=== PATIENT | male | born 1960 | race Caucasian/White ===

== ENCOUNTER 2017-12-14 22:13 | Emergency (ER) | payer MEDICAID, SELFPAY ==
[2017-12-14 22:14] VITALS: PULSE 102; RESP 20; TEMP 36.8; O2SAT 95; BMI 43.0
--- NOTE | 2017-12-14 22:48 | CT_ITS ---
STUDY: CT ABDOMEN AND PELVIS WITHOUT CONTRAST REASON FOR EXAM: Male, 57 years old. Bilateral flank pain RADIATION DOSAGE (If Supplied By Facility): CTDIvol = ( 24.18 ) mGy, DLP = ( 1934.10 ) mGycm TECHNIQUE: Transaxial images were obtained from the dome of the diaphragm to the symphysis pubis without oral contrast, and without intravenous contrast. Sagittal and coronal images were reconstructed. Individualized dose optimization techniques were used for this CT. COMPARISON: August 17, 2017 FINDINGS: The lung bases are clear. There is fatty infiltration of the liver but no dilated intrahepatic biliary radicles. The gallbladder is normal with no gallstones and no pericholecystic fluid collection or streakiness. The spleen, pancreas and both adrenals are normal. The kidneys are normal with no masses, calculi or hydronephrosis. The stomach is normal. There is no bowel distention, acute appendicitis or diverticulitis. No abnormally constricting large bowel lesions. 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 This is in the left midabdomen. The opening is about 7 cm wide. There is no ascites, free intraperitoneal air or any evidence of epiploic appendagitis. The vascular structures in the retroperitoneum are normal There is spondylolisthesis of L5 over S1 with narrowing of the L5-S1 disc space. There is no retrocrural, retroperitoneal or mesenteric adenopathy. There is no mesenteric mistiness The urinary bladder is normal.. The prostate is normal There is no inguinal or pelvic adenopathy and there is no inguinal hernia. CT/Abdomen/Pelvis without Cont IMPRESSION: No acute findings in the abdomen or pelvis. No hydronephrosis. No abnormal calcifications in the kidneys. No acute appendicitis. No diverticulitis. Fatty infiltration of the liver. A left mid abdominal colostomy with a large parastomal herniation with nondistended loops of bowel within the hernial sac. Similar findings were noted in the last examination of June 17, 2017. Electronically Signed: Julian Ledezma, at 0:49 EST Tel , Service support ,
[2017-12-14 23:19] LABS: Absolute Lymphocyte Count 1.71 X10^3/ul (0.83-4.51); Absolute Neutrophil Count 6.8 X10^3/uL (2.0-7.7); Basophil# 0.04 X10^3/uL; Basophil% 0.4 % (0-1); Eosinophil# 0.15 X10^3/uL; Eosinophils% 1.6 % (0-5); Hematocrit 44.7 % (40-54); Hemoglobin 15.3 g/dl (13.0-16.5); Lymphocyte # 1.71 X10^3/ul (4.0); Lymphocyte % 18.2 % (19-41); Mean Corp Hgb Conc 34.2 g/gl (32-36); Mean Corpuscular Hgb 31.4 pg (27.0-32.0); Mean Corpuscular Volume 91.6 fL (80-94); Mean Platelet Vol. 8.9 fl (6.2-12.0); Monocyte# 0.66 X10^3/uL; Neutrophil # 6.78 X10^3/uL (2.7-7.7); Neutrophil % 72.3 % (47-70); Platelet Count 279 K/mm3 (150-450); RBC Distribution Width CV 13.4 % (11.6-14.6); RBC Distribution Width SD 44.3 fl (35.1-43.9); Red Blood Count 4.88 M/mm3 (4.6-6.2); White Blood Count 9.4 K/mm3 (4.4-11.0)
[2017-12-14 23:22] LABS: POSITIVE COUNT NO; POSITIVE DIFFERENTIAL NO; POSITIVE MORPHOLOGY NO
[2017-12-14 23:28] LABS: Bacteria 0 SEEN /hpf (None Seen); Mucous, Urine 0 SEEN /hpf (<or=2+); Red Blood Cells-Urine 0 SEEN /hpf (0-5); Squamous Epithelial Cells - UA 0 SEEN /hpf (0-5)
[2017-12-14 23:35] LABS: Color, Urine Yellow (Yellow); Glucose, Dipstick Normal (Normal); Ketone-Dipstick Negative (Negative); Leukocyte Esterase-Dipstick 25 /ul (Negative); Nitrite-Dipstick Negative (Negative); Occult Blood-Urine Negative /ul (Negative); Protein-Dipstick Negative (Negative); Specific Gravity, Urine 1.005 (1.002-1.030); Urine Bilirubin Dipstick Negative (Negative); Urine Clarity Clear (Clear); Urine Urobilinogen Normal (Normal); Urine pH 6.5 (5.0 - 8.0)
[2017-12-14 23:40] LABS: Anion Gap 10 (5-15); BUN 10 mg/dL (7-18); BUN/Creat Ratio 10.2 RATIO (10-20); Calcium,Total 9.3 mg/dL (8.5-10.1); Chloride 108 mmol/L (98-107); Creatinine, Serum 0.98 mg/dL (0.70-1.30); EST Glomerular Filtration Rate 84 mL/min (>60); Est Glom Filt Rate - Afr Amer 101 mL/min (>60); Glucose 99 mg/dL (74-106); Potassium 3.9 mmol/L (3.5-5.1); Sodium Level 140 mmol/L (136-145)
[2017-12-14 23:48] LABS: White Blood Cells 0-5 SEEN /hpf (0-5)
[2017-12-15] MEDS: Ketorolac 30 MG/ML Syringe IV (00:40)
--- NOTE | 2017-12-15 00:56 | ED.VISSUMM ---
- ER Visit Summary Date of Service: 12/15/17 Chief Complaint: Urinary tract infection History of Present Illness: The patient is a 57 M who believes he has a recurrent urinary tract infection. He self caths due to neurogenic bladder. He has an ostomy due to prior colon cancer. States he is recently in the hospital with a right thigh cutaneous abscess. He is currently on Bactrim with his last dose coming tomorrow. No fevers. He notes pain in the bilateral flank similar to his prior kidney infections. No vomiting. States that the symptoms have been present for the last 4 days. He also notes that he is recently decreased to self cath times per day from 5-3. He notes over the past 4 days that he will have the pain in the flank suprapubic region and try to go to the bathroom and urinate he states that anytime he gets there he is dribbling and then he is done going. Physical Examination: Afebrile vital signs are stable Gen: Well-nourished well-developed morbidly obese Head: Normocephalic atraumatic Eyes: Perrl EOMI ENT: TMs clear no rhinorrhea moist mucous membranes Neck: Supple no lymphadenopathy no JVD nontender CVS: Regular rate rhythm no murmurs normal S1-S2 Respiratory: No distress clear to auscultation bilaterally chest nontender Abdomen: Soft nontender nondistended normal bowel sounds no masses there is an ostomy with a associated area Back: Lateral CVA tenderness Extremity: Nontender no edema Skin: Normal color no rash Neuro: alert orientated ?3 CN II-XII intact normal strength sensation reflexes gait cerebellar Psych: Normal affect normal mood Test Results: CBC BMP urinalysis and CT flank were essentially negative. Emergency Department Course and Treatment: Received a dose of Toradol. I do not see an obvious cause for his pain. Could be due to his recent hospitalization immobility and could be musculoskeletal in nature. Impression: 1. Bilateral flank pain This note was generated with [employer] dictation software. It may contain incorrect words, spelling, and punctuation that were not noted in review of the chart prior to signing ED Disposition - Plan for ED Patient: Disposition: Home or Assisted Living Chief Complaint: Flank Pain Instructions: ED Flank Pain Uncertain Cause Referrals: Edin Mcfarland MD [Primary Care Provider] - 3-5 Days if not improving
[2017-12-15 01:06] VITALS: PULSE 99; RESP 18; O2SAT 96
== END 2017-12-15 01:09 | disposition home or self-care (01) ==
PROVIDERS: Emergency Provider Emergency Medicine; Family Provider Family Medicine; PCP Family Medicine
DX: R10.9 Unspecified abdominal pain (principal); N31.9 Neuromuscular dysfunction of bladder, unspecified; L02.415 Cutaneous abscess of right lower limb; E66.01 Morbid (severe) obesity due to excess calories; Z93.3 Colostomy status; Z85.038 Personal history of other malignant neoplasm of large intestine; Z87.440 Personal history of urinary (tract) infections; Z87.891 Personal history of nicotine dependence; Z79.899 Other long term (current) drug therapy
CPT/HCPCS: 74176; 80048; 81001; 85025; 96374; 99285; P9612; A4216

== ENCOUNTER 2020-06-01 15:56 | Emergency (ER) | payer MEDICAID, SELFPAY ==
[2020-06-01 15:59] VITALS: BP 151/88; PULSE 99; RESP 16; TEMP 36.7; O2SAT 95; BMI 50.2
--- NOTE | 2020-06-01 16:12 | VDLE_ITS ---
Reason For Study: PAIN Procedure LEFT Exam performed portable in ED. GSV is normal. A preliminary report was called and/or faxed CFV is compressible, spontaneous, phasic, to ED. competent, and demonstrates normal augmentation. FV is compressible, spontaneous, phasic, competent and demonstrates normal augmentation. POP V is compressible, spontaneous, phasic, competent and demonstrates normal augmentation. T/P Trunk is compressible. PTV is compressible. LT PerV is compressible. Left Access V at knee is DILATED and NONCOMPRESSIBLE -consistent with Thrombophlebtis. Interpretation Summary Deep veins of the left lower extremity are patent and compressible segmentally. There is no evidence of left lower extremity deep vein thrombosis. Valvular competence appears intact within the proximal deep venous system on the left . The left great saphenous vein appears patent and compressible segmentally. Acute superficial thrombophlebitis is noted involving a left accessory saphenous vein at the knee. Ordering Physician: Timothy Orellana Referring Physician: TAMEKA DIALLO Performed By: Jaylin Gomez, LEAH, RVT
--- NOTE | 2020-06-01 16:14 | ED.VIS.GEN ---
History of Present Illness Chief Complaint: Lower Extremity Injury Informant: Patient Onset: Days Context: Sudden Onset Timing: Continuous Quality: Pain Location: Proximal medial left thigh Current Severity: Mild Maximum Severity: Severe Worsened by: Touch Relieved by: Nothing Associated Symptoms: None Narrative: Patient is a 59-year-old male who presents with redness, tenderness and swelling proximal medial left thigh. He has history of prior DVT left lower extremity. He denies chest pain or shortness of breath. He is not on an anticoagulant or aspirin. He reports history of obstructive sleep apnea and compliant with his BiPAP machine. He denies any other symptoms or complaints. Prior similar symptoms: Yes Recent Illness/Hospitalization: No - Past Medical History (1) Obstructive sleep apnea Status: Acute (2) Cancer of colon with rectum Status: Chronic Comment: Following w/ Dr. Valencia, s/p rectal resection w/ osteomy, last chemotherapy 10/16/15-10/18/15. (3) History of creation of ostomy Status: Chronic (4) Morbid obesity Status: Chronic (5) Neurogenic bladder, flaccid Status: Chronic Comment: Patient self caths daily. (6) Tobacco abuse Status: Chronic Comment: History of, cessation 1 year. Past Medical History - Allergies and Home Meds Allergies/Adverse Reactions: Allergies codeine Allergy (Verified 06/01/20 15:59) Itching Penicillins Allergy (Verified 06/01/20 15:59) Hives IV CONTRAST Allergy (Severe, Uncoded 06/01/20 15:59) Other HIVES/ITCHING/NAUSEA/VOMITING---HAS ALL SYMPTOMS AFTER PREMEDS Primary Care Physician: Edin Mcfarland MD [Primary Care Provider] - Prior records reviewed: Yes - Prior history of DVT Surgical History: tonsillectomy, - - Surgery for fracture left elbow w/ hardware, Complete resection rectum w/ ostomy placement, portacath Lives: Alone Smoking Status: Former smoker Alcohol: None Drugs: None - Family History Paternal Family History: Reports: Diabetes, Heart Disease, Hypertension Maternal Family History: Reports: Hypertension, No pertinent history Review of Systems General: Denies: Chills, Fever, Malaise, Sweats, Weight loss ENT: Denies: Rhinorrhea, Sore throat Cardiovascular: Denies: Chest pain, Palpitations Respiratory: Denies: Dyspnea, Cough, Dyspnea on exertion, Orthopnea Gastrointestinal: Denies: Nausea, Vomiting, Melena, Hematochezia Musculoskeletal: Reports: Swelling, Extremity Pain. Denies: Myalgias, Arthralgias, Neck pain, Back pain Skin: Denies: Rash Neurological: Denies: Weakness, Parasthesia Psych: Denies: Depression, Anxiety Endocrine: Denies: Polyuria, Polydipsia Allergy: Denies: Uticaria, Swelling of the mouth Physical Exam Vital Signs/Narrative: Vital Signs Temp Pulse Resp BP Pulse Ox 06/01/20 15:59 98.1 F 99 16 151/88 H 95 Inital Vital Signs reviewed: Yes General: Well nourished, Well developed, Obese Head: Normocephalic, Atraumatic Eyes: Perrl, EOMI. Negative for: Pale conjunctiva, Scleral icterus ENT: Moist mucous membranes, No rhinorrhea Neck: Supple, Nontender, No lymphadenopathy, No JVD Cardiovascular: Regular rate, Regular rhythm, No murmurs, Normal S1, Normal S2 Respiratory: No distress, CTA bilaterally Extremities: No edema, Tenderness - There is a palpable cord proximal medial left thigh along the distribution of the greater saphenous vein. . Negative for: Nontender Skin: Normal color, No rash, No Trauma. Negative for: Cyanosis, Diaphoresis Neurological: Alert, Oriented x3, Cranial nerves II-XII grossly intact, Normal Strength, Normal Sensation Psychological: Normal affect Diagnostic/Tx/Re-eval Venous duplex study shows left excess vein at the knee is dilated and noncompressible consistent with thrombophlebitis. This is a superficial vessel. There is no evidence of DVT. - Medical Decision Making Has a superficial thrombus in the proximal greater saphenous. Will obtain venous duplex study to determine the extent of the clot and more importantly how close it is to the deep venous system. If within 10 cm he will require anticoagulation otherwise we will treat as superficial venous thrombosis with aspirin. ED Disposition - Plan for ED Patient: Disposition: Home or Assisted Living Diagnosis: Superficial thrombophlebitis of left leg Instructions: ED Phlebitis Superficial Referrals: Edin Mcfarland MD [Primary Care Provider] - 1 Week if not improving Additional Instructions: Take an aspirin in the morning and an aspirin at night for the next 7 days.
--- NOTE | 2020-06-01 17:42 | ED.DCSUM_ITS ---
- ER Visit Summary Date of Service: 06/01/20 Chief Complaint: [] History of Present Illness: The patient is a 59 M [] Physical Examination: [] Test Results: [] Emergency Department Course and Treatment: [] Treatment Plan: [] Disposition: [] Impression: [] This note was generated with [employer] dictation software. It may contain incorrect words, spelling, and punctuation that were not noted in review of the chart prior to signing ED Disposition - Plan for ED Patient: Disposition: Home or Assisted Living Diagnosis: Superficial thrombophlebitis of left leg Instructions: ED Phlebitis Superficial Prescriptions: Aspirin E.C. [Ecotrin] 325 mg PO BID #14 tab Transmission Status: Pending to [facility]/pharmacy #[id number] Referrals: Edin Mcfarland MD [Primary Care Provider] - 1 Week if not improving Additional Instructions: Take an aspirin in the morning and an aspirin at night for the next 7 days.
[2020-06-01 17:49] VITALS: PULSE 98; RESP 17; O2SAT 93
== END 2020-06-01 18:10 | disposition home or self-care (01) ==
PROVIDERS: Emergency Provider Emergency Medicine; PCP Family Medicine
DX: I80.02 Phlebitis and thrombophlebitis of superficial vessels of left lower extremity (principal); E66.01 Morbid (severe) obesity due to excess calories; Z85.038 Personal history of other malignant neoplasm of large intestine; Z86.718 Personal history of other venous thrombosis and embolism; Z87.891 Personal history of nicotine dependence
CPT/HCPCS: 93971; 99281; 99282

== ENCOUNTER 2021-11-08 13:07 | Observation (INO) | payer MEDICAID, SELFPAY ==
[2021-11-08] VITALS (8 sets, daily range): BP systolic 152–193; BP diastolic 94–112; PULSE 18–112; RESP 13–104; TEMP 36.6–36.9; O2SAT 92–95; BMI 52.9; BMI 50.4
--- NOTE | 2021-11-08 13:31 | EKG12_ITS ---
Test Reason : CP Blood Pressure : / mmHG Vent. Rate : 112 BPM Atrial Rate : 112 BPM P-R Int : 162 ms QRS Dur : 070 ms QT Int : 330 ms P-R-T Axes : 049 026 058 degrees QTc Int : [address] abnormality Abnormal ECG Confirmed by BLADIMIR MCMILLAN, TWYLA ([id number]), editor & co founder KALI HERMAN ([id number]) on 11/13/2021 11:19:30 AM Referred By: JOSE FRANCISCO/DIANN Confirmed By:TWYLA GARRISON MD
--- NOTE | 2021-11-08 13:33 | EX.ED.DYSGE1 ---
HPI History of Present Illness Chief Complaint: Chest Pain Informant: patient Onset/Context/Timing Onset: Today Current Severity: Mild Maximum Severity: Moderate Narrative Narrative: Patient states he was standing at the kitchen sink doing dishes when he started getting pain in his chest. He turned to go sit at the kitchen table when he fell landing on his right side. He now has significant pain on the posterior right hip. He does not believe he passed out. Chest pain is currently improved. [facility] Medical History (Updated 11/08/21 @ 17:[address] Ellie Card MD) Allergy to contrast media (used for diagnostic x-rays) Cancer of colon with rectum Depression Morbid obesity Neurogenic bladder, flaccid Obstructive sleep apnea Parastomal hernia Home Medications hydroxyzine HCl 50 mg PO Q6H PRN PRN 12/14/17 [History Last Taken Unknown] pantoprazole 20 mg PO DAILY 12/14/17 [History Last Taken Unknown] quetiapine 100 mg PO QHS 12/14/17 [History Last Taken Unknown] sertraline [Zoloft] 100 mg PO DAILY 12/14/17 [History Last Taken Unknown] aspirin 325 mg PO BID #14 tab 06/01/20 [Rx Last Taken Unknown] Allergy/AdvReac Type Severity Reaction Status Date / Time codeine Allergy Itching Verified 11/08/21 13:08 Penicillins Allergy Hives Verified 11/08/21 13:08 IV CONTRAST Allergy Severe Other Uncoded 06/01/20 15:59 Social History Smoking Status: Former smoker ROS ROS ED Constitutional Constitutional ED: Denies chills or fever(s) Eyes Eyes: Denies change in vision ENT ENT ED: Reports other Details: Congestion ; Denies sore throat Cardiovascular Cardiovascular: Reports chest pain Respiratory/Chest Respiratory/Chest: Denies cough or dyspnea Gastrointestinal Gastrointestinal: Denies abdominal pain, diarrhea, nausea or vomiting Genitourinary Genitourinary ED: Denies dysuria Musculoskeletal Musculoskeletal: Reports arthralgias; Denies back pain Integumentary Denies rash Neurologic Neurologic: Reports weakness; Denies headache(s) Allergic/Immunologic Allergic/Immunologic ED: Denies urticaria EXAM Physical Exam Const Vital Signs: 11/08/21 13:08 11/08/21 13:39 11/08/21 15:26 Temperature 98 F Temperature Source Temporal Pulse Rate 112 H 110 H 106 H Respiratory Rate 21 H 13 18 Blood Pressure 152/94 H 174/102 H 193/112 H Blood Pressure Mean 113 126 139 Pulse Ox 95 93 93 Oxygen Delivery Method Room Air Room Air 11/08/21 17:19 Temperature Temperature Source Pulse Rate 107 H Respiratory Rate 19 H Blood Pressure 180/102 H Blood Pressure Mean 128 Pulse Ox 92 Oxygen Delivery Method Positive obese Nutritional Appearance: obese HEENT Reports moist mucous membranes Eyes PERRL and EOMs intact bilaterally Neck supple Chest Wall inspection of chest normal and palpation of chest normal Resp normal respiratory effort and clear to auscultation bilaterally Cardio regular rhythm Rate: tachycardic GI non-tender Palpation: soft Extremity Extremity Narrative: Tenderness to the right hip. Leg rolled externally. Strong distal pulses Neuro oriented x3 Sensorium / Orientation: alert Psych mental status grossly normal Skin no rashes or lesions noted MDM MDM MDM Narrative Medical decision making narrative: Patient was given morphine and Zofran. He was given p.o. aspirin. EKG, chest x-ray, lab work obtained. Pelvis and right hip x-rays ordered. Lab Data Attestation: I reviewed the patient's lab results. Labs: Laboratory Results - last 24 hr 11/08/21 11/08/21 11/08/21 13:55 15:05 15:05 WBC 7.9 RBC 4.52 L Hgb 14.5 Hct 41.6 MCV 92.0 MCH 32.1 H MCHC 34.9 RDW Std Deviation 44.2 H RDW Coeff of Mar 13.1 Plt Count 243 MPV 8.9 Immature Gran % (Auto) 0.800 Neut % (Auto) 73.7 H Lymph % (Auto) 14.4 L Kendall % (Auto) 9.6 Eos % (Auto) 0.9 Baso % (Auto) 0.6 Absolute Neuts (auto) 5.9 Absolute Lymphs (auto) 1.14 Nucleated RBC % 0 Sodium 140 Potassium 4.0 Chloride 107 Carbon Dioxide 27.0 Anion Gap 6 BUN 5 L Creatinine 0.80 Estim Creat Clear Calc 101.39 Est GFR (MDRD) Af Amer 126 Est GFR (MDRD) Non-Af 104 BUN/Creatinine Ratio 6.2 L Glucose 161 H Calcium 9.1 Troponin I High Sens 8 POC Glucose 149 H Radiography Chest X-Ray - ED: 1 View, Read by ED Physician and Chronic Changes Diagnostic Testing: Clinical Impression(s) from Imaging Studies Hip/Pelvis X-Ray 11/08/21 13:34 IMPRESSION: Mild degenerative changes of the right hip. No acute fracture of the hips or pelvis Electronically Signed: Edin Aranda MD at 16:16 EST , Service support , Chest X-Ray 11/08/21 15:45 IMPRESSION: Cardiomegaly. No acute cardiopulmonary pathology Electronically Signed: Edin Aranda MD at 16:08 EST , Service support , EKG Initial EKG: Attestation: I personally reviewed and interpreted this EKG as follows: Interpretation: Sinus Tachycardia (Sinus tach at [address].) Treatment and Re-Evaluation Comments:: Lab work reviewed and largely unremarkable. Troponin is normal at 8. Chest x-ray reveals chronic changes. Pelvis and right hip x-rays reveal no obvious fracture. Patient did require dose of Dilaudid after return from x-ray. He is still having significant pain in his hip. I did recommend observation overnight for cycling cardiac enzymes as well as further evaluation of his hip. I did explain to him that MRI would be a better diagnostic test to evaluate this. I will speak with the hospitalist. Discharge Plan Triage Chief Complaint: Chest Pain ED Provider: Ellie Card Dx/Rx/DC Orders Clinical Impression: Chest pain, Fall, Acute pain of right hip Prescriptions: No Action sertraline [Zoloft] 100 MG tablet 100 mg PO DAILY RF: 0 hydroxyzine HCl 50 MG tablet 50 mg PO Q6H PRN PRN (Reason: Anxiety) RF: 0 quetiapine 100 MG tablet 100 mg PO QHS RF: 0 pantoprazole 20 MG tablet 20 mg PO DAILY RF: 0 aspirin 325 MG tablet 325 mg PO BID Qty: 14 RF: 0 Primary Care Provider: Edin Mcfarland Referrals: Edin Mcfarland MD [Primary Care Provider] - Disposition Disposition: Acute Care [facility]
--- NOTE | 2021-11-08 13:34 | RAD_ITS ---
STUDY: X-RAY - PELVIS AND RIGHT HIP REASON FOR EXAM: Male, 61 years old. injury TECHNIQUE: 3 views of the pelvis and hip. COMPARISON: None. FINDINGS: There is a non-specific bowel gas pattern. Normal visualized soft tissue structures. Normal bilateral iliac wings, sacroiliac joints and visualized sacrum. Normal bilateral superior and inferior pubic rami. Normal pubic symphysis. Normal bilateral ischial tuberosities. Normal visualized femoral head. Small right acetabular spur. Normal hip joint. RAD/HIP, UNI W/ Pelvis 2-3 Views IMPRESSION: Mild degenerative changes of the right hip. No acute fracture of the hips or pelvis Electronically Signed: Edin Aranda MD at 16:16 EST , Service support ,
[2021-11-08 14:11] LABS: Bedside Glucose 149 mg/dL (70-110)
[2021-11-08] MEDS: Aspirin 81 MG TAB.CHEW 324 MG PO (14:11)
--- NOTE | 2021-11-08 14:52 | ED.RN ---
Patient difficult IV stick, multiple attempts unsuccessful. US IV needed.
[2021-11-08 15:14] LABS: Absolute Lymphocyte Count 1.14 X10^3/uL (0.83-4.51); Absolute Neutrophil Count 5.9 X10^3/uL (2.0-7.7); Basophil# 0.05 X10^3/uL; Basophil% 0.6 % (0-1); Eosinophil# 0.07 X10^3/uL; Eosinophils% 0.9 % (0-5); Hematocrit 41.6 % (40-54); Hemoglobin 14.5 g/dL (13.0-16.5); Lymphocyte # 1.14 X10^3/ul (0.83-4.51); Lymphocyte % 14.4 % (19-41); Mean Corp Hgb Conc 34.9 g/dL (32-36); Mean Corpuscular Hgb 32.1 pg (27.0-32.0); Mean Platelet Vol. 8.9 fl (6.2-12.0); Monocyte# 0.76 X10^3/uL; Monocyte% 9.6 % (0-10); NRBC Flagged by Analyzer 0 % (0-5); Neutrophil # 5.86 X10^3/uL (2.7-7.7); Neutrophil % 73.7 % (47-70); Platelet Count 243 K/mm3 (150-450); RBC Distribution Width CV 13.1 % (11.6-14.6); RBC Distribution Width SD 44.2 fl (35.1-43.9); Red Blood Count 4.52 M/mm3 (4.6-6.2); White Blood Count 7.9 K/mm3 (4.4-11.0)
[2021-11-08] MEDS: Ondansetron 4 MG/2 ML Vial IV (15:21)
[2021-11-08] MEDS: Morphine 4 MG/ML Syringe IV (15:21)
[2021-11-08 15:30] LABS: Anion Gap 6 (5-15); BUN 5 mg/dL (7-18); BUN/Creat Ratio 6.2 RATIO (10-20); Calcium,Total 9.1 mg/dL (8.5-10.1); Chloride 107 mmol/L (98-107); EST Glomerular Filtration Rate 104 mL/min (>60); Est Glom Filt Rate - Afr Amer 126 mL/min (>60); Estimated Creatinine Clearance 101.39 ml/min; Glucose 161 mg/dL (74-106); Sodium Level 140 mmol/L (136-145); Troponin-I HS 8 pg/mL (3.0-78.0)
--- NOTE | 2021-11-08 15:45 | RAD_ITS ---
STUDY: X-RAY CHEST REASON FOR EXAM: Male, 61 years old. cp TECHNIQUE: AP portable COMPARISON: 09/22/2017 FINDINGS: Less than optimal inspiratory effort is seen however the lungs are clear.. There is no demonstrated pleural abnormality. Heart is enlarged.. Normal mediastinum and carlito. Normal visualized pulmonary arteries. Normal visualized aortic arch and descending thoracic aorta. Dorsal spine demonstrates degenerative changes. Normal visualized ribs, clavicles, and shoulders. There is no demonstrated abnormality of the visualized soft tissue structures of the upper abdomen. RAD/Chest 1 View (Portable) IMPRESSION: Cardiomegaly. No acute cardiopulmonary pathology Electronically Signed: Edin Aranda MD at 16:08 EST , Service support ,
[2021-11-08] MEDS: HYDROmorphone 0.5 MG/0.5 ML SYRINGE IV ×2 (17:22→21:25)
--- NOTE | 2021-11-08 18:15 | HP.PCM.HOS_ITS ---
HPI - General General Date of Admission: 11/08/21 Date of Service: 11/08/21 Chief Complaint: Chest pain, fall w/ R hip pain HPI Narrative The patient is a 61 y/o M w/ PMHx: CARLOS on BIPAP q HS, Morbid Obesity, Hx Colon- rectal CA s/p resection with ostomy with reported recent bowel obstruction ~ 2 weeks prior treated conservatively at [facility], Former tobacco use, Anxiety and Depression, Hx Neurogenic bladder w/ history prior frequent UTI reporting no self catheterizations over the last year following discussions with his Urologist to avoid hospitalization who presents to the [facility] ED on 11/08/21 with history of standing in his kitchen earlier in the day with sudden onset midsternal nonradiating chest pressure rated 4-5 out of 10 in severity with associated nausea with lightheadedness and dizziness prompting him to turn around to go sit down however he fell onto his right hip with no specific loss of consciousness with intractable hip pain and debility with inability to bear weight following. He notes currently his chest pain has completely resolved and rates it 0 out of 10. He notes currently upon evaluation his hip pain is severe with any movement rated 10 out of 10 and with no activity laying flat and still 6 out of 10, sharp. Work-up in the ED included T 98, heart rate 112, BP 152/94, respiratory rate 21, 95% on room air, CBC with WC 7.9, hemoglobin 14.5, platelet 243 without marked shift, BMP with glucose 161 otherwise not marked appearing, high-sensitivity cardiac troponin 8, rapid COVID antigen negative, chest x-ray with cardiomegaly with no acute cardiopulmonary findings, plain film of the right hip and pelvis with mild degenerative changes with no acute fracture, EKG with sinus tachycardia with no acute evidence of ischemia. In the ED patient administered Zofran, morphine, Dilaudid and aspirin 324 mg p.o. x1. FOR[facility]LY [facility], [facility] Medical History (Updated 11/08/21 @ 18:[address] Elin Dumont MD) Allergy to contrast media (used for diagnostic x-rays) Cancer of colon with rectum Depression Morbid obesity Neurogenic bladder, flaccid Obstructive sleep apnea Parastomal hernia Home Medications alendronate 70 mg PO QWEEK 11/08/21 [History Last Taken Unknown] ondansetron 4 mg PO Q6H PRN PRN 11/08/21 [History Last Taken Unknown] pantoprazole 40 mg PO DAILY 11/08/21 [History Last Taken 11/07/21] sumatriptan succinate 100 mg PO DAILY PRN 11/08/21 [History Last Taken Unknown] Allergy/AdvReac Type Severity Reaction Status Date / Time codeine Allergy Itching Verified 11/08/21 13:08 Penicillins Allergy Hives Verified 11/08/21 13:08 IV CONTRAST Allergy Severe Other Uncoded 06/01/20 15:59 Family History (Updated 11/08/21 @ 18:[address] Elin Dumont MD) Mother No problems noted. Father Heart disease Cancer other (No marked maternal family history reported included HD, DM, CA.) Surgical History (Updated 11/08/21 @ 18:[address] Elin Dumont MD) H/O resection of rectum History of bowel resection History of creation of ostomy History of surgery on arm History of tonsillectomy and adenoidectomy Social History (Updated 11/08/21 @ 18:[address] Elin Dumont MD) housing: other details: Lives with a roommate. Smoking Status: Former smoker how long ago did patient quit smoking: Quit 10 years prior, smoked 1 ppd since age 28. alcohol intake: current alcohol intake frequency: a few times a month substance use type: does not use ROS ROS Narrative Admission Review of Systems: CONSTITUTIONAL: No weight loss, fever, chills, + weakness or fatigue. HEENT: Eyes: No visual loss, blurred vision, double vision or yellow sclerae. Ears, Nose, Throat: No hearing loss, sneezing, congestion, runny nose or sore throat. SKIN: No rash or itching, lesions, wounds. CARDIOVASCULAR: + chest pain, chest pressure or chest discomfort, LH, dizziness. No palpitations, edema, orthopnea, syncopal events. RESPIRATORY: No shortness of breath, cough or sputum, wheezing, hemoptysis. GASTROINTESTINAL: + Nausea, No anorexia, vomiting or diarrhea, abdominal pain, melena, BRBPR. GENITOURINARY: + Chronic frequency. No dysuria, urgency or retention. NEUROLOGICAL: No headache, dizziness, syncope, paralysis, ataxia, numbness or tingling in the extremities, focal weakness, change in bowel or bladder control, seizure. MUSCULOSKELETAL: + muscle, back pain, joint pain or stiffness. HEMATOLOGIC: No anemia, bleeding or bruising. LYMPHATICS: No enlarged nodes. No history of splenectomy. PSYCHIATRIC: + history of depression or anxiety. ENDOCRINOLOGIC: No reports of sweating, cold or heat intolerance. No polyuria or polydipsia. ALLERGIES: No history of asthma, hives, eczema or rhinitis. Vital Signs Vital Signs Vital Signs: 11/08/21 13:08 11/08/21 13:39 11/08/21 15:26 Temperature 98 F Temperature Source Temporal Pulse Rate 112 H 110 H 106 H Respiratory Rate 21 H 13 18 Blood Pressure 152/94 H 174/102 H 193/112 H Blood Pressure Mean 113 126 139 Pulse Ox 95 93 93 Oxygen Delivery Method Room Air Room Air 11/08/21 17:19 Temperature Temperature Source Pulse Rate 107 H Respiratory Rate 19 H Blood Pressure 180/102 H Blood Pressure Mean 128 Pulse Ox 92 Oxygen Delivery Method Weight Weight: 368 lb 13.334 oz Body Mass Index (BMI) 52.9 Physical Exam Narrative Physical Examination: General: Awake, alert, oriented x 3 and cooperative, laying in the bed, notes chest pain resolved, ongoing significant severe right hip pain, worse with any movement. Skin: Normal color, normal turgor, no icterus, no cyanosis. HEENT: AT/NC, EOMI, PERRLA, mildly dry MM, no carotid bruits or JVD noted; however, thickened neck makes examination difficult. Lungs: Diminished bilaterally, greater bases, no evidence of any distress, distant, no rales, ronchi or wheezing. Heart: Regular rate and rhythm; no gallop, rub audible, no reproducible midsternal chest discomfort with palpation. Abdomen: Soft, morbidly obese, left lower quadrant ostomy in place, uses band for hernia, difficult to assess distention given habitus, distant normal bowel sounds, no obvious HSM but habitus makes exam difficult. Extremities: No cyanosis, clubbing, or edema, peripheral pulses intact, severe intractable right hip pain ongoing. Neurological: Patient awake, alert, oriented as noted, cognitive function intact; pupils equally reactive to light and accommodation, cranial nerves II- XII grossly normal, moving all 4 extremities, no focal deficits but difficult exam given intractable right hip pain, deferred significant right lower extremity movement pending further evaluation for possible fracture, strength accordingly severely globally decreased. Psychiatric: Affect appears uncomfortable, no acute evidence of depressive or anxiety feelings. Results Lab / Micro Data Result Diagrams: 11/08/21 15:05 11/08/21 15:05 Labs: Laboratory Results - last 24 hr 11/08/21 13:55: POC Glucose 149 H 11/08/21 15:05: WBC 7.9, RBC 4.52 L, Hgb 14.5, Hct 41.6, MCV 92.0, MCH 32.1 H, MCHC 34.9, RDW Std Deviation 44.2 H, RDW Coeff of Mar 13.1, Plt Count 243, MPV 8.9, Immature Gran % (Auto) 0.800, Neut % (Auto) 73.7 H, Lymph % (Auto) 14.4 L, Linn % (Auto) 9.6, Eos % (Auto) 0.9, Baso % (Auto) 0.6, Absolute Neuts (auto) 5.9, Absolute Lymphs (auto) 1.14, Nucleated RBC % 0 11/08/21 15:05: Sodium 140, Potassium 4.0, Chloride 107, Carbon Dioxide 27.0, Anion Gap 6, BUN 5 L, Creatinine 0.80, Estim Creat Clear Calc 101.39, Est GFR (MDRD) Af Amer 126, Est GFR (MDRD) Non-Af 104, BUN/Creatinine Ratio 6.2 L, Glucose 161 H, Calcium 9.1, Troponin I High Sens 8 Micro: Microbiology 11/08/21 14:20 Nasal Secretion SARS-CoV-2 Antigen (Rapid) - Final Radiology Impression Hip/Pelvis X-Ray 11/08/21 13:34 IMPRESSION: Mild degenerative changes of the right hip. No acute fracture of the hips or pelvis Electronically Signed: Edin Aranda MD at 16:16 EST , Service support , Chest X-Ray 11/08/21 15:45 IMPRESSION: Cardiomegaly. No acute cardiopulmonary pathology Electronically Signed: Edin Aranda MD at 16:08 EST , Service support , Assessment & Plan Assessment/Plan (1) Chest pain: QUALIFIERS: Chest pain type: unspecified Qualified Code(s): R07.9 - Chest pain, unspecified (2) Acute pain of right hip: PLAN: The patient is a 61 y/o M w/ PMHx: CARLOS on BIPAP q HS, Morbid Obesity, Hx Colon-rectal CA s/p resection with ostomy with reported recent bowel obstruction ~ 2 weeks prior treated conservatively at [facility], Former tobacco use, Anxiety and Depression, Hx Neurogenic bladder w/ history prior frequent UTI reporting no self catheterizations over the last year following discussions with his Urologist to avoid hospitalization who presents to the [facility] ED on 11/08/21 with history of standing in his kitchen earlier in the day with sudden onset midsternal nonradiating chest pressure rated 4-5 out of 10 in severity with associated nausea with lightheadedness and dizziness prompting him to turn around to go sit down however he fell onto his right hip with no specific loss of consciousness with intractable hip pain and debility with inability to bear weight following. #1. Chest Pain: EKG in ED sinus tachycardia with no acute evidence of ischemia, CXR w/ cardiomegaly with no acute cardiopulmonary findings, initial trop normal x1. Will admit to PCU, place on a monitored bed to assure no acute myocardial infarction with serial cardiac enzymes and EKGs. If repeat serial cardiac enzymes and EKGs remain unremarkable will pursue a.m. cardiac nuclear stress testing. Magnesium level requested. FLP in AM. Maintain on aspirin therapy, PRN NG, morphine. #2. General debility, intractable R hip pain s/p mechanical fall: Plain film noting no acute fracture however given size and ongoing intractable pain will further assess. Will maintain on fall precautions, continue bedrest until as sure no fracture, will obtain CT without contrast imaging of the right hip and pelvis and if any fracture present will request orthopedic surgery involvement. If fracture evident or still intractable pain may need catheter placement, monitor I/Os, frequent positioning, fall precautions, pain, anti-emetic regimen. Pending imaging, if no fracture obtain PT/OT/CM. #3. Elevated BP without HTN history: Notable elevated BP in the ED, suspect pain related however will be cautious and continue to closely monitor, PRN Hydralazine in the interim. #4. Hx Colon-rectal CA with recent bowel obstruction: s/p resection with ostomy with reported recent bowel obstruction, resolved conservatively, will continue to closely monitor I/Os, if necessary may request [place] records. #5. Morbid Obesity: Weight loss and lifestyle changes encouraged. #6. Anxiety and Depression: From prior list had previously been on sertraline, quetiapine, hydroxyzine regimen however he is no longer on this, encourage cont inued outpatient follow-up and resumption of medications if necessary. #7. Neurogenic Bladder with prior Hx self-catheterzation: Patient has been urinating frequently over the last year as he and his urologist decided to stop self-catheterization to avoid any unnecessary hospitalization for UTIs which patient has had frequently. #8. Former tobacco use: Encourage continued tobacco cessation #9. GERD: Continue home PPI. #10. CARLOS: BIPAP q HS. #11. DVT Prophylaxis: SCDs, await CT imaging hip and if no fracture start lovenox. #12. CODE STATUS: Patient does have a healthcare power of commercial litigation attorney specifically Bill his friend, living will in place, full code. Charges/Coding Visit Charges OBSV E&M: 25502 Initial observation care L3
--- NOTE | 2021-11-08 18:26 | ED.RN ---
Verified need for indwelling urinary catheter placement with Dr. Dumont. Due to patient needing to be immobile and non weight bearing and with obese nature, physician requests catheter placement as patient is unable to use urinal in bed.
--- NOTE | 2021-11-08 19:33 | EKG12_ITS ---
Test Reason : AM EKG Blood Pressure : / mmHG Vent. Rate : 109 BPM Atrial Rate : 109 BPM P-R Int : 174 ms QRS Dur : 078 ms QT Int : 332 ms P-R-T Axes : 053 039 064 degrees QTc Int : 447 ms Sinus tachycardia Otherwise normal ECG When compared with ECG of 08-NOV-2021 21:48, MANUAL COMPARISON REQUIRED, DATA IS UNCONFIRMED Confirmed by ELKIN MCMILLAN, STONEY ([id number]), industrial editor KALI HERMAN ([id number]) on 11/15/2021 8:02:32 AM Referred By: SIMON Confirmed By:ABDIEL GRANGER MD
--- NOTE | 2021-11-08 19:34 | PCS.PANDOC ---
PANDEMIC DOCUMENTATION INITIATED: Date: 06/17/2021 Time: 190
--- NOTE | 2021-11-08 19:34 | PCS.PANDOC ---
PANDEMIC DOCUMENTATION INITIATED: Date: 06/17/2021 Time: 190
--- NOTE | 2021-11-08 20:02 | CT_ITS ---
STUDY: CT PELVIS WITHOUT CONTRAST REASON FOR EXAM: Male, 61 years old. intractable R hip pain, s/p fall -- making sure no hip fracture RADIATION DOSAGE (If Supplied By Facility): CTDIvol = ( 48.13 ) mGy, DLP = ( 1971.21 ) mGycm TECHNIQUE: Transaxial imaging of the pelvis was performed with oral contrast, and without intravenous administration of contrast material. Individualized dose optimization techniques were used for this CT. COMPARISON: None. FINDINGS: Incompletely distended thick-walled bladder containing MEZA catheter Normal visualized small intestine. Minor diverticular changes of the colon without evidence for acute diverticulitis There is no pelvic fluid. There is no pelvic mass lesion or lymphadenopathy. Normal visualized pelvic arteries. Small fat-containing left anterior pelvic wall hernia Lumbar spine demonstrates degenerative change. Grade 1 spondylolisthesis at L5-S1. There is no evidence for acute fracture CT/Pelvis without IV Contrast IMPRESSION: No evidence for acute fracture of the hips or pelvis Electronically Signed: Edin Aranda MD at 20:58 EST , Service support ,
[2021-11-08] MEDS: 0.9% Saline Lock 10 ML Syringe IV ×3 (20:27→23:44)
[2021-11-08] MEDS: oxyCODONE 5 MG Tablet PO (20:27)
[2021-11-08] MEDS: 0.9% Normal Saline 1,000 ML 100 ML IV (20:28)
[2021-11-08 20:44] LABS: Troponin-I HS 7 pg/mL (3.0-78.0)
[2021-11-08 20:55] LABS: Bedside Glucose 156 mg/dL (70-110)
[2021-11-08] MEDS: Acetaminophen 325 MG Tablet 650 MG PO (21:29)
--- NOTE | 2021-11-08 21:50 | CPS ---
set up pt's home BIPAP unit.
[2021-11-08 22:24] LABS: Troponin-I HS 8 pg/mL (3.0-78.0)
[2021-11-09] VITALS (10 sets, daily range): BP systolic 138–177; BP diastolic 76–97; PULSE 95–120; RESP 16–20; TEMP 36.8–37.9; O2SAT 92–96
[2021-11-09] MEDS: HYDROmorphone 0.5 MG/0.5 ML SYRINGE IV ×6 (01:28→21:45)
[2021-11-09] MEDS: 0.9% Saline Lock 10 ML Syringe IV ×6 (01:28→21:44)
[2021-11-09] MEDS: Ondansetron 4 MG/2 ML Vial IV ×2 (01:33→19:30)
[2021-11-09] MEDS: oxyCODONE 5 MG Tablet PO ×5 (02:48→22:18)
[2021-11-09] MEDS: Aspirin E.C. 81 MG Tablet PO (05:53)
--- NOTE | 2021-11-09 05:55 | EKG12_ITS ---
Test Reason : CP ADMISSION Blood Pressure : / mmHG Vent. Rate : 123 BPM Atrial Rate : 123 BPM P-R Int : 182 ms QRS Dur : 072 ms QT Int : 304 ms P-R-T Axes : 045 030 060 degrees QTc Int : 435 ms Sinus tachycardia Nonspecific ST and T wave abnormality Abnormal ECG When compared with ECG of 08-NOV-2021 13:10, MANUAL COMPARISON REQUIRED, DATA IS UNCONFIRMED Confirmed by ELKIN MCMILLAN, STONEY ([id number]), design editor KALI HERMAN ([id number]) on 11/15/2021 8:02:55 AM Referred By: SIMON Confirmed By:ABDIEL GRANGER MD
[2021-11-09] MEDS: Acetaminophen 325 MG Tablet 650 MG PO (05:56)
[2021-11-09 06:48] LABS: Absolute Lymphocyte Count 1.56 X10^3/uL (0.83-4.51); Absolute Neutrophil Count 4.4 X10^3/uL (2.0-7.7); Basophil# 0.06 X10^3/uL; Basophil% 0.9 % (0-1); Eosinophil# 0.11 X10^3/uL; Eosinophils% 1.6 % (0-5); Hematocrit 41.9 % (40-54); Hemoglobin 13.9 g/dL (13.0-16.5); Lymphocyte # 1.56 X10^3/ul (0.83-4.51); Lymphocyte % 22.1 % (19-41); Mean Corp Hgb Conc 33.2 g/dL (32-36); Mean Corpuscular Hgb 31.2 pg (27.0-32.0); Mean Corpuscular Volume 94.2 fL (80-94); Mean Platelet Vol. 9.4 fl (6.2-12.0); Monocyte# 0.84 X10^3/uL; Monocyte% 11.9 % (0-10); NRBC Flagged by Analyzer 0 % (0-5); Neutrophil # 4.43 X10^3/uL (2.7-7.7); Neutrophil % 62.8 % (47-70); Platelet Count 237 K/mm3 (150-450); RBC Distribution Width CV 13.3 % (11.6-14.6); RBC Distribution Width SD 46.2 fl (35.1-43.9); Red Blood Count 4.45 M/mm3 (4.6-6.2); White Blood Count 7.1 K/mm3 (4.4-11.0)
[2021-11-09 07:26] LABS: ALB/GLOB Ratio 0.7 RATIO (0.9-2.4); AST(SGOT) 23 U/L (15-37); Alanine Aminotransfer ALT/SGPT 30 U/L (16-61); Albumin, Serum 2.8 g/dL (3.2-5.0); Alkaline Phosphatase 115 U/L (45-117); Anion Gap 6 (5-15); BUN 6 mg/dL (7-18); BUN/Creat Ratio 7.4 RATIO (10-20); Calcium,Total 8.2 mg/dL (8.5-10.1); Chloride 105 mmol/L (98-107); Cholesterol 150 mg/dL (200); Creatinine, Serum 0.81 mg/dL (0.70-1.30); EST Glomerular Filtration Rate 103 mL/min (>60); Est Glom Filt Rate - Afr Amer 125 mL/min (>60); Estimated Creatinine Clearance 100.14 ml/min; Globulin 4.1 g/dL (2.2-4.2); Glucose 162 mg/dL (74-106); High Density Lipoprotein 31 mg/dL; Potassium 3.6 mmol/L (3.5-5.1); Protein, Total 6.9 g/dL (6.4-8.2); Sodium Level 138 mmol/L (136-145); Triglycerides 176 mg/dL; Very Low Density Lipoprotein 35 mg/dL (5-40)
[2021-11-09 08:28] LABS: Hemoglobin A1c 7.5 % (3.8-5.6)
[2021-11-09] MEDS: Pantoprazole Sodium 40 MG Tablet PO (10:52)
--- NOTE | 2021-11-09 11:37 | PCM.DC ---
Discharge Instructions Diet Discharge Diet: No restrictions Activity Discharge Activity: Return to Normal Activity Weight Bearing Status: Weight bearing as tolerated Dressing / Incision Call your doctor if you observe: Fever of 101 or Higher, Numbness or Tingling, Shortness of breath, Dizziness, Chest pain, Increased palpitations (irregular heartbeat) and Calf discomfort Follow Up Care Please Follow Up With: Primary care provider When: Within the next two weeks. Test Results: Test results from this visit will be discussed in further detail at your follow-up appointment, if applicable. Discharge Plan Admission Admit Date/Time: 11/08/21 18:27 Primary Reason for Your Visit: Chest pain Attending Provider: Shahid Wilson Primary Care Provider: Edin Mcfarland Discharge Orders/Prescriptions Prescriptions: No Action sumatriptan succinate 100 mg tablet 100 mg PO DAILY PRN (Reason: Migraine Headache) RF: 0 alendronate 70 mg tablet 70 mg PO QWEEK RF: 0 pantoprazole 40 mg tablet,delayed release (DR/EC) 40 mg PO DAILY RF: 0 ondansetron 4 mg tablet,disintegrating 4 mg PO Q6H PRN PRN (Reason: Nausea) RF: 0 Referrals / Follow Up: Edin Mcfarland MD [Primary Care Provider] - Disposition Disposition (needs filled in before D/C Order can be placed): Home, Self Care
[2021-11-09 12:11] LABS: Bedside Glucose 215 mg/dL (70-110)
--- NOTE | 2021-11-09 13:37 | STRESSREP_ITS ---
Stress Test Report Pharmacologic/Lexiscan myocardial perfusion stress test. Indication; 69-year-old patient with history of of obstructive sleep apnea, has been on BiPAP, morbid obesity History of: Rectal cancer status post resection Presenting symptoms of chest pain fall with right hip pain Cardiac work-up with EKG showed no evidence of ischemia with sinus tachycardia. Stress protocol: Resting EKG demonstrates. Normal sinus rhythm. 0.4 mg of regadenoson was infused per usual protocol followed by rapid intravenous saline flush injection continuous EKG monitoring was performed. The resting heart rate 100 bpm, the maximum heart rate attained was, 116 bpm which was 72% of maximum predicted heart . Stress EKG showed[, no significant change from the resting EKG, with maximum heart rate of 116 bpm. Arrhythmia: No arrhythmia demonstrated Symptoms: Patient had no symptoms of chest pain Blood pressure at rest: 148/82 mmHg blood pressure at the end of stress: 146/80 mmHg Myocardial perfusion protocol. 15 mCi ]of Technetium 99m Sestamibi was injected at rest. [ 0.4 mg ]of Regadenoson was infused per usual protocol peak infusion[45 mCi ]of Technetium 99m sestamibi was injected. Stress images were obtained stress and rest images were reconstructed and compared in the short axis vertical and horizontal long axis. Gated images were also obtained Perfusion SPECT analysis: Review of the images demonstrate normal uptake of sestamibi at rest, post stress images demonstrate similar uptake of sestamibi to the resting images, homogeneous tracer uptake With no evidence of reversible myocardial ischemia. Gated SPECT analysis: The gated ejection fraction is 64%, normal LV wall motion and normal LV systolic function Conclusion: Normal Lexiscan sestamibi myocardial perfusion study. Normal LV systolic function Je Delgadillo MD,FACC,[facility]
--- NOTE | 2021-11-09 14:19 | PCM.PN.HOSP ---
Documented by User: Juan Jose FRENCH 11/09/21 14:41 Subjective Subjective Patient is a 61-year-old male comfortably resting in bed, alert and orient x3. Patient reports resolution of his chest pain and denies development of any new symptoms overnight. Patient still reports right-sided hip pain from a fall he suffered prior to admission. Patient reports that pain is worse with ambulation, although is tolerable with medications and while at rest. Does not appear in acute distress. Objective Data Objective Data Vital Signs: Vital Signs Temp Pulse Resp BP Pulse Ox 98.2 F 100 20 H 138/76 H 96 11/09/21 10:57 11/09/21 11:23 11/09/21 10:57 11/09/21 10:57 11/09/21 10:57 Oxygen Delivery Method Room Air Weight: 361 lb 12.457 oz Body Mass Index (BMI) 50.4 Intake & Output: Intake and Output for Last 24 Hours 11/07/21 11/08/21 11/09/21 23:59 23:59 23:59 Intake Total 926.67 / 926.67 1273.33 / 1273.33 Output Total 1550 / 1550 1300 / 1300 Balance -623.33 / -623.33 -26.67 / -26.67 Lab / Micro Data Result Diagrams: 11/09/21 05:28 11/09/21 05:28 Labs: Laboratory Results - last 24 hr 11/08/21 15:05: WBC 7.9, RBC 4.52 L, Hgb 14.5, Hct 41.6, MCV 92.0, MCH 32.1 H, MCHC 34.9, RDW Std Deviation 44.2 H, RDW Coeff of Mar 13.1, Plt Count 243, MPV 8.9, Immature Gran % (Auto) 0.800, Neut % (Auto) 73.7 H, Lymph % (Auto) 14.4 L, [place] % (Auto) 9.6, Eos % (Auto) 0.9, Baso % (Auto) 0.6, Absolute Neuts (auto) 5.9, Absolute Lymphs (auto) 1.14, Nucleated RBC % 0 11/08/21 15:05: Sodium 140, Potassium 4.0, Chloride 107, Carbon Dioxide 27.0, Anion Gap 6, BUN 5 L, Creatinine 0.80, Estim Creat Clear Calc 101.39, Est GFR (MDRD) Af Amer 126, Est GFR (MDRD) Non-Af 104, BUN/Creatinine Ratio 6.2 L, Glucose 161 H, Calcium 9.1, Troponin I High Sens 8 11/08/21 15:05: Magnesium 2.0 11/08/21 20:16: Troponin I High Sens 7 11/08/21 20:49: POC Glucose 156 H 11/08/21 21:38: Troponin I High Sens 8 11/09/21 05:28: WBC 7.1, RBC 4.45 L, Hgb 13.9, Hct 41.9, MCV 94.2 H, MCH 31.2, MCHC 33.2, RDW Std Deviation 46.2 H, RDW Coeff of Mar 13.3, Plt Count 237, MPV 9.4, Immature Gran % (Auto) 0.700, Neut % (Auto) 62.8, Lymph % (Auto) 22.1, [place] % (Auto) 11.9 H, Eos % (Auto) 1.6, Baso % (Auto) 0.9, Absolute Neuts (auto) 4.4, Absolute Lymphs (auto) 1.56, Nucleated RBC % 0 11/09/21 05:28: Sodium 138, Potassium 3.6, Chloride 105, Carbon Dioxide 27.0, Anion Gap 6, BUN 6 L, Creatinine 0.81, Estim Creat Clear Calc 100.14, Est GFR (MDRD) Af Amer 125, Est GFR (MDRD) Non-Af 103, BUN/Creatinine Ratio 7.4 L, Glucose 162 H, Calcium 8.2 L, Total Bilirubin 0.70, AST 23, ALT 30, Alkaline Phosphatase 115, Total Protein 6.9, Albumin 2.8 L, Globulin 4.1, Albumin/Globulin Ratio 0.7 L, Triglycerides 176, Cholesterol 150, LDL Cholesterol 84, VLDL Cholesterol 35, HDL Cholesterol 31 L 11/09/21 05:28: Hemoglobin A1c 7.5 H 11/09/21 11:42: POC Glucose 215 H Micro: Microbiology 11/08/21 14:20 Nasal Secretion SARS-CoV-2 Antigen (Rapid) - Final Radiography Diagnostic Testing: Radiology Impression Hip/Pelvis X-Ray 11/08/21 13:34 IMPRESSION: Mild degenerative changes of the right hip. No acute fracture of the hips or pelvis Electronically Signed: Edin Aranda MD at 16:16 EST , Service support , Chest X-Ray 11/08/21 15:45 IMPRESSION: Cardiomegaly. No acute cardiopulmonary pathology Electronically Signed: Edin Aranda MD at 16:08 EST , Service support , Pelvis CT 11/08/21 20:02 IMPRESSION: No evidence for acute fracture of the hips or pelvis Electronically Signed: Edin Aranda MD at 20:58 EST , Service support , Physical Exam Const alert, oriented x3 and no apparent distress HEENT head/scalp atraumatic and moist oral mucous membranes Head and Scalp: normocephalic Eyes PERRL, EOMs intact bilaterally and conjunctivae normal Neck no lymphadenopathy, supple and no JVD Resp normal respiratory effort, no retractions, no use of accessory muscles and clear to auscultation bilaterally Cardio regular rate, regular rhythm, no murmurs and no JVD GI normal to inspection, nondistended, normoactive bowel sounds, soft to palpation and non-tender Extremity normal to inspection, full ROM and no clubbing, cyanosis or edema Skin no rashes or lesions noted, no wounds and skin turgor normal Neuro CN's II-XII intact bilaterally Psych affect normal Assessment & Plan Assessment/Plan (1) Chest pain: QUALIFIERS: Chest pain type: unspecified Qualified Code(s): R07.9 - Chest pain, unspecified (2) Fall: (3) Acute pain of right hip: PLAN: Day 1 Discharge planning: Current plan is for patient to discharge home when medically ready. 1) chest pain/ACS rule out High-sensitivity troponins not elevated. Patient stress test negative, LV systolic function normal, LV wall motion normal, patient EF is 64%. Fasting lipid panel within normal limits. Continue aspirin. 2) acute right hip pain secondary to fall Imaging to include hip/pelvis x-ray and CT unremarkable and did not reveal any evidence of acute trauma. Despite negative work-up, patient is very concerned about fracture due to history of osteopenia secondary to radiation from colorectal cancer treatment. MRI of the hip ordered, cannot be completed till Thursday. PT/OT eval ordered. Continue as needed pain meds. 3) elevated BP No history of hypertension. Initiate Norvasc, as needed hydralazine ordered. 4) history of colorectal cancer Status post resection with ostomy. Patient reports that he has been in remission for 8 years. 5) diabetes mellitus type 2 Patient without history although hemoglobin A1c currently 7.5. Not on any home diabetic regimen. Heart healthy diet ordered. Accu-Cheks are sliding scale insulin ordered. 6) GERD Continue PPI. 7) CARLOS Continue BiPAP. DVT prophylaxis - low risk, not indicated Patient seen by Juan Jose Odonnell PA-C, under the supervision of Dr. Wilson. Time spent on patient care: 10 minutes. Documented by User: Dr. Shahdi Wilson MD 11/09/21 17:17 Objective Data Lab / Micro Data Result Diagrams: 11/09/21 05:28 11/09/21 05:28 Charges/Coding Addendum Addendum: Dr. Wilson: I personally reviewed the chart and examined the patient, and agree with the above findings. Mr. Messer is a 61-year-old male who is morbidly obese with a BMI 51 who presents to the hospital with chest pain, lightheadedness, and significant right hip pain after a fall. He states that he fell because he got lightheaded and dizzy at home. Initial troponins were unremarkable and EKG was nonischemic. He did have a stress test today which was normal however he still complaining of significant right hip pain. X-ray of the right hip as well as CT scan of the right hip are negative for CT scans however he is requesting that an MRI be done to be sure that there is no fracture as he has had osteopenia in the past which has led to fractures in the past. If he has a fracture present on MRI, then will need to get orthopedic involved otherwise he will need PT/OT for possible placement versus home. Clinical time spent: 15 minutes Visit Charges OBSV E&M: 20560 Subsequent observation care L2
[2021-11-09] MEDS: Insulin Lispro 100 UNIT/ML INSULN.PEN SC ×2 (16:45→21:36)
[2021-11-09 16:51] LABS: Bedside Glucose 189 mg/dL (70-110)
[2021-11-09 21:41] LABS: Bedside Glucose 183 mg/dL (70-110)
[2021-11-10] VITALS (7 sets, daily range): BP systolic 133–155; BP diastolic 70–89; PULSE 92–102; RESP 16–18; TEMP 36.7–36.9; O2SAT 92–93
[2021-11-10] MEDS: HYDROmorphone 0.5 MG/0.5 ML SYRINGE IV ×6 (01:47→21:03)
[2021-11-10] MEDS: 0.9% Saline Lock 10 ML Syringe IV ×4 (01:48→21:06)
[2021-11-10] MEDS: oxyCODONE 5 MG Tablet PO ×6 (02:45→22:35)
[2021-11-10] MEDS: Insulin Lispro 100 UNIT/ML INSULN.PEN SC ×4 (06:49→21:14)
[2021-11-10 07:00] LABS: Bedside Glucose 172 mg/dL (70-110)
[2021-11-10] MEDS: Aspirin E.C. 81 MG Tablet PO (08:29)
--- NOTE | 2021-11-10 09:00 | MRI_ITS ---
STUDY: MR PELVIS WITHOUT CONTRAST REASON FOR EXAM: Male, 61 years old. Fall w/ history of Osteopenia, pain rt hip TECHNIQUE: Standardized fat and water weighted pulse sequences were obtained in all 3 orthogonal planes. COMPARISON: None. FINDINGS: Wall thickening of the urinary bladder. Masters catheter in place. Normal visualized small intestine. Normal visualized colon. There is no pelvic fluid. There is no pelvic mass lesion or lymphadenopathy. Normal visualized pelvic arteries. Normal osseous structures. No acute marrow edema is noted suggestive for acute fracture. Soft tissue edema is noted in the right gluteal soft tissue. There are hernias of the left anterior abdominal wall. MRI/Pelvis (Routine) IMPRESSION: Soft tissue edema in the right gluteal soft tissue. No marrow edema suggestive for an acute fracture is noted. Left-sided ventral hernias are noted. Wall thickening of the urinary bladder. Electronically Signed: Lance Coats DO at 16:39 EST Tel [phone], Service support ,
[2021-11-10] MEDS: amLODIPine 5 MG Tablet PO (09:29)
[2021-11-10] MEDS: Pantoprazole Sodium 40 MG Tablet PO (09:29)
[2021-11-10] MEDS: Ondansetron 4 MG/2 ML Vial IV (09:32)
[2021-11-10 13:20] LABS: Bedside Glucose 189 mg/dL (70-110)
[2021-11-10] MEDS: BACITRACIN 15 GM Tube 1 APPLIC TOPICAL ×2 (15:04→21:08)
--- NOTE | 2021-11-10 15:35 | PCM.PN.HOSP ---
Subjective Subjective Patient was seen and examined today, he has an MRI of his pelvis pending at the time of this dictation, patient told me this morning that he did not feel he was capable of going home and did not want to be discharged today no matter what the x-ray on his right hip showed. Objective Data Objective Data Vital Signs: Vital Signs Temp Pulse Resp BP Pulse Ox 98.5 F 92 16 134/70 H 93 11/10/21 15:07 11/10/21 15:07 11/10/21 15:07 11/10/21 15:07 11/10/21 15:07 Oxygen Delivery Method Room Air Weight: 161.7 kg Body Mass Index (BMI) 50.4 Intake & Output: Intake and Output for Last 24 Hours 11/08/21 11/09/21 11/10/21 23:59 23:59 23:59 Intake Total 926.67 / 926.67 1773.33 / 2273.33 960 / 960 Output Total 1550 / 1550 1900 / 3225 2600 / 2600 Balance -623.33 / -623.33 -126.67 / -951.67 -1640 / -1640 Lab / Micro Data Result Diagrams: 11/09/21 05:28 11/09/21 05:28 Labs: Laboratory Results - last 24 hr 11/09/21 16:44: POC Glucose 189 H 11/09/21 21:34: POC Glucose 183 H 11/10/21 06:48: POC Glucose 172 H 11/10/21 13:06: POC Glucose 189 H Micro: Microbiology 11/08/21 14:20 Nasal Secretion SARS-CoV-2 Antigen (Rapid) - Final
--- NOTE | 2021-11-10 15:50 | PN.HOSP_ITS ---
Documented by User: Juan Jose FRENCH 11/10/21 15:56 Subjective Subjective Patient is a 61-year-old male lying in bed, alert and orient x3. Patient appeared in acute right hip pain on my examination, also complained of pain in his intra-abdominal folds. Objective Data Objective Data Vital Signs: Vital Signs Temp Pulse Resp BP Pulse Ox 98.5 F 92 16 134/70 H 93 11/10/21 15:07 11/10/21 15:07 11/10/21 15:07 11/10/21 15:07 11/10/21 15:07 Oxygen Delivery Method Room Air Weight: 356 lb 7.799 oz Body Mass Index (BMI) 50.4 Intake & Output: Intake and Output for Last 24 Hours 11/08/21 11/09/21 11/10/21 23:59 23:59 23:59 Intake Total 926.67 / 926.67 1773.33 / 2273.33 960 / 960 Output Total 1550 / 1550 1900 / 3225 2600 / 2600 Balance -623.33 / -623.33 -126.67 / -951.67 -1640 / -1640 Lab / Micro Data Result Diagrams: 11/09/21 05:28 11/09/21 05:28 Labs: Laboratory Results - last 24 hr 11/09/21 16:44: POC Glucose 189 H 11/09/21 21:34: POC Glucose 183 H 11/10/21 06:48: POC Glucose 172 H 11/10/21 13:06: POC Glucose 189 H Micro: Microbiology 11/08/21 14:20 Nasal Secretion SARS-CoV-2 Antigen (Rapid) - Final Physical Exam Const alert, oriented x3 and no apparent distress HEENT head/scalp atraumatic and moist oral mucous membranes Head and Scalp: normocephalic Eyes PERRL, EOMs intact bilaterally and conjunctivae normal Neck no lymphadenopathy, supple and no JVD Resp normal respiratory effort, no retractions and no use of accessory muscles Cardio regular rate, regular rhythm, no murmurs and no JVD GI GI Narrative: Redness and mild odor from the suprapubic intra-abdominal folds. Extremity normal to inspection, full ROM and no clubbing, cyanosis or edema Skin no rashes or lesions noted, no wounds and skin turgor normal Neuro CN's II-XII intact bilaterally Psych affect normal Assessment & Plan Assessment/Plan (1) Chest pain: QUALIFIERS: Chest pain type: unspecified Qualified Code(s): R07.9 - Chest pain, unspecified (2) Fall: (3) Acute pain of right hip: PLAN: Day 12 Discharge planning: To be determined, case management/social work following. 1) chest pain/ACS rule out High-sensitivity troponins not elevated. Patient stress test negative, LV systolic function normal, LV wall motion normal, patient EF is 64%. Fasting lipid panel within normal limits. Continue aspirin. 2) acute right hip pain secondary to fall Imaging to include hip/pelvis x-ray and CT unremarkable and did not reveal any evidence of acute trauma. Despite negative work-up, patient is very concerned about fracture due to history of osteopenia secondary to radiation from colorectal cancer treatment. MRI of the hip ordered/pending, cannot be completed till Thursday. PT/OT eval ordered. Continue as needed pain meds. 3) elevated BP No history of hypertension. Initiate Norvasc, as needed hydralazine ordered. 4) history of colorectal cancer Status post resection with ostomy. Patient reports that he has been in remission for 8 years. 5) diabetes mellitus type 2 Patient without history although hemoglobin A1c currently 7.5. Not on any home diabetic regimen. Heart healthy diet ordered. Accu-Cheks are sliding scale insulin ordered. 6) GERD Continue PPI. 7) CARLOS Continue BiPAP. DVT prophylaxis - low risk, not indicated Patient seen by Juan Jose Odonnell PA-C, under the supervision of Dr. Griffith. Time spent on patient care: 7 minutes. Documented by User: Dr. Ronnie Griffith DO 11/11/21 07:58 Objective Data Lab / Micro Data Result Diagrams: 11/09/21 05:28 11/09/21 05:28 Charges/Coding Addendum Addendum: Patient was seen and examined today independently of Juan Jose Odonnell, patient states that he does not feel he is able to go home today even if his right hip MRI does not show a fracture. Patient was considering going to a senior living facility. Patient continues to complain of right hip pain today. On examination he appeared older than his stated age. Vital signs as documented. Skin warm and dry and without overt rashes. Neck without JVD, neck was supple, trachea midline, thyroid was normal. Lungs clear bilaterally, normal air movement was noted. Heart exam notable for regular rhythm, normal sounds and absence of murmurs, rubs or gallops. Abdomen unremarkable and without evidence of organomegaly, masses, or abdominal aortic enlargement. Bowel sounds are present, abdomen is not distended. Extremities nonedematous, no cyanosis was noted, no clubbing was noted. Neuro: Cranial nerves II through XII are grossly intact, no focal motor deficits were noted, sensation to light touch and pinprick intact, motor exam 5/5 throughout. Psych: Patient is alert and oriented x3, he does not appear anxious or depressed, he does not appear agitated. Impression: #1 chest pain-musculoskeletal in nature-patient's stress test was unremarkable, patient will be treated for symptoms with pain medications if necessary #2 right hip pain-etiology unclear at this time, MRI is pending, if it shows a fracture, patient will need to be seen by orthopedic surgery, PT and OT will see the patient, he may need placement in a senior living facility. #3 essential hypertension-new diagnosis-patient was placed on medication, blood pressure will be monitored #4 morbid obesity-complicates care and recovery, dietary will see the patient #5 type 2 diabetes-patient is not on any oral medication or insulin, blood sugars will be monitored and sliding scale insulin will be given as needed #6 obstructive sleep apnea-patient is currently on BiPAP at night, this will be continued #7 osteoporosis by history-patient states that he has osteoporosis secondary to radiation to his abdomen, I will review the patient's medications to see if he is on any medications for osteoporosis if not I will add these medications. I have reviewed Juan Jose Odonnell's progress note including his medical assessment and plan of care and endorse it with the above additions-total clinical time spent today on physical examination, assessment, and formulation of medical plan 22 minutes. Visit Charges Inpatient E&M: 94620 Subs Hosp L2
[2021-11-10 17:10] LABS: Bedside Glucose 208 mg/dL (70-110)
[2021-11-10] MEDS: Acetaminophen 325 MG Tablet 650 MG PO ×2 (18:37→22:35)
--- NOTE | 2021-11-10 19:01 | NURSING ---
report called to [facility] for transfer and no questions voiced. all belongings packed and with pt.
[2021-11-10] MEDS: Nystatin Powder 15gm Bottle 1 APPLIC TOPICAL (21:07)
[2021-11-10 21:25] LABS: Bedside Glucose 162 mg/dL (70-110)
[2021-11-11] MEDS: 0.9% Saline Lock 10 ML Syringe IV ×2 (01:08→05:21)
[2021-11-11] MEDS: HYDROmorphone 0.5 MG/0.5 ML SYRINGE IV ×3 (01:08→09:23)
[2021-11-11] MEDS: Ondansetron 4 MG/2 ML Vial IV ×2 (01:11→09:23)
[2021-11-11 02:00] VITALS: BP 115/78; PULSE 92; RESP 16; TEMP 36.6; O2SAT 94
[2021-11-11] MEDS: oxyCODONE 5 MG Tablet PO ×5 (03:52→22:52)
[2021-11-11] MEDS: Acetaminophen 325 MG Tablet 650 MG PO ×5 (03:52→23:41)
[2021-11-11] MEDS: Nystatin Powder 15gm Bottle 1 APPLIC TOPICAL ×2 (05:25→14:41)
[2021-11-11 06:45] LABS: Bedside Glucose 142 mg/dL (70-110)
[2021-11-11 07:40] VITALS: O2SAT 94
[2021-11-11 09:09] VITALS: BP 122/78; PULSE 89; RESP 20; TEMP 36.7; O2SAT 93
[2021-11-11] MEDS: Aspirin E.C. 81 MG Tablet PO (09:22)
[2021-11-11] MEDS: amLODIPine 5 MG Tablet PO (09:23)
[2021-11-11] MEDS: Pantoprazole Sodium 40 MG Tablet PO (09:24)
[2021-11-11] MEDS: BACITRACIN 15 GM Tube 1 APPLIC TOPICAL ×2 (09:30→20:46)
--- NOTE | 2021-11-11 09:32 | WOUNDNOTE ---
colostomy appliance intact to the left lower abdomen. large peristomal hernia noted. this hernia has been present for quite some time. pt states he has had a couple of surgeries for the hernia. patient able to change the appliance himself. denies any needs at this time. states he brought supplies with him. states he typically changes the appliance every 3-4 days. will monitor for needs.
--- NOTE | 2021-11-11 10:40 | CASEMGMT ---
[facility] Face to Face with patient for initial transition planning/care coordination assessment. RN CM introduced self and role at [facility]. Patient lying in bed, alert and oriented. Patient willing to participate in assessment and is able to answer all questions appropriately. Care providers, pharmacy, and demographics verified. Patient wishes to discharge home with possible HHC. Also discussed possible SNF if patient does not do well with therapy. Patient was provided with HHC and SNF list in-network with insurance. Patient states he has no further needs or concerns at this time. CM to follow for discharge planning needs that may arise. PCP: [place] Specialists: none Preferred Pharmacy: [facility] [place] Insurance: [employer] Prescription Benefit: yes Living Will/HPOA: none LNOK: Friend Living Arrangements: Patient states he lives alone in a single story home with 6 steps and railing to enter the home. Patient states he is independent at home. Transportation: self DME/HHC: Patient states he has cane and Bipap at home. Patient states he has been to [facility] and and SNF in [place] previously. No previous HHC. Will monitor progress with therapy Disposition Plan: HHC vs SNF, will monitor progress with therapy for safe discharge disposition. Francisca CHACON, RN, CM
--- NOTE | 2021-11-11 11:30 | CASEMGMT ---
RN CM in to discuss discharge planning with patient. Reviewed progress with therapy, patient walked 50ft contact guard. Patient states he would like to discharge home with HHC. Therapy recommending walker. Patient states he would like [employer] for DME after reviewing list. Patient states his first choice for HHC is [facility], second [facility], and third [facility]. CM will send referrals for HHC and arrange for walker prior to discharge. CM will continue to follow this patient and plan for a safe discharge.
[2021-11-11 11:50] LABS: Bedside Glucose 222 mg/dL (70-110)
[2021-11-11] MEDS: Insulin Lispro 100 UNIT/ML INSULN.PEN SC ×3 (12:07→20:33)
--- NOTE | 2021-11-11 12:32 | PN.HOSP_ITS ---
Documented by User: Juan Jose FRENCH 11/11/21 12:44 Subjective Subjective Patient is a 61-year-old male lying in bed, alert and orient x3. Patient denies development of any new symptoms overnight. Does not appear in acute distress. Objective Data Objective Data Vital Signs: Vital Signs Temp Pulse Resp BP Pulse Ox 98.1 F 89 20 H 122/78 H 93 11/11/21 09:09 11/11/21 09:09 11/11/21 09:09 11/11/21 09:09 11/11/21 09:09 Oxygen Delivery Method Room Air Weight: 358 lb 0.491 oz Body Mass Index (BMI) 50.4 Intake & Output: Intake and Output for Last 24 Hours 11/09/21 11/10/21 11/11/21 23:59 23:59 23:59 Intake Total 1773.33 / 2273.33 1200 / 1200 Output Total 1900 / 3225 2950 / 3875 1675 / 1675 Balance -126.67 / -951.67 -1750 / -2675 -1675 / -1675 Lab / Micro Data Result Diagrams: 11/09/21 05:28 11/09/21 05:28 Labs: Laboratory Results - last 24 hr 11/10/21 13:06: POC Glucose 189 H 11/10/21 16:58: POC Glucose 208 H 11/10/21 21:11: POC Glucose 162 H 11/11/21 06:34: POC Glucose 142 H 11/11/21 11:37: POC Glucose 222 H Micro: Microbiology 11/08/21 14:20 Nasal Secretion SARS-CoV-2 Antigen (Rapid) - Final Radiography Diagnostic Testing: Radiology Impression Pelvis MRI 11/10/21 09:00 IMPRESSION: Soft tissue edema in the right gluteal soft tissue. No marrow edema suggestive for an acute fracture is noted. Left-sided ventral hernias are noted. Wall thickening of the urinary bladder. Electronically Signed: Lance Coats DO at 16:39 EST Tel [phone], Service support , Physical Exam Const alert, oriented x3 and no apparent distress HEENT head/scalp atraumatic and moist oral mucous membranes Head and Scalp: normocephalic Eyes PERRL, EOMs intact bilaterally and conjunctivae normal Neck no lymphadenopathy, supple and no JVD Resp normal respiratory effort, no retractions, no use of accessory muscles and clear to auscultation bilaterally Cardio regular rate, regular rhythm, no murmurs and no JVD GI normal to inspection, nondistended, normoactive bowel sounds, soft to palpation and non-tender Skin no rashes or lesions noted, no wounds and skin turgor normal Neuro CN's II-XII intact bilaterally Psych affect normal Assessment & Plan Assessment/Plan (1) Chest pain: QUALIFIERS: Chest pain type: unspecified Qualified Code(s): R07.9 - Chest pain, unspecified (2) Fall: (3) Acute pain of right hip: PLAN: Day 3 Discharge planning: To discharge home on 11/12/2021, as he needs time to arrange transportation back home and he does not want to discharge to SNF. 1) chest pain/ACS rule out High-sensitivity troponins not elevated. Patient stress test negative, LV systolic function normal, LV wall motion normal, patient EF is 64%. Fasting lipid panel within normal limits. Continue aspirin. 2) acute right hip pain secondary to fall Imaging to include hip/pelvis x-ray and CT unremarkable and did not reveal any evidence of acute trauma. Despite negative work-up, patient is very concerned about fracture due to history of osteopenia secondary to radiation from colorec erick cancer treatment. MRI of the pelvis did not reveal any acute fracture. Dilaudid discontinued, continue oxycodone and Tylenol for pain. 3) elevated BP No history of hypertension. Initiate Norvasc, as needed hydralazine ordered. 4) history of colorectal cancer Status post resection with ostomy. Patient reports that he has been in remission for 8 years. 5) diabetes mellitus type 2 Patient without history although hemoglobin A1c currently 7.5. Not on any home diabetic regimen. Heart healthy diet ordered. Accu-Cheks are sliding scale insulin ordered. 6) GERD Continue PPI. 7) CARLOS Continue BiPAP. DVT prophylaxis - low risk, not indicated Patient seen by Juan Jose Odonnell PA-C, under the supervision of Dr. Griffith. Time spent on patient care: 7 minutes. Documented by User: Dr. Ronnie Griffith DO 11/11/21 16:18 Objective Data Lab / Micro Data Result Diagrams: 11/09/21 05:28 11/09/21 05:28 Charges/Coding Addendum Addendum: Patient was seen and examined today independently of Juan Jose Odonnell, patient at first was reluctant to agree to a medical plan concerning his discharge, he finally stated that he wanted to be discharged home but he could not leave till tomorrow due to the fact he had to get somebody to be there at his home to help him. Patient still complains of right hip discomfort, his right hip MRI did not show any evidence of fracture or dislocation, there is no evidence of pelvic fracture either. On examination he appeared older than his stated age, patient is morbidly obese. Vital signs as documented. Skin warm and dry and without overt rashes. Neck without JVD, neck was supple, trachea midline, thyroid was normal. Lungs clear bilaterally, normal air movement was noted. Heart exam notable for regular rhythm, normal sounds and absence of murmurs, rubs or gallops. Abdomen unremarkable and without evidence of organomegaly, masses, or abdominal aortic enlargement. Bowel sounds are present, abdomen is not distended. Extremities nonedematous, no cyanosis was noted, no clubbing was noted. There is tenderness to palpation over the patient's right hip area neuro: Cranial nerves II through XII are grossly intact, no focal motor deficits were noted, sensation to light touch and pinprick intact, motor exam 5/5 throughout. Psych: Patient is alert and oriented x3, he does not appear anxious or depressed, he does not appear tita tated. Impression #1 musculoskeletal chest pain-resolved at this time #2 right hip contusion-continue PT and OT, continue to administer pain medications, IV pain medications were stopped at this time and the patient was to continue oral pain medication. #3 essential hypertension-patient is currently on antihypertensive medication, blood pressure will be monitored #4 morbid obesity-complicates care and recovery-dietary is seeing patient #5 type 2 diabetes-blood sugars will be monitored and sliding scale insulin will be given as needed #6 osteoporosis by history-patient is not on any medication for osteoporosis at this time, I will discuss this with him and at the time of discharge he will need to be placed on medication. #7 obstructive sleep apnea-patient is currently on BiPAP at night, continue with BiPAP I have reviewed Juan Jose Odonnell's progress note and with the above additions and endorse it. Total clinical time spent on this patient 28 minutes. Visit Charges OBSV E&M: 39364 Subsequent observation care L3
--- NOTE | 2021-11-11 13:05 | CASEMGMT ---
RN CM sent referral to patient first choice for HHC, [facility]. CM will continue to follow this patient and plan for a safe discharge.
[2021-11-11 14:24] VITALS: BP 124/59; PULSE 81; RESP 18; TEMP 36.6; O2SAT 93
--- NOTE | 2021-11-11 15:05 | CASEMGMT ---
RN ZAC received script for FWW and faxed to [facility]. RN ZAC arranged for walker to be delivered to patient's room prior to discharge.
[2021-11-11 16:35] LABS: Bedside Glucose 155 mg/dL (70-110)
--- NOTE | 2021-11-11 17:04 | CHAPLAIN ---
Type of Pastoral Visit _x__ Initial Visit ___ Follow-up Visit ___ On-call Visit ___ General Patient Visit ___ Spiritual Assessment ___ Family Conference ___ Bereavement ___ Rapid Response ___ Code Blue ___ Other (describe below) Pastoral Care Referral From _x__ Patient ___ Family ___ Nurse ___ Physician ___ Head Of Ict ___ Auricular Therapist ___ Other (describe below) Sacrament/Intervention _x__ Active listening ___ Anointing ___ Anabaptism ___ Bereavement ___ Communion _x__ Priscilla exploration ___ _x__ Life review _x__ Prayer ___ Reconciliation ___ Sacrament of Sick ___ Supportive presence ___ Wedding ___ Other (describe below) Pastoral Comments
[2021-11-11 19:29] VITALS: BP 119/78; PULSE 94; RESP 20; TEMP 36.4; O2SAT 97
[2021-11-11 20:46] LABS: Bedside Glucose 188 mg/dL (70-110)
[2021-11-11] MEDS: Ondansetron ODT 4 MG Tablet PO (22:52)
--- NOTE | 2021-11-12 00:46 | NURSING ---
pt unable to sleep. talked with patient- expressed concerns with going home. unsure if he can care for himself at home but states he has a friend that can move in and help. she used to be a county home demonstrator. Expressed he would consider a [place] [facility] but worried if they are any good. Encourage patient to talk more with CM/SW tomorrow about his concerns and worries. encouraged him to consider some of the ECF on the list the staff provided. There are good ECF in [facility] to pick from.
[2021-11-12 02:28] VITALS: BP 124/65; PULSE 88; RESP 18; TEMP 36.9; O2SAT 93
[2021-11-12] MEDS: oxyCODONE 5 MG Tablet PO ×3 (02:53→11:18)
[2021-11-12] MEDS: Acetaminophen 325 MG Tablet 650 MG PO ×2 (04:46→09:43)
[2021-11-12] MEDS: Insulin Lispro 100 UNIT/ML INSULN.PEN SC ×2 (06:22→11:13)
[2021-11-12] MEDS: Nystatin Powder 15gm Bottle 1 APPLIC TOPICAL ×2 (06:24→14:45)
[2021-11-12 06:36] LABS: Bedside Glucose 194 mg/dL (70-110)
[2021-11-12] MEDS: Aspirin E.C. 81 MG Tablet PO (07:49)
[2021-11-12] MEDS: amLODIPine 5 MG Tablet PO (07:49)
[2021-11-12] MEDS: Pantoprazole Sodium 40 MG Tablet PO (07:50)
[2021-11-12 08:50] VITALS: BP 129/72; PULSE 93; RESP 18; TEMP 36.4; O2SAT 94
[2021-11-12] MEDS: BACITRACIN 15 GM Tube 1 APPLIC TOPICAL (09:44)
--- NOTE | 2021-11-12 10:00 | CASEMGMT ---
CLEM FRANK in to discuss discharge planning with patient. Patient now states that he might be willing to go a SNF but not 100% sure. CLEM FRANK arranged for PT/OT to work with patient this morning to assist in discharge disposition. Patient states that if he was willing to go to a SNF his first choice is [facility]. CLEM FRANK encouraged patient the we will need to know his wishes for discharge disposition by noon. Patient stated do not give me a line and that is pressuring me. CLEM FRANK told patient that ZAC will be following up with him after he works with therapy. CLEM FRANK updated TINY Herrera. ZAC will continue to follow this patient and plan for a safe discharge.
--- NOTE | 2021-11-12 11:12 | CASEMGMT ---
Addendum entered by Francisca Tucker 11/12/21 11:32: Script received for outpatient therapy and faxed to [facility]. Patient provided with copy. Original Note: CLEM FRANK updated by therapy that patient is appropriate for outpatient therapy. CLEM FRANK in to discuss discharge disposition with patient. Patient states he is agreeable to outpatient therapy and would like [facility]. Patient requesting this CLEM FRANK schedule appt. CLEM FRANK called [facility] and scheduled appt for patient on 11/19/21 1300. CLEM FRANK updated patient. Patient states he has no further questions or concerns at this time. CLEM FRANK updated hospitalist regarding discharge plan.
[2021-11-12 11:21] LABS: Bedside Glucose 184 mg/dL (70-110)
--- NOTE | 2021-11-12 11:22 | DCINST_ITS ---
Discharge Instructions Diet Discharge Diet: No restrictions Activity Discharge Activity: Return to Normal Activity Weight Bearing Status: Weight bearing as tolerated Dressing / Incision Call your doctor if you observe: Fever of 101 or Higher, Numbness or Tingling, Shortness of breath, Dizziness, Chest pain, Increased palpitations (irregular heartbeat) and Calf discomfort Follow Up Care Please Follow Up With: Primary care provider When: Within the next two weeks. Test Results: Test results from this visit will be discussed in further detail at your follow-up appointment, if applicable. Discharge Plan Admission Admit Date/Time: 11/08/21 18:27 Primary Reason for Your Visit: Chest pain Attending Provider: Ronnie Griffith Primary Care Provider: Edin Mcfarland Discharge Orders/Prescriptions Prescriptions: New amlodipine 5 mg Tablet 5 mg PO DAILY Qty: 30 RF: 0 oxycodone 5 mg Tablet 5 mg PO Q6H PRN PRN (Reason: Pain Score 4-5) 7 Days Qty: 28 RF: 0 naloxone 4 mg/actuation spray,non-aerosol 4 mg intranasal Q3M PRN (Reason: opioid overdose) Qty: 2 RF: 0 Continued sumatriptan succinate 100 mg tablet 100 mg PO DAILY PRN (Reason: Migraine Headache) RF: 0 alendronate 70 mg tablet 70 mg PO QWEEK RF: 0 pantoprazole 40 mg tablet,delayed release (DR/EC) 40 mg PO DAILY RF: 0 ondansetron 4 mg tablet,disintegrating 4 mg PO Q6H PRN PRN (Reason: Nausea) RF: 0 Referrals / Follow Up: [facility] [Other] - 11/19/21 1:00 pm (Evals at 1:00pm and 2:00pm) Edin Mcfarland MD [Primary Care Provider] - Within 2 Weeks Disposition Disposition (needs filled in before D/C Order can be placed): Home, Self Care
--- NOTE | 2021-11-12 11:53 | CASEMGMT ---
Social Work SW spoke with pt regarding possible SNF placement. Pt stating he has worked with therapy and made decision to return home with outpatient therapy and has a friend who has committed to staying with him for a while to provide needed assistance. RNCM deric. ROGE Weiner
--- NOTE | 2021-11-12 13:37 | DS.PCM_ITS ---
Documented by User: Juan Jose FRENCH 11/12/21 13:52 Providers Date of Admission: 11/08/21 Date of Discharge: 11/12/21 Primary Care Physician: Dr. Edin Mcfarland MD Consultations 11/09/21 00:11 Consult: Onc/Wound/restaurant line server Routine Comment: Reason for Consult:: colostomy Reason For Visit: CHEST PAIN, FALL, R HIP PAIN Diagnosis Discharge Diagnosis (1) Chest pain: Status: Acute Code(s): R07.9 - Chest pain, unspecified Qualifiers: Chest pain type: unspecified Qualified Code(s): R07.9 - Chest pain, unspecified (2) Fall: Status: Acute Code(s): W19.XXXA - Unspecified fall, initial encounter (3) Acute pain of right hip: Status: Acute Code(s): M25.551 - Pain in right hip Medications at Discharge Home Medications alendronate 70 mg PO QWEEK 11/08/21 ondansetron 4 mg PO Q6H PRN PRN 11/08/21 pantoprazole 40 mg PO DAILY 11/08/21 sumatriptan succinate 100 mg PO DAILY PRN 11/08/21 amlodipine 5 mg PO DAILY #30 tab 11/12/21 naloxone 4 mg INTRANASAL Q3M PRN #2 ea 11/12/21 oxycodone 5 mg PO Q6H PRN PRN 7 Days #28 tab 11/12/21 Hospital Course Procedures Nuclear stress test Summary of Care Provided Minutes Spent on Discharge: 15 Hospital Course: Patient was admitted to the hospital on 11/08/2021 for evaluation and management of chest pain after suffering a fall. 1) chest pain/ACS rule out High-sensitivity troponins not elevated. Patient stress test negative, LV systolic function normal, LV wall motion normal, patient EF is 64%. Fasting lipid panel within normal limits. Follow-up with primary care provider within the next 2 weeks after discharge. 2) acute right hip pain secondary to fall Imaging to include hip/pelvis x-ray and CT unremarkable and did not reveal any evidence of acute trauma. Despite negative work-up, patient is very concerned about fracture due to history of osteopenia secondary to radiation from colorectal cancer treatment. MRI of the pelvis did not reveal any acute fracture. Oxycodone 5 mg p.o. every 6 hours as needed x1 week initiated at discharge, patient is to receive outpatient physical therapy at home. Follow-up with primary care provider for any ongoing chronic pain. 3) elevated BP No history of hypertension. Patient tolerated Norvasc well during admission, continue Norvasc on discharge. Follow-up with primary care provider. 4) history of colorectal cancer Status post resection with ostomy. Patient reports that he has been in [facility] for 8 years. 5) diabetes mellitus type 2 Patient without history although hemoglobin A1c currently 7.5. Not on any home diabetic regimen. Follow-up with primary care provider on discharge. 6) GERD Continue PPI. 7) CARLOS Continue BiPAP. Patient seen by Juan Jose Odonnell PA-C, under the supervision of Dr. Griffith. Time spent on patient care: 15 minutes. Physical Exam Narrative Patient is a 61-year-old male comfortably resting in bed, alert and orient x3. Patient denies development of any new symptoms overnight. Does not appear in acute distress. Const alert, oriented x3 and no apparent distress HEENT normocephalic, head/scalp atraumatic and hearing grossly normal bilaterally Eyes PERRL, EOMs intact bilaterally and conjunctivae normal Neck no lymphadenopathy, supple and no JVD Resp normal respiratory effort, no retractions and no use of accessory muscles Cardio regular rate, regular rhythm, no murmurs and no JVD GI normal to inspection, nondistended, normoactive bowel sounds, soft to palpation and non-tender Extremity normal to inspection, full ROM and no clubbing, cyanosis or edema Skin no rashes or lesions noted, no wounds and skin turgor normal Neuro CN's II-XII intact bilaterally Psych affect normal Weight / BMI Weight Weight: 357 lb 12.964 oz Body Mass Index (BMI) 50.4 ABG / Lab / Microbiology Data Result Diagrams: 11/09/21 05:28 11/09/21 05:28 Laboratory: Laboratory Results - last 24 hr 11/11/21 16:28: POC Glucose 155 H 11/11/21 20:32: POC Glucose 188 H 11/12/21 06:21: POC Glucose 194 H 11/12/21 11:12: POC Glucose 184 H Microbiology: Microbiology 11/08/21 14:20 Nasal Secretion SARS-CoV-2 Antigen (Rapid) - Final D/C Instructions Discharge Diet: No restrictions Weight Bearing Status: Weight bearing as tolerated Call your doctor if you observe: Fever of 101 or Higher, Numbness or Tingling, Shortness of breath, Dizziness, Chest pain, Increased palpitations (irregular heartbeat) and Calf discomfort Please Follow Up With: Primary care provider When: Within the next two weeks. Meaningful Use Info Meaningful Use Diagnoses (Choose all that apply): None applicable Discharge Plan Admission Admit Date/Time: 11/08/21 18:27 Primary Reason for Your Visit: Chest pain Attending Provider: Ronnie Griffith Primary Care Provider: Edin Mcfarland Discharge Orders/Prescriptions Prescriptions: New amlodipine 5 mg Tablet 5 mg PO DAILY Qty: 30 RF: 0 oxycodone 5 mg Tablet 5 mg PO Q6H PRN PRN (Reason: Pain Score 4-5) 7 Days Qty: 28 RF: 0 naloxone 4 mg/actuation spray,non-aerosol 4 mg intranasal Q3M PRN (Reason: opioid overdose) Qty: 2 RF: 0 Continued sumatriptan succinate 100 mg tablet 100 mg PO DAILY PRN (Reason: Migraine Headache) RF: 0 alendronate 70 mg tablet 70 mg PO QWEEK RF: 0 pantoprazole 40 mg tablet,delayed release (DR/EC) 40 mg PO DAILY RF: 0 ondansetron 4 mg tablet,disintegrating 4 mg PO Q6H PRN PRN (Reason: Nausea) RF: 0 Referrals / Follow Up: [facility] [Other] - 11/19/21 1:00 pm (Evals at 1:00pm and 2:00pm) Edin Mcfarland MD [Primary Care Provider] - Within 2 Weeks Disposition Disposition (needs filled in before D/C Order can be placed): Home, Self Care Documented by User: Dr. Ronnie Griffith DO 11/12/21 20:24 Providers Date of Admission: 11/08/21 Reason For Visit: CHEST PAIN, FALL, R HIP PAIN Medications at Discharge Home Medications alendronate 70 mg PO QWEEK 11/08/21 ondansetron 4 mg PO Q6H PRN PRN 11/08/21 pantoprazole 40 mg PO DAILY 11/08/21 sumatriptan succinate 100 mg PO DAILY PRN 11/08/21 amlodipine 5 mg PO DAILY #30 tab 11/12/21 naloxone 4 mg INTRANASAL Q3M PRN #2 ea 11/12/21 oxycodone 5 mg PO Q6H PRN PRN 7 Days #28 tab 11/12/21 ABG / Lab / Microbiology Data Result Diagrams: 11/09/21 05:28 11/09/21 05:28 Discharge Plan Admission Admit Date/Time: 11/08/21 18:27 Primary Reason for Your Visit: Chest pain Attending Provider: Ronnie Griffith Primary Care Provider: Edin Mcfarland Discharge Orders/Prescriptions Prescriptions: New amlodipine 5 mg Tablet 5 mg PO DAILY Qty: 30 RF: 0 oxycodone 5 mg Tablet 5 mg PO Q6H PRN PRN (Reason: Pain Score 4-5) 7 Days Qty: 28 RF: 0 naloxone 4 mg/actuation spray,non-aerosol 4 mg intranasal Q3M PRN (Reason: opioid overdose) Qty: 2 RF: 0 Continued sumatriptan succinate 100 mg tablet 100 mg PO DAILY PRN (Reason: Migraine Headache) RF: 0 alendronate 70 mg tablet 70 mg PO QWEEK RF: 0 pantoprazole 40 mg tablet,delayed release (DR/EC) 40 mg PO DAILY RF: 0 ondansetron 4 mg tablet,disintegrating 4 mg PO Q6H PRN PRN (Reason: Nausea) RF: 0 Referrals / Follow Up: [facility] [Other] - 11/19/21 1:00 pm (Evals at 1:00pm and 2:00pm) Edin Mcfarland MD [Primary Care Provider] - Within 2 Weeks Disposition Disposition (needs filled in before D/C Order can be placed): Home, Self Care Charges/Coding Addendum Addendum: Patient was seen and examined today independently of Juan Jose Odonnell, he initially indicated that he wanted to go to an extended care facility early this morning, he then changed his mind after he was up with physical therapy. Patient was apologetic about this. On examination he appeared in good health and spirits. Vital signs as documented. Skin warm and dry and without overt rashes. Neck without JVD, neck was supple, trachea midline, thyroid was normal. Lungs clear bilaterally, normal air movement was noted. Heart exam notable for regular rhythm, normal sounds and absence of murmurs, rubs or gallops. Abdomen unremarkable and without evidence of organomegaly, masses, or abdominal aortic enlargement. Colostomy was present. Bowel sounds are present, abdomen is not distended. Extremities nonedematous, no cyanosis was noted, no clubbing was noted. Neuro: Cranial nerves II through XII are grossly intact, no focal motor deficits were noted, sensation to light touch and pinprick intact, motor exam 5/5 throughout. Psych: Patient is alert and oriented x3, he does not appear anxious or depressed, he does not appear agitated. Impression #1 musculoskeletal chest pain-resolved at this time #2 right hip contusion-patient appears to be stable for discharge at this time, he will be given a short course of oral pain medication for use as an outpatient. #3 essential hypertension-patient is currently on antihypertensive medication #4 morbid obesity-complicates care and recovery-dietary saw the patient #5 type 2 diabetes-patient is to resume his outpatient medication for diabetes #6 osteoporosis by history-patient states that he takes a once a week o steoporosis pill (which is not in his medical record) and he also takes daily calcium (Tums) and vitamin D daily. #7 obstructive sleep apnea-patient is currently on BiPAP at night, continue with BiPAP as outpatient I have reviewed Juan Jose Odonnell's discharge summary including his medical assessment and plan of care and endorse it with the above additions. My clinical time evaluating the patient, reviewing discharge instructions and formulating an outpatient plan has been 21 minutes. Visit Charges Inpatient E&M: 77078 Disch Hosp
== END 2021-11-12 15:03 | disposition home or self-care (01) ==
LOC: ED 17:32 → PCU 19:15 → MS2 11-10 19:09
PROVIDERS: Family Medicine; Admitting Provider Family Medicine; Emergency Provider Emergency Medicine; PCP Family Medicine; Visit Provider Internal Medicine
DX: R07.89 Other chest pain (principal); Z93.3 Colostomy status; E66.01 Morbid (severe) obesity due to excess calories; Z68.43 Body mass index [BMI] 50.0-59.9, adult; E11.9 Type 2 diabetes mellitus without complications; K21.9 Gastro-esophageal reflux disease without esophagitis; G47.33 Obstructive sleep apnea (adult) (pediatric); Z23 Encounter for immunization; S70.01XA Contusion of right hip, initial encounter; Z87.891 Personal history of nicotine dependence; I10 Essential (primary) hypertension; R42 Dizziness and giddiness; W08.XXXA Fall from other furniture, initial encounter; Y93.G1 Activity, food preparation and clean up; Y92.89 Other specified places as the place of occurrence of the external cause; Z79.899 Other long term (current) drug therapy; Z79.82 Long term (current) use of aspirin
CPT/HCPCS: 90686; 36415; 71045; 72192; 72195; 73502; 78452; 80048; 80053; 80061; 82962; 83036; 83735; 84484; 85025; 87426; 93005; 93017; 96361; 96374; 96375; 96376; 97110; 97116; 97162; 97165; 97530; 97535; 97802; 99218; 99285; A9500; J7030; A4216; G0378; J2405; J2785

== ENCOUNTER 2022-01-03 14:30 | Outpatient (RCR) | payer MEDICAID, SELFPAY ==
--- NOTE | 2021-12-30 16:29 | HP.PTEVAL ---
Patient's Visit Information ERNA PALMA is a 61 year old M referred to Physical Therapy by Dr. Edin Mcfarland MD with a diagnosis of RIGHT HIP PAIN S/P FALL. Date of Evaluation: 12/30/21 Physical Therapist: Darleen Panchal, PT, Cert MDT - Visit Plan Frequency: 2-3x /Week Duration: 4-6 Weeks Plan: *NO LIFTING - UNREPAIRED HERNIA*. AQUATIC THERAPY AND/OR LAND EX TOLERATED TO DECREASE RIGHT HIP PAIN AND HELP MEET SET GOALS. POSTURE CORRECTION/STRENGTHENING, INSTRUCTION IN APPROPRIATE BODY MECHANICS AND ACTIVITY MODIFICATIONS. DLS STARTING WITH A NEUTRAL SPINE PROGRESSING ROM TOLERATED. KYLEIGH LE ROM, STRETCHING AND STRENGTHENING. HEP INSTRUCTION. - Subjective Work/Leisure: UNEMPLOYEED. Disability: YES - SINCE 2013 WHEN DX'D WITH COLORECTAL CANCER. HAS A COLOSTOMY BAG. NO LIFTING. Present symptoms: RIGHT LOW BACK AND HIP PAIN. LEFT HIP PAIN SOMETIMES TOO. NEUROPATHY FROM CHEMO. NO NEW PAIN SINCE FALL EXCEPT RIGHT HIP. Present since: END OF NOV 2021. IN HOSPITAL FOR 5 DAYS. Pain Scale: WORST 9/10, LEAST 5/10. Currently: 6/10. Commenced as a result of: FELL WHEN TURNED IN THE KITCHEN. I DID HALF A SPLIT WHEN I WENT DOWN. WAS HAVING CHEST PAINS. Symptoms at onset: SEVERE RIGHT HIP PAIN. Worse: LYING DOWN, SITTING, STANDING, WALKING, EVERYTHING BUT SITTING IS THE LEAST PAIN. Better: SITTING. FREQUENT CHANGE OF POSITION. Disturbed sleep: YES. Previous history/Previous treatment: NO PRIOR RIGHT HIP INJURIES. Treatment this episode: HOSPITALIZED FOR 5 DAYS. PT IN HOSPITAL. GAIT TRAINING. PAIN MEDICINE. TAKING TWO PAIN MEDS NOW. PAIN MGMT WITH DR. LEVY LAST THURSDAY FOR CONSULT LAST THURSDAY. PATIENT REPORTS PT SHOWED HIM EX'S IN THE HOSPITAL BUT HE FORGETS WHAT THEY ARE. STATES HE TRIED THE EX'S THE BEST HE COULD. Gait: USING A CANE BEFORE THE FALL. FWW SINCE THE FALL. THE PAIN IN THE RIGHT HIP GRADUALLY BUILDS WITH TIME AND DISTANCE WALKING. CONSTANT DEEP PAIN. CURRENTLY USES A CANE TO WALK TO A SCOOTER AT THE [facility]. Accidents: THIS IS THE FIRST FALL RESULTING IN INJURY IN ABOUT 3 YEARS. NO MVA'S. Unexplained weight loss: NO. Imaging: RIGHT HIP X-RAYS, MRI AND CT WITHOUT FX PER PATIENT REPORT. SOFT TISSUE DAMAGE BUT NOTHING TORN PER PATIENT. NO SURGERY RECOMMENDED. PMH/Recent major surgery: UNREPAIRED HERNIA, COLOSTOMY BAG, OSTEOPENIA,COLORECTAL CANCER 2014 TREATED WITH SURGERY, CHEMO AND RADIATION TREATMENTS. ENLARGED BLADDER. FREQUENT UTI'S. NIDDM. OTHER: 6 STEPS INTO HOME WITH HANDRAILS ON EA SIDE. 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 - Objective Sitting/Standing Posture: POOR. INCREASED TRUNK FLEXION AND KYLEIGH LE ER. Other Observations: THIS PATIENT AMBULATES INDEP INTO AND OUT OF PT WITH FWW X APPROX 300 FEET EA. CUEING TO KEEP ALL FOUR FEET OF WALKER ON THE GROUND FOR SAFETY. NO LOB. INCREASED TRUNK FLEXION AND DECREASED KYLEIGH STRIDE LENGTH. UE DEPENDENT TO TRANSFER INDEP'LY FROM SIT TO STAND. Motor deficit: L LE HIP 4/5, KNEE 5/5, ANKLE 5/5. RIGHT HIP 4-/5, KNEE 4/5, ANKLE 5/5. Sensory deficit: KYLEIGH LE LIGHT TOUCH SENSATION GROSSLY INTACT AND SYMMETRICAL BUT FEET NT. ROM deficit: TIGHT KYLEIGH HIP FLEXORS, HS'S, GASTROC-SOLEUS COMPLEX'S AND HIP EXTERNAL ROTATORS. Core strength: POOR. LARGE UN-REPAIRED HERNIA - Balance/Special Test Scores Lower Extremity Functional Score: 15 - Goals Goal 1:: DECREASE C/O R HIP PAIN Goal Time Frame: 4-6 Weeks Goal 2:: INDEP AND SAFE GAIT ON LEVEL SURFACES AND UP AND DOWN STEPS WITH LEAST ASSISTIVE DEVICE. Goal Time Frame: 4-6 Weeks Goal 3:: INCREASE PAINFREE ROM OF RIGHT HIP TO EASE ADL'S Goal Time Frame: 4-6 Weeks Goal 4:: IMPROVE FUNCTIONAL STRENGTH OF RIGHT LE TO EASE ADLS. Goal Time Frame: 4-6 Weeks Goal 5:: PATIENT WILL BE INDEP WITH A HOME AND/OR POOL EX PROGRAMS FOR CONTINUED IMPROVEMENT ONCE FORMAL PT CONCLUDES. Goal Time Frame: 4-6 Weeks - Anticipated Interventions Patient/Client Instruction: Educate patient on: Condition, Plan of Care, Risk Factors For the Purpose of:: To improve self management Therapeutic Exercise to Include: Strength training, Body mechanics, Postural training, Flexibilty training, Gait and locomotor training, Neuromotor development, In an aquatic setting, Dynamic Lumbar Stabilization For the Purpose of:: To decrease pain, To increase ROM, To improve muscle performance and motor function, To increase tolerance to activity/condition/position, To improve ability of physical actions for home/community/work/leisure, To improve gait and locomotor functions Thank you for the opportunity to evaluate your patient. For Medicare and Medicare HMO plans, please review the plan of care and approve it. It will need to be FAXED BACK to us at [phone] for Medicare purposes. For Medicare only, by signing this I certify the plan of care. Please let me know if there are questions or concerns regarding this plan of care. Physician Signature: Date:
== END 2022-01-03 19:00 | disposition home or self-care (01) ==
LOC: PT 14:30
PROVIDERS: PCP Family Medicine; Referring Provider Family Medicine; Visit Provider Family Medicine
DX: M25.551 Pain in right hip (principal); R53.1 Weakness; E66.01 Morbid (severe) obesity due to excess calories
CPT/HCPCS: 97110; 97162

== ENCOUNTER 2022-01-20 07:57 | Day surgery (SDC) | payer MEDICAID, SELFPAY ==
[2022-01-20] VITALS (7 sets, daily range): BP systolic 122–155; BP diastolic 85–96; PULSE 98–109; RESP 16–20; TEMP 36.6–37.4; O2SAT 94–95; BMI 51.7
[2022-01-20] MEDS: Lactated Ringers 1,000 ML 15 ML IV (08:40)
[2022-01-20 09:21] LABS: Bedside Glucose 209 mg/dL (74-106)
--- NOTE | 2022-01-20 09:55 | RAD_ITS ---
PROCEDURE: Caudal epidural. DATE OF EXAMINATION: 01/20/2022 INDICATION: Male, 61 years old. Chronic back pain. FLUOROSCOPY TIME (if supplied): (7 seconds) minutes/seconds. 2 images were obtained. RAD/Fluor Guidance for Spine Inj IMPRESSION: Intraoperative imaging provided for caudal epidural injection. Electronically Signed: Luis A Izaguirre MD at 13:53 EDT ,
[2022-01-20] MEDS: MethylPREDNISolone Acetate 80 MG/ML Vial (09:58)
[2022-01-20] MEDS: 0.9% Normal Saline (Pres. free 10 ML Vial (09:58)
[2022-01-20] MEDS: Lidocaine 1% (5 ml sdv) 5 ML Vial (09:58)
[2022-01-20] MEDS: Bupivacaine 0.25% 30 ML Vial (09:58)
--- NOTE | 2022-01-20 16:09 | OP.PCM_ITS ---
Report of Operation Date of Procedure: 01/20/22 Pre-Operative Diagnosis: Lumbosacral radiculopathy, lumbosacral degenerative di sc disease, lumbosacral spinal stenosis Post-Operative Diagnosis: Lumbosacral radiculopathy, lumbosacral degenerative disc disease, lumbosacral spinal stenosis Surgery/Procedure Performed:: Caudal epidural steroid injection under fluoroscopic guidance Type of Anesthesia: MAC Estimated Blood Loss (mL): Minimal Description of Procedure: DESCRIPTION OF PROCEDURE: History and physical of today was reviewed. Risks and benefits of the procedure were explained. The patient understood and agreed to proceed. Informed consent was obtained. IV inserted per routine protocol. The patient was taken to the operating room and placed in the prone position with a pillow positioned underneath the abdomen. The lower back and tailbone area was prepped and draped in a sterile fashion using iodine x3. Under fluoroscopy guidance on a lateral view, the caudal space was identified. The skin and subcutaneous tissue was anesthetized with approximately 3 mL of 1% lidocaine using a 25-gauge regular needle. Under direct visualization with fluoroscopy, using a 22-gauge 3-1/2-inch spinal needle, the needle was advanced via the skin through the sacral hiatus. The tip of the needle was passed through the sacrococcygeal ligament and advanced to approximately S4 area. After negative aspiration of blood or CSF, a total of 3 mL of contrast was injected to confirm correct placement of the needle as well as cephalad spread. The spread was followed to approximately L5 area. After confirmation on AP as well as lateral view and repeated negative aspiration, a total of 15 mL of preservative-free 0.125% Marcaine with 80 mg of Depo-Medrol was injected easily. The needle was then removed intact. The patient experienced no sign or symptoms of intrathecal or intravascular injection. The patient experienced no paresthesia. The procedure was completed without any apparent difficulty or any complications. The patient appeared to tolerate it well. ASSESSMENT AND PLAN: This is a 61-year-old male with lumbosacral radiculopathy, lumbosacral degenerative disc disease, lumbosacral spinal stenosis status post caudal epidural steroid injection, patient will continue his current medications, patient will follow in approximately 2 weeks for reevaluation. Complications None
== END 2022-01-20 23:59 | disposition home or self-care (01) ==
LOC: SDC 07:57 → AC 08:35
PROVIDERS: PCP Family Medicine; Referring Provider Anesthesiology Pain Medicine; Visit Provider Anesthesiology Pain Medicine
PROC: 3E0S3BZ Introduction of Anesthetic Agent into Epidural Space, Percutaneous Approach (ICD-10-PCS; CPT 62282; principal; 2022-01-20 09:45)
DX: M51.17 Intervertebral disc disorders with radiculopathy, lumbosacral region (principal); K73.0 Chronic persistent hepatitis, not elsewhere classified; E11.9 Type 2 diabetes mellitus without complications; M48.07 Spinal stenosis, lumbosacral region; Z79.899 Other long term (current) drug therapy; Z86.718 Personal history of other venous thrombosis and embolism; M19.90 Unspecified osteoarthritis, unspecified site; K76.0 Fatty (change of) liver, not elsewhere classified; K21.9 Gastro-esophageal reflux disease without esophagitis; G47.33 Obstructive sleep apnea (adult) (pediatric); Z95.810 Presence of automatic (implantable) cardiac defibrillator; N40.0 Benign prostatic hyperplasia without lower urinary tract symptoms
CPT/HCPCS: 62323; 01992; 64483; 77003; 82962; J7120; J3490

== ENCOUNTER 2022-06-02 08:37 | Day surgery (SDC) | payer MEDICAID, SELFPAY ==
[2022-06-02] VITALS (7 sets, daily range): BP systolic 117–147; BP diastolic 85–97; PULSE 90–103; RESP 16–18; TEMP 36.9–37; O2SAT 95–98; BMI 49.0
[2022-06-02] MEDS: Lactated Ringers 1,000 ML 15 ML IV (09:15)
--- NOTE | 2022-06-02 09:54 | RAD_ITS ---
PROCEDURE: CAUDAL BLOCK INDICATION: 61-year-old male with low back pain. EXAMINATION/TECHNIQUE: X-RAY - IR Fluoro Guide Injection Spine COMPARISON: None. FLUOROSCOPY time: 0:07 minutes/seconds FINDINGS: 3 spot fluoroscopic images were obtained intraoperatively. Lateral view of the sacrum and coccyx was obtained demonstrating demonstrate the needle placement and contrast injection. No radiologist was present for the procedure, please refer to operative report for details. RAD/Fluor Guidance for Spine Inj IMPRESSION: Please refer to operative report for details. Electronically Signed: Ramu Tena MD at 14:29 EDT ,
[2022-06-02] MEDS: MethylPREDNISolone Acetate 80 MG/ML Vial (09:57)
[2022-06-02] MEDS: Lidocaine 1% (5 ml sdv) 5 ML Vial (09:58)
[2022-06-02] MEDS: Bupivacaine 0.25% 30 ML Vial (09:58)
[2022-06-02] MEDS: 0.9% Normal Saline (Pres. free 10 ML Vial (09:59)
--- NOTE | 2022-06-02 11:05 | OP.PCM_ITS ---
Report of Operation Date of Procedure: 06/02/22 Pre-Operative Diagnosis: Lumbosacral radiculopathy, lumbosacral degenerative di sc disease, lumbosacral spinal stenosis Post-Operative Diagnosis: Lumbosacral radiculopathy, lumbosacral degenerative disc disease, lumbosacral spinal stenosis Surgery/Procedure Performed:: Caudal epidural steroid injection under fluoroscopic guidance Type of Anesthesia: MAC Estimated Blood Loss (mL): Minimal Description of Procedure: DESCRIPTION OF PROCEDURE: History and physical of today was reviewed. Risks and benefits of the procedure were explained. The patient understood and agreed to proceed. Informed consent was obtained. IV inserted per routine protocol. The patient was taken to the operating room and placed in the prone position with a pillow positioned underneath the abdomen. The lower back and tailbone area was prepped and draped in a sterile fashion using iodine x3. Under fluoroscopy guidance on a lateral view, the caudal space was identified. The skin and subcutaneous tissue was anesthetized with approximately 3 mL of 1% lidocaine using a 25-gauge regular needle. Under direct visualization with fluoroscopy, using a 22-gauge 3-1/2-inch spinal needle, the needle was advanced via the skin through the sacral hiatus. The tip of the needle was passed through the sacrococcygeal ligament and advanced to approximately S4 area. After negative aspiration of blood or CSF, a total of 3 mL of contrast was injected to confirm correct placement of the needle as well as cephalad spread. The spread was followed to approximately L5 area. After confirmation on AP as well as lateral view and repeated negative aspiration, a total of 15 mL of preservative-free 0.125% Marcaine with 80 mg of Depo-Medrol was injected easily. The needle was then removed intact. The patient experienced no sign or symptoms of intrathecal or intravascular injection. The patient experienced no paresthesia. The procedure was completed without any apparent difficulty or any complications. The patient appeared to tolerate it well. ASSESSMENT AND PLAN: This is a 61-year-old male with lumbosacral radiculopathy, lumbosacral degenerative disc disease, lumbosacral spinal stenosis status post caudal epidural steroid injection, patient will continue his current medications, patient will follow in approximately 2 weeks for reevaluation. Complications None
== END 2022-06-02 11:33 | disposition home or self-care (01) ==
LOC: SDC 08:38 → AC 08:38
PROVIDERS: PCP Family Medicine; Referring Provider Anesthesiology Pain Medicine; Visit Provider Anesthesiology Pain Medicine
PROC: 3E0S3BZ Introduction of Anesthetic Agent into Epidural Space, Percutaneous Approach (ICD-10-PCS; CPT 62282; principal; 2022-06-02 10:05)
DX: M51.17 Intervertebral disc disorders with radiculopathy, lumbosacral region (principal); M48.07 Spinal stenosis, lumbosacral region; I35.0 Nonrheumatic aortic (valve) stenosis; K21.9 Gastro-esophageal reflux disease without esophagitis; Z79.899 Other long term (current) drug therapy; Z87.891 Personal history of nicotine dependence
CPT/HCPCS: 62323; 01992; 64483; 77003; J7120; J3490

== ENCOUNTER → 2022-10-21 | Outpatient (CLI) | payer MEDICAID, SELFPAY ==
--- NOTE | 2022-10-21 15:10 | RAD_ITS ---
STUDY: X-RAY - LUMBAR SPINE REASON FOR EXAM: Male, 62 years old. LUMBAR RADICULOPATHY TECHNIQUE: XR Spine Lumbar 2 or 3 Views COMPARISON: 08.17.17 FINDINGS: Normal lumbar lordosis. There is no substantial scoliosis. There are bilateral pars articularis defects at L5-S1. There is a Grade 1 anterolisthesis of L5 on S1. Normal vertebral bodies and endplates. Normal disc space heights. The soft tissue structures are unremarkable. RAD/Lumbar Spine 2 or 3 Views IMPRESSION: There are bilateral pars articularis defects at L5-S1. There is a Grade 1 anterolisthesis of L5 on S1. Electronically Signed: Andres Lees MD at 17:14 EST ,
== END | disposition home or self-care (01) ==
PROVIDERS: PCP Family Medicine; Visit Provider Anesthesiology Pain Medicine
DX: M54.16 Radiculopathy, lumbar region (principal)
CPT/HCPCS: 72100

== ENCOUNTER → 2023-01-21 | Outpatient (CLI) | payer MEDICAID, SELFPAY ==
--- NOTE | 2023-01-21 15:47 | NEURO_ITS ---
NCS and/or EMG Patient Report Ordering Doctor: Edin Mcfarland DATE OF SERVICE: 01/21/23 Rudy presents for electrodiagnostic testing of the right upper limb. He has numbness and tingling in the hand, radiating up towards the shoulder. Electrodiagnostic findings: Right median motor nerve demonstrates prolonged l atency with normal amplitude and reduced conduction velocity. Right ulnar motor response is within normal limits. Absent right median sensory latency at the wrist and palm. Normal ulnar and radial sensory responses. On needle EMG, all muscles tested in the right upper limb showed no evidence of denervation with normal motor unit action potentials. Electrodiagnostic impression: This is an abnormal study in the right upper limb 1. Electrodiagnostic findings suggestive of right-sided median mononeuropathy. This is consistent with a moderate to advanced right carpal tunnel syndrome.
== END | disposition home or self-care (01) ==
LOC: PSN 14:49
PROVIDERS: PCP Family Medicine; Referring Provider Family Medicine; Visit Provider Family Medicine
DX: M79.601 Pain in right arm (principal); R20.0 Anesthesia of skin
CPT/HCPCS: 95886; 95910

== ENCOUNTER 2023-05-10 16:51 | Inpatient (IN) | payer MEDICAID, SELFPAY ==
[2023-05-10] VITALS (17 sets, daily range): BP systolic 109–199; BP diastolic 72–103; PULSE 91–104; RESP 16–20; TEMP 36.4–36.6; O2SAT 95–98; BMI 51.7; BMI 50.5
--- NOTE | 2023-05-10 17:03 | EKG12_ITS ---
Test Reason : REPEAT/CP Blood Pressure : / mmHG Vent. Rate : 102 BPM Atrial Rate : 102 BPM P-R Int : 160 ms QRS Dur : 072 ms QT Int : 356 ms P-R-T Axes : 009 041 065 degrees QTc Int : 463 ms Sinus tachycardia Otherwise normal ECG Confirmed by TULIO MCMILLAN, ANAIS ([id number]), editor trade journal KALI HERMAN ([id number]) on 05/12/2023 11:41:04 AM Referred By: TL Confirmed By:ANAIS ANTUNEZ MD
--- NOTE | 2023-05-10 17:13 | ED.VIS.CHEST ---
HPI History of Present Illness Chief Complaint: Chest Pain Informant: patient Onset/Context/Timing Onset: Today Narrative Narrative: Chest pressure and heaviness 3 PM light activity setting upper trap. States increasing dyspnea nausea and sweats. History of hiatal hernia he thought it was secondary to this however not improving. Symptoms started 2 hours ago. No IL history. History of aortic stenosis found a year ago when he was hospitalized at [facility] for strangulated bowels requiring laparotomy surgery with a stoma. Diabetes hyperlipidemia remote tobacco. Strong family history of IL especially in his father side. He states had a heart cath years ago with no intervention. States while walking with pain he did fall down onto his bottom he states increasing low back pain reported history of osteoporosis. No radicular symptoms. Prior Similar Symptoms: No CVD Risk Factors: Positive for Diabetes, Hypercholesterolemia and Family History 1' </=55 PFSH PFS Medical History Acute pain of right hip Allergy to contrast media (used for diagnostic x-rays) Ambulates with cane Anxiety Aortic stenosis Arthritis Back pain BiPAP (biphasic positive airway pressure) dependence BPH (benign prostatic hyperplasia) Cancer Cancer of colon with rectum Depression Dilation of thoracic aorta DVT (deep venous thrombosis) Fall Fatty liver Former smoker Frequent UTI GERD (gastroesophageal reflux disease) History of echocardiogram History of hiatal hernia History of malignant neoplasm of colon in adulthood History of pain when walking History of steroid therapy History of stress test Hyperlipidemia Injury of back Insomnia Morbid obesity Neurogenic bladder, flaccid Obstructive sleep apnea Osteoporosis Parastomal hernia Psoriasis PTSD (post-traumatic stress disorder) Pulmonary embolism Shortness of breath on exertion Type 2 diabetes mellitus without complication UTI (urinary tract infection) Vitamin B 12 deficiency Vitamin D deficiency Walker as ambulation aid Wears glasses Home Medications ondansetron 4 mg disintegrating tablet 4 mg PO Q6H PRN PRN Nausea 11/08/21 [History Last Taken Unknown] pantoprazole 40 mg tablet,delayed release 40 mg PO DAILY GERD 11/08/21 [History Last Taken 06/02/22] sumatriptan succinate 100 mg tablet 100 mg PO DAILY PRN Migraine Headache 11/08/21 [History Last Taken Unknown] acetaminophen 500 mg tablet 500 mg PO Q6H PRN Pain 01/26/23 [History Last Taken Unknown] atorvastatin 20 mg tablet 20 mg PO QHS 01/26/23 [History Last Taken Unknown] cholecalciferol (vitamin D3) 1,250 mcg (50,000 unit) capsule 1,250 mcg PO 2XW supplement 01/26/23 [History Last Taken 05/06/23] clobetasol 0.05 % topical ointment 1 applic topical .COMPLEX psoriasis 01/26/23 [History Last Taken Unknown] cyanocobalamin (vitamin B-12) 1,000 mcg tablet 1,000 mcg PO DAILY supplement 01/26/23 [History Last Taken Unknown] fluconazole 150 mg tablet 150 mg PO QWEEK PRN rash 01/26/23 [History Last Taken Unknown] hydroxyzine HCl 10 mg tablet See Rx Instructions PO QHS PRN sleep 01/26/23 [History Last Taken Unknown] mometasone 0.1 % topical cream 1 applic topical .COMPLEX PRN rash 01/26/23 [History Last Taken Unknown] oxycodone-acetaminophen 5 mg-325 mg tablet 1 tab PO Q6H PRN pain 01/26/23 [History Last Taken Unknown] sertraline 50 mg tablet 50 mg PO DAILY sleep 01/26/23 [History Last Taken Unknown] triamcinolone acetonide 0.1 % topical ointment 1 applic topical .COMPLEX psoriasis 01/26/23 [History Last Taken Unknown] alendronate 70 mg tablet 70 mg PO QWEEK osteopenia 05/10/23 [History Last Taken 05/04/23] Allergy/AdvReac Type Severity Reaction Status Date / Time metformin Allergy Unknown Vomiting Verified 05/10/23 17:00 codeine Allergy Itching Verified 05/10/23 17:00 Iodinated Contrast Media Allergy Vomiting Verified 05/10/23 17:00 Penicillins Allergy Hives Verified 05/10/23 17:00 Family History Mother No problems noted. Father Heart disease Cancer Grandmother CAD (coronary artery disease) Surgical History H/O resection of rectum History of bowel resection History of cardiac catheterization History of colonoscopy History of creation of ostomy History of esophagogastroduodenoscopy (EGD) History of implantable cardiac defibrillator (ICD) History of surgery on arm History of tonsillectomy and adenoidectomy Social History housing: other details: Lives with a roommate. Smoking Status: Former smoker how long ago did patient quit smoking: Quit 10 years prior, smoked 1 ppd since age 28. alcohol intake: never substance use type: does not use ROS ROS ED Constitutional Constitutional ED: Denies chills, fever(s) or sweats Eyes Eyes: Denies change in vision ENT ENT ED: Denies dysphagia or sore throat Cardiovascular Cardiovascular: Reports chest pain; Denies leg edema, palpitations or racing heartbeat Respiratory/Chest Respiratory/Chest: Reports dyspnea; Denies cough or dyspnea on exertion Gastrointestinal Gastrointestinal: Denies abdominal pain, diarrhea, nausea or vomiting Genitourinary Genitourinary ED: Denies dysuria, hematuria or urinary frequency Musculoskeletal Musculoskeletal: Reports back pain; Denies extremity pain or neck pain Integumentary Denies rash or wounds Neurologic Neurologic: Denies headache(s), paresthesias or weakness EXAM Physical Exam Const Vital Signs: 05/10/23 16:52 05/10/23 17:21 05/10/23 17:35 Temperature 97.5 F L Temperature Source Oral Pulse Rate 98 95 95 Respiratory Rate 16 Blood Pressure 199/103 H 149/84 H 139/91 H Blood Pressure Mean 135 Blood Pressure Position Blood Pressure Location Pulse Ox 98 Oxygen Delivery Method Room Air Oxygen Flow Rate (L/min) 05/10/23 17:44 05/10/23 18:13 05/10/23 18:14 Temperature Temperature Source Pulse Rate 104 H 101 H Respiratory Rate 18 Blood Pressure 147/92 H 135/77 H Blood Pressure Mean 96 Blood Pressure Position Blood Pressure Location Pulse Ox 95 Oxygen Delivery Method Room Air Room Air Oxygen Flow Rate (L/min) 05/10/23 20:00 05/10/23 20:24 05/10/23 20:44 Temperature Temperature Source Pulse Rate 96 Respiratory Rate 18 Blood Pressure 138/76 H 109/72 131/84 H Blood Pressure Mean 96 84 99 Blood Pressure Position Blood Pressure Location Pulse Ox 95 Oxygen Delivery Method Oxygen Flow Rate (L/min) 05/10/23 21:02 05/10/23 21:08 05/10/23 21:34 Temperature Temperature Source Pulse Rate 101 H Respiratory Rate 18 Blood Pressure 148/93 H 148/93 H 167/88 H Blood Pressure Mean 111 111 114 Blood Pressure Position Supine Supine Blood Pressure Location Right Arm Right Arm Pulse Ox 97 Oxygen Delivery Method Nasal Cannula Oxygen Flow Rate (L/min) 2 05/10/23 21:36 Temperature 98 F Temperature Source Oral Pulse Rate 98 Respiratory Rate 20 H Blood Pressure 167/88 H Blood Pressure Mean 114 Blood Pressure Position Blood Pressure Location Pulse Ox 95 Oxygen Delivery Method Nasal Cannula Oxygen Flow Rate (L/min) 2 Positive well nourished and well developed Constitutional Narrative: BMI 51, nontoxic General Appearance ED: well developed and NAD HEENT Reports moist mucous membranes normocephalic and atraumatic Eyes PERRL, EOMs intact bilaterally and conjunctivae normal General Eye ED: Yes normal appearance of both eyes Neck no lymphadenopathy and supple General: Negative for tenderness Chest Wall Chest: Negative for tenderness Resp normal respiratory effort and normal air movement Effort and Inspection: symmetric chest movement; Negative for respiratory distress Cardio regular rate and regular rhythm Peripheral Pulses: pulses 2+ throughout GI normal to inspection, nondistended, normoactive bowel sounds and non-tender GI Narrative: Midline abdominal scar left lower quadrant ostomy. Palpation: Negative for guarding or rebound tenderness present Back/Spine no CVA tenderness Back/Spine Narrative: Lower lumbar tenderness. No step-offs. Extremity normal to inspection General Extremety ED: Negative for edema or tenderness General Extremity: Negative for edema Neuro oriented x3 and no sensory deficits noted Sensorium / Orientation: awake and alert Skin no rashes or lesions noted and no wounds Heart Score History: Highly Suspicious ECG: Normal Age: >45 - <65 years Risk Factors: >/= 3 Risk Factors or History of CAD Troponin: >1 - <3 Normal Limit Score: 6 MDM MDM MDM Narrative Medical decision making narrative: Interventions / MDM: Differential diagnosis: Chest pain, ACS, lumbar strain Diagnosis considered but do not suspect: Aortic dissection hemorrhage no sharp tearing pain to the back. Pulses are intact and symmetric bilaterally. My EKG interpretation: Sinus rate of 98, no ST or T wave changes. EKG #2 at 1922: Sinus rhythm, rate of 97, no ST or T wave changes. Imaging independently reviewed and interpreted by myself: 2 view chest x-ray: No acute process. , Lumbar spine x-ray 3 views: Spondylolisthesis of L5-S1, mild L5 compression deformity. This also read by radiology. External documents reviewed: Nuclear stress test November 2021 no acute findings. Test considered but not ordered:N/A ED course: EKG no acute findings. Blood pressure elevated 189/103. Patient apparently took aspirin at home prior to arrival 325 mg. Nitro series will be ordered cardiac work-up along with chest x-ray and lumbar spine x-rays. 1749: Nitro series with improving symptoms. Initial troponin 45. Hemoglobin 15.4. Creatinine 1.11. Going over for images at this time his chest and lumbar spine. Nitropaste morphine ordered in addition due to his symptoms. 1844: Chest pain down to 4, back pain improved. Nitropaste is on, awaiting for 2-hour troponin. 1924: Repeat EKG was ordered, unchanged. 1999: Patient's pain increased reevaluate the room he is sweaty again. A repeat EKG sinus 102 with no acute findings. Switched over to nitroglycerin drip, heparin drip started. 2009: I spoke with cement sprayer helper Dr. Key discussed patient's history and findings. Agrees with the nitro drip and heparin drip. Goal is to titrate her symptom-free. Discussed his anaphylaxis to IV dye agrees with Solu-Medrol and Benadryl to be given now. He will need to be closely monitored if waxing waning worsening symptoms he would need to be contacted for earlier catheterization for unstable angina. Discussed this plan with the patient. He understands this. I will speak with hospitalist service for admission to ICU. 2129: Spoke with Dr. Madera for admission to step down with plans discussed from cement sprayer helper. Report from nursing patient's pain down to a 3. Blood pressure remained stable at 148/93. Re-evaluation: Guarded Disposition discussed with patient/family/significant other: Patient Case discussed with consulting clinician: Valuer Dr. Key, hospitalist Dr. Madera This note was generated with [employer] dictation software. It may contain incorrect words, spelling, and punctuation that were not noted in checking the note before signing. Lab Data Attestation: I reviewed the patient's lab results. Labs: Laboratory Results - last 24 hr 05/10/23 05/10/23 17:13 19:17 WBC 9.7 RBC 4.75 Hgb 15.4 Hct 44.2 MCV 93.1 MCH 32.4 H MCHC 34.8 RDW Std Deviation 43.4 RDW Coeff of Mar 12.6 Plt Count 271 MPV 8.9 Immature Gran % (Auto) 1.300 H Neut % (Auto) 67.0 Lymph % (Auto) 21.4 [place] % (Auto) 8.2 Eos % (Auto) 1.3 Baso % (Auto) 0.8 Absolute Neuts (auto) 6.5 Absolute Lymphs (auto) 2.07 Nucleated RBC % 0 PT 13.1 INR 1.0 APTT 27.4 Sodium 135 L Potassium 4.0 Chloride 105 Carbon Dioxide 22.0 Anion Gap 8 BUN 11 Creatinine 1.11 Estim Creat Clear Calc 72.16 Est GFR (MDRD) Af Amer 86 Est GFR (MDRD) Non-Af 71 BUN/Creatinine Ratio 9.9 L Glucose 166 H Calcium 9.6 Troponin I High Sens 45 223 H* Radiography Diagnostic Testing: Clinical Impression(s) from Imaging Studies Chest X-Ray 05/10/23 17:55 IMPRESSION: Increased interstitial markings may represent edema and/or infection. Electronically Signed: Kevin Sánchez MD at 19:14 EDT , Lumbar Spine X-Ray 05/10/23 17:55 IMPRESSION: Mild compression deformity of L5 with grade 2 anterolisthesis L5 on S1. Severe multilevel degenerative disc disease and spondylosis. Electronically Signed: Kevin Sánchez MD at 19:13 EDT Reading Location ID and State: [id number] / [place] Tel , Service support , Critical Care Time Critical Care Time: Yes Critical care time (excluding procedures): 30-74 minutes, Discussing w/Patient &/or Family/Still Runner, Discussing w/Consultants, Arranging Admission or Transfer, Performing Direct Patient Care at Bedside and - (45 minutes) Discharge Plan Dx/Rx/DC Orders Clinical Impression: Non-ST elevation IL (NSTEMI), Hyperlipidemia, Type 2 diabetes mellitus without complication, Unstable angina, Lumbar compression fracture, History of rectal cancer Disposition Disposition: Acute Care Hospital [facility]
[2023-05-10] MEDS: Nitroglycerin SL (ED/IMG/CATH) 0.4 MG TABLET SL ×3 (17:21→17:44)
[2023-05-10 17:23] LABS: Absolute Lymphocyte Count 2.07 X10^3/uL (0.83-4.51); Absolute Neutrophil Count 6.5 X10^3/uL (2.0-7.7); Basophil# 0.08 X10^3/uL; Basophil% 0.8 % (0-1); Eosinophil# 0.13 X10^3/uL; Eosinophils% 1.3 % (0-5); Hematocrit 44.2 % (40-54); Hemoglobin 15.4 g/dL (13.0-16.5); Lymphocyte # 2.07 X10^3/ul (0.83-4.51); Lymphocyte % 21.4 % (19-41); Mean Corp Hgb Conc 34.8 g/dL (32-36); Mean Corpuscular Hgb 32.4 pg (27.0-32.0); Mean Corpuscular Volume 93.1 fL (80-94); Mean Platelet Vol. 8.9 fl (6.2-12.0); Monocyte# 0.79 X10^3/uL; Monocyte% 8.2 % (0-10); NRBC Flagged by Analyzer 0 % (0-5); Neutrophil # 6.47 X10^3/uL (2.7-7.7); Platelet Count 271 K/mm3 (150-450); RBC Distribution Width CV 12.6 % (11.6-14.6); RBC Distribution Width SD 43.4 fl (35.1-43.9); Red Blood Count 4.75 M/mm3 (4.6-6.2); White Blood Count 9.7 K/mm3 (4.4-11.0)
[2023-05-10 17:32] LABS: Prothrombin Time (Protime)PT. 13.1 SECONDS (11.7-14.9)
[2023-05-10 17:33] LABS: Partial Thromboplast Time 27.4 Seconds (24.1-36.2)
[2023-05-10 17:50] LABS: Anion Gap 8 (5-15); BUN 11 mg/dL (7-18); BUN/Creat Ratio 9.9 RATIO (10-20); Calcium,Total 9.6 mg/dL (8.5-10.1); Chloride 105 mmol/L (98-107); Creatinine, Serum 1.11 mg/dL (0.70-1.30); EST Glomerular Filtration Rate 71 mL/min (>60); Est Glom Filt Rate - Afr Amer 86 mL/min (>60); Estimated Creatinine Clearance 72.16 ml/min; Glucose 166 mg/dL (74-106); Sodium Level 135 mmol/L (136-145); Troponin-I HS (w/2H Reflex) 45 pg/mL (3.0-78.0)
--- NOTE | 2023-05-10 17:55 | RAD_ITS ---
INDICATION: injury EXAMINATION/TECHNIQUE: X-RAY - XR Spine Lumbar 2 or 3 Views COMPARISON: None. FINDINGS: VERTEBRAE: Preserved vertebral body height. Mild compression deformity of L5. 1.8 cm anterolisthesis L5 on S1. Preservation of the normal lumbar lordosis. Severe multilevel facet arthropathy. DISCS: Severe multilevel degenerative disc disease and spondylosis. INCLUDED ABDOMEN: Included bowel gas pattern is non-obstructive. RAD/Lumbar Spine 2 or 3 Views IMPRESSION: Mild compression deformity of L5 with grade 2 anterolisthesis L5 on S1. Severe multilevel degenerative disc disease and spondylosis. Electronically Signed: Kevin Sánchez MD at 19:13 EDT ,
--- NOTE | 2023-05-10 17:55 | RAD_ITS ---
INDICATION: chest pain EXAMINATION/TECHNIQUE: X-RAY - XR Chest 2 Views COMPARISON: None. FINDINGS: Increased interstitial markings. Tortuous and calcified thoracic aorta. The heart is mildly enlarged. No pleural effusion or pneumothorax. Degenerative changes of the thoracic spine. RAD/Chest PA and Lateral IMPRESSION: Increased interstitial markings may represent edema and/or infection. Electronically Signed: Kevin Sánchez MD at 19:14 EDT ,
[2023-05-10] MEDS: Nitroglycerin Oint 1 INCH PACKET TD (18:08)
[2023-05-10] MEDS: Morphine 4 MG/ML Syringe IV ×3 (18:09→23:20)
[2023-05-10 19:17] LABS: Reflex Troponin-HS? (from REC) Y
--- NOTE | 2023-05-10 19:31 | EKG12_ITS ---
Test Reason : REPEAT Blood Pressure : / mmHG Vent. Rate : 097 BPM Atrial Rate : 097 BPM P-R Int : 146 ms QRS Dur : 082 ms QT Int : 362 ms P-R-T Axes : 011 037 056 degrees QTc Int : 459 ms Normal sinus rhythm Normal ECG Confirmed by TULIO MCMILLAN, ANAIS ([id number]), magazine editor KALI HERMAN ([id number]) on 05/12/2023 11:41:44 AM Referred By: TL Confirmed By:ANAIS ANTUNEZ MD
[2023-05-10 19:52] LABS: Troponin-I HS 223 pg/mL (3.0-78.0)
--- NOTE | 2023-05-10 19:55 | EKG12_ITS ---
Test Reason : CP Blood Pressure : / mmHG Vent. Rate : 098 BPM Atrial Rate : 098 BPM P-R Int : 152 ms QRS Dur : 072 ms QT Int : 340 ms P-R-T Axes : -01 028 053 degrees QTc Int : 434 ms Normal sinus rhythm Normal ECG Confirmed by TULIO MCMILLAN, ANAIS ([id number]), editor news KALI HERMAN ([id number]) on 05/12/2023 11:42:13 AM Referred By: MARISA Confirmed By:ANAIS ANTUNEZ MD
[2023-05-10] MEDS: DiphenhydrAMINE 50 MG/ML Syringe IV (20:16)
[2023-05-10] MEDS: HEPARIN/D5w 25,000 UNITS 25,000 UNITS/250 ML IV.SOLN. 10 UNITS CONT INF (20:20)
[2023-05-10] MEDS: Heparin Injection (Vial) 5,000 UNIT/ML VIAL 4000 UNIT IV (20:22)
[2023-05-10] MEDS: Nitroglycerin Infusion 250 ML 3 MG CONT INF (20:24)
[2023-05-10] MEDS: MethylPREDNISolone 125 MG/2 ML Vial IV (20:28)
--- NOTE | 2023-05-10 21:16 | PCM.HP.STD ---
[facility] - General General Date of Admission: 05/10/23 Date of Service: 05/10/23 Chief Complaint: Chest Pain HPI Narrative ERNA PALMA, is a 62 M with a significant history of morbid obesity; type 2 diabetes mellitus; obstructive sleep apnea; and colorectal cancer status post colectomy with ostomy, chemotherapy and radiation who presented to the emergency department with excruciating substernal chest pain that started about an hour and a half prior to presentation. Reportedly patient was setting up traps and then he developed a feeling of reflux disease. Typically with cold water his reflux is resolved. However this time around his symptoms did not resolve with cold water. He tried Tums that also did not help resolve his reflux. He took a full dose aspirin. His pain was getting progressively worse. The pain radiated to his left shoulder and into his left arm. He denies any ameliorating factors to the pain except nitroglycerin which somewhat helped with the pain. At the emergency department patient was given nitroglycerin sublingual and then nitroglycerin paste and then he was placed on nitroglycerin drip. His troponin increased. Emergency department doctor discussed the case with on-call academic advising director. [facility] Medical History Acute pain of right hip Allergy to contrast media (used for diagnostic x-rays) Ambulates with cane Anxiety Aortic stenosis Arthritis Back pain BiPAP (biphasic positive airway pressure) dependence BPH (benign prostatic hyperplasia) Cancer Cancer of colon with rectum Depression Dilation of thoracic aorta DVT (deep venous thrombosis) Fall Fatty liver Former smoker Frequent UTI GERD (gastroesophageal reflux disease) History of echocardiogram History of hiatal hernia History of malignant neoplasm of colon in adulthood History of pain when walking History of steroid therapy History of stress test Hyperlipidemia Injury of back Insomnia Morbid obesity Neurogenic bladder, flaccid Obstructive sleep apnea Osteoporosis Parastomal hernia Psoriasis PTSD (post-traumatic stress disorder) Pulmonary embolism Shortness of breath on exertion Type 2 diabetes mellitus without complication UTI (urinary tract infection) Vitamin B 12 deficiency Vitamin D deficiency Walker as ambulation aid Wears glasses Home Medications ondansetron 4 mg disintegrating tablet 4 mg PO Q6H PRN PRN Nausea 11/08/21 [History Last Taken Unknown] pantoprazole 40 mg tablet,delayed release 40 mg PO DAILY GERD 11/08/21 [History Last Taken 06/02/22] sumatriptan succinate 100 mg tablet 100 mg PO DAILY PRN Migraine Headache 11/08/21 [History Last Taken Unknown] acetaminophen 500 mg tablet 500 mg PO Q6H PRN Pain 01/26/23 [History Last Taken Unknown] atorvastatin 20 mg tablet 20 mg PO QHS cholesterol 01/26/23 [History Last Taken Unknown] cholecalciferol (vitamin D3) 1,250 mcg (50,000 unit) capsule 1,250 mcg PO 2XW supplement 01/26/23 [History Last Taken 05/06/23] clobetasol 0.05 % topical ointment 1 applic topical .COMPLEX psoriasis 01/26/23 [History Last Taken Unknown] cyanocobalamin (vitamin B-12) 1,000 mcg tablet 1,000 mcg PO DAILY supplement 01/26/23 [History Last Taken Unknown] fluconazole 150 mg tablet 150 mg PO QWEEK PRN rash 01/26/23 [History Last Taken Unknown] hydroxyzine HCl 10 mg tablet See Rx Instructions PO QHS PRN sleep 01/26/23 [History Last Taken Unknown] mometasone 0.1 % topical cream 1 applic topical .COMPLEX PRN rash 01/26/23 [History Last Taken Unknown] oxycodone-acetaminophen 5 mg-325 mg tablet 1 tab PO Q6H PRN pain 01/26/23 [History Last Taken Unknown] sertraline 50 mg tablet 50 mg PO DAILY sleep 01/26/23 [History Last Taken Unknown] triamcinolone acetonide 0.1 % topical ointment 1 applic topical .COMPLEX psoriasis 01/26/23 [History Last Taken Unknown] alendronate 70 mg tablet 70 mg PO QWEEK osteopenia 05/10/23 [History Last Taken 05/04/23] Allergy/AdvReac Type Severity Reaction Status Date / Time metformin Allergy Unknown Vomiting Verified 05/10/23 17:00 codeine Allergy Itching Verified 05/10/23 17:00 Iodinated Contrast Media Allergy Vomiting Verified 05/10/23 17:00 Penicillins Allergy Hives Verified 05/10/23 17:00 Family History Mother No problems noted. Father Heart disease Cancer Grandmother CAD (coronary artery disease) Surgical History H/O resection of rectum History of bowel resection History of cardiac catheterization History of colonoscopy History of creation of ostomy History of esophagogastroduodenoscopy (EGD) History of implantable cardiac defibrillator (ICD) History of surgery on arm History of tonsillectomy and adenoidectomy Social History housing: other details: Lives with a roommate. Smoking Status: Former smoker how long ago did patient quit smoking: Quit 10 years prior, smoked 1 ppd since age 28. alcohol intake: never substance use type: does not use ROS ROS Narrative Pertinent positives and pertinent negatives as noted in HPI. All other systems were reviewed and are negative Vital Signs Vital Signs Vital Signs: 05/10/23 16:52 05/10/23 17:21 05/10/23 17:35 Temperature 97.5 F L Temperature Source Oral Pulse Rate 98 95 95 Respiratory Rate 16 Blood Pressure 199/103 H 149/84 H 139/91 H Blood Pressure Mean 135 Blood Pressure Position Blood Pressure Location Pulse Ox 98 Oxygen Delivery Method Room Air Oxygen Flow Rate (L/min) 05/10/23 17:44 05/10/23 18:13 05/10/23 18:14 Temperature Temperature Source Pulse Rate 104 H 101 H Respiratory Rate 18 Blood Pressure 147/92 H 135/77 H Blood Pressure Mean 96 Blood Pressure Position Blood Pressure Location Pulse Ox 95 Oxygen Delivery Method Room Air Room Air Oxygen Flow Rate (L/min) 05/10/23 20:00 05/10/23 20:24 05/10/23 20:44 Temperature Temperature Source Pulse Rate 96 Respiratory Rate 18 Blood Pressure 138/76 H 109/72 131/84 H Blood Pressure Mean 96 84 99 Blood Pressure Position Blood Pressure Location Pulse Ox 95 Oxygen Delivery Method Oxygen Flow Rate (L/min) 05/10/23 21:02 05/10/23 21:08 Temperature Temperature Source Pulse Rate 101 H Respiratory Rate 18 Blood Pressure 148/93 H 148/93 H Blood Pressure Mean 111 111 Blood Pressure Position Supine Blood Pressure Location Right Arm Pulse Ox 97 Oxygen Delivery Method Nasal Cannula Oxygen Flow Rate (L/min) 2 Weight Weight: 163.7 kg Body Mass Index (BMI) 51.7 Physical Exam Narrative Physical exam: General: Well-nourished, well-developed. Head: Normocephalic, atraumatic, no tenderness Eyes: Vision is grossly intact. EOMI ENT, no trauma, moist mucous membranes, no rhinorrhea Neck: Nontender, No thyromegaly. CVS: Regular rate and rhythm. S1-S2 present. No murmur, gallop or rub. Respiratory : clear to auscultation bilaterally, chest wall nontender Abdomen: Obese. Ostomy bag in place. Soft, distended, normal bowel sounds. : Deferred Back: Nontender, no CVA tenderness, no midline spinal tenderness, deformities, step-offs Extremities: Nontender full range of motion, no trauma Skin: Normal color, no trauma, abrasions Neuro: Alert, oriented, cranial nerves II through XII grossly intact. Psychiatry: Normal mood. Normal affect. Not depressed. Not anxious. Results Lab / Micro Data 05/11/23 02:20 05/11/23 02:20 Labs: Laboratory Results - last 24 hr 05/10/23 17:13: WBC 9.7, RBC 4.75, Hgb 15.4, Hct 44.2, MCV 93.1, MCH 32.4 H, MCHC 34.8, RDW Std Deviation 43.4, RDW Coeff of Mar 12.6, Plt Count 271, MPV 8.9, Immature Gran % (Auto) 1.300 H, Neut % (Auto) 67.0, Lymph % (Auto) 21.4, [place] % (Auto) 8.2, Eos % (Auto) 1.3, Baso % (Auto) 0.8, Absolute Neuts (auto) 6.5, Absolute Lymphs (auto) 2.07, Nucleated RBC % 0, PT 13.1, INR 1.0, APTT 27.4, Sodium 135 L, Potassium 4.0, Chloride 105, Carbon Dioxide 22.0, Anion Gap 8, BUN 11, Creatinine 1.11, Estim Creat Clear Calc 72.16, Est GFR (MDRD) Af Amer 86, Est GFR (MDRD) Non-Af 71, BUN/Creatinine Ratio 9.9 L, Glucose 166 H, Calcium 9.6, Troponin I High Sens 45 05/10/23 19:17: Troponin I High Sens 223 H* Radiology Impression Chest X-Ray 05/10/23 17:55 IMPRESSION: Increased interstitial markings may represent edema and/or infection. Electronically Signed: Kevin Sánchez MD at 19:14 EDT , Lumbar Spine X-Ray 05/10/23 17:55 IMPRESSION: Mild compression deformity of L5 with grade 2 anterolisthesis L5 on S1. Severe multilevel degenerative disc disease and spondylosis. Electronically Signed: Kevin Sánchez MD at 19:13 EDT , Assessment & Plan Assessment/Plan (1) Non-ST elevation LA (NSTEMI): (2) Lumbar compression fracture: QUALIFIERS: Encounter type: initial encounter Lumbar vertebra fracture level: L5 Qualified Code(s): S32.050A - Wedge compression fracture of fifth lumbar vertebra, initial encounter for closed fracture PLAN: Plan Non-STEMI Placed a progressive care unit on stepdown status. Per radiology interpretation chest x-ray with Increased interstitial markings may represent edema and/or infection. actual CXR image was independently visualized. Patient has no fever or leukocytosis. Infection is less likely. Actual EKG tracing was independently visualized. EKG tracing showed sinus rhythm with no ST or T wave abnormalities. ASA 81 mg p.o. daily ordered SL NTG 0.4 mg prn as needed for chest pain ordered Nitroglycerin drip and morphine as needed for pain ordered We will check lipid panel. Statin: High intensity statin ordered Initial high sensitivity troponin was 45. Trended to 223 and 946. Heparin drip for the emergency department continued. Serial cardiac enzymes ordered Stat EKG as needed for chest pain Patient has allergy to dye so was prepared with Solu-Medrol and Benadryl on presentation for possible cough. Cardiology consult Compression fracture Lumbar spine x-ray?radiology interpretation?Mild compression deformity of L5 with grade 2 anterolisthesis L5 on S1. Per hospitalist interpretation, agrees. Morphine as needed ordered. Severe multilevel degenerative disc disease and spondylosis. DVT prophylaxis: Not indicated as patient is on heparin drip. Time spent in the patient's overall evaluation,decision-making process, review of diagnostic data, adjustment of management, discussion with other providers, nursing nursing and ancillary staff involved in patient's care documentation, 62 minutes. Charges/Coding Visit Charges Inpatient E&M: 43138 Init Hosp L3
[2023-05-10] MEDS: Acetaminophen 500 MG Tablet 1000 MG PO (22:27)
--- NOTE | 2023-05-10 22:40 | ECHOCS_ITS ---
Version 2 Reason For Study: CHEST PAIN Procedure This was a 2D Doppler, Color Flow transthoracic echocardiogram. The study was technically limited. The study was technically difficult. D/T body habitus. Contrast injection was performed. Exam performed portable in patient room. Left Ventricle Normal left ventricle. The estimated ejection fraction is 55-60 %. Right Ventricle Normal right ventricle. Normal systolic function. Atria The left atrium is mildly enlarged. Mitral Valve The mitral valve is structurally normal. No prolapse or stenosis seen. Tricuspid Valve Normal tricuspid valve. Aortic Valve The aortic valve is not well visualized in the short axis view. Pulmonic Valve The pulmonic valve is not well visualized. Great Vessels Normal aortic root. Pericardium/Pleural No pericardial effusion. Medication Diluted definity 5.0ml given slow IV push to enhance endocardial definition. MMode/2D Measurements & Calculations LVIDd: 5.7 cm IVSd: 1.5 cm LAV(MOD-bp): 58.6 ml LVIDs: 4.6 cm LVPWd: 1.2 cm FS: 18.9 % LAV(MOD-bp) Indexed: 21.9 ml/m2 LAV(MOD-sp2): 68.4 ml LAV(MOD-sp4): 49.6 ml SV(MOD-sp4): 28.8 ml SV(sp4-el): 29.5 ml LVAd ap4: 20.2 cm2 LVLd ap4: 7.0 cm EDV(MOD-sp4): 48.0 ml EDV(sp4-el): 49.5 ml LVAs ap4: 12.5 cm2 LVLs ap4: 6.6 cm ESV(MOD-sp4): 19.2 ml ESV(sp4-el): 20.1 ml EF(MOD-sp4): 60.0 % EF(sp4-el): 59.5 % LA dimension(2D): 4.6 cm LA A4 area: 17.9 cm2 Time Measurements MV dec time: 0.19 sec Doppler Measurements & Calculations MV E max russell: 95.9 cm/sec Ao V2 max: 144.2 cm/sec LV V1 max: 124.9 cm/sec MV A max russell: 129.8 cm/sec Ao max P.3 mmHg LV V1 max P.2 mmHg MV E/A: 0.74 Ao V2 mean: 112.7 cm/sec LV V1 mean P.9 mmHg Ao mean P.4 mmHg LV V1 mean: 95.1 cm/sec Ao V2 VTI: 29.4 cm LV V1 VTI: 27.9 cm AV (velocity ratio): 0.95 PA V2 max: 102.4 cm/sec ECHO/Echo Complete W/ Contrast Interpretation Summary The estimated ejection fraction is 55-60 %. Definity used as contrast echo Pericardial fat pad noted RV and RA size normal. Ordering Physician: Yoandy Madera Referring Physician: Edin Mcfarland Performed By: Latisha Hanley RDCS, RVT
[2023-05-10] MEDS: 0.9% Saline Lock 10 ML Syringe IV (23:21)
[2023-05-10] MEDS: Atorvastatin Calcium 80 MG Tablet PO (23:22)
--- NOTE | 2023-05-10 23:22 | EKG12_ITS ---
Test Reason : AM EKG Blood Pressure : / mmHG Vent. Rate : 087 BPM Atrial Rate : 087 BPM P-R Int : 148 ms QRS Dur : 084 ms QT Int : 370 ms P-R-T Axes : 004 038 073 degrees QTc Int : 445 ms Normal sinus rhythm Nonspecific T wave abnormality Abnormal ECG When compared with ECG of 10-MAY-2023 22:46, MANUAL COMPARISON REQUIRED, DATA IS UNCONFIRMED Confirmed by TULIO MCMILLAN, ANAIS ([id number]), research editor KALI HERMAN ([id number]) on 05/12/2023 12:20:34 PM Referred By: Confirmed By:ANAIS ANTUNEZ MD
[2023-05-10] MEDS: Saliva Substitute 237 ML BOTTLE 15 ML MUCOUS MEM (23:52)
[2023-05-10] MEDS: 0.9% Normal Saline 1,000 ML 75 ML IV (23:57)
[2023-05-11] VITALS (37 sets, daily range): BP systolic 105–162; BP diastolic 60–111; PULSE 79–114; RESP 12–34; TEMP 36.7–36.8; O2SAT 93–98
[2023-05-11 00:06] LABS: Troponin-I HS 946 pg/mL (3.0-78.0)
[2023-05-11] MEDS: Morphine 4 MG/ML Syringe IV ×4 (02:37→14:43)
[2023-05-11] MEDS: 0.9% Saline Lock 10 ML Syringe IV ×4 (02:39→23:53)
[2023-05-11 02:43] LABS: Hematocrit 41.9 % (40-54); Hemoglobin 14.2 g/dL (13.0-16.5); Mean Corp Hgb Conc 33.9 g/dL (32-36); Mean Corpuscular Volume 94.4 fL (80-94); Platelet Count 261 K/mm3 (150-450); RBC Distribution Width CV 12.6 % (11.6-14.6); RBC Distribution Width SD 43.5 fl (35.1-43.9); Red Blood Count 4.44 M/mm3 (4.6-6.2); White Blood Count 8.3 K/mm3 (4.4-11.0)
[2023-05-11 02:55] LABS: Anion Gap 8 (5-15); BUN 12 mg/dL (7-18); BUN/Creat Ratio 10.7 RATIO (10-20); Chloride 106 mmol/L (98-107); Creatinine, Serum 1.12 mg/dL (0.70-1.30); EST Glomerular Filtration Rate 71 mL/min (>60); Est Glom Filt Rate - Afr Amer 86 mL/min (>60); Estimated Creatinine Clearance 71.52 ml/min; Glucose 262 mg/dL (74-106); Partial Thromboplast Time 32.2 Seconds (24.1-36.2); Potassium 4.3 mmol/L (3.5-5.1); Sodium Level 135 mmol/L (136-145)
[2023-05-11] MEDS: Heparin Injection (Vial) 5,000 UNIT/ML VIAL IV (03:29)
[2023-05-11] MEDS: Acetaminophen 325 MG Tablet 650 MG PO ×3 (04:16→18:54)
--- NOTE | 2023-05-11 05:00 | EKG12_ITS ---
Test Reason : POST-PCI Blood Pressure : / mmHG Vent. Rate : 081 BPM Atrial Rate : 081 BPM P-R Int : 182 ms QRS Dur : 076 ms QT Int : 342 ms P-R-T Axes : 032 040 064 degrees QTc Int : 397 ms Normal sinus rhythm Nonspecific T wave abnormality Abnormal ECG When compared with ECG of 11-MAY-2023 05:38, MANUAL COMPARISON REQUIRED, DATA IS UNCONFIRMED Confirmed by TULIO MCMILLAN, ANAIS ([id number]), publication editor KALI HERMAN ([id number]) on 05/12/2023 12:18:52 PM Referred By: TULIO Confirmed By:ANAIS ANTUNEZ MD
[2023-05-11] MEDS: Aspirin E.C. 81 MG Tablet PO (05:49)
--- NOTE | 2023-05-11 07:25 | PN.HOSP_ITS ---
Reason for Visit Reason for Visit: Diagnoses Non-ST elevation (NSTEMI) myocardial infarction (05/10/23) Wedge compression fracture of fifth lumbar vertebra, initial encounter for closed fracture (05/10/23) Subjective Subjective Follow-up for non-STEMI. Objective Data Objective Data Vital Signs: Vital Signs Temp Pulse Resp BP Pulse Ox O2 Del Method O2 Flow Rate 98 F 93 18 119/72 97 Room Air 2 05/10/23 21:36 05/11/23 06:30 05/11/23 06:30 05/11/23 06:30 05/11/23 06:30 05/11/23 06:30 05/11/23 05:16 Oxygen Flow Rate (L/min) 2 Oxygen Delivery Method Room Air Weight: 352 lb 8.306 oz Body Mass Index (BMI) 50.5 Intake & Output: Intake and Output for Last 24 Hours 05/09/23 05/10/23 05/11/23 23:59 23:59 23:59 Intake Total 28.13 / 31.13 192.12 / 192.12 Output Total 950 / 950 Balance 28.13 / 31.13 -757.88 / -757.88 Lab / Micro Data 05/11/23 02:20 05/11/23 02:20 Labs: Laboratory Results - last 24 hr 05/10/23 17:13: WBC 9.7, RBC 4.75, Hgb 15.4, Hct 44.2, MCV 93.1, MCH 32.4 H, MCHC 34.8, RDW Std Deviation 43.4, RDW Coeff of Mar 12.6, Plt Count 271, MPV 8.9, Immature Gran % (Auto) 1.300 H, Neut % (Auto) 67.0, Lymph % (Auto) 21.4, [place] % (Auto) 8.2, Eos % (Auto) 1.3, Baso % (Auto) 0.8, Absolute Neuts (auto) 6.5, Absolute Lymphs (auto) 2.07, Nucleated RBC % 0, PT 13.1, INR 1.0, APTT 27.4, Sodium 135 L, Potassium 4.0, Chloride 105, Carbon Dioxide 22.0, Anion Gap 8, BUN 11, Creatinine 1.11, Estim Creat Clear Calc 72.16, Est GFR (MDRD) Af Amer 86, Est GFR (MDRD) Non-Af 71, BUN/Creatinine Ratio 9.9 L, Glucose 166 H, Calcium 9.6, Troponin I High Sens 45 05/10/23 19:17: Troponin I High Sens 223 H* 05/10/23 23:07: Troponin I High Sens 946 H* 05/11/23 02:20: WBC 8.3, RBC 4.44 L, Hgb 14.2, Hct 41.9, MCV 94.4 H, MCH 32.0, MCHC 33.9, RDW Std Deviation 43.5, RDW Coeff of Mar 12.6, Plt Count 261, MPV 9.0, APTT 32.2, Sodium 135 L, Potassium 4.3, Chloride 106, Carbon Dioxide 21.0, Anion Gap 8, BUN 12, Creatinine 1.12, Estim Creat Clear Calc 71.52, Est GFR (MDRD) Af Amer 86, Est GFR (MDRD) Non-Af 71, BUN/Creatinine Ratio 10.7, Glucose 262 H, Calcium 9.0 Radiography Diagnostic Testing: Radiology Impression Chest X-Ray 05/10/23 17:55 IMPRESSION: Increased interstitial markings may represent edema and/or infection. Electronically Signed: Kevin Sánchez MD at 19:14 EDT , Lumbar Spine X-Ray 05/10/23 17:55 IMPRESSION: Mild compression deformity of L5 with grade 2 anterolisthesis L5 on S1. Severe multilevel degenerative disc disease and spondylosis. Electronically Signed: Kevin Sánchez MD at 19:13 EDT , Physical Exam Narrative Seen and examined. Patient had chest pressure/pain 2 hours prior to ED presentation and still has it although has decreased in intensity 7-8 intensity with radiation to left shoulder. Initially it was radiating to hold left arm. No prior AR or chest pain in the past. Associated with shortness of breath and dizziness. Physical exam General: Alert, Oriented x3, Cooperative. Morbid obesity BMI 50.6 kg/m? HEENT: Atraumatic, PERRLA, EOMI, Normocephalic Oral: Oral mucosa moist. No Gingival or Mucosal Lesions/ Ulcerations Neck: Supple, No JVD, Negative Carotid Bruits Lungs: Air entry diminished in bilateral lung bases. No crepitation/rhonchi Cardiovascular: Regular rate, Regular Rhythm, Normal S1, Normal S2, No murmurs Abdomen: Colostomy over left upper quadrant. Multiple scar after laparotomy and hernia mesh repair. Bowel Sounds Present, Soft, Non Tender, Non-Distended : No dysuria. No renal angle tenderness. No suprapubic tenderness. Extremities: No edema, Capillary Refill Less than 3 Seconds Skin: No rashes, No breakdown Musculoskeletal: No Tenderness to Palpation of Joints or Extremities. ROM full. Neurological: Cranial nerves II-XII grossly intact, DTR 2+/4 and Symmetrical, Neuro grossly intact Psych/Mental Status: Flat affect. Assessment & Plan Assessment/Plan (1) Non-ST elevation AR (NSTEMI): (2) Lumbar compression fracture: QUALIFIERS: Encounter type: initial encounter Lumbar vertebra fracture level: L5 Qualified Code(s): S32.050A - Wedge compression fracture of fifth lumbar vertebra, initial encounter for closed fracture PLAN: Plan 62 gentleman was admitted with escalating substernal chest pain/pressure for about 2 hours prior to ED presentation while he was sitting. Initially he thought of reflux disease as he has hiatus hernia. Chest pain radiated to his left shoulder and left arm with mild improvement from nitroglycerin. Patient has also associated symptoms of shortness of breath, nausea and sweating. Non-STEMI: Patient is being admitted in PCU. Chest x-ray individually reviewed and shows increased interstitial markings without clear significance in absence of leukocytosis fever and pneumonia like symptoms. Twelve-lead EKG shows sinus rhythm with no significant ST-T abnormalities. Serial troponins are high consistent with non-STEMI. Patient on baby aspirin, nitroglycerin drip and morphine, high intensity statin. Patient is allergic with IV contrast therefore patient was given Solu-Medrol 125 mg and Benadryl 50 mg IV in ED after discussion of in home sales consultant and ED physician. I talked to Materials Planning Manager and patient will have repeat dose of Solu-Medrol and Benadryl just before the procedure. Manager Front consulted. Cardiac cath showed diffusely diseased proximal LAD 75% for which patient had PCI. Patient on baby aspirin, Brilinta, DAPT. LVEF 65%. Normal LV wall motion and systolic function. Patient getting echo. Compression fracture Patient listed. He fell down yesterday on lumbar back. Denies any fall or injury of her hip or pelvic bone. Lumbar spine x-ray reviewed and, mild compression deformity of L5 with grade 2 anterolisthesis L5 on S1. Severe multilevel degenerative disc disease and spondylosis. History of of colorectal cancer 9 years ago status post bowel resection, colostomy complicated parastomal hernia and hernia repair. Patient also had bladder dysfunction with large bladder and used to self cath but he stopped during COVID time and now he urinates normally. No dysuria or acute complaint. DVT prophylaxis: Not indicated as patient is on heparin drip. Charges/Coding Visit Charges Inpatient E&M: 08767 Subs Hosp L2
--- NOTE | 2023-05-11 07:47 | PCM.CONS.C ---
Assessment & Plan Assessment/Plan (1) Non-ST elevation NM (NSTEMI): PLAN: He presents with a non-ST elevation myocardial infarction. At this point my recommendation be for us to proceed with a left heart catheterization. Risk benefits alternatives have been explained to him he understands and agrees to proceed. Adequate iodinated contrast prophylaxis would be administered prior. Thank you for allowing me to participate in the care of your patient. Please don't hesitate to call if any issues arise. (2) Hypertension: QUALIFIERS: Hypertension type: primary hypertension Qualified Code(s): I10 - Essential (primary) hypertension PLAN: His blood pressure was elevated when he presented. It appears to be better at this time. The plan number to continue aggressively treating the above. An echocardiogram will be performed to assess the ventricular function. HPI Consult Data Date of Consult: 05/11/23 HPI Narrative HPI Narrative: ERNA PALMA, is a 62 M who presents to the emergency room with substernal chest discomfort which started about an hour and a half prior to presentation. He does have a history of obesity, type 2 diabetes mellitus, obstructive sleep apnea, history of colorectal cancer status post colectomy and ostomy having been treated with radiation therapy. He said he thought that this was reflux and tried his usual Tums but this did not help and therefore he took an aspirin. He presented to the emergency room with complaints of the pain radiating towards his arm. An EKG was done which demonstrated no significant acute abnormalities. Cardiac enzymes were however noted to be elevated. Cardiology was called for further evaluation and management. He was started on intravenous heparin and nitroglycerin and is currently pain-free. [facility] Medical History Acute pain of right hip Allergy to contrast media (used for diagnostic x-rays) Ambulates with cane Anxiety Aortic stenosis Arthritis Back pain BiPAP (biphasic positive airway pressure) dependence BPH (benign prostatic hyperplasia) Cancer Cancer of colon with rectum Depression Dilation of thoracic aorta DVT (deep venous thrombosis) Fall Fatty liver Former smoker Frequent UTI GERD (gastroesophageal reflux disease) History of echocardiogram History of hiatal hernia History of malignant neoplasm of colon in adulthood History of pain when walking History of steroid therapy History of stress test Hyperlipidemia Injury of back Insomnia Morbid obesity Neurogenic bladder, flaccid Obstructive sleep apnea Osteoporosis Parastomal hernia Psoriasis PTSD (post-traumatic stress disorder) Pulmonary embolism Shortness of breath on exertion Type 2 diabetes mellitus without complication UTI (urinary tract infection) Vitamin B 12 deficiency Vitamin D deficiency Walker as ambulation aid Wears glasses Home Medications ondansetron 4 mg disintegrating tablet 4 mg PO Q6H PRN PRN Nausea 11/08/21 [History Last Taken Unknown] pantoprazole 40 mg tablet,delayed release 40 mg PO DAILY GERD 11/08/21 [History Last Taken 06/02/22] sumatriptan succinate 100 mg tablet 100 mg PO DAILY PRN Migraine Headache 11/08/21 [History Last Taken Unknown] acetaminophen 500 mg tablet 500 mg PO Q6H PRN Pain 01/26/23 [History Last Taken Unknown] atorvastatin 20 mg tablet 20 mg PO QHS cholesterol 01/26/23 [History Last Taken Unknown] cholecalciferol (vitamin D3) 1,250 mcg (50,000 unit) capsule 1,250 mcg PO 2XW supplement 01/26/23 [History Last Taken 05/06/23] clobetasol 0.05 % topical ointment 1 applic topical .COMPLEX psoriasis 01/26/23 [History Last Taken Unknown] cyanocobalamin (vitamin B-12) 1,000 mcg tablet 1,000 mcg PO DAILY supplement 01/26/23 [History Last Taken Unknown] fluconazole 150 mg tablet 150 mg PO QWEEK PRN rash 01/26/23 [History Last Taken Unknown] hydroxyzine HCl 10 mg tablet See Rx Instructions PO QHS PRN sleep 01/26/23 [History Last Taken Unknown] mometasone 0.1 % topical cream 1 applic topical .COMPLEX PRN rash 01/26/23 [History Last Taken Unknown] oxycodone-acetaminophen 5 mg-325 mg tablet 1 tab PO Q6H PRN pain 01/26/23 [History Last Taken Unknown] sertraline 50 mg tablet 50 mg PO DAILY sleep 01/26/23 [History Last Taken Unknown] triamcinolone acetonide 0.1 % topical ointment 1 applic topical .COMPLEX psoriasis 01/26/23 [History Last Taken Unknown] alendronate 70 mg tablet 70 mg PO QWEEK osteopenia 05/10/23 [History Last Taken 05/04/23] Allergy/AdvReac Type Severity Reaction Status Date / Time metformin Allergy Unknown Vomiting Verified 05/10/23 17:00 codeine Allergy Itching Verified 05/10/23 17:00 Iodinated Contrast Media Allergy Vomiting Verified 05/10/23 17:00 Penicillins Allergy Hives Verified 05/10/23 17:00 Family History Mother No problems noted. Father Heart disease Cancer Grandmother CAD (coronary artery disease) Surgical History H/O resection of rectum History of bowel resection History of cardiac catheterization History of colonoscopy History of creation of ostomy History of esophagogastroduodenoscopy (EGD) History of implantable cardiac defibrillator (ICD) History of surgery on arm History of tonsillectomy and adenoidectomy Social History housing: other details: Lives with a roommate. Smoking Status: Former smoker how long ago did patient quit smoking: Quit 10 years prior, smoked 1 ppd since age 28. alcohol intake: never substance use type: does not use ROS Constitutional Constitutional: Denies fever(s) or weight loss Eyes Eyes: Reports systems reviewed and no addt'l complaints, except as documented ENT HEENT: Reports systems reviewed and no addt'l complaints, except as documented Cardiovascular Cardiovascular: Reports chest pain at rest, chest pain with activity and radiating jaw, neck or arm pain; Denies dyspnea at rest, dyspnea on exertion, edema, palpitations or paroxysmal nocturnal dyspnea Respiratory/Chest Respiratory/Chest: Denies dyspnea on exertion, productive cough, shortness of breath at rest or shortness of breath with exertion Gastrointestinal Gastrointestinal: Denies change in bowel habits, nausea, vomiting or weight changes Genitourinary Genitourinary: Denies difficulty urinating Musculoskeletal Musculoskeletal: Denies joint stiffness or muscle weakness Integumentary Integumentary: Denies lesions Neurologic Neurologic: Denies dizziness or syncope Psychiatric Psychiatric: Denies anxiety Endocrine Endocrinology: Denies excessive sweating or fatigue Hematologic/Lymphatic Hematologic/Lymphatic: Denies anemia Allergic/Immunologic Allergic/Immunologic: Denies seasonal rhinorrhea Physical Exam Const alert, oriented x3 and no apparent distress General Appearance: cooperative HEENT hearing grossly normal bilaterally Head and Scalp: atraumatic Eyes EOMs intact bilaterally Neck General: normal visual inspection Chest inspection of chest normal and palpation of chest normal Resp normal respiratory effort Auscultation: clear to auscultation bilaterally Cardio regular rate, regular rhythm, S1 normal heart sound and S2 normal heart sound Jugular Venous Distention: JVD GI normal to inspection, nondistended, normoactive bowel sounds Extremity normal capillary refill and no pedal edema Peripheral Pulses: Yes pulses 2+ throughout and femoral pulses present Skin no rashes or lesions noted Neuro oriented x3 and CN's II-XII intact bilaterally Psych Appearance: grossly normal and appropriate Risk Stratification Risk Stratification Applicable: Yes Age >/= 65: No >/= 3 CAD Risk Factors (HTN, HLD, DM, family hx of CAD, or current smoker): No Aspirin Use in the Past 7 Days: Yes Severe Angina (>/= episodes in 24 hours): Yes EKG ST Changes >/= 0.5mm: No Positive Cardiac Marker: Yes NASIM Risk Stratification Score: 3 NASIM % Risk: 13% Risk Objective Data Vital Signs: Vital Signs Temp Pulse Resp BP Pulse Ox O2 Del Method O2 Flow Rate 98 F 93 18 119/72 97 Room Air 2 05/10/23 21:36 05/11/23 06:30 05/11/23 06:30 05/11/23 06:30 05/11/23 06:30 05/11/23 06:30 05/11/23 05:16 Oxygen Flow Rate (L/min) 2 Oxygen Delivery Method Room Air Weight: 352 lb 8.306 oz Body Mass Index (BMI) 50.5 Intake & Output: Intake and Output for Last 24 Hours 05/09/23 05/10/23 05/11/23 23:59 23:59 23:59 Intake Total 28.13 / 31.13 192.12 / 192.12 Output Total 950 / 950 Balance 28.13 / 31.13 -757.88 / -757.88 Lab / Micro Data 05/11/23 02:20 05/11/23 02:20 Labs: Laboratory Results - last 24 hr 05/10/23 17:13: WBC 9.7, RBC 4.75, Hgb 15.4, Hct 44.2, MCV 93.1, MCH 32.4 H, MCHC 34.8, RDW Std Deviation 43.4, RDW Coeff of Mar 12.6, Plt Count 271, MPV 8.9, Immature Gran % (Auto) 1.300 H, Neut % (Auto) 67.0, Lymph % (Auto) 21.4, Ocean % (Auto) 8.2, Eos % (Auto) 1.3, Baso % (Auto) 0.8, Absolute Neuts (auto) 6.5, Absolute Lymphs (auto) 2.07, Nucleated RBC % 0, PT 13.1, INR 1.0, APTT 27.4, Sodium 135 L, Potassium 4.0, Chloride 105, Carbon Dioxide 22.0, Anion Gap 8, BUN 11, Creatinine 1.11, Estim Creat Clear Calc 72.16, Est GFR (MDRD) Af Amer 86, Est GFR (MDRD) Non-Af 71, BUN/Creatinine Ratio 9.9 L, Glucose 166 H, Calcium 9.6, Troponin I High Sens 45 05/10/23 19:17: Troponin I High Sens 223 H* 05/10/23 23:07: Troponin I High Sens 946 H* 05/11/23 02:20: WBC 8.3, RBC 4.44 L, Hgb 14.2, Hct 41.9, MCV 94.4 H, MCH 32.0, MCHC 33.9, RDW Std Deviation 43.5, RDW Coeff of Mar 12.6, Plt Count 261, MPV 9.0, APTT 32.2, Sodium 135 L, Potassium 4.3, Chloride 106, Carbon Dioxide 21.0, Anion Gap 8, BUN 12, Creatinine 1.12, Estim Creat Clear Calc 71.52, Est GFR (MDRD) Af Amer 86, Est GFR (MDRD) Non-Af 71, BUN/Creatinine Ratio 10.7, Glucose 262 H, Calcium 9.0 Cardiology Labs/Tests 05/10/23 17:13: WBC 9.7, RBC 4.75, Hgb 15.4, Hct 44.2, MCV 93.1, MCH 32.4 H, MCHC 34.8, Plt Count 271, MPV 8.9, Immature Gran % (Auto) 1.300 H, Neut % (Auto) 67.0, Lymph % (Auto) 21.4, Ocean % (Auto) 8.2, Eos % (Auto) 1.3, Baso % (Auto) 0.8, Absolute Neuts (auto) 6.5, Nucleated RBC % 0, PT 13.1, INR 1.0, APTT 27.4, Sodium 135 L, Potassium 4.0, Chloride 105, Carbon Dioxide 22.0, Anion Gap 8, BUN 11, Creatinine 1.11, Est GFR (MDRD) Af Amer 86, Est GFR (MDRD) Non-Af 71, BUN/Creatinine Ratio 9.9 L, Glucose 166 H, Calcium 9.6 05/11/23 02:20: WBC 8.3, RBC 4.44 L, Hgb 14.2, Hct 41.9, MCV 94.4 H, MCH 32.0, MCHC 33.9, Plt Count 261, MPV 9.0, APTT 32.2, Sodium 135 L, Potassium 4.3, Chloride 106, Carbon Dioxide 21.0, Anion Gap 8, BUN 12, Creatinine 1.12, Est GFR (MDRD) Af Amer 86, Est GFR (MDRD) Non-Af 71, BUN/Creatinine Ratio 10.7, Glucose 262 H, Calcium 9.0 Rhythm: EKG: ECHO: Stress Test: Cardiac Cath: PCI: CT Surgery: Holter monitor: EPS: PPM: CXR: Chest CT Scan: Radiography Diagnostic Testing: Radiology Impression Chest X-Ray 05/10/23 17:55 IMPRESSION: Increased interstitial markings may represent edema and/or infection. Electronically Signed: Kevin Sánchez MD at 19:14 EDT , Lumbar Spine X-Ray 05/10/23 17:55 IMPRESSION: Mild compression deformity of L5 with grade 2 anterolisthesis L5 on S1. Severe multilevel degenerative disc disease and spondylosis. Electronically Signed: Kevin Sánchez MD at 19:13 EDT ,
[2023-05-11] MEDS: 0.9% Normal Saline 1,000 ML 15 ML IV (08:19)
[2023-05-11] MEDS: Pantoprazole Sodium 40 MG Tablet PO (08:36)
--- NOTE | 2023-05-11 09:42 | NURSING ---
patient left for the pharmacy laboratory technician, report given to CLEM Valera
[2023-05-11 09:44] LABS: Bedside Glucose 237 mg/dL (74-106)
--- NOTE | 2023-05-11 10:44 | CASEMGMT ---
Tertiary facilities in-network with patient's insurance: [facility], [facility], , [facility], [facility], [facility]
--- NOTE | 2023-05-11 11:32 | CL.D_ITS ---
Patient Name: ERNA PALMA Study Date: 05/11/2023 Performing: Josafat Anderson MD Ht: 70 inches 177.8 cm : 1960 Wt: 352.52 lbs 159.9 kg Age: 62 Gender: male BSA: 2.66 PROCEDURE(S) PERFORMED DC01-(82003)LHC/COR/LV IC12-(38330/C9600)LASHAE W/WO PTCA, SINGLE CORONARY ARTERY CLINICAL PROFILE AND INDICATIONS Indications: Suspected CAD Heart Failure: None Stress/Imaging Stress/Image Study Performed: No CONCLUSIONS Significant single-vessel disease involving the proximal to mid left anterior descending artery with an eccentric 75% stenosis and mild aortic stenosis. RECOMMENDATIONS Referred for immediate PCI DESCRIPTION OF PROCEDURE The patient arrived to the procedure lab. The risks and benefits of the procedure as well as a full description of our services here and current unavailability of surgical backup were fully explained to the patient and/or their significant other prior to the catheterization. The Timeout was completed, verifying the correct patient and procedure. The patient's procedural site was prepped and draped in the usual fashion. Local anesthetic was given subcutaneously to right radial region with Lidocaine 2%. Using a modified Seldinger technique, arterial access was obtained via the right radial artery, a 6Fr sheath was inserted. Right Coronary Artery selective angiography was then performed in multiple views using a 5 Fr. 4.0 Windom catheter. Left Coronary Artery selective angiography was performed in multiple views using a 5 Fr. 4.0 Windom catheter. Left Ventriculography was performed in EVANS projection using a 5 Fr. Pigtail catheter. LV to AO pullback pressures were then recorded.The arterial sheath was pulled and a TR Band was applied for hemostasis. 8cc air inserted. CORONARY ANGIOGRAPHY DOMINANCE: Right Dominant LEFT HEART ASSESSMENT Left Ventricular Ejection Fraction: by LV Gram 65 % Normal LV wall motion Normal Left Ventricular systolic function LEFT MAIN: Angiographically normal LEFT ANTERIOR DESCENDING ARTERY: PROX LAD: Diffusely diseased up to 75 % CIRCUMFLEX ARTERY: Mild luminal irregularities RAMUS: Mild luminal irregularities RIGHT CORONARY ARTERY: Mild luminal irregularities VALVE FINDINGS: Aortic Valve Stenosis - mild COMPLICATIONS No Complications PROCEDURE MEDICATIONS Fentanyl 50 mcg IV Versed 1 mg IV Versed 1 mg IV Versed 1 mg IV Fentanyl 50 mcg IV Oxygen: 2 L/min via nasal cannula Benadryl 50 mg IV 05/11/2023 10:04:50 Brilinta 180 mg PO @ 05/11/2023 11:01:06 Heparin given IA 05/11/2023 10:24:59 Heparin 6000 unit(s) IV 05/11/2023 10:52:43 Heparin 1000 unit(s) IV 05/11/2023 11:00:54 Heparin 3000 unit(s) IV 05/11/2023 11:27:33 Nitro glycerin 25mg / 250ml D5W @ 15 mcg/min IV cont. from floor 05/11/2023 09:53:17 Nitro glycerin 25mg / 250ml D5W @ 5 mcg/min (decreased rate) 05/11/2023 10:27:52 Nitro 200 mcg IC 05/11/2023 11:13:21 Nitro glycerin 25mg / 250ml D5W @ 0 mcg/min discontinued 05/11/2023 11:13:35 Solu-medrol 125 mg IV 05/11/2023 10:04:45 SUMMARY OF HEMODYNAMIC DATA Time AIR REST ECG 09:50:11 AO 102/76 (88) SA 10:26:44 LV 146/3, 11 10:41:10 LV 144/5, 14 10:41:16 LV 142/5, 14 10:41:51 LVp 143/4, 11 10:41:59 AOp 117/72 (92) 10:42:04 Signed By Josafat Anderson MD On 05/11/2023 11:31:41 Josafat Anderson MD
--- NOTE | 2023-05-11 11:40 | EKG12_ITS ---
Test Reason : CP ADMIT Blood Pressure : / mmHG Vent. Rate : 093 BPM Atrial Rate : 093 BPM P-R Int : 150 ms QRS Dur : 080 ms QT Int : 360 ms P-R-T Axes : 017 044 074 degrees QTc Int : 447 ms Normal sinus rhythm Normal ECG When compared with ECG of 10-MAY-2023 20:02, MANUAL COMPARISON REQUIRED, DATA IS UNCONFIRMED Confirmed by TULIO MCMILLAN, ANAIS ([id number]), communications editor KALI HERMAN ([id number]) on 05/12/2023 12:22:08 PM Referred By: DR BARNES Confirmed By:ANAIS ANTUNEZ MD
--- NOTE | 2023-05-11 11:45 | NURSING ---
Addendum entered by Elizabeth Schrader 05/11/23 12:33: Nitro gtt was discontinued in cardiac cath lab radiology technologist, this RN asked cardiac cath lab radiology technologist staff to D/C the order. Original Note: Patient returned to unit, handoff given by CLEM Valera
--- NOTE | 2023-05-11 11:52 | PCI.CARDCATH ---
PCI Cardiac Cath Report PCI Report: PCI cardiac cath report; 1. Successful PCI of proximal LAD Diffusely diseased 75% with predilatation using 2.5 x 15 mm balloon Followed by placement of drug-eluting stent resolute [place]resden 3.5 x 26 mm Followed by postdilatation using NC balloon 3.75 x 8 mm and achieve an excellent result With reduction of stenosis from 75% to 0 and maintenance of pre and post NASIM III flow. 2. Placement of TR band to close right radial artery arteriotomy site. Preprocedure diagnosis; 62-year-old patient Presented with symptoms of chest pain with a clinical diagnosis of non-ST elevation myocardial infarction Treated with medical therapy Other medical problem include history of hypertension. Patient has multiple medical comorbidities With history of posttraumatic stress disorder, type 2 diabetes mellitus, CARLOS, hyperlipidemia. And a history of malignant neoplasm of the colon s/p resection Patient with medical therapy and underwent cardiac catheterization today by the primary biodiesel engineering manager Dr. Anderson Angiographic films reviewed and discussed with the primary biodiesel engineering manager Patient had diffuse proximal LAD 75% Also had luminal irregularity and nonobstructive atherosclerosis of the RCA and the left circumflex LV systolic function is preserved within normal. Consent; risk and benefits of the procedure explained detail patient elected to proceed. Interventional equipment used; 1. 6 Khmer JL 4 guide catheter 2. 0.014 180 cm run-through extra floppy straight guidewire 2.5 x 15 mm balloon 3. 3.5 x 26 mm resolute Dresden 4. 0.75 x 8 mm NC Emerge balloon Medication used in the Technology Education Teacher Heparin total amount of heparin was given as 10,000 Brilinta 180 mg was given in the Technology Education Teacher Aspirin Intracoronary nitroglycerin IV nitroglycerin discontinued. Procedure in detail; Under fluoroscopic guidance we will proceed with a 6 Khmer JL 4 from the right radial approach advanced imaging Jasmyn Cannulated the left main without difficulty Then we will proceed with guidewire using 0.014 run-through guidewire crossed the lesion in the proximal LAD and place the wire at the distal part of the LAD Then we will proceed with balloon dilatation using 2.5 x 15 mm SC Euphora balloon dilate the lesion in the proximal LAD. This is followed by placement of a drug-eluting stent 3.5 x 26 mm into the proximal LAD followed by postdilatation using 3.75 x 8 mm to the proximal part of the stent. Achieved excellent result With resolution of symptoms of chest pain and no change in the bulk cooler installer. Following this we will consider remove hemostasis maintained with placement of TR band to the right radial artery arteriotomy site Conclusion and recommendation 1. Successful PCI of the proximal LAD using a drug-eluting stent at the specified 2. Patient to continue on dual antiplatelet therapy/DAPT with Brilinta 90 mg twice daily In addition to low-dose aspirin 81 mg for 1 year 3. Patient is scheduled for phase 1 cardiac rehab program here at the [facility] 4. Patient to follow-up with her primary biodiesel engineering manager for continuation of cardiac care and medical management. Je Delgadillo MD,FACC,[facility]
[2023-05-11] MEDS: 0.9% Normal Saline 1,000 ML 75 ML IV (12:21)
[2023-05-11] MEDS: Insulin Lispro 100 UNIT/ML INSULN.PEN SC ×3 (12:51→23:53)
--- NOTE | 2023-05-11 12:57 | CRPHASE1_ITS ---
Patient Communication Patient Information Former Patient:: Phase I PHII Cardiac Rehab Discussed with Patient:: Yes Guide to Cardiac Rehab Given to Patient:: Yes Cardiac Rehab Facility Choice List Given to Patient:: Yes Communication to Cardiac Rehab Choice Program [facility] CR PHII:: Communication Given to CR Choice Program Other:: Communication Given to CR Assistant [employer] Public Defender:: Je Delgadillo Sessions:: 36 sessions - 3 days/wk, 12 weeks Medical/Surgical History Medical History NV:: No Angina:: Yes CAD:: Yes Congestive Heart Failure: Cardiomyopathy:: No Valve Disease/Replacement:: Yes Pulmonary:: Yes CARLOS:: Yes Diabetes:: Yes Diabetes Type II:: Yes CVA/TIA: Cardiac Rehabilitation Info Program Information Cardiac Rehabilitation Program Information: Cardiac Rehab The cardiac rehab team at [facility] consists of highly skilled exercise physiologists, nurses, respiratory therapists and physicians working together with you. Our purpose is to help you have a full recovery and achieve the goals you set for yourself. Over the years many of our patients have returned to activities they assumed they would never do again! We can help restore your confidence and motivation to make lifestyle changes that can have a significant impact on your health and quality of life! We can help answer questions and concerns you may have about exercise, lifestyle, medications, diet, stress and anxiety which are common following a hospitalization. WE monitor ECG and vital signs during exercise and discuss your progress with you and report to your physician(s). Cardiac Rehab is proven to help reduce readmissions, improve functional capacity and lower recurrence of problems with your heart. Our Cardiac Rehab program is Certified by the [place] [employer] Pulmonary [employer] (AACVPR) and Accredited by the [place] [employer] through our [facility]. You can contact us at . We invite you to call us with your questions or to get started in our program. If you have other questions or concerns be sure to ask your physician/provider during your follow-up visit. WE look forward to seeing you!
--- NOTE | 2023-05-11 13:00 | CRPH1.INST_ITS ---
General Education Discussed with Patient CAD and cardiac anatomy and function:: Patient communicates acknowledgment Explanation of diagnoses and procedures:: Patient communicates acknowledgment Sign/Symptoms of OK:: Patient communicates acknowledgment Antiplatelet therapy: Patient communicates acknowledgment Proper use of NTG-SL: Patient communicates acknowledgment Emergency procedures and activation of EMS: Patient communicates acknowledgment Compliance of all prescribed medications: Patient communicates acknowledgment Smoking Risk Factors Patient Nicotine/Smoking Risk Factors Are:: Non-smoker Recommendations Recommendations Include:: Second-hand smoke recommendation and Previous smoker; encourage continued cessation Dyslipidemia Recommendations Recommendations Include:: Lipid profile not available, Reviewed NCEP/ATP guidelines and Therapeutic Lifestyle Change dietary guidelines Response Code Dyslipidemia Response Code:: Patient communicates acknowledgment Overweight/Obesity Risk Factors Patient Overweight/Obesity Risk Factors Are:: Obesity - > or = 30 Recommendations Recommendations Include:: Weight loss of 5-10%, Reduced calorie diet and Exercise 5-7 times/week Response Code Overweight/Obesity:: Patient communicates acknowledgment Hypertension Recommendations Recommendations Include:: Maintain BP <130/85, BP <130/80 if diabetic, DASH dietary guidelines, Decrease/maintain normal body weight and Moderation of ETOH Response Code Hypertension:: Patient communicates acknowledgment Heart Disease Risk Factors Patient Heart Disease Risk Factors Are:: Family history of heart disease < 65 years old and Previous cardiac event Recommendations Recommendations Include:: Educated family members of their risk Response Code Heart Disease Response Code:: Patient communicates acknowledgment Diabetes Recommendations Recommendations Include:: Maintain fasting blood sugars 70-110 md/dL, Maintain HgbA1c of 6% or less, Monitor blood sugar as prescribed, Diabetic dietary guide lines and Decrease/maintain body weight Response Code Diabetes:: Patient communicates acknowledgment Metabolic Syndrome Recommendations Recommendations Include:: Reinforce compliance to risk factor modifications and Encouraged follow-up with Primary Care Physician Response Code Metabolic Syndrome Response Code:: Patient communicates acknowledgment Sedentary Response Code Sedentary Response Code:: Patient communicates acknowledgment Stress Recommendations Recommendations Include:: Identification of stressors, and assessment of coping skills Response Code Stress Response Code:: Patient communicates acknowledgment
[2023-05-11 13:04] LABS: Bedside Glucose 238 mg/dL (74-106)
--- NOTE | 2023-05-11 14:30 | CASEMGMT ---
RN CM Face to Face with patient for initial transition planning/care coordination assessment. RN CM introduced self and role at [facility]. Patient lying in bed, alert and oriented. Patient willing to participate in assessment and is able to answer all questions appropriately. Care providers, pharmacy, and demographics verified. Patient wishes to discharge home, denies need for home health at this time. Patient states he has no further needs or concerns at this time. CM to follow for discharge planning needs that may arise. PCP: Bartolo Specialists: Erik, oncologist; Randell, urologist; Canelo, surgeon; Justin, middleware architect; Umer, assessment services manager Preferred Pharmacy: [facility] Insurance: [employer] Prescription Benefit: yes Living Will/HPOA: yes, GIBSON Mcclendon LNOK: Friend and roommateChloe Living Arrangements: Patient lives with friend in a mobile home with 4 steps and railing to enter the home. Patient states he is independent at home. Transportation: self, Chloe DME/HHC: Patient has shower chair, grab bars, bipap, and walker at home. Patient has previously been to [facility] and [facility]. Patient has had [facility] in the past. Disposition Plan: Patient to discharge home with family support and follow-up plans in place. Francisca CHACON, RN, CM
[2023-05-11 17:33] LABS: Bedside Glucose 324 mg/dL (74-106)
[2023-05-11] MEDS: Morphine 2 MG/ML Syringe IV ×2 (19:47→23:53)
[2023-05-11] MEDS: Atorvastatin Calcium 80 MG Tablet PO (21:30)
[2023-05-12 00:18] LABS: Bedside Glucose 253 mg/dL (74-106)
[2023-05-12 03:58] VITALS: BP 151/94; PULSE 92; RESP 16; TEMP 36.6; O2SAT 96
[2023-05-12] MEDS: Morphine 2 MG/ML Syringe IV ×3 (04:04→09:04)
--- NOTE | 2023-05-12 04:06 | EKG12_ITS ---
Test Reason : CP Blood Pressure : / mmHG Vent. Rate : 092 BPM Atrial Rate : 092 BPM P-R Int : 166 ms QRS Dur : 074 ms QT Int : 348 ms P-R-T Axes : 049 038 072 degrees QTc Int : 430 ms Sinus rhythm with occasional Premature ventricular complexes Nonspecific T wave abnormality Abnormal ECG When compared with ECG of 11-MAY-2023 11:47, MANUAL COMPARISON REQUIRED, DATA IS UNCONFIRMED Confirmed by TULIO MCMILLAN, ANAIS ([id number]), book editor KALI HERMAN ([id number]) on 05/13/2023 10:47:53 AM Referred By: NÉSTOR Confirmed By:ANAIS ANTUNEZ MD
[2023-05-12] MEDS: 0.9% Saline Lock 10 ML Syringe IV (05:15)
[2023-05-12 06:31] LABS: Hematocrit 42.9 % (40-54); Hemoglobin 14.7 g/dL (13.0-16.5); Mean Corp Hgb Conc 34.3 g/dL (32-36); Mean Corpuscular Hgb 32.2 pg (27.0-32.0); Mean Corpuscular Volume 93.9 fL (80-94); Mean Platelet Vol. 9.3 fl (6.2-12.0); Platelet Count 292 K/mm3 (150-450); RBC Distribution Width CV 12.8 % (11.6-14.6); RBC Distribution Width SD 43.6 fl (35.1-43.9); Red Blood Count 4.57 M/mm3 (4.6-6.2); White Blood Count 14.3 K/mm3 (4.4-11.0)
[2023-05-12] MEDS: Insulin Lispro 100 UNIT/ML INSULN.PEN SC ×2 (06:33→12:08)
[2023-05-12 06:52] LABS: Bedside Glucose 192 mg/dL (74-106)
[2023-05-12 07:14] LABS: ALB/GLOB Ratio 0.8 RATIO (0.9-2.4); AST(SGOT) 32 U/L (15-37); Alanine Aminotransfer ALT/SGPT 31 U/L (16-61); Albumin, Serum 3.4 g/dL (3.2-5.0); Alkaline Phosphatase 106 U/L (45-117); Anion Gap 7 (5-15); BUN 18 mg/dL (7-18); BUN/Creat Ratio 16.8 RATIO (10-20); Calcium,Total 8.8 mg/dL (8.5-10.1); Chloride 106 mmol/L (98-107); Cholesterol 189 mg/dL (200); Creatinine, Serum 1.07 mg/dL (0.70-1.30); EST Glomerular Filtration Rate 75 mL/min (>60); Est Glom Filt Rate - Afr Amer 90 mL/min (>60); Estimated Creatinine Clearance 74.86 ml/min; Glucose 198 mg/dL (74-106); High Density Lipoprotein 42 mg/dL; Potassium 3.8 mmol/L (3.5-5.1); Protein, Total 7.4 g/dL (6.4-8.2); Sodium Level 137 mmol/L (136-145); Triglycerides 189 mg/dL; Very Low Density Lipoprotein 38 mg/dL (5-40)
[2023-05-12 07:30] VITALS: O2SAT 96
[2023-05-12 09:35] VITALS: BP 137/93; PULSE 86; RESP 16; TEMP 36.6; O2SAT 95
[2023-05-12 09:55] VITALS: PULSE 65
[2023-05-12] MEDS: Lisinopril 10 MG Tablet PO (09:55)
[2023-05-12] MEDS: Aspirin E.C. 81 MG Tablet PO (09:55)
[2023-05-12] MEDS: Metoprolol Tartrate 25 MG Tablet PO (09:55)
[2023-05-12] MEDS: Pantoprazole Sodium 40 MG Tablet PO (09:56)
[2023-05-12] MEDS: Cyanocobalamin 500 MCG Tablet 1000 MCG PO (09:56)
--- NOTE | 2023-05-12 10:03 | PCM.DC ---
Discharge Instructions Diet Discharge Diet: Low fat / Low cholesterol, 1800 Calorie Control Diet and 2000 mg Sodium Diet Activity Discharge Activity: Return to Normal Activity Weight Bearing Status: Weight bearing as tolerated Dressing / Incision Call your doctor if you observe: Fever of 101 or Higher, Coldness, Increased Pain, Numbness or Tingling, Change in Color, Inability to urinate, Inability to have a bowel movement, Shortness of breath, Dizziness, Fainting spells, Swelling in the ankles, Chest pain, Prolonged hiccupping, Increased palpitations (irregular heartbeat) and Calf discomfort Follow Up Care When: IN 2 WEEKS Test Results: Test results from this visit will be discussed in further detail at your follow-up appointment, if applicable. Discharge Plan Admission Admit Date/Time: 05/10/23 21:55 Primary Reason for Your Visit: NSTEMI Attending Provider: Marcellus Connell Primary Care Provider: Edin Mcfarland Consulting Providers: Benigno Key; Yoandy Madera Discharge Orders/Prescriptions Prescriptions: New atorvastatin 80 mg Tablet 80 mg PO QHS 30 Days Qty: 30 2RF aspirin 81 mg Tablet,Delayed Release (Dr/Ec) 81 mg PO DAILY@0800 30 Days Qty: 30 3RF lisinopril 10 mg Tablet 10 mg PO DAILY 30 Days Qty: 30 3RF Brilinta 90 mg Tablet 90 mg PO BID 30 Days Qty: 60 2RF glipizide 5 mg tablet 5 mg PO BID Qty: 60 2RF Rx Instructions: Hold if glucose less than 130 mg/dl Continued clobetasol 0.05 % ointment 1 applic topical .COMPLEX Rx Instructions: 1 applic topically BID Thursday-Thursday; triamcinolone acetonide 0.1 % ointment 1 applic topical .COMPLEX Rx Instructions: 1 applic topically BID Thursday-Thursday; sertraline 50 mg tablet 50 mg PO DAILY Hold Instructions: no longer taking hydroxyzine HCl 10 mg tablet See Rx Instructions PO QHS PRN (Reason: sleep) Rx Instructions: 1-2 tablets orally at bedtime PRN; mometasone 0.1 % cream 1 applic topical .COMPLEX PRN (Reason: rash) Hold Instructions: not taking Rx Instructions: 1 applic topically daily x3 days, then off for 3 days; PRN; fluconazole 150 mg tablet 150 mg PO QWEEK PRN (Reason: rash) Hold Instructions: not taking cyanocobalamin (vitamin B-12) 1,000 mcg tablet 1,000 mcg PO DAILY sumatriptan succinate 100 mg tablet 100 mg PO DAILY PRN (Reason: Migraine Headache) Patient Comments: Take 1 tablet by mouth as needed for Migraine Headache (see administration instructions) (Take at onset of headache. May repeat in 2 hours. Max of 2 tablets in 24 hours.). pantoprazole 40 mg tablet,delayed release (DR/EC) 40 mg PO DAILY Patient Comments: Take 1 tablet by mouth once daily. ondansetron 4 mg tablet,disintegrating 4 mg PO Q6H PRN PRN (Reason: Nausea) Patient Comments: TAKE 1 TABLET BY MOUTH EVERY 6 HOURS NEEDED FOR NAUSEA AND FOR VOMITING. cholecalciferol (vitamin D3) 1,250 mcg (50,000 unit) capsule 1,250 mcg PO 2XW acetaminophen 500 mg tablet 500 mg PO Q6H PRN (Reason: Pain) Patient Comments: Take 1 tablet by mouth every 6 hours as needed for pain. alendronate 70 mg tablet 70 mg PO QWEEK Changed oxycodone-acetaminophen 5-325 mg tablet 0.5 tab PO Q6H PRN (Reason: pain (scale score 7-10)) 3 Days Qty: 7 0RF Rx Instructions: Half tablet for 4-6/10 pain intensity and 7?10/10 intensity Discontinued atorvastatin 20 mg tablet 20 mg PO QHS Hold Instructions: no longer taking Referrals / Follow Up: Edin Mcfarland MD [Primary Care Provider] - Liberty Gaitan PA [[facility] Staff [facility]] - 05/27/23 1:00 pm (Intake appointment on the has been canceled.) Disposition Disposition (needs filled in before D/C Order can be placed): Home, Self Care
--- NOTE | 2023-05-12 10:20 | PCM.PN.CARD ---
Documented by User: GILLIAN Juarez 05/12/23 16:31 Subjective Subjective Pt seen and examined. He is He complains of CP that is a 3/10 that started at 0400. It is constant. He is not worse with positioning. He does not have any worsening SOB. He does not have any palpitations. He is also asking for pain medication Objective Data Vital Signs: Vital Signs Temp Pulse Resp BP Pulse Ox O2 Del Method O2 Flow Rate 97.8 F 65 16 137/93 H 95 Room Air 2 05/12/23 09:35 05/12/23 09:55 05/12/23 09:35 05/12/23 09:35 05/12/23 09:35 05/12/23 09:35 05/11/23 12:30 Oxygen Flow Rate (L/min) 2 Oxygen Delivery Method Room Air Weight: 352 lb 8.306 oz Body Mass Index (BMI) 50.5 Intake & Output: Intake and Output for Last 24 Hours 05/10/23 05/11/23 05/12/23 23:59 23:59 23:59 Intake Total 28.13 / .13 1628.52 / 1628.52 Output Total 950 / 950 Balance 28.13 / 31.13 678.52 / 678.52 Lab / Micro Data 05/12/23 05:39 05/12/23 05:39 Labs: Laboratory Results - last 24 hr 05/11/23 12:37: POC Glucose 238 H 05/11/23 17:04: POC Glucose 324 H 05/11/23 23:51: POC Glucose 253 H 05/12/23 05:39: WBC 14.3 H, RBC 4.57 L, Hgb 14.7, Hct 42.9, MCV 93.9, MCH 32.2 H, MCHC 34.3, RDW Std Deviation 43.6, RDW Coeff of Mar 12.8, Plt Count 292, MPV 9.3, Sodium 137, Potassium 3.8, Chloride 106, Carbon Dioxide 24.0, Anion Gap 7, BUN 18, Creatinine 1.07, Estim Creat Clear Calc 74.86, Est GFR (MDRD) Af Amer 90, Est GFR (MDRD) Non-Af 75, BUN/Creatinine Ratio 16.8, Glucose 198 H, Calcium 8.8, Total Bilirubin 0.50, AST 32, ALT 31, Alkaline Phosphatase 106, Total Protein 7.4, Albumin 3.4, Globulin 4.0, Albumin/Globulin Ratio 0.8 L, Triglycerides 189, Cholesterol 189, LDL Cholesterol 109, VLDL Cholesterol 38, HDL Cholesterol 42 05/12/23 06:31: POC Glucose 192 H Cardiology Labs/Tests 05/12/23 05:39: WBC 14.3 H, RBC 4.57 L, Hgb 14.7, Hct 42.9, MCV 93.9, MCH 32.2 H, MCHC 34.3, Plt Count 292, MPV 9.3, Sodium 137, Potassium 3.8, Chloride 106, Carbon Dioxide 24.0, Anion Gap 7, BUN 18, Creatinine 1.07, Est GFR (MDRD) Af Amer 90, Est GFR (MDRD) Non-Af 75, BUN/Creatinine Ratio 16.8, Glucose 198 H, Calcium 8.8, Total Bilirubin 0.50, Triglycerides 189, Cholesterol 189, LDL Cholesterol 109, VLDL Cholesterol 38, HDL Cholesterol 42 Rhythm: NSR Radiography Diagnostic Testing: Radiology Impression Echocardiogram 05/10/23 22:40 Interpretation Summary The estimated ejection fraction is 55-60 %. Definity used as contrast echo Small to moderate size pericardial Effusion No Echo sign of cardiac tamponade TDS Consider VALERIE if clinically indicated Ordering Physician: Yoandy Madera Referring Physician: Edin Mcfarland Performed By: Latisha Hanley, RDCS, RVT Physical Exam Const alert, oriented x3 and no apparent distress General Appearance: cooperative HEENT hearing grossly normal bilaterally Head and Scalp: atraumatic Eyes EOMs intact bilaterally Neck General: normal visual inspection Chest inspection of chest normal and palpation of chest normal Resp normal respiratory effort Auscultation: clear to auscultation bilaterally Cardio regular rate, regular rhythm, S1 normal heart sound and S2 normal heart sound Jugular Venous Distention: JVD GI normal to inspection, nondistended, normoactive bowel sounds Extremity normal capillary refill and no pedal edema Peripheral Pulses: Yes pulses 2+ throughout and femoral pulses present Skin no rashes or lesions noted Neuro oriented x3 and CN's II-XII intact bilaterally Psych Appearance: grossly normal and appropriate Assessment & Plan Assessment/Plan (1) Non-ST elevation NE (NSTEMI): PLAN: He presents with a non-ST elevation myocardial infarction. He underwent a left heart catheterization on 05/11/2023 which demonstrated significant singel vessel disease of the proximal to mid LAD with eccentric 75% stenosis and mild . He underwent stenting of this vessel. He will be referred to cardiac rehab on OP basis. With his CP this morning, will start metoprolol and lisinopril. His CP could be related to his elevated HR and BP readings. May also consider norvasc if CP is related to vasospasm. He will also continue with his Brilinta, atorvastatin and ASA. (2) Hypertension: QUALIFIERS: Hypertension type: primary hypertension Qualified Code(s): I10 - Essential (primary) hypertension PLAN: Bp is elevated. Will have start metoprolol and lisinopril. (3) Lumbar compression fracture: QUALIFIERS: Encounter type: initial encounter Lumbar vertebra fracture level: L5 Qualified Code(s): S32.050A - Wedge compression fracture of fifth lumbar vertebra, initial encounter for closed fracture PLAN: Plan Will f/u with pt on OP basis. Charges/Coding Visit Charges Inpatient E&M: 40909 Subs Hosp L2 Documented by User: Dr. Je Delgadillo MD 05/12/23 17:38 Lab / Micro Data 05/12/23 05:39 05/12/23 05:39 Assessment & Plan Assessment/Plan (1) Non-ST elevation NE (NSTEMI): (2) Hypertension: QUALIFIERS: Hypertension type: primary hypertension Qualified Code(s): I10 - Essential (primary) hypertension (3) Lumbar compression fracture: QUALIFIERS: Encounter type: initial encounter Lumbar vertebra fracture level: L5 Qualified Code(s): S32.050A - Wedge compression fracture of fifth lumbar vertebra, initial encounter for closed fracture PLAN: I independently examined this patient at bedside And discussed in detail with the nursing staff Has symptoms of chest pain Which relieved most with pain medication I also reviewed the echocardiogram which showed LV function preserved with pericardial fat pad No evidence of pericardial effusion Patient has non-ST elevation NE in this admission requiring cardiac cath and underwent successful PCI and stent of the left anterior descending artery I would recommend to continue medical treatment That will include dual antiplatelet therapy with aspirin and Brilinta. 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
[2023-05-12] MEDS: TICAGRELOR 90 MG TABLET PO (10:32)
[2023-05-12 12:27] LABS: Bedside Glucose 235 mg/dL (74-106)
--- NOTE | 2023-05-12 12:43 | PCM.DC.SUM ---
Providers Date of Admission: 05/10/23 Date of Discharge: 05/12/23 Primary Care Physician: Dr. Edin Mcfarland MD Consultations 05/10/23 22:40 Consult: Cardiology Routine Consulting Provider: Benigno Key Reason for Consult: NSTEMI EMERGENT Consult: No MD Notified: Yes Date Notified: 05/10/23 Time Notified: 21:07 Method of Notification: ED Physician Initiated 05/10/23 23:08 Consult: Onc/Wound/pulmonary function technologist Routine Comment: Reason for Consult:: colostomy Reason For Visit: NSTEMI Diagnosis Discharge Diagnosis (1) Non-ST elevation MA (NSTEMI): Status: Acute Code(s): I21.4 - Non-ST elevation (NSTEMI) myocardial infarction (2) Hypertension: Status: Chronic Code(s): I10 - Essential (primary) hypertension Qualifiers: Hypertension type: primary hypertension Qualified Code(s): I10 - Essential (primary) hypertension Plan 62 gentleman was admitted with escalating substernal chest pain/pressure for about 2 hours prior to ED presentation while he was sitting. Initially he thought of reflux disease as he has hiatus hernia. Chest pain radiated to his left shoulder and left arm with mild improvement from nitroglycerin. Patient has also associated symptoms of shortness of breath, nausea and sweating. Non-STEMI: Patient is being admitted in PCU. Chest x-ray individually reviewed and shows increased interstitial markings without clear significance in absence of leukocytosis fever and pneumonia like symptoms. Twelve-lead EKG shows sinus rhythm with no significant ST-T abnormalities. Serial troponins are high consistent with non-STEMI. Patient on baby aspirin, nitroglycerin drip and morphine, high intensity statin. Patient is allergic with IV contrast therefore patient was given Solu-Medrol 125 mg and Benadryl 50 mg IV in ED after discussion of aviation maintenance instructor and ED physician. I talked to Home Planning Consultant Salesperson and patient will have repeat dose of Solu-Medrol and Benadryl just before the procedure. Client Care Consultant consulted. Cardiac cath showed diffusely diseased proximal LAD 75% for which patient had PCI. Patient on baby aspirin, Brilinta, DAPT. LVEF 65%. Normal LV wall motion and systolic function. 05/12: Patient complain of chest pain but that was different more deep-seated without radiation localized on left precordial area. It was not burning pain as yesterday. Twelve-lead EKG was done which did not show acute ischemic changes. Patient was evaluated by aviation maintenance instructor and thought it is noncardiac. Echo was done reported EF 55 to 60%. No pericardial effusion. It was technically difficult/limited study. Patient is discharged on baby aspirin, Brilinta, metoprolol succinate, lisinopril and high intensity statin. Fasting report shows LDL 109, triglyceride 189. Compression fracture Patient listed. He fell down yesterday on lumbar back. Denies any fall or injury of her hip or pelvic bone. Lumbar spine x-ray reviewed and, mild compression deformity of L5 with grade 2 anterolisthesis L5 on S1. 05/12: Patient has Percocet listed as home medication. Percocet, 5/325 mg prescription sent 1 tablet, half to 1 tablet every 4 hourly as needed for moderate to severe pain total 7 tablets prescribed. Advised to follow-up with PCP. Patient stated he has history of osteoporosis and is on alendronate. Severe multilevel degenerative disc disease and spondylosis. History of of colorectal cancer 9 years ago status post bowel resection, colostomy complicated parastomal hernia and hernia repair. Patient also had bladder dysfunction with large bladder and used to self cath but he stopped during COVID time and now he urinates normally. No dysuria or acute complaint. Diabetes mellitus type 2: Patient not on any medication. Listed allergic to metformin. Glipizide 5 mg twice daily prescription sent to patient's pharmacy. Patient glucose is elevated about 250 mg. Hypertension: Patient BP is also not controlled. 162/111. Discharged on lisinopril 10 mg daily. DVT prophylaxis: Not indicated as patient is on heparin drip. Discharge medication reconciliation done. Discharge follow-up instructions completed. Discharge process discussed with the patient and all questions were answered to patient's satisfaction. Total time spent, exact 35 minutes on discharge meds reconciliation, examination, coordination of care with nurses and ancillary staff, review of imaging and blood test and discussion with the patient on follow-up instructions. Medications at Discharge Home Medications ondansetron 4 mg disintegrating tablet 4 mg PO Q6H PRN PRN Nausea 11/08/21 pantoprazole 40 mg tablet,delayed release 40 mg PO DAILY GERD 11/08/21 sumatriptan succinate 100 mg tablet 100 mg PO DAILY PRN Migraine Headache 11/08/21 acetaminophen 500 mg tablet 500 mg PO Q6H PRN Pain 01/26/23 cholecalciferol (vitamin D3) 1,250 mcg (50,000 unit) capsule 1,250 mcg PO 2XW supplement 01/26/23 clobetasol 0.05 % topical ointment 1 applic topical .COMPLEX psoriasis 01/26/23 cyanocobalamin (vitamin B-12) 1,000 mcg tablet 1,000 mcg PO DAILY supplement 01/26/23 fluconazole 150 mg tablet 150 mg PO QWEEK PRN rash 01/26/23 hydroxyzine HCl 10 mg tablet See Rx Instructions PO QHS PRN sleep 01/26/23 mometasone 0.1 % topical cream 1 applic topical .COMPLEX PRN rash 01/26/23 sertraline 50 mg tablet 50 mg PO DAILY sleep 01/26/23 triamcinolone acetonide 0.1 % topical ointment 1 applic topical .COMPLEX psoriasis 01/26/23 alendronate 70 mg tablet 70 mg PO QWEEK osteopenia 05/10/23 aspirin 81 mg tablet,delayed release 81 mg PO DAILY@0800 30 days #30 tabs 05/12/23 atorvastatin 80 mg tablet 80 mg PO QHS 30 days #30 tabs 05/12/23 glipizide 5 mg tablet 5 mg PO BID #60 tabs 05/12/23 lisinopril 10 mg tablet 10 mg PO DAILY 30 days #30 tabs 05/12/23 metoprolol succinate 25 mg tablet,extended release 24 hr 25 mg PO DAILY #30 tabs 05/12/23 oxycodone-acetaminophen 5 mg-325 mg tablet 0.5 tab PO Q6H PRN pain (scale score 7-10) 3 days #7 tabs 05/12/23 ticagrelor 90 mg tablet (Brilinta) 90 mg PO BID 30 days #60 tabs 05/12/23 Physical Exam Narrative Seen and examined. Patient had chest pain in the morning probably musculoskeletal. Patient also seems dependent on pain medication and stated to increase the morphine to 4 mg after it was decreased to 2 mg yesterday. No associated shortness of breath or chest pain. Outpatient PT. Physical exam General: Alert, Oriented x3, Cooperative. Morbid obesity BMI 50.6 kg/m? HEENT: Atraumatic, PERRLA, EOMI, Normocephalic Oral: Oral mucosa moist. No Gingival or Mucosal Lesions/ Ulcerations Neck: Supple, No JVD, Negative Carotid Bruits Lungs: Air entry diminished in bilateral lung bases. No crepitation/rhonchi Cardiovascular: Regular rate, Regular Rhythm, Normal S1, Normal S2, No murmurs Abdomen: Colostomy over left upper quadrant. Multiple scar after laparotomy and hernia mesh repair. Bowel Sounds Present, Soft, Non Tender, Non-Distended : No dysuria. No renal angle tenderness. No suprapubic tenderness. Extremities: No edema, Capillary Refill Less than 3 Seconds Skin: No rashes, No breakdown Musculoskeletal: No Tenderness to Palpation of Joints or Extremities. ROM full. Neurological: Cranial nerves II-XII grossly intact, DTR 2+/4 and Symmetrical, Neuro grossly intact Psych/Mental Status: Flat affect. Weight / BMI Weight Weight: 352 lb 8.306 oz Body Mass Index (BMI) 50.5 ABG / Lab / Microbiology Data 05/12/23 05:39 05/12/23 05:39 Laboratory: Laboratory Results - last 24 hr 05/11/23 12:37: POC Glucose 238 H 05/11/23 17:04: POC Glucose 324 H 05/11/23 23:51: POC Glucose 253 H 05/12/23 05:39: WBC 14.3 H, RBC 4.57 L, Hgb 14.7, Hct 42.9, MCV 93.9, MCH 32.2 H, MCHC 34.3, RDW Std Deviation 43.6, RDW Coeff of Mar 12.8, Plt Count 292, MPV 9.3, Sodium 137, Potassium 3.8, Chloride 106, Carbon Dioxide 24.0, Anion Gap 7, BUN 18, Creatinine 1.07, Estim Creat Clear Calc 74.86, Est GFR (MDRD) Af Amer 90, Est GFR (MDRD) Non-Af 75, BUN/Creatinine Ratio 16.8, Glucose 198 H, Calcium 8.8, Total Bilirubin 0.50, AST 32, ALT 31, Alkaline Phosphatase 106, Total Protein 7.4, Albumin 3.4, Globulin 4.0, Albumin/Globulin Ratio 0.8 L, Triglycerides 189, Cholesterol 189, LDL Cholesterol 109, VLDL Cholesterol 38, HDL Cholesterol 42 05/12/23 06:31: POC Glucose 192 H 05/12/23 12:07: POC Glucose 235 H Radiography Diagnostic Testing: Radiology Impression Echocardiogram 05/10/23 22:40 Interpretation Summary The estimated ejection fraction is 55-60 %. Definity used as contrast echo Pericardial fat pad noted RV and RA size normal. Ordering Physician: Yoandy Madera Referring Physician: Edin Mcfarland Performed By: Latisha Hanley RDCS, RVT D/C Instructions Discharge Diet: Low fat / Low cholesterol, 1800 Calorie Control Diet and 2000 mg Sodium Diet Weight Bearing Status: Weight bearing as tolerated Call your doctor if you observe: Fever of 101 or Higher, Coldness, Increased Pain, Numbness or Tingling, Change in Color, Inability to urinate, Inability to have a bowel movement, Shortness of breath, Dizziness, Fainting spells, Swelling in the ankles, Chest pain, Prolonged hiccupping, Increased palpitations (irregular heartbeat) and Calf discomfort When: IN 2 WEEKS Meaningful Use Info Meaningful Use Diagnoses (Choose all that apply): AMI AMI/Post PCI/Angioplasty Aspirin given w/in 24hrs of arrival?: Yes ASA at discharge?: Yes Statins at discharge?: Yes Mejia/ARB at discharge?: Yes Beta Cassandra at discharge?: Yes Done w/ Acute MA measure.: Yes Discharge Plan Admission Admit Date/Time: 05/10/23 21:55 Primary Reason for Your Visit: NSTEMI Attending Provider: Marcellus Connell Primary Care Provider: Edin Mcfarland Consulting Providers: Benigno Key; Yoandy Madera Discharge Orders/Prescriptions Prescriptions: New atorvastatin 80 mg Tablet 80 mg PO QHS 30 Days Qty: 30 2RF aspirin 81 mg Tablet,Delayed Release (Dr/Ec) 81 mg PO DAILY@0800 30 Days Qty: 30 3RF lisinopril 10 mg Tablet 10 mg PO DAILY 30 Days Qty: 30 3RF Brilinta 90 mg Tablet 90 mg PO BID 30 Days Qty: 60 2RF glipizide 5 mg tablet 5 mg PO BID Qty: 60 2RF Rx Instructions: Hold if glucose less than 130 mg/dl metoprolol succinate 25 mg tablet extended release 24 hr 25 mg PO DAILY Qty: 30 2RF Continued clobetasol 0.05 % ointment 1 applic topical .COMPLEX Rx Instructions: 1 applic topically BID Thursday-Thursday; triamcinolone acetonide 0.1 % ointment 1 applic topical .COMPLEX Rx Instructions: 1 applic topically BID Thursday-Thursday; sertraline 50 mg tablet 50 mg PO DAILY Hold Instructions: no longer taking hydroxyzine HCl 10 mg tablet See Rx Instructions PO QHS PRN (Reason: sleep) Rx Instructions: 1-2 tablets orally at bedtime PRN; mometasone 0.1 % cream 1 applic topical .COMPLEX PRN (Reason: rash) Hold Instructions: not taking Rx Instructions: 1 applic topically daily x3 days, then off for 3 days; PRN; fluconazole 150 mg tablet 150 mg PO QWEEK PRN (Reason: rash) Hold Instructions: not taking cyanocobalamin (vitamin B-12) 1,000 mcg tablet 1,000 mcg PO DAILY sumatriptan succinate 100 mg tablet 100 mg PO DAILY PRN (Reason: Migraine Headache) Patient Comments: Take 1 tablet by mouth as needed for Migraine Headache (see administration instructions) (Take at onset of headache. May repeat in 2 hours. Max of 2 tablets in 24 hours.). pantoprazole 40 mg tablet,delayed release (DR/EC) 40 mg PO DAILY Patient Comments: Take 1 tablet by mouth once daily. ondansetron 4 mg tablet,disintegrating 4 mg PO Q6H PRN PRN (Reason: Nausea) Patient Comments: TAKE 1 TABLET BY MOUTH EVERY 6 HOURS NEEDED FOR NAUSEA AND FOR VOMITING. cholecalciferol (vitamin D3) 1,250 mcg (50,000 unit) capsule 1,250 mcg PO 2XW acetaminophen 500 mg tablet 500 mg PO Q6H PRN (Reason: Pain) Patient Comments: Take 1 tablet by mouth every 6 hours as needed for pain. alendronate 70 mg tablet 70 mg PO QWEEK Changed oxycodone-acetaminophen 5-325 mg tablet 0.5 tab PO Q6H PRN (Reason: pain (scale score 7-10)) 3 Days Qty: 7 0RF Rx Instructions: Half tablet for 4-6/10 pain intensity and 7?10/10 intensity Discontinued atorvastatin 20 mg tablet 20 mg PO QHS Hold Instructions: no longer taking Referrals / Follow Up: Edin Mcfarland MD [Primary Care Provider] - Liberty Gaitan PA [Med Staff - [facility]] - 05/27/23 1:00 pm (Intake appointment on the has been canceled.) Disposition Disposition (needs filled in before D/C Order can be placed): Home, Self Care Charges/Coding Visit Charges Inpatient E&M: 01116 Disch Hosp >30min
[2023-05-12] MEDS: Morphine 4 MG/ML Syringe IV (13:35)
--- NOTE | 2023-05-12 14:56 | CHAPLAIN ---
Type of Pastoral Visit _x__ Initial Visit ___ Follow-up Visit ___ On-call Visit ___ General Patient Visit ___ Spiritual Assessment ___ Family Conference ___ Bereavement ___ Rapid Response ___ Code Blue ___ Other (describe below) Pastoral Care Referral From _x__ Patient ___ Family ___ Nurse ___ Physician ___ Machine Bookkeeper ___ Component Technician ___ Other (describe below) Sacrament/Intervention _x__ Active listening ___ Anointing ___ Jew ___ Bereavement ___ Communion _x__ Priscilla exploration ___ _x__ Life review _x_ Prayer ___ Reconciliation ___ Sacrament of Sick _x__ Supportive presence ___ Wedding ___ Other (describe below) Pastoral Comments 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
== END 2023-05-12 16:35 | disposition home or self-care (01) | DRG 174 ==
LOC: ED 20:23 → PCU 05-11 07:11
PROVIDERS: Internal Medicine Interventional Cardiology; Admitting Provider Hospitalist; Emergency Provider Emergency Medicine; PCP Family Medicine; Visit Provider Internal Medicine
DX: I21.4 Non-ST elevation (NSTEMI) myocardial infarction (principal); S32.050A Wedge compression fracture of fifth lumbar vertebra, initial encounter for closed fracture; Z68.43 Body mass index [BMI] 50.0-59.9, adult; I25.110 Atherosclerotic heart disease of native coronary artery with unstable angina pectoris; E66.01 Morbid (severe) obesity due to excess calories; E11.65 Type 2 diabetes mellitus with hyperglycemia; Z93.3 Colostomy status; E78.00 Pure hypercholesterolemia, unspecified; I10 Essential (primary) hypertension; M51.37 Other intervertebral disc degeneration, lumbosacral region; M47.817 Spondylosis without myelopathy or radiculopathy, lumbosacral region; W19.XXXA Unspecified fall, initial encounter; I35.0 Nonrheumatic aortic (valve) stenosis; G47.33 Obstructive sleep apnea (adult) (pediatric); Z95.5 Presence of coronary angioplasty implant and graft; Z90.49 Acquired absence of other specified parts of digestive tract; Z79.02 Long term (current) use of antithrombotics/antiplatelets; Z79.82 Long term (current) use of aspirin; Z79.83 Long term (current) use of bisphosphonates; Z79.84 Long term (current) use of oral hypoglycemic drugs; Z79.899 Other long term (current) drug therapy; Z87.891 Personal history of nicotine dependence; Z85.038 Personal history of other malignant neoplasm of large intestine; Z82.49 Family history of ischemic heart disease and other diseases of the circulatory system
CPT/HCPCS: 36415; 71046; 72100; 80048; 80053; 80061; 82962; 84484; 85025; 85027; 85610; 85730; 92928; 93005; 93306; 93458; 99152; 99153; 99285; J7030; Q9957; Q9967; A4216; C1725; C1769; C1874; C1887; C1894; C8929; C9600

== ENCOUNTER → 2023-05-27 | Outpatient (CLI) | payer MEDICAID, SELFPAY ==
--- NOTE | 2023-05-27 14:05 | CR.HP_ITS ---
CR - History & Physical General Arrival date:: 05/27/23 Arrival time:: 14:06 Date of Referral:: 05/12/23 Date of CR Evaluation:: 05/27/23 Referring Physician: Dr. Josafat Anderson History of Present Cardiac Event Onset Date PTCA or coronary stenting:: Yes Vessel: LAD on 05/11/23 Medications Ambulatory Orders Medication Instructions Recorded ondansetron 4 mg disintegrating 4 mg PO Q6H PRN PRN Nausea 11/08/21 tablet pantoprazole 40 mg tablet,delayed 40 mg PO DAILY GERD 11/08/21 release sumatriptan succinate 100 mg tablet 100 mg PO DAILY PRN Migraine 11/08/21 Headache acetaminophen 500 mg tablet 500 mg PO Q6H PRN Pain 01/26/23 cholecalciferol (vitamin D3) 1,250 1,250 mcg PO 2XW supplement 01/26/23 mcg (50,000 unit) capsule clobetasol 0.05 % topical ointment 1 applic topical .COMPLEX psoriasis 01/26/23 cyanocobalamin (vitamin B-12) 1,000 mcg PO DAILY supplement 01/26/23 1,000 mcg tablet fluconazole 150 mg tablet 150 mg PO QWEEK PRN rash 01/26/23 hydroxyzine HCl 10 mg tablet See Rx Instructions PO QHS PRN 01/26/23 sleep mometasone 0.1 % topical cream 1 applic topical .COMPLEX PRN rash 01/26/23 sertraline 50 mg tablet 50 mg PO DAILY sleep 01/26/23 triamcinolone acetonide 0.1 % 1 applic topical .COMPLEX psoriasis 01/26/23 topical ointment alendronate 70 mg tablet 70 mg PO QWEEK osteopenia 05/10/23 glipizide 5 mg tablet 5 mg PO BID #60 tabs 05/12/23 oxycodone-acetaminophen 5 mg-325 0.5 tab PO Q6H PRN pain (scale 05/12/23 mg tablet score 7-10) 3 days #7 tabs aspirin 81 mg tablet,delayed 81 mg PO DAILY #90 tabs 05/27/23 release atorvastatin 80 mg tablet 80 mg PO QHS #90 tabs 05/27/23 lisinopril 10 mg tablet 10 mg PO DAILY #90 tabs 05/27/23 metoprolol succinate 25 mg 25 mg PO DAILY #90 tabs 05/27/23 tablet,extended release 24 hr ticagrelor 90 mg tablet (Brilinta) 90 mg PO BID #180 tabs 05/27/23 Allergies Allergies metformin Allergy (Unknown, Verified 05/10/23 17:00) Vomiting codeine Allergy (Verified 05/10/23 17:00) Itching Iodinated Contrast Media Allergy (Verified 05/10/23 17:00) Vomiting HIVES/ITCHING/NAUSEA/VOMITING---HAS ALL SYMPTOMS AFTER PREMEDS Penicillins Allergy (Verified 05/10/23 17:00) Hives Sleep Disorder Evaluation Hx of Sleep Apnea: Yes Do you snore loudly (louder than talking or can be heard through closed doors)?: Yes Do you often feel tired/ fatigued/ sleepy during daytime?: Yes Has anyone observed you stop breathing during sleep?: No History of Hypertension (for STOP score): Yes STOP Results: Positive Advanced Directives Advanced Directives Power of Senior [employer] Dba: No Living Will: No Advance Directives Information Provided: No Advance Directives on File: No Past Medical History Covid-19 Screening Physicial Symptoms Other Clinical Concerns Exposure Risk Pertinent Comorbidities Has a serious heart condition:: Yes Severely obese (Body Mass Index of 40 or higher):: Yes Diabetic:: Yes Has liver disease:: Yes Past Medical Illness Past Medical History (Updated 05/20/23 @ 00:02 by Background Daemon) Acute pain of right hip M25.551 Allergy to contrast media (used for diagnostic x-rays) Z91.041 Ambulates with cane Z99.89 Anxiety F41.9 Aortic stenosis I35.0 Arthritis M19.90 Back pain M54.9 BiPAP (biphasic positive airway pressure) dependence Z99.89 BPH (benign prostatic hyperplasia) N40.0 Cancer C80.1 COLON Cancer of colon with rectum Following w/ Dr. Valencia, s/p rectal resection w/ osteomy, last chemotherapy 10/16/15-10/18/15. 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01 Neurogenic bladder, flaccid N31.2 Obstructive sleep apnea G47.33 Osteoporosis M81.0 Parastomal hernia K43.5 Psoriasis L40.9 PTSD (post-traumatic stress disorder) F43.10 Pulmonary embolism I26.99 Shortness of breath on exertion R06.02 Type 2 diabetes mellitus without complication E11.9 UTI (urinary tract infection) N39.0 Vitamin B 12 deficiency E53.8 Vitamin D deficiency E55.9 Walker as ambulation aid Z99.89 Wears glasses Z97.3 Past Surgical History Past Surgical History (Updated 05/12/23 @ 18:27 by Ashley Velasco) H/O resection of rectum Z90.49 History of bowel resection Z90.49 History of cardiac catheterization Z98.890 History of colonoscopy Z98.890 History of creation of ostomy Z93.9 NEW OSTOMY SITE CREATION , AND REPAIR OF PARASTOMAL HERNIA 03/2022, [facility] STILL HAS WOUND VAC History of esophagogastroduodenoscopy (EGD) Z98.890 History of implantable cardiac defibrillator (ICD) Z95.810 2010 History of surgery on arm Z98.890 Hx L elbow surgery and R hand surgery. History of tonsillectomy and adenoidectomy Z90.89 Stented coronary artery (05/11/23) Z95.5 3.5 X 26 mm LASHAE to proximal LAD Surgical History: tonsillectomy and - (Surgery for fracture left elbow w/ hardware, Complete resection rectum w/ ostomy placement, portacath) Family History Summary Family History Mother No problems noted. Father Heart disease Cancer Grandmother CAD (coronary artery disease) Social History Smoking History Smoking Status: Former smoker (stopped 10 years ago) Alcohol Use Alcohol Usage: Yes (socially) Substance Abuse Hx Substance Use: No Occupation Occupation (List type of work in comments):: Unemployed Hobbies, Recreation, Social Activities Hobbies: Other (flynn, fish, camp) Recreational Activities: I am able to engage in a few activities Social Environment Status Marital Status: Current Living Arrangements Living Environment:: Alone (has roomate) Children How many children do you have?: 4 Do any of your children live nearby?: No Safety Do you feel safe in your surroundings?: Yes Assistance Do you need any assistance at home?: no Review of Systems Review of Systems Hints Review of Present Symptoms: Reports Shortness of Breath with Exertion, Dizziness/Lightheadedness, Fatigue, Appetite - Normal and Appetite - Special Diet; Denies Shortness of Breath at Rest, PVD, Operative Discomfort, Angina, Wound Healing, Heart Arrhythmia/Irregularities, Sleep - Normal or Sexual Changes Pain Is Patient Pain Free?: No Pain Location: back Pain Level: 02/09 Risk Factor Assessment Vital Signs Pulse Ox: 92 Blood Pressure: 111/73 Pulse Pulse Rate: 86 Hypertension How long have you been treated?: 1 year Stress Stress: Long-standing Diabetes Diabetic History: Type II Nutrition Referral for Diabetes: Yes Obesity Height: 5 ft 10 in Weight:: 349 lb Weight in Pounds: 349.0 lbs Body Mass Index (BMI): 50.1 Nutritional Referral for Obesity: Yes Physical Inactivity Physical Inactivity: None Risk Stratification Risk Guidelines: Highest Risk: Risk Factor for Smoking, Risk Factor for Dyslipidemia, Risk Factor for Diabetes, Risk Factor for Obesity, Risk Factor for Hypertension, Risk Factor for Sedentary Lifestyle and Risk Factor for Depression For Smoking Smoking Risk Guidelines For Dyslipidemia Dyslipidemia Risk Guidelines For Diabetes Mellitus Diabetes Risk Guidelines For Obesity/Overweight Obesity/Overweight Risk Guidelines For Hypertension Hypertension Risk Guidelines For Sedentary Lifestyle Sedentary Lifestyle Risk Guidelines For Depression Depression Risk Guidelines Family History Family History Mother No problems noted. Father Heart disease Cancer Grandmother CAD (coronary artery disease) Motivation Motivation to Participate On a scale of 1 to 10, how prepared are you to commit to attending program?: 10 What do you see as barriers to successfully being able to complete the program?: none What do you see as the benefits of succesfully completing the program? In other words, what do you hope to get out of participating in the program?: better quality of life Are there issues you are dealing with that will interfere with completing the program?: none Do you have a spouse or signficant other, family or friends who will help support you to complete the program?: yes
[2023-05-27 14:14] VITALS: BP 111/73; PULSE 86; O2SAT 92
--- NOTE | 2023-05-27 14:14 | CR.ITP_ITS ---
Diagnosis General Information Admitting Diagnosis: PCI with coronary stent Personal Learning Style:: Audio/Visual Stage of change r/t lifestyle modifications:: Contemplation Gave educational material for:: Treating Heart Disease, How The Heart Works, What it means to have Heart Disease, How Coronary Artery Disease is Diagnosed, Heart Procedures, What Heart Medications Do, Risk Factors & Modifications, Living an Active Life, Nutrition, Emotions & Heart Disease, Stress Management & Relaxation and Sleep Disorders & Heart Disease Education/Goals Cardiac Rehabilitation Goals Personal Goals: Initial Assessment: Improve management of stress and emotions, Participate in home exercise program, Improve knowledge of cardiac disease, Improve muscle strength and endurance, Improve diet and eating habits (eat healthier) and Control risk factors (learn risk factor modification) Scale for measuring improvement of personal goals Diagnosis & Disease Process Outcomes/Goals: Pt IDs own risk factors & lifestyle modifications by Session 10, Verbalizes symptoms of angina & response by session 3., Pt independently manages and Other Additional Outcomes/Goals: Plan/Interventions: Assist Pt to ID & engage in lifestyle modification to reduce CVD risk, Instruct on individual risk factors, Review symptoms of angina & emergency actions, Review secondary diagnosis & identify educational needs. and Other see comment 30 day Reassessments:: Not Met 30 day Reassessments:: Not Met 30 day Reassessments:: Not Met 30 day Reassessments:: Not Met Final Reassessments:: Not Met Safety Referral to Physical Therapy: No Fall Risk Assessed:: Yes Assistive Devices:: Cane and Wheelchair Exercise - Initial Assessment Visit Date of Eval: 05/27/23 (initial eval ) Mets: Pre-: >3 METS for 30 minutes by discharge, >5 METS for 30 minutes by discharge, >7 METS for 30 minutes by discharge and Unable to meet goal due to: (see comment below) Stress Test EKG: Physician Prescribed Exercise Modalities: Airdyne, NuStep, SciFit and Lateral [place] Frequency: 3x/week for 12 weeks [36 sessions] Intensity: 60-80% of age predicted maximum heart rate reserve Current METSs:: 3 Resting Blood Pressure: 111/73 EKG Type: SR with occas PVC, Twave abnormality Outcomes & Goals Goals:: Verbalizes understanding of THR, RPE & goal METS by session 6, Documents in home exercise log/reports 30 min aerobic 5 day/wk by DC, Demonstrates accurate pulse taking by DC and Other additional outcome/goals: see below Intervention & Plan Exercise Program Goals: Instruct on personal THR & RPE, Instruct on MET level & personal MET goal, Show patient to take own pulse /validate performance until accurate, Instruct on home exercise and Other additional plan/int Physical Activity Home Exercise Physical Activity - Home Exercise: Safe Exercise, Warm-up, Self-monitoring, Cool-Down, Home Exercise > 30 min Daily and Sitting Time <3 hours/daily Outcomes & Goals Outcomes/Goals: Demonstrates correct Warm-up/exercise Cool-Down (S3) if = 2.5 METs, Verbalizes symptoms of exercise intolerance by Session 3 (S3), Demonstrate safe equipment use (S3) & follows exercise prescrition (6) and Other: See below Intervention & Plan Plan/Intervention: Instruct warm-up & cool-down if exercising at > 2 METs, Instruct on symptoms of exercise intolerance & actions to take, Instruct & monitor on saf, Assess intial functional capacity & safety risk and Other See below Nutrition - Initial Assessment Program Goals Nutrition Program Goals Patient has diagnosis of Hyperlipidemia (ICD E78)?: Yes Visit Date of Eval: 05/27/23 (initial eval ) Cholesterol/Lipids (Other Core Measures) Determine presence & major risk factors that modify LDL goal: Cigarette smoking, Hypertension or hypertensive medication, Low HDL cholesterol <40 mg/dL*, Family history of premature CHD in Male < 55 years: female <65 yearsFa and Age men > 45 years; women >/= 55 years Outcomes/Goals: Pt IDs own risk factors & lifestyle modifications by Session 10, Verbalizes symptoms of angina & response by session 3., Pt independently manages and Other Additional Outcomes/Goals: Intervention/Plan: Advocate for lipid panel cholesterol medication if applicable, Instruct on personal lipid levels & lipid goals/NCEP guidelines, Instruct on cholesterol and Other additional plan/int Diabetes (Other Core Measures) Diabetes Type: Diagnosis Type II ICD-10 E11 Insulin dependent injection/pump?: No Non-Insulin Dependent?: No Do you monitor your blood sugar at home?: No Referral to Diabetic Clinic:: Yes Outcomes/Goals:: Able to state symptoms of, Able to state, Able to state and Other additional Intervention/Plan:: Instruct on, Refer to, Instruct on and Other Weight Mgt (Other Care) Height: 5 ft 10 in Weight:: 349 lb BMI: 50.1 Diagnosis Overweight/Obesity BMI> 30% ICD-10 E66: Yes Diagnosis High BMI/Morbid Obesity BMI> 35% ICD-10 Z68: Yes Outcomes/Goals: Pt sets, maintains & shows weight loss goal & trend during rehab and Other additional outcomes/goals Intervention/Plan: Instruct on ideal BMI & set weight loss goal w/patient, Assist pt to ID & incorporate diet changes for weight loss by S9, Refer to Structured Weight Loss program as appropriate, Encourage goal of using 250- 300dcal per session for weight loss and Other additional plan/interventions Healthy Eating Habits Will attend diet classes:: Yes Outcomes/Goals:: Consume diet rich in vegs,fruits,whole grain/high fiber,fish,le an meat, Limit sat/trans fats,cholesterol & added salts & sugars and Other additional outcome/goals: Intervention/Plan:: Assess current eating habits and Other Additional plan/ interventions Education Gave educational materials for:: Signs & symptoms of hypoglycemia, Signs & symptoms of hyperglycemia, Relate diabetes to coronary artery disease and Healthy eating Core - Initial Assessment Visit Date of Eval: 05/27/23 (initial eval ) Medication Compliance Preventative Medication(s):: Aspirin, SHELLI inhibitor, Ticagrelor/P2Y12 inhibitor, Statin/lipid and Beta maya H/O mental health issues: depression, anxiety, or addiction?: Yes Doesn?t believe in the benefits of treatment?: No Believes medications are unnecessary or harmful?: No Has a concern about medication side effects?: No Expresses concern over the cost of medications?: No Outcomes/Goals: Verbalizes medications,desired effect & common side effects @ DC, Pt self-reports following medication regimen, Keeps card in wallet w/medications listed by DC and Other additional outcome/goals: Interventions/plans: Instruct on medication effects & side effects, Review medication list w/patient every two weeks, Instruct importance of taking meds as ordered & assist problem solving and Other additional Tobacco Use Tobacco Use: Non-smoker How long ago did you quit using tobacco products?: Greater than or equal to 6 months ago Hypertension Hypertension Diagnosis:: Hypertension ICD-10 I10 Resting Blood Pressure:: 111/73 Canadian Heart Association Hypertension Guidelines Outcomes/Goals: Able to verbalize/achieve optimal blood pressure <130/80, Incorporates diet changes & exercise for blood pressure control by DC and Other additional outcomes/goals Interventions/plan: Instruct on optimal blood pressure, hypertension & medications, Instruct on effects of sodium, alcohol, stress, exercise &hypertension and Other additional plan/interventions Tobacco Cessation Referral Smoking Cessation Referral:: No Individual Education/Counseling:: No Education Schedule Given:: Yes Psychosocial - Initial Assess VIsit Date of Eval: 05/27/23 (initial eval ) History of previous Mental disease:: No Target Goals Target Goals Patient Health Questionnaire PHQ-9 Screening Initial Assessment: 1. Little interest or pleasure in doing things: More than half the days 2. Feeling down, depressed, or hopeless: More than half the days 3. Trouble falling or staying asleep, or sleeping too much: Nearly every day 4. Feeling tired or having little energy: More than half the days 5. Poor appetite or overeating: More than half the days 6. Feeling bad about yourself -- or that you are a failure or have let yourself or your family down: Several days 7. Trouble concentrating on things, such as reading the newspaper or watching television: Several days 8. Moving or speaking so slowly that other people could have noticed. Or the opposite - being so fidgety or restless that you have been moving around a lot more than usual: Not at all 9. Thoughts that you would be better off , or of hurting yourself in some way: Not at all How difficult have these problems made it for you to do your work, take care of things at home, or get along with other people?: Somewhat difficult Total Score: 13 ROSEMARY-Q SV Test Statements CAD is a disease of the arteries in the heart: True Examples of risk factors for heart disease: True Angina is chest pain or discomfort: I Don't Know The benefits of resistance training include: True Eating more meat and dairy products: I Don't Know Anti-platelet medications such as aspirin are important: False The only effective way to manage stress: True An exercise warm-up slowly increases heart rate: True Prepared, processed foods usually have high sodium: True Depression is common after a heart attack: I Don't Know The statin medications lower cholesterol: I Don't Know To control blood pressure, lower the amount of sodium: False If someone gets chest discomfort during walking: True Transfats are partially hydrogenated vegetable oils: True Sleep apnea that is not treated increases the risk: False To control cholesterol, one should become a vegetarian: False Someone knows if he/she is exercising at the right level: True Diabetes cannot be prevented with exercise & health eating: False Stress is a large risk for heart attack: True A diet that can help lower blood pressure is rich in: I Don't Know Total Score Total Correct Responses: 10 Self-Efficacy 6-Item Scale Initial Assessment: We would like to know how confident you are in doing certain activities. Please select your confidence level for: Fatigue Select Number: 7 Physical Discomfort or Pain Select Number: 6 Emotional Distress Select Number: 9 Other Symptoms or Health Problems Select Number: 8 Different Tasks and Activities Select Number: 10 Medication Select Number: 10 Total Score:: 8 Nutrition Survey Nutrition Survey Instructions Scoring Instructions Nutrition Survey Initial: Have you lost >10 lbs over the past 2 months without trying?: No Are you following a special diet at home for diabetes, low fat, or low salt?: No Are you interested in meeting with a dietitian for help understanding your diet?: Yes Do you eat less than 3 meals a day?: Yes Do you eat fatty meats (wilkins, sausage, ribs, etc), fried foods, desserts, large amounts of salad dressings, margarine, butter, or cheese most days?: No Do you have food allergies? [Enter types in comment field]: No Do you eat in restaurants more than 3 times a week?: No Do you season food with salt, seasoning salt, or garlic salt?: No Do you used canned, boxed, frozen meals, or soups, seasoning packets?: No Total Score:: 2 Exercise - Final/Discharge Physician Prescribed Exercise Modalities: Airdyne, NuStep, SciFit and Lateral Dried Yeast Supervisor Frequency: 3x/week for 12 weeks [36 sessions] Intensity: 60-80% of age predicted maximum heart rate reserve Current METSs:: 3 Nutrition - 30-Day Assessment Weight Mgt (Other Care) Height: 5 ft 10 in Weight:: 349 lb BMI: 50.1 Nutrition - 60-Day Assessment Weight Mgt (Other Care) Height: 5 ft 10 in Weight:: 349 lb BMI: 50.1 Core - Final Assessment Hypertension Resting Blood Pressure:: 111/73 Canadian Heart Association Hypertension Guidelines Core - 60-Day Assessment Hypertension Resting Blood Pressure:: 111/73 [employer] Heart Association Hypertension Guidelines Psychosocial - 30-Day Assess Target Goals Target Goals Psychosocial - 60-Day Assess Target Goals Target Goals Psychosocial - 90-Day Assess Target Goals Target Goals Psychosocial - Final Assessmen Target Goals Target Goals Nutrition - 90-Day Assessment Weight Mgt (Other Care) Height: 5 ft 10 in Weight:: 349 lb BMI: 50.1 Nutrition - Final Assessment Program Goals Patient has diagnosis of Hyperlipidemia (ICD E78)?: Yes Weight Mgt (Other Care) Height: 5 ft 10 in Weight:: 349 lb BMI: 50.1
[2023-05-27 14:25] VITALS: BP 111/73
[2023-05-27 14:38] VITALS: BMI 50.1
[2023-05-27 15:12] VITALS: BMI 50.1
== END | disposition home or self-care (01) ==
LOC: CR 14:00
PROVIDERS: PCP Family Medicine; Referring Provider Internal Medicine Cardiovascular Disease; Visit Provider Internal Medicine Cardiovascular Disease
DX: Z00.00 Encounter for general adult medical examination without abnormal findings (principal)

== ENCOUNTER 2023-06-01 11:29 | Outpatient (RCR) | payer MEDICAID, SELFPAY ==
[2023-05-27 14:38] VITALS: BMI 50.1
== END 2023-06-01 23:59 ==
LOC: CR 11:29
PROVIDERS: PCP Family Medicine; Referring Provider Internal Medicine Cardiovascular Disease; Visit Provider Internal Medicine Cardiovascular Disease
DX: I21.4 Non-ST elevation (NSTEMI) myocardial infarction (principal); I25.10 Atherosclerotic heart disease of native coronary artery without angina pectoris; Z95.5 Presence of coronary angioplasty implant and graft
CPT/HCPCS: 93798

== ENCOUNTER 2023-06-03 08:07 | Outpatient (RCR) | payer MEDICAID, SELFPAY ==
[2023-05-27 14:38] VITALS: BMI 50.1
--- NOTE | 2023-06-26 11:32 | PCM.CR.ITP ---
Exercise - Initial Assessment Visit Session #:: 2 Comments:: pt has been on hold due to back pain Nutrition - Initial Assessment Weight Mgt (Other Care) Height: 5 ft 10 in Weight:: 348 lb BMI: 49.9 Psychosocial - Initial Assess Target Goals Target Goals Patient Health Questionnaire PHQ-9 Screening 30-Day Re-eval Assessment: 1. Little interest or pleasure in doing things: More than half the days 2. Feeling down, depressed, or hopeless: More than half the days 3. Trouble falling or staying asleep, or sleeping too much: Nearly every day 4. Feeling tired or having little energy: More than half the days 5. Poor appetite or overeating: Several days 6. Feeling bad about yourself -- or that you are a failure or have let yourself or your family down: Several days 7. Trouble concentrating on things, such as reading the newspaper or watching television: Not at all 8. Moving or speaking so slowly that other people could have noticed. Or the opposite - being so fidgety or restless that you have been moving around a lot more than usual: Not at all 9. Thoughts that you would be better off , or of hurting yourself in some way: Not at all How difficult have these problems made it for you to do your work, take care of things at home, or get along with other people?: Somewhat difficult Total Score: 11 Nutrition Survey Nutrition Survey Instructions Scoring Instructions Exercise - 30-day Assessment Visit Date of Eval: 06/26/23 Session #:: 2 Comments:: pt has been on hold due to back pain Physician Prescribed Exercise Modalities: NuStep Frequency: 3x/week for 12 weeks [36 sessions] Intensity: 60-80% of age predicted maximum heart rate reserve Duration: 30 - 45 minutes Current METSs:: 2 Target Heart Rate:: 103-119 Current RPE:: 6-8 Maximum Excercise HR:: 105 Resting Blood Pressure: 138/62 Maximum Exercise Blood Pressure: 144/82 EKG Type: NSR to ST with rare PAC,PVC Outcomes & Goals Goals:: Verbalizes understanding of THR, RPE & goal METS by session 6, Documents in home exercise log/reports 30 min aerobic 5 day/wk by DC, Demonstrates accurate pulse taking by DC and Other additional outcome/goals: see below Intervention & Plan Exercise Program Goals: Instruct on personal THR & RPE, Instruct on MET level & personal MET goal, Show patient to take own pulse /validate performance until accurate, Instruct on home exercise and Other additional plan/int 30-day Reassessments 30 day Reassessments:: Progressing Reassessment Notes & Comments:: RPE explained Physical Activity Home Exercise Physical Activity - Home Exercise: Safe Exercise, Warm-up, Self-monitoring, Cool-Down, Home Exercise > 30 min Daily and Sitting Time <3 hours/daily Outcomes & Goals Outcomes/Goals: Demonstrates correct Warm-up/exercise Cool-Down (S3) if = 2.5 METs, Verbalizes symptoms of exercise intolerance by Session 3 (S3), Demonstrate safe equipment use (S3) & follows exercise prescrition (6) and Other: See below Intervention & Plan Plan/Intervention: Instruct warm-up & cool-down if exercising at > 2 METs, Instruct on symptoms of exercise intolerance & actions to take, Instruct & monitor on saf, Assess intial functional capacity & safety risk and Other See below 30-day Reassessments 30 day Reassessments:: Progressing Reassessment Notes & Comments:: warm up encouraged Nutrition - 30-Day Assessment Program Goals Nutrition Program Goals Patient has diagnosis of Hyperlipidemia (ICD E78)?: Yes Visit Date of Eval: 06/26/23 Session #:: 2 Cholesterol/Lipids (Other Core Measures) Determine presence & major risk factors that modify LDL goal: Cigarette smoking, Hypertension or hypertensive medication, Low HDL cholesterol <40 mg/dL*, Family history of premature CHD in Male < 55 years: female <65 yearsFa and Age men > 45 years; women >/= 55 years Outcomes/Goals: Pt IDs own risk factors & lifestyle modifications by Session 10, Verbalizes symptoms of angina & response by session 3., Pt independently manages and Other Additional Outcomes/Goals: Intervention/Plan: Advocate for lipid panel cholesterol medication if applicable, Instruct on personal lipid levels & lipid goals/NCEP guidelines, Instruct on cholesterol and Other additional plan/int Referral to dietitian:: Yes 30-day Reassessments:: Progressing Reassessment Notes & Comments:: pt will attend nutrition class Diabetes (Other Core Measures) Diabetes Type: Diagnosis Type II ICD-10 E11 Insulin dependent injection/pump?: No Non-Insulin Dependent?: No Do you monitor your blood sugar at home?: No Referral to Diabetic Clinic:: Yes Outcomes/Goals:: Able to state symptoms of, Able to state, Able to state and Other additional Intervention/Plan:: Instruct on, Refer to, Instruct on and Other 30-day Reassessments:: Progressing Reassessment Notes & Comments:: pt to attend nutrition class Weight Mgt (Other Care) Height: 5 ft 10 in Weight:: 348 lb BMI: 49.9 Diagnosis Overweight/Obesity BMI> 30% ICD-10 E66: Yes Diagnosis High BMI/Morbid Obesity BMI> 35% ICD-10 Z68: Yes Outcomes/Goals: Pt sets, maintains & shows weight loss goal & trend during rehab and Other additional outcomes/goals Intervention/Plan: Instruct on ideal BMI & set weight loss goal w/patient, Assist pt to ID & incorporate diet changes for weight loss by S9, Refer to Structured Weight Loss program as appropriate, Encourage goal of using 250-300dcal per session for weight loss and Other additional plan/interventions 30 day Reassessments:: Progressing Reassessment Notes & Comments:: pt to attend nutrition class Healthy Eating Habits Will attend diet classes:: Yes Outcomes/Goals:: Consume diet rich in vegs,fruits,whole grain/high fiber,fish,lean meat, Limit sat/trans fats,cholesterol & added salts & sugars and Other additional outcome/goals: Intervention/Plan:: Assess current eating habits and Other Additional plan/interventions 30-day Reassessments:: Progressing Reassessment Notes & Comments:: pt to attend nutrition class Education Gave educational materials for:: Signs & symptoms of hypoglycemia, Signs & symptoms of hyperglycemia, Relate diabetes to coronary artery disease and Healthy eating Nutrition - 60-Day Assessment Weight Mgt (Other Care) Height: 5 ft 10 in Weight:: 348 lb BMI: 49.9 Core - 30-Day Assessment Visit Date of Eval: 06/26/23 Session #:: 2 Medication Compliance Preventative Medication(s):: Aspirin, SHELLI inhibitor, Ticagrelor/P2Y12 inhibitor, Statin/lipid and Beta maya H/O mental health issues: depression, anxiety, or addiction?: Yes Doesn?t believe in the benefits of treatment?: No Believes medications are unnecessary or harmful?: No Has a concern about medication side effects?: No Expresses concern over the cost of medications?: No Outcomes/Goals: Verbalizes medications,desired effect & common side effects @ DC, Pt self-reports following medication regimen, Keeps card in wallet w/medications listed by DC and Other additional outcome/goals: Interventions/plans: Instruct on medication effects & side effects, Review medication list w/patient every two weeks, Instruct importance of taking meds as ordered & assist problem solving and Other additional 30-day Reassessments:: Progressing Reassessment Notes & Comments:: pt encouraged to take meds Tobacco Use Tobacco Use: Non-smoker Hypertension Hypertension Diagnosis:: Hypertension ICD-10 I10 Resting Blood Pressure:: 138/62 [place] [employer] Hypertension Guidelines Peak Exercise Blood Pressure:: 144/82 Outcomes/Goals: Able to verbalize/achieve optimal blood pressure <130/80, Incorporates diet changes & exercise for blood pressure control by DC and Other additional outcomes/goals Interventions/plan: Instruct on optimal blood pressure, hypertension & medications, Instruct on effects of sodium, alcohol, stress, exercise &hypertension and Other additional plan/interventions 30 day Reassessments:: Progressing Reassessment Notes & Comments:: encouraged to take his meds Tobacco Cessation Referral Smoking Cessation Referral:: No Individual Education/Counseling:: No Education Schedule Given:: Yes Psychosocial - 30-Day Assess VIsit Date of Eval: 06/26/23 Session #:: 2 History of previous Mental disease:: Yes History of Emotional Disorders: Anxious Target Goals Target Goals Psychosocial - 60-Day Assess Target Goals Target Goals Psychosocial - 90-Day Assess Target Goals Target Goals Psychosocial - Final Assessmen Target Goals Target Goals Nutrition - 90-Day Assessment Weight Mgt (Other Care) Height: 5 ft 10 in Weight:: 348 lb BMI: 49.9 Nutrition - Final Assessment Weight Mgt (Other Care) Height: 5 ft 10 in Weight:: 348 lb BMI: 49.9
[2023-06-26 11:44] VITALS: BP 138/62; BMI 49.9
== END 2023-07-02 23:59 ==
LOC: CR 08:07
PROVIDERS: PCP Family Medicine; Referring Provider Internal Medicine Cardiovascular Disease; Visit Provider Internal Medicine Cardiovascular Disease
DX: Z95.5 Presence of coronary angioplasty implant and graft (principal); I21.4 Non-ST elevation (NSTEMI) myocardial infarction; I25.10 Atherosclerotic heart disease of native coronary artery without angina pectoris
CPT/HCPCS: 93798

== ENCOUNTER 2023-07-03 08:25 | Outpatient (RCR) | payer MEDICAID, SELFPAY ==
[2023-07-03 00:39] VITALS: BP 138/62
== END 2023-08-01 23:59 ==
LOC: CR 08:25
PROVIDERS: PCP Family Medicine; Referring Provider Internal Medicine Cardiovascular Disease; Visit Provider Internal Medicine Cardiovascular Disease
DX: Z95.5 Presence of coronary angioplasty implant and graft (principal); I21.4 Non-ST elevation (NSTEMI) myocardial infarction; I25.10 Atherosclerotic heart disease of native coronary artery without angina pectoris
CPT/HCPCS: 93798

== ENCOUNTER 2023-07-03 19:58 | Inpatient (IN) | payer MEDICAID, SELFPAY ==
[2023-07-03] VITALS (11 sets, daily range): BP systolic 102–123; BP diastolic 69–89; PULSE 98–118; RESP 12–18; TEMP 36.6; O2SAT 93–96; BMI 50.5; BMI 49.6
--- NOTE | 2023-07-03 | EKG12_ITS ---
Test Reason : PCU ADMIT Blood Pressure : / mmHG Vent. Rate : 099 BPM Atrial Rate : 099 BPM P-R Int : 150 ms QRS Dur : 070 ms QT Int : 346 ms P-R-T Axes : 017 037 059 degrees QTc Int : 444 ms Normal sinus rhythm Normal ECG When compared with ECG of 03-JUL-2023 20:06, MANUAL COMPARISON REQUIRED, DATA IS UNCONFIRMED Confirmed by TULIO MCMILLAN, ANAIS ([id number]), online editor MIHAELA BRAVO ([id number]) on 08/19/2023 2:00:17 PM Referred By: Confirmed By:ANAIS ANTUNEZ MD
--- NOTE | 2023-07-03 20:11 | EKG12_ITS ---
Test Reason : CP Blood Pressure : / mmHG Vent. Rate : 104 BPM Atrial Rate : 104 BPM P-R Int : 122 ms QRS Dur : 084 ms QT Int : 334 ms P-R-T Axes : 005 036 065 degrees QTc Int : 439 ms Sinus tachycardia Otherwise normal ECG Confirmed by ELKIN MCMILLAN, STONEY ([id number]), newspaper editor MIHAELA BRAVO ([id number]) on 08/10/2023 12:53:38 PM Referred By: Confirmed By:ABDIEL GRANGER MD
[2023-07-03 20:22] LABS: Absolute Lymphocyte Count 2.08 X10^3/uL (0.83-4.51); Absolute Neutrophil Count 4.9 X10^3/uL (2.0-7.7); Basophil# 0.08 X10^3/uL; Eosinophil# 0.14 X10^3/uL; Eosinophils% 1.8 % (0-5); Hematocrit 41.6 % (40-54); Hemoglobin 13.6 g/dL (13.0-16.5); Lymphocyte # 2.08 X10^3/ul (0.83-4.51); Lymphocyte % 26.2 % (19-41); Mean Corp Hgb Conc 32.7 g/dL (32-36); Mean Corpuscular Hgb 32.3 pg (27.0-32.0); Mean Corpuscular Volume 98.8 fL (80-94); Mean Platelet Vol. 8.9 fl (6.2-12.0); Monocyte% 8.8 % (0-10); NRBC Flagged by Analyzer 0 % (0-5); Neutrophil # 4.87 X10^3/uL (2.7-7.7); Neutrophil % 61.3 % (47-70); Platelet Count 251 K/mm3 (150-450); RBC Distribution Width CV 13.2 % (11.6-14.6); RBC Distribution Width SD 47.8 fl (35.1-43.9); Red Blood Count 4.21 M/mm3 (4.6-6.2); White Blood Count 7.9 K/mm3 (4.4-11.0)
--- NOTE | 2023-07-03 20:29 | RAD_ITS ---
INDICATION: Injury/Pain EXAMINATION/TECHNIQUE: X-RAY - XR Hip Unilateral with Pelvis when performed; 2-3 Views 11/08/2021 FINDINGS: PELVIC BONES: No displaced fracture, destructive or sclerotic lesions. Note that overlapping bowel shadows may however obscure fine detail. Sacroiliac joints are unremarkable. No widening of the pubic symphysis. HIPS: The articular structures are unremarkable. No displaced fracture seen in this frontal view. There is however mild joint space narrowing involving the RIGHT hip. SOFT TISSUES: No soft tissue swelling or gas. RAD/HIP, UNI W/ Pelvis 2-3 Views IMPRESSION: 1. No evidence of displaced pelvic or hip fracture. No focal destructive bony process noted. 2. Mild joint space narrowing at the RIGHT hip. Normal joint space on the LEFT hip. Electronically Signed: Leon Velez MD at 21:22 EDT ,
--- NOTE | 2023-07-03 20:29 | RAD_ITS ---
INDICATION: chest pain EXAMINATION/TECHNIQUE: X-RAY - XR Chest 1 View COMPARISON: No previous relevant examinations available for comparison.. FINDINGS: LIFE-SUPPORT AND LINES: 1. None HEART AND VESSELS: Cardiac silhouette is large, no evidence congestive failure. LUNGS AND PLEURAL SPACES: Bibasilar atelectasis without evidence of airspace consolidation or effusion. No pulmonary mass is noted. MEDIASTINUM AND HILAR REGIONS: No masses adenopathy noted. No areas of calcification. Visualized upper airway is normal in position. BONY ELEMENTS: No acute bony changes noted. RAD/Chest 1 View (Portable) IMPRESSION: 1. Cardiomegaly without evidence of congestive failure. 2. Mild infrahilar bibasilar atelectasis, greater on the RIGHT than LEFT, mild elevation of the RIGHT hemidiaphragm. 3. No consolidation or effusion. Electronically Signed: Leon Velez MD at 21:12 EDT ,
[2023-07-03 20:48] LABS: Anion Gap 7 (5-15); BUN 13 mg/dL (7-18); BUN/Creat Ratio 12.7 RATIO (10-20); Calcium,Total 8.7 mg/dL (8.5-10.1); Chloride 109 mmol/L (98-107); Creatinine, Serum 1.02 mg/dL (0.70-1.30); EST Glomerular Filtration Rate 79 mL/min (>60); Est Glom Filt Rate - Afr Amer 95 mL/min (>60); Estimated Creatinine Clearance 78.53 ml/min; Glucose 196 mg/dL (74-106); Potassium 3.9 mmol/L (3.5-5.1); Sodium Level 139 mmol/L (136-145); Troponin-I HS (w/2H Reflex) 214 pg/mL (3.0-78.0)
[2023-07-03] MEDS: HYDROmorphone 0.5 MG/0.5 ML SYRINGE IV ×2 (20:50→22:38)
--- NOTE | 2023-07-03 21:18 | ED.VIS.CHEST ---
HPI History of Present Illness Chief Complaint: Chest Pain Detail of Chief Complaint: Patient presents because he developed chest pain while in the shower and mckeon Informant: patient Onset/Context/Timing Onset: Hours (1 hour prior to presentation) Activity at onset: sudden Timing: Continuous Quality: Positive for Heaviness and Pressure Location: Substernal Current Severity: Moderate Maximum Severity: Severe Worsened By: Nothing Relieved By: Nothing Associated Symptoms: Positive for Nausea, Dyspnea and Lightheadedness Narrative Narrative: Patient is a 62-year-old male who had a non-ST elevation OR May 2023. He has history of diabetes, hypercholesterol and hypertension. He states he is compliant with his medication. Patient was taken a shower became lightheaded developed chest pain and had a single episode. Is complaining of pain mid sternum that radiates to his left axilla going down his left arm with the associated symptoms for mention. Patient states this is similar to the pain he had when his OR. He states Dr. Malone was the ER physician. He states his EKG did not show any significant abnormality but his cardiac enzymes were elevated. Patient denies headache. Patient Nuys double vision, blurred vision loss of vision. Patient denies ringing's ears decreased hearing. Patient Nuys trouble with speech or swallowing. Patient denies history of PE or DVT. Patient denies leg pain, swelling discoloration. Patient denies black or maroon-colored stool. Patient denies fever, chills night sweats. Patient denies recent infectious symptoms. Prior Similar Symptoms: Yes and With Prior OR Recent Illness/Hospitalization: Yes CVD Risk Factors: Positive for Hypertension, Diabetes, Hypercholesterolemia and Smoking PE Risk Factors: Positive for Cancer (History of colon cancer status post colostomy. Not active per patient); Negative for Recent Travel/Surgery, Recent Immobilization, Prior DVT or PE or OCP + Smoking + >/=35 TAD Risk Factors: Positive for Hypertension; Negative for Marfan's Syndrome or Family History [facility] Medical History Acute pain of right hip Allergy to contrast media (used for diagnostic x-rays) Ambulates with cane Anxiety Aortic stenosis Arthritis Back pain BiPAP (biphasic positive airway pressure) dependence BPH (benign prostatic hyperplasia) Cancer Cancer of colon with rectum Depression Dilation of thoracic aorta DVT (deep venous thrombosis) Fall Fatty liver Former smoker Frequent UTI GERD (gastroesophageal reflux disease) History of echocardiogram History of hiatal hernia History of malignant neoplasm of colon in adulthood History of pain when walking History of steroid therapy History of stress test Hyperlipidemia Injury of back Insomnia Morbid obesity Neurogenic bladder, flaccid Obstructive sleep apnea Osteoporosis Parastomal hernia Psoriasis PTSD (post-traumatic stress disorder) Pulmonary embolism Shortness of breath on exertion Type 2 diabetes mellitus without complication UTI (urinary tract infection) Vitamin B 12 deficiency Vitamin D deficiency Walker as ambulation aid Wears glasses Home Medications pantoprazole 40 mg tablet,delayed release 40 mg PO DAILY GERD 11/08/21 [History Last Taken 07/03/23] acetaminophen 500 mg tablet 500 mg PO Q6H PRN Pain 01/26/23 [History Last Taken 07/03/23] cholecalciferol (vitamin D3) 1,250 mcg (50,000 unit) capsule 1,250 mcg PO 2XW supplement 01/26/23 [History Last Taken 07/03/23] cyanocobalamin (vitamin B-12) 1,000 mcg tablet 1,000 mcg PO DAILY supplement 01/26/23 [History Last Taken 07/03/23] glipizide 5 mg tablet 5 mg PO BID #60 tabs 05/12/23 [Rx Last Taken 07/03/23] aspirin 81 mg tablet,delayed release 81 mg PO DAILY #90 tabs 05/27/23 [Rx Last Taken 07/03/23] lisinopril 10 mg tablet 10 mg PO DAILY #90 tabs 05/27/23 [Rx Last Taken 07/03/23] metoprolol succinate 25 mg tablet,extended release 24 hr 25 mg PO DAILY #90 tabs 05/27/23 [Rx Last Taken 07/03/23] ticagrelor 90 mg tablet (Brilinta) 90 mg PO BID #180 tabs 05/27/23 [Rx Last Taken 07/03/23] rosuvastatin 10 mg tablet 10 mg PO DAILY #30 tabs 06/26/23 [Rx Last Taken 07/03/23] cyclobenzaprine 10 mg tablet 10 mg PO BID PRN muscle spasm 07/03/23 [History Last Taken 07/03/23] tacrolimus 0.1 % topical ointment 1 applic topical Q12H PRN PSORIASIS 07/03/23 [History Last Taken 07/02/23] Allergy/AdvReac Type Severity Reaction Status Date / Time metformin Allergy Unknown Vomiting Verified 05/10/23 17:00 codeine Allergy Itching Verified 05/10/23 17:00 Iodinated Contrast Media Allergy Vomiting Verified 05/10/23 17:00 Penicillins Allergy Hives Verified 05/10/23 17:00 atorvastatin AdvReac Severe Severe Verified 06/26/23 09:29 myalgias Family History Mother No problems noted. Father Heart disease Cancer Grandmother CAD (coronary artery disease) Surgical History H/O resection of rectum History of bowel resection History of cardiac catheterization History of colonoscopy History of creation of ostomy History of esophagogastroduodenoscopy (EGD) History of implantable cardiac defibrillator (ICD) History of surgery on arm History of tonsillectomy and adenoidectomy Stented coronary artery (05/11/23) Social History housing: other details: Lives with a roommate. Smoking Status: Former smoker how long ago did patient quit smoking: Quit 10 years prior, smoked 1 ppd since age 28. alcohol intake: never substance use type: does not use ROS ROS ED Constitutional Constitutional ED: Denies chills, fever(s), subjective, sweats or weight loss Eyes Eyes: Reports none ENT ENT ED: Denies ear pain, rhinorrhea or sore throat Cardiovascular Cardiovascular: Reports as per HPI; Denies orthopnea or paroxysmal nocturnal dyspnea Respiratory/Chest Respiratory/Chest: Reports dyspnea; Denies cough, orthopnea or paroxysmal nocturnal dyspnea Gastrointestinal Gastrointestinal: Reports nausea; Denies abdominal pain, diarrhea or melena Genitourinary Genitourinary ED: Denies dysuria, hematuria or urinary frequency Musculoskeletal Musculoskeletal: Denies arthralgias, back pain, myalgias or neck pain Integumentary Denies abscess or rash Neurologic Neurologic: Denies headache(s), paresthesias or weakness Endocrine Endocrinology: Denies cold intolerance or heat intolerance Hematologic/Lymphatic Hematologic/Lymphatic: Denies easy bleeding or easy bruising EXAM Physical Exam Const Vital Signs: 07/03/23 19:59 07/03/23 20:07 09/01/23 20:07 Temperature 98 F Temperature Source Temporal Pulse Rate 104 H 105 H Respiratory Rate 18 15 Respiratory Effort Normal Non-Labored Blood Pressure 123/89 H Blood Pressure Mean 100 Pulse Ox 96 94 Oxygen Delivery Method Room Air Room Air 07/03/23 20:16 07/03/23 21:34 07/03/23 21:42 Temperature Temperature Source Pulse Rate 107 H 118 H Respiratory Rate Respiratory Effort Blood Pressure 118/80 102/72 Blood Pressure Mean Pulse Ox 96 Oxygen Delivery Method Room Air Positive well nourished, well developed and obese Constitutional Narrative: Appears uncomfortable. Patient is slightly diaphoretic. General Appearance ED: well developed and pallor; Negative for NAD Nutritional Appearance: obese HEENT Reports moist mucous membranes normocephalic and atraumatic Eyes PERRL and EOMs intact bilaterally General Eye ED: Negative for pale conjunctiva or scleral icterus Neck no lymphadenopathy, supple and no JVD Chest Wall inspection of chest normal and palpation of chest normal Resp normal respiratory effort and clear to auscultation bilaterally Cardio regular rate, regular rhythm, S1 normal heart sound, S2 normal heart sound and no murmurs Peripheral Pulses: pulses 2+ throughout GI normal to inspection, nondistended, normoactive bowel sounds, soft to palpation, non-tender, non-distended and no masses; Negative for hepatosplenomegaly GI Narrative: Patient does have a colostomy left lower quadrant. Back/Spine no CVA tenderness and no thoracic nor lumbar tenderness Extremity General Extremety ED: Yes edema; Negative for tenderness General Extremity: edema Neuro oriented x3, CN's II-XII intact bilaterally and no sensory deficits noted Sensorium / Orientation: awake and alert Psych mental status grossly normal Skin no rashes or lesions noted General Skin Exam: pallor; Negative for jaundice Heart Score History: Highly Suspicious ECG: Normal Age: >45 - <65 years Risk Factors: >/= 3 Risk Factors or History of CAD Troponin: >/=3 x Normal Limit Score: 7 MDM MDM MDM Narrative Medical decision making narrative: Given history this is similar to the pain he experienced when he had his OR in May and was detected by enzymes and not EKG chest pain order set was initiated. Because he complains of hip pain after fall x-ray of the hip was obtained since he has pain with logrolling. Patient's history is not consistent with pulmonary embolus. History & Record Review Discussion w/independent historian: EMS personnel and Patient Lab Data Attestation: I reviewed the patient's lab results. Lab results narrative: White count is normal with normal differential. Normal. Basic metabolic panel is marked for glucose of 196 with a normal CO2 and anion gap. Patient's troponin is 214. Patient's troponin beginning of May was low 200s and Was 900 when he was diagnosed with non-ST elevation OR. Labs: Laboratory Results - last 24 hr 07/03/23 20:15 WBC 7.9 RBC 4.21 L Hgb 13.6 Hct 41.6 MCV 98.8 H MCH 32.3 H MCHC 32.7 RDW Std Deviation 47.8 H RDW Coeff of Mar 13.2 Plt Count 251 MPV 8.9 Immature Gran % (Auto) 0.900 Neut % (Auto) 61.3 Lymph % (Auto) 26.2 Will % (Auto) 8.8 Eos % (Auto) 1.8 Baso % (Auto) 1.0 Absolute Neuts (auto) 4.9 Absolute Lymphs (auto) 2.08 Nucleated RBC % 0 Sodium 139 Potassium 3.9 Chloride 109 H Carbon Dioxide 23.0 Anion Gap 7 BUN 13 Creatinine 1.02 Estim Creat Clear Calc 78.53 Est GFR (MDRD) Af Amer 95 Est GFR (MDRD) Non-Af 79 BUN/Creatinine Ratio 12.7 Glucose 196 H Calcium 8.7 Troponin I High Sens 214 H* Radiography Chest X-Ray - ED: 1 View (Single view portable chest x-ray and telemetry reviewed interpreted by me at 210 as negative for any acute process. There is evidence of cardiomegaly. Cardiac silhouette is unremarkable. There is decreased inspiratory volume and lower lobe atelectasis. The osseous structures are unremarkable.) and Read by ED Physician (Three-view x-ray of the left hip was obtained. There is no evidence of fracture, subluxation or dislocation of the femur or pelvis. This was entirely reviewed interpreted by me at 2109.) Diagnostic Testing: Clinical Impression(s) from Imaging Studies Chest X-Ray 07/03/23 20:29 IMPRESSION: 1. Cardiomegaly without evidence of congestive failure. 2. Mild infrahilar bibasilar atelectasis, greater on the RIGHT than LEFT, mild elevation of the RIGHT hemidiaphragm. 3. No consolidation or effusion. Electronically Signed: Leon Velez MD at 21:12 EDT , Hip/Pelvis X-Ray 07/03/23 20:29 IMPRESSION: 1. No evidence of displaced pelvic or hip fracture. No focal destructive bony process noted. 2. Mild joint space narrowing at the RIGHT hip. Normal joint space on the LEFT hip. Electronically Signed: Leon Velez MD at 21:22 EDT , Management Discussion w/another healthcare provider: Hospitalist (Hospitalist was made aware and will admit to stepdown.) and Switchboard Receptionist (Case discussed with cardiology. Agrees with nitro and heparin drip. Will see patient tomorrow) Treatment and Re-Evaluation :: Patient is still having pain nitro series was ordered. Because of the hip pain and allergy to codeine he received 0.5 mg of Dilaudid IV push. He received Zofran in route by squad. If patient's pain is not alleviated with sublingual nitro will start on nitro drip and will discuss case with it risk analyst regarding anticoagulation. Critical Care Time Critical Care Time: Yes Critical care time (excluding procedures): 30-74 minutes (34), Including time spent: (History, physical, documentation, interpretation laboratory results and imaging and initiation of therapy), Discussing w/Patient &/or Family/Customer Energy Specialist, Discussing w/Consultants and Arranging Admission or Transfer Discharge Plan Triage Chief Complaint: Chest Pain ED Provider: Timothy Orellana Dx/Rx/DC Orders Clinical Impression: Non-ST elevated myocardial infarction, Hyperlipidemia, Type 2 diabetes mellitus without complication, History of rectal cancer, Hypertension, Syncope and collapse Prescriptions: No Action cyanocobalamin (vitamin B-12) 1,000 mcg tablet 1,000 mcg PO DAILY aspirin 81 mg tablet,delayed release (DR/EC) 81 mg PO DAILY Qty: 90 3RF lisinopril 10 mg tablet 10 mg PO DAILY Qty: 90 3RF metoprolol succinate 25 mg tablet extended release 24 hr 25 mg PO DAILY Qty: 90 3RF Brilinta 90 mg tablet 90 mg PO BID Qty: 180 3RF pantoprazole 40 mg tablet,delayed release (DR/EC) 40 mg PO DAILY Patient Comments: Take 1 tablet by mouth once daily. cholecalciferol (vitamin D3) 1,250 mcg (50,000 unit) capsule 1,250 mcg PO 2XW acetaminophen 500 mg tablet 500 mg PO Q6H PRN (Reason: Pain) Patient Comments: Take 1 tablet by mouth every 6 hours as needed for pain. glipizide 5 mg tablet 5 mg PO BID Qty: 60 2RF Rx Instructions: Hold if glucose less than 130 mg/dl tacrolimus 0.1 % ointment 1 applic TOPICAL Q12H PRN (Reason: PSORIASIS) cyclobenzaprine 10 mg tablet 10 mg PO BID PRN (Reason: muscle spasm) rosuvastatin 10 mg tablet 10 mg PO DAILY Qty: 30 11RF Primary Care Provider: Edin Mcfarland Referrals: Edin Mcfarland MD [Primary Care Provider] - Disposition Disposition: Acute Care Hospital [facility]
[2023-07-03] MEDS: Nitroglycerin SL (ED/IMG/CATH) 0.4 MG TABLET SL ×3 (21:34→22:04)
[2023-07-03 22:20] LABS: Reflex Troponin-HS? (from REC) Y
[2023-07-03 22:32] LABS: Prothrombin Time (Protime)PT. 13.6 SECONDS (11.7-14.9)
[2023-07-03 22:33] LABS: Partial Thromboplast Time 26.6 Seconds (24.1-36.2)
[2023-07-03] MEDS: Nitroglycerin Infusion 250 ML 3 MG IV (22:33)
--- NOTE | 2023-07-03 22:37 | HP.PCM.HOS_ITS ---
HPI - General General Date of Admission: 07/03/23 Date of Service: 07/03/23 Chief Complaint: Chest pain HPI Narrative ERNA PALMA, is a 62 M with a significant history of morbid obesity; type 2 diabetes mellitus; obstructive sleep apnea; and colorectal cancer status post colectomy with ostomy, chemotherapy and radiation who presented to the emergency department with excruciating substernal chest pain that started about an hour and a half prior to presentation. While patient was taking a shower he felt funny. He had lightheadedness. He had some chest pain. The next thing he realized he had passed out and he was lying on the floor with excruciating left hip pain. His chest pain increased and became persistent. The chest pain span across his entire chest from underneath one breast to the other. He described the chest pain as burning reminiscent of his history of heartburn which typically goes away with drinking water. However this time upon drinking water the chest pain did not go away. He was given multiple nitroglycerin by the paramedics. At the emergency department he was given nitroglycerin too. His nitroglycerin began to work later on. With his chest pain patient took some extra aspirin (2 aspirin close ). Of note the patient takes aspirin every morning; one Brilinta in the morning and another Brilinta at night. He reports being compliant with his dual antiplatelet therapy. Of note patient had a stent placed in proximal LAD on May 11, 2023 when he presented with similar symptoms. Patient reports headache from nitroglycerin. He reports nausea that was controlled with Zofran given by paramedics in vehicle. He reports associated shortness of breath. Initial high serum troponin was elevated. ED doctor discussed the case with teacher of the deaf/hard of hearing and patient was started on heparin drip and nitroglycerin drip. [facility] History Acute pain of right hip Allergy to contrast media (used for diagnostic x-rays) Ambulates with cane Anxiety Aortic stenosis Arthritis Back pain BiPAP (biphasic positive airway pressure) dependence BPH (benign prostatic hyperplasia) Cancer Cancer of colon with rectum Depression Dilation of thoracic aorta DVT (deep venous thrombosis) Fall Fatty liver Former smoker Frequent UTI GERD (gastroesophageal reflux disease) History of echocardiogram History of hiatal hernia History of malignant neoplasm of colon in adulthood History of pain when walking History of steroid therapy History of stress test Hyperlipidemia Injury of back Insomnia Morbid obesity Neurogenic bladder, flaccid Obstructive sleep apnea Osteoporosis Parastomal hernia Psoriasis PTSD (post-traumatic stress disorder) Pulmonary embolism Shortness of breath on exertion Type 2 diabetes mellitus without complication UTI (urinary tract infection) Vitamin B 12 deficiency Vitamin D deficiency Walker as ambulation aid Wears glasses Home Medications pantoprazole 40 mg tablet,delayed release 40 mg PO DAILY GERD 11/08/21 [History Last Taken 07/03/23] acetaminophen 500 mg tablet 500 mg PO Q6H PRN Pain 01/26/23 [History Last Taken 07/03/23] cholecalciferol (vitamin D3) 1,250 mcg (50,000 unit) capsule 1,250 mcg PO 2XW supplement 01/26/23 [History Last Taken 07/03/23] cyanocobalamin (vitamin B-12) 1,000 mcg tablet 1,000 mcg PO DAILY supplement 01/26/23 [History Last Taken 07/03/23] glipizide 5 mg tablet 5 mg PO BID #60 tabs 05/12/23 [Rx Last Taken 07/03/23] aspirin 81 mg tablet,delayed release 81 mg PO DAILY #90 tabs 05/27/23 [Rx Last Taken 07/03/23] lisinopril 10 mg tablet 10 mg PO DAILY #90 tabs 05/27/23 [Rx Last Taken ] metoprolol succinate 25 mg tablet,extended release 24 hr 25 mg PO DAILY #90 tabs 05/27/23 [Rx Last Taken 07/03/23] ticagrelor 90 mg tablet (Brilinta) 90 mg PO BID #180 tabs 05/27/23 [Rx Last Taken 07/03/23] rosuvastatin 10 mg tablet 10 mg PO DAILY #30 tabs 06/26/23 [Rx Last Taken 07/03/23] cyclobenzaprine 10 mg tablet 10 mg PO BID PRN muscle spasm 07/03/23 [History Last Taken 07/03/23] tacrolimus 0.1 % topical ointment 1 applic topical Q12H PRN PSORIASIS 07/03/23 [History Last Taken 07/02/23] Allergy/AdvReac Type Severity Reaction Status Date / Time metformin Allergy Unknown Vomiting Verified 05/10/23 17:00 codeine Allergy Itching Verified 05/10/23 17:00 Iodinated Contrast Media Allergy Vomiting Verified 05/10/23 17:00 Penicillins Allergy Hives Verified 05/10/23 17:00 atorvastatin AdvReac Severe Severe Verified 06/26/23 09:29 myalgias Family History Mother No problems noted. Father Heart disease Cancer Grandmother CAD (coronary artery disease) Surgical History H/O resection of rectum History of bowel resection History of cardiac catheterization History of colonoscopy History of creation of ostomy History of esophagogastroduodenoscopy (EGD) History of implantable cardiac defibrillator (ICD) History of surgery on arm History of tonsillectomy and adenoidectomy Stented coronary artery (05/11/23) Social History housing: other details: Lives with a roommate. Smoking Status: Former smoker how long ago did patient quit smoking: Quit 10 years prior, smoked 1 ppd since age 28. alcohol intake: never substance use type: does not use ROS ROS Narrative Pertinent positives and pertinent negatives as noted in HPI. All other systems were reviewed and are negative Vital Signs Vital Signs Vital Signs: 07/03/23 19:59 07/03/23 20:07 07/03/23 20:07 Temperature 98 F Temperature Source Temporal Pulse Rate 104 H 105 H Respiratory Rate 18 15 Respiratory Effort Normal Non-Labored Blood Pressure 123/89 H Blood Pressure Mean 100 Pulse Ox 96 94 Oxygen Delivery Method Room Air Room Air 07/03/23 20:16 07/03/23 21:34 07/03/23 21:42 Temperature Temperature Source Pulse Rate 107 H 118 H Respiratory Rate Respiratory Effort Blood Pressure 118/80 102/72 Blood Pressure Mean Pulse Ox 96 Oxygen Delivery Method Room Air 07/03/23 22:04 07/03/23 22:17 07/03/23 22:33 Temperature 98 F Temperature Source Temporal Pulse Rate 108 H 109 H 102 H Respiratory Rate 12 Respiratory Effort Blood Pressure 107/85 H 122/74 H 120/75 Blood Pressure Mean 90 Pulse Ox 96 Oxygen Delivery Method Room Air Weight Weight: 160 kg Body Mass Index (BMI) 50.5 Physical Exam Narrative Physical exam: General: Well-nourished, well-developed. Head: Normocephalic, atraumatic, no tenderness Eyes: Vision is grossly intact. EOMI ENT, no trauma, moist mucous membranes, no rhinorrhea Neck: Nontender, No thyromegaly. CVS: Regular rate and rhythm. S1-S2 present. No murmur, gallop or rub. Respiratory : clear to auscultation bilaterally, chest wall nontender Abdomen: Obese. Ostomy bag in place. Soft, distended, normal bowel sounds. : Deferred Back: Nontender, no CVA tenderness, no midline spinal tenderness, deformities, step-offs Extremities: Left hip tenderness. Right hip nontender. Skin: Normal color, no trauma, abrasions Neuro: Alert, oriented, cranial nerves II through XII grossly intact. Psychiatry: Normal mood. Normal affect. Not depressed. Not anxious. Results Lab / Micro Data 07/03/23 20:15 07/03/23 20:15 Labs: Laboratory Results - last 24 hr 07/03/23 20:15: WBC 7.9, RBC 4.21 L, Hgb 13.6, Hct 41.6, MCV 98.8 H, MCH 32.3 H, MCHC 32.7, RDW Std Deviation 47.8 H, RDW Coeff of Mar 13.2, Plt Count 251, MPV 8.9, Immature Gran % (Auto) 0.900, Neut % (Auto) 61.3, Lymph % (Auto) 26.2, Reynolds % (Auto) 8.8, Eos % (Auto) 1.8, Baso % (Auto) 1.0, Absolute Neuts (auto) 4.9, Absolute Lymphs (auto) 2.08, Nucleated RBC % 0, Sodium 139, Potassium 3.9, Chloride 109 H, Carbon Dioxide 23.0, Anion Gap 7, BUN 13, Creatinine 1.02, Estim Creat Clear Calc 78.53, Est GFR (MDRD) Af Amer 95, Est GFR (MDRD) Non-Af 79, BUN/Creatinine Ratio 12.7, Glucose 196 H, Calcium 8.7, Troponin I High Sens 214 H* 07/03/23 22:14: PT 13.6, INR 1.0, APTT 26.6 Radiology Impression Chest X-Ray 07/03/23 20:29 IMPRESSION: 1. Cardiomegaly without evidence of congestive failure. 2. Mild infrahilar bibasilar atelectasis, greater on the RIGHT than LEFT, mild elevation of the RIGHT hemidiaphragm. 3. No consolidation or effusion. Electronically Signed: Leon Velez MD at 21:12 EDT , Hip/Pelvis X-Ray 07/03/23 20:29 IMPRESSION: 1. No evidence of displaced pelvic or hip fracture. No focal destructive bony process noted. 2. Mild joint space narrowing at the RIGHT hip. Normal joint space on the LEFT hip. Electronically Signed: Leon Velez MD at 21:22 EDT , Assessment & Plan Assessment/Plan (1) Non-ST elevated myocardial infarction: (2) Syncope and collapse: (3) Stented coronary artery: (4) Hypertension: QUALIFIERS: Hypertension type: primary hypertension Qualified Code(s): I10 - Essential (primary) hypertension (5) History of rectal cancer: PLAN: Plan Non-STEMI Placed a progressive care unit on stepdown status. Per radiology impression chest x-ray with 1. Cardiomegaly without evidence of congestive failure. 2. Mild infrahilar bibasilar atelectasis, greater on the RIGHT than LEFT, mild elevation of the RIGHT hemidiaphragm. 3. No consolidation or effusion. Chest x-ray was independently interpreted I agree with the interpretation. Actual EKG tracing was independently visualized. EKG tracing showed sinus Tach with nonspecific changes. Nitroglycerin drip started emergency department and continued. We will continue patient on dual antiplatelet therapy of aspirin and Brilinta. We will continue patient on heparin started emergency department. Morphine as needed IV for pain. Lisinopril and metoprolol continued. Continue Tylenol for pain associated with Nitroglycerin Initial high sensitivity troponin was 240. Trend. Stat EKG as needed for chest pain Cardiology consult Echocardiogram on 05/11/2023 was reviewed. Echocardiogram showed normal EF. Left hip pain Radiologist impression of x-ray of left hip: 1. No evidence of displaced pelvic or hip fracture. No focal destructive bony process noted. 2. Mild joint space narrowing at the RIGHT hip. Normal joint space on the LEFT hip. X-ray of left hip was independently interpreted. No acute fracture seen. Diabetes mellitus Patient with hyperglycemia on presentation Home glipizide held. Monitor Accu-Cheks Correction scale insulin ordered. Hypertension Blood pressure is Stable Lisinopril and metoprolol continued.. Trend blood pressure and adjust blood pressure medications. DVT prophylaxis: Not indicated as patient is on heparin drip. Time spent in the patient's overall evaluation,decision-making process, review of diagnostic data, adjustment of management, discussion with other providers, nursing nursing and ancillary staff involved in patient's care documentation, 74 minutes. Charges/Coding Visit Charges Inpatient E&M: 41991 Init Hosp L3
[2023-07-03] MEDS: HEPARIN/D5w 25,000 UNITS 25,000 UNITS/250 ML IV.SOLN. 10 UNITS CONT INF (22:39)
[2023-07-03] MEDS: Heparin Injection (Vial) 5,000 UNIT/ML VIAL 4000 UNIT IV (22:39)
[2023-07-03 22:56] LABS: Troponin-I HS 240 pg/mL (3.0-78.0)
[2023-07-04] VITALS (25 sets, daily range): BP systolic 79–141; BP diastolic 56–129; PULSE 85–101; RESP 13–30; TEMP 36.6–36.8; O2SAT 90–99
[2023-07-04] MEDS: Morphine 4 MG/ML Syringe IV ×3 (00:16→06:39)
[2023-07-04] MEDS: Acetaminophen 500 MG Tablet PO ×3 (00:41→17:27)
[2023-07-04] MEDS: Pantoprazole Sodium 20 MG Tablet PO ×3 (00:52→21:41)
[2023-07-04 01:02] LABS: Bedside Glucose 130 mg/dL (74-106)
[2023-07-04 02:45] LABS: Troponin-I HS 291 pg/mL (3.0-78.0)
[2023-07-04 04:48] LABS: Hematocrit 38.8 % (40-54); Hemoglobin 12.8 g/dL (13.0-16.5); Platelet Count 255 K/mm3 (150-450); RBC Distribution Width CV 13.3 % (11.6-14.6); RBC Distribution Width SD 47.6 fl (35.1-43.9); White Blood Count 7.5 K/mm3 (4.4-11.0)
[2023-07-04 05:00] LABS: Partial Thromboplast Time 34.4 Seconds (24.1-36.2)
[2023-07-04] MEDS: Heparin Injection (Vial) 5,000 UNIT/ML VIAL IV ×2 (05:07→12:36)
[2023-07-04 05:12] LABS: Anion Gap 6 (5-15); BUN 13 mg/dL (7-18); BUN/Creat Ratio 14.5 RATIO (10-20); Calcium,Total 8.5 mg/dL (8.5-10.1); Chloride 109 mmol/L (98-107); EST Glomerular Filtration Rate 91 mL/min (>60); Est Glom Filt Rate - Afr Amer 110 mL/min (>60); Glucose 130 mg/dL (74-106); Potassium 3.8 mmol/L (3.5-5.1); Sodium Level 141 mmol/L (136-145)
[2023-07-04 06:07] LABS: Bedside Glucose 134 mg/dL (74-106)
[2023-07-04] MEDS: Metoprolol(XL)Succ 25 MG Tablet PO (08:29)
[2023-07-04] MEDS: Cyanocobalamin 500 MCG Tablet 1000 MCG PO (08:29)
[2023-07-04] MEDS: Aspirin E.C. 81 MG Tablet PO (08:29)
[2023-07-04] MEDS: TICAGRELOR 90 MG TABLET PO ×2 (08:29→21:47)
[2023-07-04] MEDS: Lisinopril 10 MG Tablet PO (08:29)
[2023-07-04] MEDS: HYDROmorphone 1 MG/ML Syringe IV ×4 (09:44→22:02)
--- NOTE | 2023-07-04 10:00 | EKG12_ITS ---
Test Reason : AM Blood Pressure : / mmHG Vent. Rate : 089 BPM Atrial Rate : 089 BPM P-R Int : 150 ms QRS Dur : 080 ms QT Int : 392 ms P-R-T Axes : 032 035 065 degrees QTc Int : 476 ms Normal sinus rhythm Normal ECG When compared with ECG of 03-JUL-2023 23:41, MANUAL COMPARISON REQUIRED, DATA IS UNCONFIRMED Confirmed by TULIO MCMILLAN, ANAIS ([id number]), advertising editor MIHAELA BRAVO ([id number]) on 08/17/2023 12:49:25 PM Referred By: Confirmed By:ANAIS ANTUNEZ MD
[2023-07-04] MEDS: Nitroglycerin Oint 1 INCH PACKET TD ×2 (11:13→17:28)
[2023-07-04 11:37] LABS: Partial Thromboplast Time 37.9 Seconds (24.1-36.2)
--- NOTE | 2023-07-04 11:45 | CASEMGMT ---
RN CM Face to Face with patient for initial transition planning/care coordination assessment. RN CM introduced self and role at [facility]. Patient lying in bed, alert and oriented. Patient willing to participate in assessment and is able to answer all questions appropriately. Care providers, pharmacy, and demographics verified. Patient wishes to discharge home, denies need for home health at this time. Patient states he has no further needs or concerns at this time. CM to follow for discharge planning needs that may arise. PCP: [facility] Specialists: Justin, wood pile driver operator; Mamadou, surgeon; Randell, urologist; Canelo, surgeon; Umer, salvager helper Preferred Pharmacy: [facility] Insurance: [id number] Prescription Benefit: yes, Living Will/HPOA: none LNOK: significant other, friend Living Arrangements: Patient lives with roommate in a mobile home with 3-4 steps and railing to enter the home. Patient is independent at home. Transportation: self, roommate DME/HHC: [facility] has walker and bipap. Patient has been to [facility] and [facility] in the past. Patient had had [facility] in the past. Disposition Plan: Patient to discharge home with family support and follow-up plans in place. Francisca CHACON, RN, CM
[2023-07-04] MEDS: HEPARIN/D5w 25,000 UNITS 25,000 UNITS/250 ML IV.SOLN. 14 UNITS CONT INF (13:42)
--- NOTE | 2023-07-04 13:46 | PCM.CONS.C ---
Assessment & Plan Assessment/Plan (1) Syncope and collapse: PLAN: Patient had an echo in May of this year which showed preserved EF and no significant valvular abnormalities. His coronary angiography was reviewed. Continue telemetry monitoring. No significant arrhythmias noted. Discussed proceeding with coronary angiography today. Patient states that he has had significant allergic reaction to IV contrast when he has had a shot prep or no prep prior to the procedure. After the full prep he says he does not have any issues. He prefers to have the coronary angiography tomorrow. We will treat the patient with prednisone 60 mg 13 hours, 7 hours and 1 hour prior to the procedure. We will also give him 50 mg of Benadryl 1 hour prior to the procedure. Continue current medications at this time. (2) Non-ST elevated myocardial infarction: HPI Consult Data Date of Consult: 07/04/23 HPI Narrative Reason for Consultation: Chest pain, syncope and elevated troponin HPI Narrative: ERNA PALMA, is a 62 M who presents after a syncopal episode. He has also been having chest pain that was initially burning and then became a dull ache. Patient had stent to the LAD in May of this year. At that time he had similar chest discomfort. Patient's troponin went up to around 290. Patient is on a nitroglycerin drip. Review of systems: All systems reviewed. All else is negative except that in HPI [facility] Medical History Acute pain of right hip Allergy to contrast media (used for diagnostic x-rays) Ambulates with cane Anxiety Aortic stenosis Arthritis Back pain BiPAP (biphasic positive airway pressure) dependence BPH (benign prostatic hyperplasia) Cancer Cancer of colon with rectum Depression Dilation of thoracic aorta DVT (deep venous thrombosis) Fall Fatty liver Former smoker Frequent UTI GERD (gastroesophageal reflux disease) History of echocardiogram History of hiatal hernia History of malignant neoplasm of colon in adulthood History of pain when walking History of steroid therapy History of stress test Hyperlipidemia Injury of back Insomnia Morbid obesity Neurogenic bladder, flaccid Obstructive sleep apnea Osteoporosis Parastomal hernia Psoriasis PTSD (post-traumatic stress disorder) Pulmonary embolism Shortness of breath on exertion Type 2 diabetes mellitus without complication UTI (urinary tract infection) Vitamin B 12 deficiency Vitamin D deficiency Walker as ambulation aid Wears glasses Home Medications pantoprazole 40 mg tablet,delayed release 20 mg PO BID GERD 11/08/21 [History Last Taken 07/03/23 20 mg] acetaminophen 500 mg tablet 500 mg PO Q6H PRN Pain 01/26/23 [History Last Taken 07/03/23] cholecalciferol (vitamin D3) 1,250 mcg (50,000 unit) capsule 1,250 mcg PO 2XW supplement 01/26/23 [History Last Taken 07/03/23] cyanocobalamin (vitamin B-12) 1,000 mcg tablet 1,000 mcg PO DAILY supplement 01/26/23 [History Last Taken 07/03/23] glipizide 5 mg tablet 5 mg PO BID #60 tabs 05/12/23 [Rx Last Taken 07/03/23] aspirin 81 mg tablet,delayed release 81 mg PO DAILY #90 tabs 05/27/23 [Rx Last Taken 07/03/23] lisinopril 10 mg tablet 10 mg PO DAILY #90 tabs 05/27/23 [Rx Last Taken 07/03/23] metoprolol succinate 25 mg tablet,extended release 24 hr 25 mg PO DAILY #90 tabs 05/27/23 [Rx Last Taken 07/03/23] ticagrelor 90 mg tablet (Brilinta) 90 mg PO BID #180 tabs 05/27/23 [Rx Last Taken 07/03/23] rosuvastatin 10 mg tablet 10 mg PO DAILY #30 tabs 06/26/23 [Rx Last Taken 07/03/23] cyclobenzaprine 10 mg tablet 10 mg PO BID PRN muscle spasm 07/03/23 [History Last Taken 07/03/23] tacrolimus 0.1 % topical ointment 1 applic topical Q12H PRN PSORIASIS 07/03/23 [History Last Taken 07/02/23] Allergy/AdvReac Type Severity Reaction Status Date / Time metformin Allergy Unknown Vomiting Verified 05/10/23 17:00 codeine Allergy Itching Verified 05/10/23 17:00 Iodinated Contrast Media Allergy Vomiting Verified 05/10/23 17:00 Penicillins Allergy Hives Verified 05/10/23 17:00 atorvastatin AdvReac Severe Severe Verified 06/26/23 09:29 myalgias Family History Mother No problems noted. Father Heart disease Cancer Grandmother CAD (coronary artery disease) Surgical History H/O resection of rectum History of bowel resection History of cardiac catheterization History of colonoscopy History of creation of ostomy History of esophagogastroduodenoscopy (EGD) History of implantable cardiac defibrillator (ICD) History of surgery on arm History of tonsillectomy and adenoidectomy Stented coronary artery (05/11/23) Social History housing: other details: Lives with a roommate. Smoking Status: Former smoker how long ago did patient quit smoking: Quit 10 years prior, smoked 1 ppd since age 28. alcohol intake: never substance use type: does not use Physical Exam Const alert and oriented x3 HEENT normocephalic Eyes no scleral icterus Resp normal respiratory effort Cardio regular rate Extremity no pedal edema Skin no rashes or lesions noted Psych mental status grossly normal Risk Stratification Risk Stratification Applicable: No Charges/Coding Visit Charges Inpatient E&M: 12875 Init Hosp L2 Objective Data Vital Signs: Vital Signs Temp Pulse Resp BP Pulse Ox O2 Del Method 97.8 F 85 23 H 130/58 H 96 Room Air 07/04/23 05:00 07/04/23 08:29 07/04/23 07:00 07/04/23 08:19 07/04/23 07:00 07/04/23 07:00 Oxygen Delivery Method Room Air Weight: 346 lb 5.539 oz Body Mass Index (BMI) 49.6 Intake & Output: Intake and Output for Last 24 Hours 07/02/23 07/03/23 07/04/23 23:59 23:59 23:59 Intake Total 123.6 / 123.6 321.10 / 321.10 Balance 123.6 / 123.6 321.10 / 321.10 Lab / Micro Data 07/04/23 04:33 07/04/23 04:33 Labs: Laboratory Results - last 24 hr 07/03/23 20:15: WBC 7.9, RBC 4.21 L, Hgb 13.6, Hct 41.6, MCV 98.8 H, MCH 32.3 H, MCHC 32.7, RDW Std Deviation 47.8 H, RDW Coeff of Mar 13.2, Plt Count 251, MPV 8.9, Immature Gran % (Auto) 0.900, Neut % (Auto) 61.3, Lymph % (Auto) 26.2, [place] % (Auto) 8.8, Eos % (Auto) 1.8, Baso % (Auto) 1.0, Absolute Neuts (auto) 4.9, Absolute Lymphs (auto) 2.08, Nucleated RBC % 0, Sodium 139, Potassium 3.9, Chloride 109 H, Carbon Dioxide 23.0, Anion Gap 7, BUN 13, Creatinine 1.02, Estim Creat Clear Calc 78.53, Est GFR (MDRD) Af Amer 95, Est GFR (MDRD) Non-Af 79, BUN/Creatinine Ratio 12.7, Glucose 196 H, Calcium 8.7, Troponin I High Sens 214 H* 07/03/23 22:14: PT 13.6, INR 1.0, APTT 26.6 07/03/23 22:28: Troponin I High Sens 240 H* 07/04/23 00:31: POC Glucose 130 H 07/04/23 02:14: Troponin I High Sens 291 H* 07/04/23 04:33: WBC 7.5, RBC 4.00 L, Hgb 12.8 L, Hct 38.8 L, MCV 97.0 H, MCH 32.0, MCHC 33.0, RDW Std Deviation 47.6 H, RDW Coeff of Mar 13.3, Plt Count 255, MPV 9.0, APTT 34.4, Sodium 141, Potassium 3.8, Chloride 109 H, Carbon Dioxide 26.0, Anion Gap 6, BUN 13, Creatinine 0.90, Estim Creat Clear Calc 89.00, Est GFR (MDRD) Af Amer 110, Est GFR (MDRD) Non-Af 91, BUN/Creatinine Ratio 14.5, Glucose 130 H, Calcium 8.5 07/04/23 05:48: POC Glucose 134 H 07/04/23 10:56: APTT 37.9 H Cardiology Labs/Tests 07/03/23 20:15: WBC 7.9, RBC 4.21 L, Hgb 13.6, Hct 41.6, MCV 98.8 H, MCH 32.3 H, MCHC 32.7, Plt Count 251, MPV 8.9, Immature Gran % (Auto) 0.900, Neut % (Auto) 61.3, Lymph % (Auto) 26.2, [place] % (Auto) 8.8, Eos % (Auto) 1.8, Baso % (Auto) 1.0, Absolute Neuts (auto) 4.9, Nucleated RBC % 0, Sodium 139, Potassium 3.9, Chloride 109 H, Carbon Dioxide 23.0, Anion Gap 7, BUN 13, Creatinine 1.02, Est GFR (MDRD) Af Amer 95, Est GFR (MDRD) Non-Af 79, BUN/Creatinine Ratio 12.7, Glucose 196 H, Calcium 8.7 07/03/23 22:14: PT 13.6, INR 1.0, APTT 26.6 07/04/23 04:33: WBC 7.5, RBC 4.00 L, Hgb 12.8 L, Hct 38.8 L, MCV 97.0 H, MCH 32.0, MCHC 33.0, Plt Count 255, MPV 9.0, APTT 34.4, Sodium 141, Potassium 3.8, Chloride 109 H, Carbon Dioxide 26.0, Anion Gap 6, BUN 13, Creatinine 0.90, Est GFR (MDRD) Af Amer 110, Est GFR (MDRD) Non-Af 91, BUN/Creatinine Ratio 14.5, Glucose 130 H, Calcium 8.5 07/04/23 10:56: APTT 37.9 H Rhythm: EKG: ECHO: Stress Test: Cardiac Cath: PCI: CT Surgery: Holter monitor: EPS: PPM: CXR: Chest CT Scan: Radiography Diagnostic Testing: Radiology Impression Chest X-Ray 07/03/23 20:29 IMPRESSION: 1. Cardiomegaly without evidence of congestive failure. 2. Mild infrahilar bibasilar atelectasis, greater on the RIGHT than LEFT, mild elevation of the RIGHT hemidiaphragm. 3. No consolidation or effusion. Electronically Signed: Leon Velez MD at 21:12 EDT , Hip/Pelvis X-Ray 07/03/23 20:29 IMPRESSION: 1. No evidence of displaced pelvic or hip fracture. No focal destructive bony process noted. 2. Mild joint space narrowing at the RIGHT hip. Normal joint space on the LEFT hip. Electronically Signed: Leon Velez MD at 21:22 EDT ,
[2023-07-04 17:50] LABS: Bedside Glucose 124 mg/dL (74-106)
[2023-07-04 18:50] LABS: Partial Thromboplast Time 243.2 Seconds (24.1-36.2)
--- NOTE | 2023-07-04 19:02 | PN.HOSP_ITS ---
Reason for Visit Reason for Visit: Diagnoses Essential (primary) hypertension (07/03/23) Non-ST elevation (NSTEMI) myocardial infarction (07/03/23) Syncope and collapse (07/03/23) Personal history of other malignant neoplasm of rectum, rectosigmoid junction, and anus (07/03/23) Presence of coronary angioplasty implant and graft (07/03/23) Subjective Subjective Patient was seen and examined earlier today, he still complained of substernal chest pain, his troponins peaked at 291, I had cardiology see the patient and the plan is for the patient undergo a cardiac catheterization tomorrow. Patient states he is extremely allergic to contrast dye-this is not documented in his chart however and it says that he has vomiting with iodinated contrast dye. I gave the patient 125 mg of Solu-Medrol today, I talked with cardiology about his care and cardiology is going to administer several doses of steroids and take the patient for a cath tomorrow. I stopped the patient's nitro drip and put him on Nitropaste. Objective Data Objective Data Vital Signs: Vital Signs Temp Pulse Resp BP Pulse Ox O2 Del Method 98.1 F 88 16 92/67 98 Room Air 07/04/23 13:49 07/04/23 13:49 07/04/23 13:49 07/04/23 13:49 07/04/23 13:49 07/04/23 13:49 Oxygen Delivery Method Room Air Weight: 157.1 kg Body Mass Index (BMI) 49.6 Intake & Output: Intake and Output for Last 24 Hours 07/02/23 07/03/23 07/04/23 23:59 23:59 23:59 Intake Total 123.6 / 123.6 393.20 / 393.20 Output Total 200 / 200 Balance 123.6 / 123.6 193.20 / 193.20 Lab / Micro Data 07/04/23 04:33 07/04/23 04:33 Labs: Laboratory Results - last 24 hr 07/03/23 20:15: WBC 7.9, RBC 4.21 L, Hgb 13.6, Hct 41.6, MCV 98.8 H, MCH 32.3 H, MCHC 32.7, RDW Std Deviation 47.8 H, RDW Coeff of Mar 13.2, Plt Count 251, MPV 8.9, Immature Gran % (Auto) 0.900, Neut % (Auto) 61.3, Lymph % (Auto) 26.2, [place] % (Auto) 8.8, Eos % (Auto) 1.8, Baso % (Auto) 1.0, Absolute Neuts (auto) 4.9, Absolute Lymphs (auto) 2.08, Nucleated RBC % 0, Sodium 139, Potassium 3.9, Chloride 109 H, Carbon Dioxide 23.0, Anion Gap 7, BUN 13, Creatinine 1.02, Estim Creat Clear Calc 78.53, Est GFR (MDRD) Af Amer 95, Est GFR (MDRD) Non-Af 79, BU N/Creatinine Ratio 12.7, Glucose 196 H, Calcium 8.7, Troponin I High Sens 214 H* 07/03/23 22:14: PT 13.6, INR 1.0, APTT 26.6 07/03/23 22:28: Troponin I High Sens 240 H* 07/04/23 00:31: POC Glucose 130 H 07/04/23 02:14: Troponin I High Sens 291 H* 07/04/23 04:33: WBC 7.5, RBC 4.00 L, Hgb 12.8 L, Hct 38.8 L, MCV 97.0 H, MCH 32.0, MCHC 33.0, RDW Std Deviation 47.6 H, RDW Coeff of Mar 13.3, Plt Count 255, MPV 9.0, APTT 34.4, Sodium 141, Potassium 3.8, Chloride 109 H, Carbon Dioxide 26.0, Anion Gap 6, BUN 13, Creatinine 0.90, Estim Creat Clear Calc 89.00, Est GFR (MDRD) Af Amer 110, Est GFR (MDRD) Non-Af 91, BUN/Creatinine Ratio 14.5, Glucose 130 H, Calcium 8.5 07/04/23 05:48: POC Glucose 134 H 07/04/23 10:56: APTT 37.9 H 07/04/23 17:25: POC Glucose 124 H 07/04/23 18:01: APTT 243.2 H* Radiography Diagnostic Testing: Radiology Impression Chest X-Ray 07/03/23 20:29 IMPRESSION: 1. Cardiomegaly without evidence of congestive failure. 2. Mild infrahilar bibasilar atelectasis, greater on the RIGHT than LEFT, mild elevation of the RIGHT hemidiaphragm. 3. No consolidation or effusion. Electronically Signed: Leon Velez MD at 21:12 EDT , Hip/Pelvis X-Ray 07/03/23 20:29 IMPRESSION: 1. No evidence of displaced pelvic or hip fracture. No focal destructive bony process noted. 2. Mild joint space narrowing at the RIGHT hip. Normal joint space on the LEFT hip. Electronically Signed: Leon Velez MD at 21:22 EDT , Physical Exam Const alert, oriented x3, no apparent distress and healthy appearing Constitutional Narrative: Patient is morbidly obese General Appearance: cooperative, well kempt and well developed Orientation / Consciousness: awake, oriented to person, oriented to place and oriented to time HEENT normocephalic and moist oral mucous membranes Eyes PERRL, EOMs intact bilaterally and conjunctivae normal Neck supple, no JVD, thyroid normal and no carotid bruits General: trachea midline Resp normal respiratory effort, no retractions, no use of accessory muscles and clear to auscultation bilaterally Auscultation: Negative for rales, rhonchi or wheezes Cardio regular rate, regular rhythm, S1 normal heart sound, S2 normal heart sound, no murmurs, no rub and no gallops GI normal to inspection, nondistended, normoactive bowel sounds, soft to palpation, non-tender and non-distended Extremity no clubbing, cyanosis or edema Skin no rashes or lesions noted General Skin Exam: no breakdown Neuro oriented x3, CN's II-XII intact bilaterally, moves all extremities, no focal motor deficits and no sensory deficits noted Sensorium / Orientation: awake, alert, oriented to person, oriented to place and oriented to time Speech: speech normal Psych affect normal Assessment & Plan Assessment/Plan (1) Non-ST elevated myocardial infarction: PLAN: Plan 1. [id number] will remain on his present medications, cardiology is participating in his care, he will undergo a cardiac catheterization tomorrow. #2 essential hypertension-patient will remain on his present medications, blood pressure will be monitored and medications will be adjusted as needed #3 type 2 diabetes-patient is being monitored by fingerstick blood sugars, sliding scale insulin will be given as needed #4 morbid obesity-complicates care, medical course, recovery, and prognosis Total clinical time spent by myself addressing the patient's medical issues, reviewing all his data, and collaborating with the patient's care team: 35- minute Charges/Coding Visit Charges Inpatient E&M: 82813 Subs Hosp L2
[2023-07-04] MEDS: 0.9% Saline Lock 10 ML Syringe IV ×2 (21:41→22:02)
[2023-07-04] MEDS: predniSONE 20 MG Tablet 60 MG PO (21:47)
[2023-07-05] VITALS (16 sets, daily range): BP systolic 103–151; BP diastolic 70–92; PULSE 85–105; RESP 16–18; TEMP 36.1–37.1; O2SAT 92–98
[2023-07-05] MEDS: Nitroglycerin Oint 1 INCH PACKET TD ×2 (00:16→06:19)
[2023-07-05] MEDS: Insulin Lispro 100 UNIT/ML INSULN.PEN SC ×4 (00:17→21:37)
[2023-07-05 01:20] LABS: Bedside Glucose 181 mg/dL (74-106)
[2023-07-05] MEDS: HYDROmorphone 1 MG/ML Syringe IV ×5 (02:32→20:32)
[2023-07-05] MEDS: 0.9% Saline Lock 10 ML Syringe IV ×3 (02:34→10:15)
[2023-07-05 03:09] LABS: Partial Thromboplast Time 33.4 Seconds (24.1-36.2)
[2023-07-05] MEDS: predniSONE 20 MG Tablet 60 MG PO ×2 (03:09→10:08)
[2023-07-05] MEDS: Heparin Injection (Vial) 5,000 UNIT/ML VIAL IV (04:46)
--- NOTE | 2023-07-05 05:55 | EKG12_ITS ---
Test Reason : AM EKG Blood Pressure : / mmHG Vent. Rate : 088 BPM Atrial Rate : 088 BPM P-R Int : 162 ms QRS Dur : 074 ms QT Int : 360 ms P-R-T Axes : 051 030 063 degrees QTc Int : 435 ms Normal sinus rhythm Normal ECG When compared with ECG of 04-JUL-2023 05:44, MANUAL COMPARISON REQUIRED, DATA IS UNCONFIRMED Confirmed by TULIO MCMILLAN, ANAIS ([id number]), video news editor MIHAELA BRAVO ([id number]) on 08/17/2023 12:48:28 PM Referred By: Confirmed By:ANAIS ANTUNEZ MD
[2023-07-05] MEDS: Lisinopril 10 MG Tablet PO (06:20)
[2023-07-05] MEDS: TICAGRELOR 90 MG TABLET PO ×2 (06:20→20:32)
[2023-07-05] MEDS: Pantoprazole Sodium 20 MG Tablet PO ×2 (06:20→20:32)
[2023-07-05] MEDS: Metoprolol(XL)Succ 25 MG Tablet PO (06:20)
[2023-07-05] MEDS: Aspirin E.C. 81 MG Tablet PO (06:22)
[2023-07-05 07:22] LABS: Bedside Glucose 233 mg/dL (74-106)
[2023-07-05] MEDS: Acetaminophen 500 MG Tablet PO ×2 (10:03→16:21)
[2023-07-05] MEDS: DiphenhydrAMINE 25 MG Capsule 50 MG PO (10:10)
--- NOTE | 2023-07-05 12:01 | CRPHASE1_ITS ---
Patient Communication Patient Information Former Patient:: Phase I and Phase II PHII Cardiac Rehab Discussed with Patient:: Yes Guide to Cardiac Rehab Given to Patient:: Yes Cardiac Rehab Facility Choice List Given to Patient:: Yes Communication to Cardiac Rehab Inspector Tester Sorter:: [facility] Refer Phase II Cardiac Rehab:: Yes Sessions:: 36 sessions - 3 days/wk, 12 weeks Medical/Surgical History Medical History OK:: Yes Angina:: Yes CAD:: Yes Congestive Heart Failure: Cardiomyopathy:: No Valve Disease/Replacement:: No Diabetes:: Yes Diabetes Type I:: No Diabetes Type II:: Yes Hypertension:: Yes Dyslipidemia:: Yes CVA/TIA: PE:: Yes DVT:: Yes PVD:: No PAD:: No GERD:: Yes Cancer:: Yes Renal:: No Thyroid:: No Depression:: Yes Surgical History CABG: No ICD:: No Pacemaker:: No Cardiac Rehabilitation Info Program Information Cardiac Rehabilitation Program Information: Cardiac Rehab The cardiac rehab team at [facility] consists of highly skilled exercise physiologists, nurses, respiratory therapists and physicians working together with you. Our purpose is to help you have a full recovery and achieve the goals you set for yourself. Over the years many of our patients have returned to activities they assumed they would never do again! We can help restore your confidence and motivation to make lifestyle changes that can have a significant impact on your health and quality of life! We can help answer questions and concerns you may have about exercise, lifestyle, medications, diet, stress and anxiety which are common following a hospitalization. WE monitor ECG and vital signs during exercise and discuss your progress with you and report to your physician(s). Cardiac Rehab is proven to help reduce readmissions, improve functional capacity and lower recurrence of problems with your heart. Our Cardiac Rehab program is Certified by the [place] [employer] Pulmonary [employer] (AACVPR) and Accredited by the [place] [employer] through our [facility]. You can contact us at . We invite you to call us with your questions or to get started in our program. If you have other questions or concerns be sure to ask your physician/provider during your follow-up visit. WE look forward to seeing you!
--- NOTE | 2023-07-05 12:02 | CRPH1.INSTRU ---
General Education Discussed with Patient CAD and cardiac anatomy and function:: Patient communicates acknowledgment Explanation of diagnoses and procedures:: Patient communicates acknowledgment Sign/Symptoms of [place]:: Patient communicates acknowledgment Antiplatelet therapy: Patient communicates acknowledgment Proper use of NTG-SL: Patient communicates acknowledgment Emergency procedures and activation of EMS: Patient communicates acknowledgment Compliance of all prescribed medications: Patient communicates acknowledgment Smoking Risk Factors Patient Nicotine/Smoking Risk Factors Are:: Non-smoker Recommendations Recommendations Include:: Second-hand smoke recommendation and Previous smoker; encourage continued cessation Response Code Nicotine/Smoking Response Code:: Patient communicates acknowledgment Dyslipidemia Risk Factors Patient Dyslipidemia Risk Factors Are:: Total Cholesterol Recommendations Recommendations Include:: Lipid profile not available Response Code Dyslipidemia Response Code:: Patient communicates acknowledgment Overweight/Obesity Recommendations Recommendations Include:: Weight loss of 5-10%, Reduced calorie diet and Exercise 5-7 times/week Response Code Overweight/Obesity:: Patient communicates acknowledgment Hypertension Recommendations Recommendations Include:: Maintain BP <130/85 Response Code Hypertension:: Patient communicates acknowledgment Heart Disease Risk Factors Patient Heart Disease Risk Factors Are:: Previous cardiac event Recommendations Recommendations Include:: Educated family members of their risk Response Code Heart Disease Response Code:: Patient communicates acknowledgment Diabetes Recommendations Recommendations Include:: Maintain fasting blood sugars 70-110 md/dL, Maintain HgbA1c of 6% or less, Monitor blood sugar as prescribed, Diabetic dietary guidelines and Decrease/maintain body weight Response Code Diabetes:: Patient communicates acknowledgment Metabolic Syndrome Risk Factors Patient Metabolic Syndrome Risk Factors Are [3 of 5]:: Fasting blood sugar > 100 mg/dL, Waist circumference > 35 [female] or 40 [male] and Hypertension Recommendations Recommendations Include:: Reinforce compliance to risk factor modifications and Patient is diabetic Response Code Metabolic Syndrome Response Code:: Patient communicates acknowledgment Sedentary Risk Factors Patient Sedentary Risk Factors Are:: Lack of regular exercise Recommendations Recommendations Include:: Aerobic exercise 5-7 times/week for 20-30 minutes continuously, Benefits of regular exercise, Discussed home walking program and Monitored Outpatient Cardiac Rehab Response Code Sedentary Response Code:: Patient communicates acknowledgment Stress Recommendations Recommendations Include:: Identification of stressors, and assessment of coping skills Response Code Stress Response Code:: Patient communicates acknowledgment
[2023-07-05] MEDS: Cyanocobalamin 500 MCG Tablet 1000 MCG PO (12:24)
[2023-07-05] MEDS: 0.9% Normal Saline 1,000 ML 75 ML IV (12:39)
[2023-07-05 13:11] LABS: Bedside Glucose 191 mg/dL (74-106)
--- NOTE | 2023-07-05 13:14 | CL.I_ITS ---
Patient Name: ERNA PALMA Study Date: 07/05/2023 Performing: Fabian Key MD Ht: 70 inches 177.8 cm : 1960 Wt: 346.35 lbs 157.1 kg Age: 62 Gender: male BSA: 2.64 PROCEDURE(S) PERFORMED DC01-(67373)LHC/COR/LV IC12-(82975/C9600)LASHAE W/WO PTCA, SINGLE CORONARY ARTERY CLINICAL PROFILE AND CO-MORBIDITIES Indications: ACS <= 24 hrs Heart Failure: None Stress/Imaging Stress/Image Study Performed: No CAD Presentations: Non-STEMI. Symptom onset Date/Time: 07/03/23 Time Not Available CONCLUSIONS CAD as described. LVEF is 65%. No significant mitral regurgitation. Successful IFR guided PCI of mid LAD as described with drug-eluting stent. Consider 2D echo as outpatient for further evaluation of moderate degree of gradient between the LV and the aorta. RECOMMENDATIONS DESCRIPTION OF PROCEDURE The patient arrived to the procedure lab. The risks and benefits of the procedure as well as a full description of our services here and lack of surgical backup were fully explained to the patient and/or their significant other prior to the catheterization. The Timeout was completed, verifying the correct patient and procedure. The patient's procedural site was prepped and draped in the usual fashion. Local anesthetic was given subcutaneously to right radial region with Lidocaine 2%. Using a modified Seldinger technique, arterial access was obtained via the right radial artery, a 6Fr sheath was inserted.. Left Coronary Artery selective angiography was performed in multiple views using a 5 Fr. JL3.5 catheter. Right Coronary Artery selective angiography was then performed in multiple views using a 5 Fr. JR 4 catheter. Left Ventriculography was performed in EVANS projection using a 5 Fr. JR4 catheter. LV to AO pullback pressures were then recorded. Right Coronary Artery selective angiography was then performed in multiple views using a 5 Fr. JR 4 catheterThe images were reviewed and options discussed. A decision was then made to proceed with an Intervention, IVUS or other adjunct procedure. JL3.5 Guide catheter was inserted and engaged into the LCA. The FFR/iFR wire was inserted. iFR Ratio: 0.87 The FFR/iFR wire was left in place as guide wire. Emerge 2.5 x 15 Balloon catheter was inserted. Balloon catheter was advanced across lesion in the LAD, mid. PTCA balloon inflated at 8 atms for 12 secs. PTCA balloon inflated at 8 atms for 9 secs. Angiogram performed post balloon dilatation. Resolute Lazaro 3.0 x 34 Drug Eluting stent was inserted. Drug Eluting stent was advanced across the lesion in the LAD, mid. The arterial sheath was pulled and a TR Band was applied for hemostasis CORONARY ANGIOGRAPHY DOMINANCE: Right Dominant LEFT HEART ASSESSMENT Left Ventricular Ejection Fraction: by LV Gram 65 % Normal LV wall motion LEFT MAIN: Mild luminal irregularities LEFT ANTERIOR DESCENDING ARTERY: Previously placed stent is patent MID LAD: 70 % Stenosis. Appeared to be an eccentric stenosis that was visualized primarily in 1 view. IFR was performed which was 0.87 which is consistent with significant stenosis CIRCUMFLEX ARTERY: Mild luminal irregularities RAMUS: Mild luminal irregularities RIGHT CORONARY ARTERY: Mild luminal irregularities VALVE FINDINGS: No Mitral Insufficiency There was moderate degree of gradient between the LV and aorta on pullback. However the valve was easily crossed with the J-wire. Patient's echocardiogram from May of this year was also reviewed. Most likely the pullback gradient was artifactual. INTERVENTION INFORMATION LESION SITE: LAD (Mid) Lesion Complexity: High/C, chronic total occlusion: No, lesion at bifurcation: Yes, thrombus present: No, lesion length: 30 mm, culprit lesion: Yes, Previously treated lesion: No Pre Stenosis: 70 % Pre intervention NASIM flow: 3 PROCEDURE: iFR, Drug Eluting Stent with pre and post dilatation Post Stenosis: 0 % Post intervention NASIM flow: 3 Lesion Devices: Medtronic 6 Fr JL3.5 100cm Guide Catheter Arthur Sci EMERGE MR 2.50x15 BALLOON Medtronic Resolute [place] RX LASHAE 3.0x34 COMPLICATIONS No Complications PROCEDURE MEDICATIONS Versed 1 mg IV Fentanyl 50 mcg IV Fentanyl 50 mcg IV Fentanyl 25 mcg IV Oxygen: 2 L/min via nasal cannula Heparin given IA 07/05/2023 10:58:16 Heparin 3000 unit(s) IV 07/05/2023 11:13:23 Heparin 3000 unit(s) IV 07/05/2023 11:25:48 Nitro 100 mcg IC 07/05/2023 11:38:01 Verapamil 2.5mg, Ntg 100mcgs, 3000 units of Heparin given IA 07/05/2023 10:58:16 SUMMARY OF HEMODYNAMIC DATA Time AIR REST ECG 10:36:19 AO 122/84 (101) SA 11:02:24 LV 162/10, 14 11:09:12 LV 158/12, 17 11:09:20 LV 170/1, 18 11:10:08 LV 173/2, 16 11:10:16 LVp 162/4, 11 11:10:20 AOp 130/89 (109) 11:10:27 Signed By Fabian Key MD On 07/07/2023 08:36:39 Fabian Key MD
--- NOTE | 2023-07-05 15:36 | PN.HOSP_ITS ---
Reason for Visit Reason for Visit: Diagnoses Essential (primary) hypertension (07/03/23) Non-ST elevation (NSTEMI) myocardial infarction (07/03/23) Syncope and collapse (07/03/23) Personal history of other malignant neoplasm of rectum, rectosigmoid junction, and anus (07/03/23) Presence of coronary angioplasty implant and graft (07/03/23) Subjective Subjective Seen and examined today, he underwent a cardiac catheterization and had a stent put in his LAD, his chest pain resolved after the stent was placed. I talked with cardiology about his care. Objective Data Objective Data Vital Signs: Vital Signs Temp Pulse Resp BP Pulse Ox O2 Del Method 97.6 F L 86 18 137/79 H 95 Room Air 07/05/23 06:12 07/05/23 06:20 07/05/23 06:12 07/05/23 06:20 07/05/23 06:12 07/05/23 08:17 Oxygen Delivery Method Room Air Weight: 157.1 kg Body Mass Index (BMI) 49.6 Intake & Output: Intake and Output for Last 24 Hours 07/03/23 07/04/23 07/05/23 23:59 23:59 23:59 Intake Total 123.6 / 123.6 393.20 / 393.20 758.57 / 758.57 Output Total 800 / 800 1350 / 1350 Balance 123.6 / 123.6 -406.80 / -406.80 -591.43 / -591.43 Lab / Micro Data 07/04/23 04:33 07/04/23 04:33 Labs: Laboratory Results - last 24 hr 07/04/23 17:25: POC Glucose 124 H 07/04/23 18:01: APTT 243.2 H* 07/05/23 00:11: POC Glucose 181 H 07/05/23 02:48: APTT 33.4 07/05/23 06:13: POC Glucose 233 H 07/05/23 12:32: POC Glucose 191 H Physical Exam Const alert, oriented x3 and no apparent distress Constitutional Narrative: Patient is morbidly obese General Appearance: cooperative, well kempt and well developed Orientation / Consciousness: awake, oriented to person, oriented to place and oriented to time HEENT normocephalic and moist oral mucous membranes Eyes PERRL, EOMs intact bilaterally and conjunctivae normal Neck supple, no JVD, thyroid normal and no carotid bruits General: trachea midline Resp normal respiratory effort and clear to auscultation bilaterally Auscultation: Negative for rales, rhonchi or wheezes Cardio regular rate, regular rhythm, no murmurs, no rub and no gallops GI normal to inspection, nondistended, normoactive bowel sounds, soft to palpation, non-tender and non-distended Extremity no clubbing, cyanosis or edema Skin no rashes or lesions noted General Skin Exam: no breakdown Neuro oriented x3, CN's II-XII intact bilaterally, no focal motor deficits and no sensory deficits noted Sensorium / Orientation: awake and alert Speech: speech normal Psych affect normal Assessment & Plan Assessment/Plan (1) Non-ST elevated myocardial infarction: PLAN: Plan 1. [id number]-[id number] medications with guidance from cardiology, again patient had a drug-eluting stent placed today in the LAD, he will continue to be monitored #2 essential hypertension-patient will remain on his present medications, blood pressure will be monitored and medications will be adjusted as needed #3 type 2 diabetes-patient is being monitored by fingerstick blood sugars, sliding scale insulin will be given as needed #4 morbid obesity-complicates care, medical course, recovery, and prognosis Total clinical time spent by myself addressing the patient's medical issues, reviewing all his data, and collaborating with the patient's care team: 35- minute Charges/Coding Visit Charges Inpatient E&M: 33161 Subs Hosp L2
[2023-07-05 17:12] LABS: Bedside Glucose 227 mg/dL (74-106)
[2023-07-05] MEDS: Ondansetron 4 MG/2 ML Vial IV (19:56)
--- NOTE | 2023-07-05 20:30 | NURSING ---
Pt requesting HS meds at this time
[2023-07-05 21:58] LABS: Bedside Glucose 160 mg/dL (74-106)
[2023-07-06] MEDS: HYDROmorphone 1 MG/ML Syringe IV ×5 (00:32→17:09)
[2023-07-06] MEDS: Acetaminophen 500 MG Tablet PO ×3 (01:55→16:56)
[2023-07-06 01:56] VITALS: BP 118/82; PULSE 79
[2023-07-06] MEDS: Nitroglycerin Oint 1 INCH PACKET TD (01:56)
[2023-07-06 04:30] VITALS: BP 136/78; PULSE 87; RESP 16; TEMP 36.4; O2SAT 97
[2023-07-06 05:15] LABS: Hematocrit 41.3 % (40-54); Hemoglobin 13.9 g/dL (13.0-16.5); Mean Corp Hgb Conc 33.7 g/dL (32-36); Mean Corpuscular Hgb 32.6 pg (27.0-32.0); Mean Corpuscular Volume 96.7 fL (80-94); Mean Platelet Vol. 9.2 fl (6.2-12.0); Platelet Count 281 K/mm3 (150-450); RBC Distribution Width CV 13.2 % (11.6-14.6); RBC Distribution Width SD 46.5 fl (35.1-43.9); Red Blood Count 4.27 M/mm3 (4.6-6.2); White Blood Count 12.4 K/mm3 (4.4-11.0)
[2023-07-06 05:34] LABS: ALB/GLOB Ratio 0.8 RATIO (0.9-2.4); AST(SGOT) 22 U/L (15-37); Alanine Aminotransfer ALT/SGPT 45 U/L (16-61); Albumin, Serum 3.4 g/dL (3.2-5.0); Alkaline Phosphatase 141 U/L (45-117); Anion Gap 7 (5-15); BUN 16 mg/dL (7-18); BUN/Creat Ratio 15.4 RATIO (10-20); Calcium,Total 9.1 mg/dL (8.5-10.1); Chloride 108 mmol/L (98-107); Creatinine, Serum 1.04 mg/dL (0.70-1.30); EST Glomerular Filtration Rate 77 mL/min (>60); Est Glom Filt Rate - Afr Amer 93 mL/min (>60); Estimated Creatinine Clearance 77.02 ml/min; Glucose 151 mg/dL (74-106); Potassium 4.2 mmol/L (3.5-5.1); Protein, Total 7.4 g/dL (6.4-8.2); Sodium Level 140 mmol/L (136-145)
--- NOTE | 2023-07-06 06:15 | EKG12_ITS ---
Test Reason : AM EKG Blood Pressure : / mmHG Vent. Rate : 086 BPM Atrial Rate : 086 BPM P-R Int : 152 ms QRS Dur : 074 ms QT Int : 366 ms P-R-T Axes : 051 032 070 degrees QTc Int : 437 ms Normal sinus rhythm Nonspecific T wave abnormality Abnormal ECG When compared with ECG of 05-JUL-2023 05:32, MANUAL COMPARISON REQUIRED, DATA IS UNCONFIRMED Confirmed by TULIO MCMILLAN, ANAIS ([id number]), associate editor MIHAELA BRAVO ([id number]) on 08/17/2023 12:48:42 PM Referred By: Confirmed By:ANAIS ANTUNEZ MD
[2023-07-06] MEDS: Insulin Lispro 100 UNIT/ML INSULN.PEN SC ×2 (06:19→11:10)
[2023-07-06 06:49] LABS: Bedside Glucose 151 mg/dL (74-106)
[2023-07-06] MEDS: 0.9% Saline Lock 10 ML Syringe IV (09:08)
[2023-07-06 10:30] VITALS: BP 97/64; PULSE 94; RESP 18; TEMP 36.2; O2SAT 97
[2023-07-06] MEDS: Lisinopril 10 MG Tablet PO (11:11)
[2023-07-06] MEDS: Aspirin E.C. 81 MG Tablet PO (11:12)
[2023-07-06] MEDS: Pantoprazole Sodium 20 MG Tablet PO (11:13)
[2023-07-06] MEDS: TICAGRELOR 90 MG TABLET PO (11:13)
[2023-07-06 11:14] VITALS: BP 100/68; PULSE 92
[2023-07-06] MEDS: Metoprolol(XL)Succ 25 MG Tablet PO (11:14)
[2023-07-06] MEDS: Cyanocobalamin 500 MCG Tablet 1000 MCG PO (11:15)
--- NOTE | 2023-07-06 11:56 | DCINST_ITS ---
Discharge Instructions Diet Discharge Diet: 1800 Calorie Control Diet Activity Discharge Activity: Return to Normal Activity Weight Bearing Status: Full weight bearing Follow Up Care Test Results: Test results from this visit will be discussed in further detail at your follow- up appointment, if applicable. Discharge Plan Admission Admit Date/Time: 07/03/23 21:57 Primary Reason for Your Visit: unstable angina Attending Provider: Ronnie Griffith Primary Care Provider: Edin Mcfarland Consulting Providers: Benigno Key; Yoandy Madera Discharge Orders/Prescriptions Prescriptions: New oxycodone 5 mg tablet 10 mg PO Q6H PRN (Reason: pain) 3 Days Qty: 14 0RF Rx Instructions: one or two every six hours as needed for migrane Continued cyanocobalamin (vitamin B-12) 1,000 mcg tablet 1,000 mcg PO DAILY aspirin 81 mg tablet,delayed release (DR/EC) 81 mg PO DAILY Qty: 90 3RF lisinopril 10 mg tablet 10 mg PO DAILY Qty: 90 3RF metoprolol succinate 25 mg tablet extended release 24 hr 25 mg PO DAILY Qty: 90 3RF Brilinta 90 mg tablet 90 mg PO BID Qty: 180 3RF pantoprazole 40 mg tablet,delayed release (DR/EC) 20 mg PO BID Patient Comments: Take 1 tablet by mouth once daily. cholecalciferol (vitamin D3) 1,250 mcg (50,000 unit) capsule 1,250 mcg PO 2XW acetaminophen 500 mg tablet 500 mg PO Q6H PRN (Reason: Pain) Patient Comments: Take 1 tablet by mouth every 6 hours as needed for pain. glipizide 5 mg tablet 5 mg PO BID Qty: 60 2RF Rx Instructions: Hold if glucose less than 130 mg/dl tacrolimus 0.1 % ointment 1 applic TOPICAL Q12H PRN (Reason: PSORIASIS) cyclobenzaprine 10 mg tablet 10 mg PO BID PRN (Reason: muscle spasm) rosuvastatin 10 mg tablet 10 mg PO DAILY Qty: 30 11RF Referrals / Follow Up: Josafat Anderson MD [Med Staff - Active Staff] - Within 1 Month Edin Mcfarland MD [Primary Care Provider] - Within 2 Weeks Disposition Disposition (needs filled in before D/C Order can be placed): Home, Self Care
--- NOTE | 2023-07-06 12:02 | PCM.DC.SUM ---
Providers Date of Admission: 07/03/23 Date of Discharge: 07/06/23 Primary Care Physician: Dr. Edin Mcfarland MD Consultations 07/03/23 23:34 Consult: Cardiology Routine Consulting Provider: Benigno Key Reason for Consult: No STEMI EMERGENT Consult: No MD Notified: Yes Date Notified: 07/03/23 Time Notified: 22:12 Method of Notification: ED Physician Initiated Reason For Visit: NON-STEMI Diagnosis Discharge Diagnosis (1) Non-ST elevated myocardial infarction: Status: Acute Code(s): I21.4 - Non-ST elevation (NSTEMI) myocardial infarction Plan 1. Idd-[id number]-[id number] medications with guidance from cardiology, again patient had a drug-eluting stent placed today in the LAD, he will continue to be monitored #2 essential hypertension-patient will remain on his present medications, blood pressure will be monitored and medications will be adjusted as needed #3 type 2 diabetes-patient is being monitored by fingerstick blood sugars, sliding scale insulin will be given as needed #4 morbid obesity-complicates care, medical course, recovery, and prognosis Total clinical time spent by myself addressing the patient's medical issues, reviewing all his data, and collaborating with the patient's care team: 35-minute Medications at Discharge Home Medications pantoprazole 40 mg tablet,delayed release 20 mg PO BID GERD 11/08/21 acetaminophen 500 mg tablet 500 mg PO Q6H PRN Pain 01/26/23 cholecalciferol (vitamin D3) 1,250 mcg (50,000 unit) capsule 1,250 mcg PO 2XW supplement 01/26/23 cyanocobalamin (vitamin B-12) 1,000 mcg tablet 1,000 mcg PO DAILY supplement 01/26/23 glipizide 5 mg tablet 5 mg PO BID diabetes #60 tabs 05/12/23 aspirin 81 mg tablet,delayed release 81 mg PO DAILY heart health #90 tabs 05/27/23 lisinopril 10 mg tablet 10 mg PO DAILY blood pressure #90 tabs 05/27/23 metoprolol succinate 25 mg tablet,extended release 24 hr 25 mg PO DAILY blood pressure #90 tabs 05/27/23 ticagrelor 90 mg tablet (Brilinta) 90 mg PO BID anti platelet #180 tabs 05/27/23 rosuvastatin 10 mg tablet 10 mg PO DAILY cholesterol #30 tabs 06/26/23 cyclobenzaprine 10 mg tablet 10 mg PO BID PRN muscle spasm 07/03/23 tacrolimus 0.1 % topical ointment 1 applic topical Q12H PRN PSORIASIS 07/03/23 oxycodone 5 mg tablet 10 mg (2 x 5 mg) PO Q6H PRN pain 3 days #14 tabs 07/06/23 Hospital Course Operations None Procedures Cardiac catheterization (With drug-eluting stent placement in the LAD) Summary of Care Provided Minutes Spent on Discharge: 31 Hospital Course: This 62-year-old white male was seen in the emergency room at [facility] with complaints of lightheadedness and chest pain, he stated the chest pain was in the mid sternum and radiated into the left axilla and down his left arm. Patient had a past history of coronary artery disease with stent placement. Work-up in the ER included a chest x-ray which showed no acute process, EKG showed no evidence of ischemic changes, patient's troponin however was elevated at 214. Patient was admitted to PCU, heparin had been started in the emergency department and this was continued, patient's home meds were continued and he was given morphine for pain, cardiology was consulted, troponins were repeated and remained elevated. Patient was also placed on nitroglycerin drip, I change this over to Nitropaste and cardiology saw the patient in consultation. Patient was reluctant to undergo cardiac catheterization without 24 hours of prep with corticosteroids due to an allergy to iodinated contrast media. Finally, patient underwent a cardiac catheterization on 07/05/2023, there was noted to be an occlusive area in the LAD which was stented with a drug-eluting stent. Patient's chest pain went away after the stent was placed, on 07/25, patient was seen and examined: On examination he appeared in good health and spirits. Vital signs as documented. Skin warm and dry and without overt rashes. Neck without JVD, neck was supple, trachea midline, thyroid was normal. Lungs clear bilaterally, normal air movement was noted. Heart exam notable for regular rhythm, normal sounds and absence of murmurs, rubs or gallops. Abdomen unremarkable and without evidence of organomegaly, masses, or abdominal aortic enlargement. Bowel sounds are present, abdomen is not distended. Extremities nonedematous, no cyanosis was noted, no clubbing was noted. Neuro: Cranial nerves II through XII are grossly intact, no focal motor deficits were noted, sensation to light touch and pinprick intact, motor exam 5/5 throughout. Psych: Patient is alert and oriented x3, he does not appear anxious or depressed, he does not appear agitated. Patient was felt to be stable for discharge on 07/06/2023. Weight / BMI Weight Weight: 157.1 kg Body Mass Index (BMI) 49.6 ABG / Lab / Microbiology Data 07/06/23 05:00 07/06/23 05:00 Laboratory: Laboratory Results - last 24 hr 07/05/23 12:32: POC Glucose 191 H 07/05/23 16:47: POC Glucose 227 H 07/05/23 21:35: POC Glucose 160 H 07/06/23 05:00: WBC 12.4 H, RBC 4.27 L, Hgb 13.9, Hct 41.3, MCV 96.7 H, MCH 32.6 H, MCHC 33.7, RDW Std Deviation 46.5 H, RDW Coeff of Mar 13.2, Plt Count 281, MPV 9.2, Sodium 140, Potassium 4.2, Chloride 108 H, Carbon Dioxide 25.0, Anion Gap 7, BUN 16, Creatinine 1.04, Estim Creat Clear Calc 77.02, Est GFR (MDRD) Af Amer 93, Est GFR (MDRD) Non-Af 77, BUN/Creatinine Ratio 15.4, Glucose 151 H, Calcium 9.1, Total Bilirubin 0.40, AST 22, ALT 45, Alkaline Phosphatase 141 H, Total Protein 7.4, Albumin 3.4, Globulin 4.0, Albumin/Globulin Ratio 0.8 L 07/06/23 06:17: POC Glucose 151 H D/C Instructions Discharge Diet: 1800 Calorie Control Diet Weight Bearing Status: Full weight bearing Meaningful Use Info Meaningful Use Diagnoses (Choose all that apply): AMI AMI/Post PCI/Angioplasty Aspirin given w/in 24hrs of arrival?: Yes ASA at discharge?: Yes Antiplatelet Therapy at Discharge:: Yes Statins at discharge?: Yes Mejia/ARB at discharge?: Yes Beta Cassandra at discharge?: Yes Done w/ Acute RI measure.: Yes Documented LVEF (%): 65 Discharge Plan Admission Admit Date/Time: 07/03/23 21:57 Primary Reason for Your Visit: unstable angina Attending Provider: Ronnie Griffith Primary Care Provider: Edin Mcfarland Consulting Providers: Benigno Key; Yoandy Madera Discharge Orders/Prescriptions Prescriptions: New oxycodone 5 mg tablet 10 mg PO Q6H PRN (Reason: pain) 3 Days Qty: 14 0RF Rx Instructions: one or two every six hours as needed for migrane Continued cyanocobalamin (vitamin B-12) 1,000 mcg tablet 1,000 mcg PO DAILY aspirin 81 mg tablet,delayed release (DR/EC) 81 mg PO DAILY Qty: 90 3RF lisinopril 10 mg tablet 10 mg PO DAILY Qty: 90 3RF metoprolol succinate 25 mg tablet extended release 24 hr 25 mg PO DAILY Qty: 90 3RF Brilinta 90 mg tablet 90 mg PO BID Qty: 180 3RF pantoprazole 40 mg tablet,delayed release (DR/EC) 20 mg PO BID Patient Comments: Take 1 tablet by mouth once daily. cholecalciferol (vitamin D3) 1,250 mcg (50,000 unit) capsule 1,250 mcg PO 2XW acetaminophen 500 mg tablet 500 mg PO Q6H PRN (Reason: Pain) Patient Comments: Take 1 tablet by mouth every 6 hours as needed for pain. glipizide 5 mg tablet 5 mg PO BID Qty: 60 2RF Rx Instructions: Hold if glucose less than 130 mg/dl tacrolimus 0.1 % ointment 1 applic TOPICAL Q12H PRN (Reason: PSORIASIS) cyclobenzaprine 10 mg tablet 10 mg PO BID PRN (Reason: muscle spasm) rosuvastatin 10 mg tablet 10 mg PO DAILY Qty: 30 11RF Hold Instructions: MYALGIAS Referrals / Follow Up: Josafat Anderson MD [Med Staff - Active Staff] - Within 1 Month Edin Mcfarland MD [Primary Care Provider] - Within 2 Weeks Disposition Disposition (needs filled in before D/C Order can be placed): Home, Self Care Charges/Coding Visit Charges Inpatient E&M: 49153 Disch Hosp >30min
[2023-07-06] MEDS: Rizatriptan Benzoate 10 MG Tablet PO (12:24)
[2023-07-06 12:49] LABS: Bedside Glucose 244 mg/dL (74-106)
[2023-07-06 16:30] VITALS: BP 124/76; PULSE 89; RESP 16; TEMP 36.4; O2SAT 98
[2023-07-06 17:15] VITALS: BP 140/65; PULSE 96; RESP 16; TEMP 36.9; O2SAT 97
== END 2023-07-06 17:28 | disposition home or self-care (01) | DRG 174 ==
LOC: ED 22:06 → PCU 22:32
PROVIDERS: Specialist; Admitting Provider Hospitalist; Emergency Provider Emergency Medicine; PCP Family Medicine; Visit Provider Internal Medicine
DX: I21.4 Non-ST elevation (NSTEMI) myocardial infarction (principal); E11.65 Type 2 diabetes mellitus with hyperglycemia; E66.01 Morbid (severe) obesity due to excess calories; Z68.42 Body mass index [BMI] 45.0-49.9, adult; I10 Essential (primary) hypertension; I25.10 Atherosclerotic heart disease of native coronary artery without angina pectoris; E78.00 Pure hypercholesterolemia, unspecified; I25.2 Old myocardial infarction; Z95.5 Presence of coronary angioplasty implant and graft; Z79.02 Long term (current) use of antithrombotics/antiplatelets; Z79.82 Long term (current) use of aspirin; Z79.84 Long term (current) use of oral hypoglycemic drugs; Z79.899 Other long term (current) drug therapy; Z85.048 Personal history of other malignant neoplasm of rectum, rectosigmoid junction, and anus; Z87.891 Personal history of nicotine dependence
CPT/HCPCS: 36415; 71045; 73502; 80048; 80053; 82962; 84484; 85025; 85027; 85610; 85730; 92928; 93005; 93458; 99152; 99153; 99285; J7030; J7040; Q9967; A4216; C1725; C1769; C1874; C1887; C1894; C9600; J2405

== ENCOUNTER 2023-09-01 12:44 | Emergency (ER) | payer MEDICAID, SELFPAY ==
[2023-09-01 12:45] VITALS: BP 144/96; PULSE 92; RESP 18; TEMP 35.5; O2SAT 97
[2023-09-01 12:56] VITALS: BP 144/96; PULSE 92; RESP 18; TEMP 35.5; O2SAT 97
--- NOTE | 2023-09-01 13:44 | EDS_ITS ---
HPI History of Present Illness Chief Complaint: Dental Informant: patient Onset/Context/Timing Onset: Days (3) Context: Gradual Onset Timing: Continuous Quality: Sharp Location: Right lower first molar Worsened by: Nothing Relieved by: - (Nothing) Associated Symptoms Assocated Symptom - Dental: jaw swelling and cold sensitivity; Negative for fever, face swelling or hot sensitivity Narrative Narrative: Patient presents with right lower dental pain that has been getting worse over the last 3 days. Patient states it is gradually getting worse. Patient states he looked in his mouth and noted a small pustule. Patient states he pushed on it and popped it. Patient states he had some purulent drainage after this. Patient admits to some mild swelling of his jaw. Patient states the pain radiates to his right ear and head. Patient admits to some cold sensitivity. Patient denies any fevers or chills. Patient admits to some nausea but denies any vomiting. [facility] Medical History Acute pain of right hip Allergy to contrast media (used for diagnostic x-rays) Ambulates with cane Anxiety Aortic stenosis Arthritis Back pain BiPAP (biphasic positive airway pressure) dependence BPH (benign prostatic hyperplasia) Cancer Cancer of colon with rectum Depression Dilation of thoracic aorta DVT (deep venous thrombosis) Fall Fatty liver Former smoker Frequent UTI GERD (gastroesophageal reflux disease) History of echocardiogram History of hiatal hernia History of malignant neoplasm of colon in adulthood History of pain when walking History of steroid therapy History of stress test Hyperlipidemia Injury of back Insomnia Morbid obesity Neurogenic bladder, flaccid Obstructive sleep apnea Osteoporosis Parastomal hernia Psoriasis PTSD (post-traumatic stress disorder) Pulmonary embolism Shortness of breath on exertion Syncope and collapse Type 2 diabetes mellitus without complication UTI (urinary tract infection) Vitamin B 12 deficiency Vitamin D deficiency Walker as ambulation aid Wears glasses Home Medications pantoprazole 40 mg tablet,delayed release 20 mg PO BID GERD 11/08/21 [History Last Taken 07/03/23 20 mg] acetaminophen 500 mg tablet 500 mg PO Q6H PRN Pain 01/26/23 [History Last Taken 07/03/23] cholecalciferol (vitamin D3) 1,250 mcg (50,000 unit) capsule 1,250 mcg PO 2XW supplement 01/26/23 [History Last Taken 07/03/23] cyanocobalamin (vitamin B-12) 1,000 mcg tablet 1,000 mcg PO DAILY supplement 01/26/23 [History Last Taken 07/03/23] glipizide 5 mg tablet 5 mg PO BID diabetes #60 tabs 05/12/23 [Rx Last Taken 07/03/23] aspirin 81 mg tablet,delayed release 81 mg PO DAILY heart health #90 tabs 05/27/23 [Rx Last Taken 07/03/23] metoprolol succinate 25 mg tablet,extended release 24 hr 25 mg PO DAILY blood pressure #90 tabs 05/27/23 [Rx Last Taken 07/03/23] ticagrelor 90 mg tablet (Brilinta) 90 mg PO BID anti platelet #180 tabs 05/27/23 [Rx Last Taken 07/03/23] cyclobenzaprine 10 mg tablet 10 mg PO BID PRN muscle spasm 07/03/23 [History Last Taken 07/03/23] tacrolimus 0.1 % topical ointment 1 applic topical Q12H PRN PSORIASIS 07/03/23 [History Last Taken 07/02/23] oxycodone 5 mg tablet 10 mg (2 x 5 mg) PO Q6H PRN pain 3 days #14 tabs 07/06/23 [Rx Last Taken Unknown] evolocumab 140 mg/mL subcutaneous pen injector (Tu Loza) 140 mg subcut Q2W 90 days #7 mL 08/20/23 [Rx Last Taken Unknown] lisinopril 20 mg tablet 20 mg PO DAILY blood pressure #90 tabs 08/20/23 [Rx Last Taken Unknown] clindamycin HCl 300 mg capsule (Cleocin HCl) 300 mg PO Q6H #40 CAPSULES 09/01/23 [Rx Last Taken Unknown] tramadol 50 mg tablet 50 mg PO Q4H PRN PRN Pain 3 days #20 tabs 09/01/23 [Rx Last Taken Unknown] Allergy/AdvReac Type Severity Reaction Status Date / Time rosuvastatin Allergy Mild aches Verified 09/01/23 12:45 metformin Allergy Unknown Vomiting Verified 09/01/23 12:45 codeine Allergy Itching Verified 09/01/23 12:45 Iodinated Contrast Media Allergy Vomiting Verified 09/01/23 12:45 Penicillins Allergy Hives Verified 09/01/23 12:45 atorvastatin AdvReac Severe Severe Verified 09/01/23 12:45 myalgias Family History (Reviewed 08/20/23 @ 14:14 by Juan Jose Bruner OVERLOCK SEWING MACHINE OPERATOR, OVERLOCK SEWING MACHINE OPERATOR-C) Mother No problems noted. Father Heart disease Cancer Grandmother CAD (coronary artery disease) Surgical History H/O resection of rectum History of bowel resection History of cardiac catheterization History of colonoscopy History of creation of ostomy History of esophagogastroduodenoscopy (EGD) History of implantable cardiac defibrillator (ICD) History of surgery on arm History of tonsillectomy and adenoidectomy Stented coronary artery (07/07/23) Social History housing: other details: Lives with a roommate. Smoking Status: Former smoker how long ago did patient quit smoking: Quit 10 years prior, smoked 1 ppd since age 28. alcohol intake: never substance use type: does not use ROS ROS ED Constitutional Constitutional ED: Denies chills or fever(s) Eyes Eyes: Denies blurry vision or change in vision ENT ENT ED: Reports ear pain right; Denies rhinorrhea or sore throat Cardiovascular Cardiovascular: Denies chest pain or palpitations Respiratory/Chest Respiratory/Chest: Denies cough or dyspnea Gastrointestinal Gastrointestinal: Reports nausea; Denies vomiting Genitourinary Genitourinary ED: Denies dysuria or hematuria Musculoskeletal Musculoskeletal: Reports neck pain; Denies back pain Integumentary Denies abscess or rash Neurologic Neurologic: Reports headache(s); Denies weakness Allergic/Immunologic Allergic/Immunologic ED: Denies mouth swelling or urticaria EXAM Physical Exam Const Vital Signs: 09/01/23 12:45 09/01/23 12:56 Temperature 96 F L 96 F L Temperature Source Temporal Temporal Pulse Rate 92 92 Respiratory Rate 18 18 Blood Pressure 144/96 H 144/96 H Blood Pressure Mean 112 112 Pulse Ox 97 97 Oxygen Delivery Method Room Air Room Air Positive well nourished and well developed General Appearance ED: well developed and NAD HEENT HEENT Narrative: There is gingival edema around the right lower first molar. There is no fluctuance noted. There is no evidence of any abscess. There is a cap on the right lower first molar. There are other dental caries on the right upper second molar. Oral mucosa is pink and moist. Oropharynx is clear. Airway is patent. There is no sublingual edema or submandibular edema. There is no erythema. There is no evidence of Rinku's angina. Teeth and Gingiva: caries and gingiva abnormal Positive for gingival edema and gingival tenderness Throat: posterior oropharynx normal Neck supple and no JVD General: Negative for anterior neck swelling, tenderness or submandibular swelling Neuro oriented x3, CN's II-XII intact bilaterally, moves all extremities, no focal motor deficits and no sensory deficits noted Sensorium / Orientation: alert Motor Exam: strength 5/5 throughout Psych mental status grossly normal MDM MDM MDM Narrative Medical decision making narrative: Patient was advised that this most likely is a dental abscess. It has already been drained. There is no need for incision and drainage at this time. Patient was given a dose of clindamycin, Zofran, and tramadol here. Patient was given prescription for clindamycin. Patient was instructed to continue Tylenol as needed for pain. Patient was instructed to follow-up with his dentist in 5 to 7 days. Patient understood and was agreeable with the plan. All questions were answered. Discharge Plan Triage Chief Complaint: Dental Other Complaint: Headache ED Provider: Roland Hillman Dx/Rx/DC Orders Clinical Impression: Dental abscess, Type 2 diabetes mellitus without complication Instructions: ED Dental Abscess Prescriptions: New clindamycin HCl [Cleocin HCl] 300 mg capsule 300 mg PO Q6H Qty: 40 0RF tramadol 50 mg tablet 50 mg PO Q4H PRN PRN (Reason: Pain) 3 Days Qty: 20 0RF No Action cyanocobalamin (vitamin B-12) 1,000 mcg tablet 1,000 mcg PO DAILY aspirin 81 mg tablet,delayed release (DR/EC) 81 mg PO DAILY Qty: 90 3RF metoprolol succinate 25 mg tablet extended release 24 hr 25 mg PO DAILY Qty: 90 3RF Brilinta 90 mg tablet 90 mg PO BID Qty: 180 3RF Repatha SureClick 140 mg/mL pen injector 140 mg subcut Q2W 90 Days Qty: 7 3RF lisinopril 20 mg tablet 20 mg PO DAILY Qty: 90 3RF pantoprazole 40 mg tablet,delayed release (DR/EC) 20 mg PO BID Patient Comments: Take 1 tablet by mouth once daily. cholecalciferol (vitamin D3) 1,250 mcg (50,000 unit) capsule 1,250 mcg PO 2XW acetaminophen 500 mg tablet 500 mg PO Q6H PRN (Reason: Pain) Patient Comments: Take 1 tablet by mouth every 6 hours as needed for pain. glipizide 5 mg tablet 5 mg PO BID Qty: 60 2RF Rx Instructions: Hold if glucose less than 130 mg/dl tacrolimus 0.1 % ointment 1 applic TOPICAL Q12H PRN (Reason: PSORIASIS) cyclobenzaprine 10 mg tablet 10 mg PO BID PRN (Reason: muscle spasm) oxycodone 5 mg tablet 10 mg PO Q6H PRN (Reason: pain) 3 Days Qty: 14 0RF Rx Instructions: one or two every six hours as needed for migrane Primary Care Provider: Edin Mcfarland Referrals: Edin Mcfarland MD [Primary Care Provider] - 5-7 Days Dentist[facility] [STAFF PHYSICIAN] - 3-5 Days Disposition Disposition: Home, Self Care Discharge Date/Time: 09/01/23 14:00
[2023-09-01] MEDS: Ondansetron ODT 4 MG Tablet PO (13:50)
[2023-09-01] MEDS: traMADol 50 MG Tablet PO (13:50)
[2023-09-01] MEDS: Clindamycin HCl 150 MG Capsule 300 MG PO (13:50)
== END 2023-09-01 14:00 | disposition home or self-care (01) ==
LOC: ED 14:00
PROVIDERS: Emergency Provider Emergency Medicine; PCP Family Medicine; Visit Provider Emergency Medicine
DX: E11.638 Type 2 diabetes mellitus with other oral complications (principal); G47.33 Obstructive sleep apnea (adult) (pediatric); Z86.718 Personal history of other venous thrombosis and embolism; Z87.891 Personal history of nicotine dependence; Z86.711 Personal history of pulmonary embolism; Z95.5 Presence of coronary angioplasty implant and graft
CPT/HCPCS: 99283

== ENCOUNTER 2023-10-19 14:44 | Emergency (ER) | payer MEDICAID, SELFPAY ==
[2023-10-19] VITALS (9 sets, daily range): BP systolic 122–182; BP diastolic 77–99; PULSE 87–100; RESP 12–20; TEMP 36.6; O2SAT 91–100; BMI 53.1
--- NOTE | 2023-10-19 14:54 | EKG12_ITS ---
Test Reason : CP Blood Pressure : / mmHG Vent. Rate : 102 BPM Atrial Rate : 103 BPM P-R Int : 176 ms QRS Dur : 068 ms QT Int : 346 ms P-R-T Axes : -05 031 061 degrees QTc Int : 450 ms Sinus tachycardia Otherwise normal ECG Confirmed by TULIO MCMILLAN, ANAIS ([id number]), production weigher KALI HERMAN ([id number]) on 10/20/2023 9:45:02 AM Referred By: JEFRY Confirmed By:ANAIS ANTUNEZ MD
--- NOTE | 2023-10-19 14:58 | EDS_ITS ---
HPI History of Present Illness Chief Complaint: Chest Pain Detail of Chief Complaint: Midsternal chest discomfort that radiates to the left arm with dyspnea and Informant: patient Onset/Context/Timing Onset: Hours Activity at onset: sudden Timing: Continuous Quality: Positive for Pressure and Tightness Location: Substernal Current Severity: Mild Maximum Severity: Moderate Relieved By: Nothing Associated Symptoms: Positive for Nausea, Dyspnea, Lightheadedness and - (He complains of slight headache.); Negative for Vomiting, Cough, Fever, Acid Reflux or Palpitations Narrative Narrative: Patient is 63-year-old male with history of non-ST elevation FL beginning of July. He had a stent placed mid LAD. The stent was drug-eluting. He had 70% stenosis. There was mild irregularity involving the circumflex, ramus and right coronary artery. Patient states that pressure started at rest. This is like the pain he experienced July 05 when he was diagnosed with non-ST elevation FL. Pre sently complains of shortness of breath still having tightness in his chest. He states he took his aspirin and Brilinta this morning. He does have history of hyperlipidemia, type 2 diabetes and hypertension. He denies leg pain, swelling or discoloration. He denies history of VTE. Prior Similar Symptoms: Yes and With Prior FL Recent Illness/Hospitalization: Yes ([facility] third 2022) CVD Risk Factors: Positive for Hypertension, Diabetes, Hypercholesterolemia and Smoking PE Risk Factors: Negative for Recent Travel/Surgery, Recent Immobilization, Prior DVT or PE, Cancer or OCP + Smoking + >/=35 TAD Risk Factors: Positive for Hypertension; Negative for Marfan's Syndrome or Family History [facility] Medical History Acute pain of right hip Allergy to contrast media (used for diagnostic x-rays) Ambulates with cane Anxiety Aortic stenosis Arthritis Back pain BiPAP (biphasic positive airway pressure) dependence BPH (benign prostatic hyperplasia) Cancer Cancer of colon with rectum Depression Dilation of thoracic aorta DVT (deep venous thrombosis) Fall Fatty liver Former smoker Frequent UTI GERD (gastroesophageal reflux disease) History of echocardiogram History of hiatal hernia History of malignant neoplasm of colon in adulthood History of pain when walking History of steroid therapy History of stress test Hyperlipidemia Injury of back Insomnia Morbid obesity Neurogenic bladder, flaccid Obstructive sleep apnea Osteoporosis Parastomal hernia Psoriasis PTSD (post-traumatic stress disorder) Pulmonary embolism Shortness of breath on exertion Syncope and collapse Type 2 diabetes mellitus without complication UTI (urinary tract infection) Vitamin B 12 deficiency Vitamin D deficiency Walker as ambulation aid Wears glasses Home Medications pantoprazole 40 mg tablet,delayed release 20 mg PO BID GERD 11/08/21 [History Last Taken 07/03/23 20 mg] acetaminophen 500 mg tablet 500 mg PO Q6H PRN Pain 01/26/23 [History Last Taken 07/03/23] cholecalciferol (vitamin D3) 1,250 mcg (50,000 unit) capsule 1,250 mcg PO 2XW supplement 01/26/23 [History Last Taken 07/03/23] cyanocobalamin (vitamin B-12) 1,000 mcg tablet 1,000 mcg PO DAILY supplement 01/26/23 [History Last Taken 07/03/23] glipizide 5 mg tablet 5 mg PO BID diabetes #60 tabs 05/12/23 [Rx Last Taken 07/03/23] aspirin 81 mg tablet,delayed release 81 mg PO DAILY heart health #90 tabs 05/27/23 [Rx Last Taken 07/03/23] metoprolol succinate 25 mg tablet,extended release 24 hr 25 mg PO DAILY blood pressure #90 tabs 05/27/23 [Rx Last Taken 07/03/23] ticagrelor 90 mg tablet (Brilinta) 90 mg PO BID anti platelet #180 tabs 05/27/23 [Rx Last Taken 07/03/23] cyclobenzaprine 10 mg tablet 10 mg PO BID PRN muscle spasm 07/03/23 [History [place] st Taken 07/03/23] tacrolimus 0.1 % topical ointment 1 applic topical Q12H PRN PSORIASIS 07/03/23 [History Last Taken 07/02/23] oxycodone 5 mg tablet 10 mg (2 x 5 mg) PO Q6H PRN pain 3 days #14 tabs 07/06/23 [Rx Last Taken Unknown] evolocumab 140 mg/mL subcutaneous pen injector (Tu Loza) 140 mg subcut Q2W 90 days #7 mL 08/20/23 [Rx Last Taken Unknown] lisinopril 20 mg tablet 20 mg PO DAILY blood pressure #90 tabs 08/20/23 [Rx Last Taken Unknown] clindamycin HCl 300 mg capsule (Cleocin HCl) 300 mg PO Q6H #40 CAPSULES 09/01/23 [Rx Last Taken Unknown] tramadol 50 mg tablet 50 mg PO Q4H PRN PRN Pain 3 days #20 tabs 09/01/23 [Rx Last Taken Unknown] Allergy/AdvReac Type Severity Reaction Status Date / Time rosuvastatin Allergy Mild aches Verified 10/19/23 14:45 metformin Allergy Unknown Vomiting Verified 10/19/23 14:45 codeine Allergy Itching Verified 10/19/23 14:45 Iodinated Contrast Media Allergy Vomiting Verified 10/19/23 14:45 Penicillins Allergy Hives Verified 10/19/23 14:45 atorvastatin AdvReac Severe Severe Verified 10/19/23 14:45 myalgias Family History Mother No problems noted. Father Heart disease Cancer Grandmother CAD (coronary artery disease) Surgical History H/O resection of rectum History of bowel resection History of cardiac catheterization History of colonoscopy History of creation of ostomy History of esophagogastroduodenoscopy (EGD) History of implantable cardiac defibrillator (ICD) History of surgery on arm History of tonsillectomy and adenoidectomy Stented coronary artery (07/07/23) Social History housing: other details: Lives with a roommate. Smoking Status: Former smoker how long ago did patient quit smoking: Quit 10 years prior, smoked 1 ppd since age 28. alcohol intake: never substance use type: does not use ROS ROS ED Constitutional Constitutional ED: Denies chills, fever(s), subjective, sweats or weight loss Eyes Eyes: Reports none ENT ENT ED: Denies ear pain, rhinorrhea or sore throat Cardiovascular Cardiovascular: Reports as per HPI; Denies orthopnea or paroxysmal nocturnal dyspnea Respiratory/Chest Respiratory/Chest: Reports dyspnea and dyspnea on exertion; Denies cough, orthopnea or paroxysmal nocturnal dyspnea Gastrointestinal Gastrointestinal: Reports nausea; Denies abdominal pain, constipation, diarrhea, melena or vomiting Genitourinary Genitourinary ED: Denies dysuria or urinary frequency Musculoskeletal Musculoskeletal: Reports other Details: Upper extremity pain as noted in the HPI narrative. ; Denies arthralgias, back pain or myalgias Neurologic Neurologic: Reports headache(s); Denies paresthesias Endocrine Endocrinology: Denies cold intolerance, heat intolerance, polydipsia or polyuria EXAM Physical Exam Const Vital Signs: 10/19/23 14:45 10/19/23 14:53 10/19/23 15:07 Temperature 98 F Temperature Source Temporal Pulse Rate 100 94 Respiratory Rate 18 Respiratory Effort Labored Respiratory Pattern Tachypnea Blood Pressure 162/91 H 146/92 H Blood Pressure Mean 114 Pulse Ox 100 Oxygen Delivery Method Room Air 10/19/23 15:38 Temperature Temperature Source Pulse Rate 92 Respiratory Rate Respiratory Effort Respiratory Pattern Blood Pressure 140/77 H Blood Pressure Mean Pulse Ox Oxygen Delivery Method Positive well nourished, well developed and obese Constitutional Narrative: Breathing more rapidly than 18 times a minute. He appears slightly anxious. General Appearance ED: well developed; Negative for pallor Nutritional Appearance: obese HEENT Reports moist mucous membranes normocephalic and atraumatic Eyes PERRL and EOMs intact bilaterally General Eye ED: Negative for pale conjunctiva or scleral icterus Chest Wall inspection of chest normal and palpation of chest normal Resp normal respiratory effort and clear to auscultation bilaterally Cardio regular rate, regular rhythm, S1 normal heart sound, S2 normal heart sound and no murmurs GI normal to inspection, nondistended, normoactive bowel sounds, soft to palpation, non-tender, non-distended and no masses; Negative for hepatosplenomegaly GI Narrative: No abdominal bruit. Back/Spine no CVA tenderness and no thoracic nor lumbar tenderness Extremity normal to inspection Extremity Narrative: There is no asymmetry. There is no discoloration. There is no leg vein distention, palpable cords or tenderness on the distal deep venous system. General Extremety ED: Yes edema General Extremity: edema Neuro oriented x3, CN's II-XII intact bilaterally and no sensory deficits noted Sensorium / Orientation: awake Psych Mood & Affect: anxious Skin no rashes or lesions noted and no wounds General Skin Exam: Negative for jaundice or pallor Heart Score History: Moderately Suspicious ECG: Normal Age: >45 - <65 years Risk Factors: >/= 3 Risk Factors or History of CAD Troponin: </= Normal Limit Score: 4 MDM MDM MDM Narrative Medical decision making narrative: Diagnosis includes cardiac versus noncardiac etiology of his pain. Noncardiac etiology would include GERD, esophageal spasm, peptic ulcer these. He does endorse heartburn over the past several weeks. He states that the heartburn resolves when he drinks cold water. He did have an episode or 2 where the pain did radiate to his left arm. And he also had mild shortness of breath on more than 1 occasion. History is not suggestive or consistent for PE. Patient did not receive aspirin since he took aspirin this morning as well as his Brilinta. Since he is still complaining of pressure in his chest nitroglycerin was ordered. History & Record Review Additional record(s) reviewed:: Prior inpatient record (Documented in the HPI narrative.), Prior ED visit and Prior labs Lab Data Attestation: I reviewed the patient's lab results. Lab results narrative: CBC is unremarkable. ASIC metabolic panel is marked for slight elevation of glucose of 143. CO2 anion gap are normal. First troponin is normal at 29. Second is 27 with a delta of -2. Patient was discharged to home. Is to follow- up with Dr. Love. Labs: Laboratory Results - last 24 hr 10/19/23 10/19/23 14:55 17:10 WBC 10.2 RBC 4.47 L Hgb 14.1 Hct 43.9 MCV 98.2 H MCH 31.5 MCHC 32.1 RDW Std Deviation 45.4 H RDW Coeff of Mar 12.8 Plt Count 283 MPV 8.8 Immature Gran % (Auto) 1.100 H Neut % (Auto) 58.9 Lymph % (Auto) 28.1 [place] % (Auto) 8.7 Eos % (Auto) 2.0 Baso % (Auto) 1.2 H Absolute Neuts (auto) 6.0 Absolute Lymphs (auto) 2.87 Nucleated RBC % 0 Sodium 139 Potassium 4.0 Chloride 109 H Carbon Dioxide 26.0 Anion Gap 4 L BUN 9 Creatinine 1.03 Estim Creat Clear Calc 76.78 Est GFR (MDRD) Af Amer 94 Est GFR (MDRD) Non-Af 78 BUN/Creatinine Ratio 8.7 L Glucose 143 H Calcium 9.3 Troponin I High Sens 29 27 Radiography Chest X-Ray - ED: 1 View and Read by ED Physician (View portable chest x-ray reveals borderline cardiomegaly. There is minor chronic changes noted the lung parenchyma. Wires are noted. There is no effusion or infiltrate noted. There is no curly B-lines noted. Perihilar region is slightly prominent and suspect this is due to rotation. Osseous s) Diagnostic Testing: Clinical Impression(s) from Imaging Studies Chest X-Ray 10/19/23 15:15 IMPRESSION: No acute cardiopulmonary disease. Electronically Signed: Radha Nguyen MD at 16:37 EST , EKG Initial EKG: Attestation: I personally reviewed and interpreted this EKG as follows: Interpretation: Sinus Tachycardia (2. EKG other than the sinus tach is normal. CA interval is 176 ms. QRS duration 68 ms. QT duration 346 ms. [place] is normal.) Treatment and Re-Evaluation :: Did not have any relief with nitroglycerin. Discharge Plan Triage Chief Complaint: Chest Pain ED Provider: Timothy Orellana Dx/Rx/DC Orders Clinical Impression: Midsternal chest pain, Aortic stenosis, Type 2 diabetes mellitus without complication, Atherosclerotic heart disease of [place] coronary artery without angina pectoris, Stented coronary artery, Elevated blood pressure reading with diagnosis of hypertension Instructions: ED Chest Pain, Uncertain Cause Prescriptions: No Action cyanocobalamin (vitamin B-12) 1,000 mcg tablet 1,000 mcg PO DAILY aspirin 81 mg tablet,delayed release (DR/EC) 81 mg PO DAILY Qty: 90 3RF metoprolol succinate 25 mg tablet extended release 24 hr 25 mg PO DAILY Qty: 90 3RF Brilinta 90 mg tablet 90 mg PO BID Qty: 180 3RF Repatha SureClick 140 mg/mL pen injector 140 mg subcut Q2W 90 Days Qty: 7 3RF lisinopril 20 mg tablet 20 mg PO DAILY Qty: 90 3RF pantoprazole 40 mg tablet,delayed release (DR/EC) 20 mg PO BID Patient Comments: Take 1 tablet by mouth once daily. cholecalciferol (vitamin D3) 1,250 mcg (50,000 unit) capsule 1,250 mcg PO 2XW acetaminophen 500 mg tablet 500 mg PO Q6H PRN (Reason: Pain) Patient Comments: Take 1 tablet by mouth every 6 hours as needed for pain. clindamycin HCl [Cleocin HCl] 300 mg capsule 300 mg PO Q6H Qty: 40 0RF tramadol 50 mg tablet 50 mg PO Q4H PRN PRN (Reason: Pain) 3 Days Qty: 20 0RF glipizide 5 mg tablet 5 mg PO BID Qty: 60 2RF Rx Instructions: Hold if glucose less than 130 mg/dl tacrolimus 0.1 % ointment 1 applic TOPICAL Q12H PRN (Reason: PSORIASIS) cyclobenzaprine 10 mg tablet 10 mg PO BID PRN (Reason: muscle spasm) oxycodone 5 mg tablet 10 mg PO Q6H PRN (Reason: pain) 3 Days Qty: 14 0RF Rx Instructions: one or two every six hours as needed for migrane Primary Care Provider: Edin Mcfarland Referrals: Josafat Anderson MD [Med Staff - Active Staff] - 1 Week Edin Mcfarland MD [Primary Care Provider] - Disposition Disposition: Home, Self Care
[2023-10-19] MEDS: Nitroglycerin SL (ED/IMG/CATH) 0.4 MG TABLET SL ×2 (15:07→15:38)
[2023-10-19 15:08] LABS: Absolute Lymphocyte Count 2.87 X10^3/uL (0.83-4.51); Basophil# 0.12 X10^3/uL; Basophil% 1.2 % (0-1); Hematocrit 43.9 % (40-54); Hemoglobin 14.1 g/dL (13.0-16.5); Lymphocyte # 2.87 X10^3/ul (0.83-4.51); Lymphocyte % 28.1 % (19-41); Mean Corp Hgb Conc 32.1 g/dL (32-36); Mean Corpuscular Hgb 31.5 pg (27.0-32.0); Mean Corpuscular Volume 98.2 fL (80-94); Mean Platelet Vol. 8.8 fl (6.2-12.0); Monocyte# 0.89 X10^3/uL; Monocyte% 8.7 % (0-10); NRBC Flagged by Analyzer 0 % (0-5); Neutrophil # 6.02 X10^3/uL (2.7-7.7); Neutrophil % 58.9 % (47-70); Platelet Count 283 K/mm3 (150-450); RBC Distribution Width CV 12.8 % (11.6-14.6); RBC Distribution Width SD 45.4 fl (35.1-43.9); Red Blood Count 4.47 M/mm3 (4.6-6.2); White Blood Count 10.2 K/mm3 (4.4-11.0)
--- NOTE | 2023-10-19 15:15 | RAD_ITS ---
STUDY: X-RAY CHEST REASON FOR EXAM: Male, 63 years old. chest pain TECHNIQUE: Single AP portable view of the chest. 1 COMPARISON: 07/03/2023. FINDINGS: The lungs are clear and expanded. There is no demonstrated pleural abnormality. Mild to moderate cardiomegaly. Normal mediastinum and carlito. Normal visualized pulmonary arteries. Normal visualized aortic arch and descending thoracic aorta. There are diffuse degenerative changes of the visualized thoracic spine. Normal visualized ribs, clavicles, and shoulders. There is no demonstrated abnormality of the visualized soft tissue structures of the upper abdomen. RAD/Chest 1 View (Portable) IMPRESSION: No acute cardiopulmonary disease. Electronically Signed: Radha Ngueyn MD at 16:37 EST ,
[2023-10-19 15:24] LABS: Anion Gap 4 (5-15); BUN 9 mg/dL (7-18); BUN/Creat Ratio 8.7 RATIO (10-20); Calcium,Total 9.3 mg/dL (8.5-10.1); Chloride 109 mmol/L (98-107); Creatinine, Serum 1.03 mg/dL (0.70-1.30); EST Glomerular Filtration Rate 78 mL/min (>60); Est Glom Filt Rate - Afr Amer 94 mL/min (>60); Estimated Creatinine Clearance 76.78 ml/min; Glucose 143 mg/dL (74-106); Sodium Level 139 mmol/L (136-145); Troponin-I HS (w/2H Reflex) 29 pg/mL (3.0-78.0)
[2023-10-19] MEDS: Acetaminophen 325 MG Tablet 650 MG PO (15:31)
[2023-10-19] MEDS: Morphine 4 MG/ML Syringe IV (16:43)
[2023-10-19 17:02] LABS: Reflex Troponin-HS? (from REC) Y
[2023-10-19 17:42] LABS: Troponin-I HS 27 pg/mL (3.0-78.0)
== END 2023-10-19 18:21 | disposition home or self-care (01) ==
PROVIDERS: Emergency Provider Emergency Medicine; PCP Family Medicine; Visit Provider Emergency Medicine
DX: R07.89 Other chest pain (principal); E11.9 Type 2 diabetes mellitus without complications; I25.10 Atherosclerotic heart disease of native coronary artery without angina pectoris; I35.0 Nonrheumatic aortic (valve) stenosis; R03.0 Elevated blood-pressure reading, without diagnosis of hypertension; I25.2 Old myocardial infarction; G47.33 Obstructive sleep apnea (adult) (pediatric); E66.9 Obesity, unspecified; Z87.891 Personal history of nicotine dependence; Z95.5 Presence of coronary angioplasty implant and graft; Z86.718 Personal history of other venous thrombosis and embolism; Z86.711 Personal history of pulmonary embolism
CPT/HCPCS: 71045; 80048; 84484; 85025; 93005; 96374; 99284; A4216

== ENCOUNTER 2024-01-08 14:30 | Emergency (ER) | payer MEDICAID, SELFPAY ==
[2024-01-08] VITALS (7 sets, daily range): BP systolic 103–190; BP diastolic 81–97; PULSE 101–112; RESP 13–20; TEMP 36.6–36.8; O2SAT 93–96
--- NOTE | 2024-01-08 14:56 | EKG12_ITS ---
Test Reason : CP Blood Pressure : / mmHG Vent. Rate : 107 BPM Atrial Rate : 107 BPM P-R Int : 158 ms QRS Dur : 068 ms QT Int : 330 ms P-R-T Axes : 045 044 078 degrees QTc Int : 440 ms Sinus tachycardia Otherwise normal ECG Confirmed by Kj Adkins ([id number]), greeting card editor MIHAELA BRAVO ([id number]) on 01/12/2024 7:07:50 AM Referred By: KULDEEP/ANETA Confirmed By:Kj Adkins
--- NOTE | 2024-01-08 14:56 | RAD_ITS ---
EXAM: XR RIGHT HIP WITH PELVIS WHEN PERFORMED, 2 OR 3 VIEWS CLINICAL INDICATION: injury TECHNIQUE: Two or three views of the right hip with pelvis when performed. COMPARISON: No relevant prior studies available. FINDINGS: BONES/JOINTS: Mild degenerative findings of the right hip. Mild degenerative findings of the left hip. Degenerative findings in the lumbar spine. No displaced fracture. No destructive or sclerotic lesions. Note that overlapping bowel shadows may however obscure fine detail. Sacroiliac joint is unremarkable. No widening of the pubic symphysis. SOFT TISSUES: Unremarkable. No soft tissue swelling or gas. RAD/HIP, UNI W/ Pelvis 2-3 Views IMPRESSION: 1. Mild degenerative findings of the right hip. 2. Mild degenerative findings of the left hip. Electronically Signed: Andres Lees MD at 16:03 EST ,
--- NOTE | 2024-01-08 14:56 | RAD_ITS ---
STUDY: XR Foot Min 3 Views CLINICAL: Male, 63 years old. pain TECHNIQUE: XR Foot Min 3 ViewsLEFT COMPARISON: None. FINDINGS: There is a plantar calcaneal spur. Normal visualized subtalar, talonavicular, calcaneocuboid, tarsal and tarsometatarsal articulations. Normal metatarsi. Normal metatarsophalangeal joint of the great toe. Normal tibial and fibular sesamoid bones. Normal interphalangeal joint of the great toe. Normal phalanges of the great toe. Normal second through fifth metatarsophalangeal joints. Normal interphalangeal joints and phalanges of the lesser toes. The soft tissue structures are unremarkable. RAD/Foot min 3 Views IMPRESSION: There are no acute findings of the foot. Electronically Signed: Andres Lees MD at 16:01 EST ,
--- NOTE | 2024-01-08 15:06 | ED.VIS.CHEST ---
HPI History of Present Illness Chief Complaint: Chest Pain Informant: patient Narrative Narrative: Presents by private vehicle left-sided chest pain rating to his shoulder shortness of breath starting hour prior to arrival. He states getting out of the shower when this started he got dizzy and fell down onto his right hip. Has been having left foot pain for 3 days he denies trauma. He is a diabetic. There is no wounds. Called his billboard poster helper yesterday was told to go to ED due to not having appointments. Said no fevers. Has had 2 coronary stents since May of last year followed by Dr. Anderson. Remote tobacco. Hypertension, diabetes, hyperlipidemia. Is currently on aspirin and Plavix took his morning doses today. Pain sharp 5 out of 10 however is more significant left foot pain. History of colostomy 2013 from colon cancer. Prior Similar Symptoms: Yes and With Prior [place] CVD Risk Factors: Positive for Hypertension, Diabetes and Hypercholesterolemia PE Risk Factors: Negative for Recent Travel/Surgery, Recent Immobilization or Prior DVT or PE [facility] Medical History Acute pain of right hip Allergy to contrast media (used for diagnostic x-rays) Ambulates with cane Anxiety Aortic stenosis Arthritis Back pain BiPAP (biphasic positive airway pressure) dependence BPH (benign prostatic hyperplasia) Cancer Cancer of colon with rectum Depression Dilation of thoracic aorta DVT (deep venous thrombosis) Fall Fatty liver Former smoker Frequent UTI GERD (gastroesophageal reflux disease) History of echocardiogram History of hiatal hernia History of malignant neoplasm of colon in adulthood History of pain when walking History of steroid therapy History of stress test Hyperlipidemia Injury of back Insomnia Morbid obesity Neurogenic bladder, flaccid Obstructive sleep apnea Osteoporosis Parastomal hernia Psoriasis PTSD (post-traumatic stress disorder) Pulmonary embolism Shortness of breath on exertion Syncope and collapse Type 2 diabetes mellitus without complication UTI (urinary tract infection) Vitamin B 12 deficiency Vitamin D deficiency Walker as ambulation aid Wears glasses Home Medications cholecalciferol (vitamin D3) 1,250 mcg (50,000 unit) capsule 1,250 mcg PO 2XW supplement 01/26/23 [History Last Taken 01/08/24] cyanocobalamin (vitamin B-12) 1,000 mcg tablet 1,000 mcg PO DAILY supplement 01/26/23 [History Last Taken 01/08/24] glipizide 5 mg tablet 5 mg PO BID diabetes #60 tabs 05/12/23 [Rx Last Taken 01/08/24] aspirin 81 mg tablet,delayed release 81 mg PO DAILY heart health #90 tabs 05/27/23 [Rx Last Taken 01/08/24] metoprolol succinate 25 mg tablet,extended release 24 hr 25 mg PO DAILY blood pressure #90 tabs 05/27/23 [Rx Last Taken 01/08/24] tacrolimus 0.1 % topical ointment 1 applic topical Q12H PRN PSORIASIS 07/03/23 [History Last Taken 01/08/24] evolocumab 140 mg/mL subcutaneous pen injector (Repatha SureClick) 140 mg subcut Q2W 90 days #7 mL 08/20/23 [Rx Last Taken 12/31/23] clopidogrel 75 mg tablet (Plavix) 75 mg PO QDAY #93 tabs 10/20/23 [Rx Last Taken 01/08/24] acetaminophen 500 mg tablet 500 mg PO Q6H PRN Pain #90 tabs 01/01/24 [Rx Last Taken 01/07/24] baclofen 10 mg tablet 10 mg PO BID PRN muscle spasm 01/01/24 [History Last Taken Unknown] lisinopril 10 mg tablet 10 mg PO DAILY 01/01/24 [History Last Taken 01/08/24] pantoprazole 40 mg tablet,delayed release 40 mg PO BID GERD 01/01/24 [History Last Taken 01/08/24] sumatriptan succinate 100 mg tablet 100 mg PO ONCE PRN migraine headache 01/01/24 [History Last Taken Unknown] oxycodone-acetaminophen 5 mg-325 mg tablet 1 tab PO Q6H PRN PRN Pain 3 days #12 TABLETS 01/08/24 [Rx Last Taken Unknown] ranolazine 500 mg tablet,extended release,12 hr 500 mg PO Q12H 01/08/24 [History Last Taken 01/08/24] Allergy/AdvReac Type Severity Reaction Status Date / Time rosuvastatin Allergy Mild aches Verified 01/08/24 14:33 metformin Allergy Unknown Vomiting Verified 01/08/24 14:33 codeine Allergy Itching Verified 01/08/24 14:33 Iodinated Contrast Media Allergy Vomiting Verified 01/08/24 14:33 Penicillins Allergy Hives Verified 01/08/24 14:33 atorvastatin AdvReac Severe Severe Verified 01/08/24 14:33 myalgias isosorbide AdvReac Intermediate Exacerbates Verified 01/08/24 14:33 migraines Family History Mother No problems noted. Father Heart disease Cancer Grandmother CAD (coronary artery disease) Surgical History H/O resection of rectum History of bowel resection History of cardiac catheterization History of colonoscopy History of creation of ostomy History of esophagogastroduodenoscopy (EGD) History of implantable cardiac defibrillator (ICD) History of surgery on arm History of tonsillectomy and adenoidectomy Stented coronary artery (07/07/23) Social History housing: other details: Lives with a roommate. Smoking Status: Former smoker how long ago did patient quit smoking: Quit 10 years prior, smoked 1 ppd since age 28. alcohol intake: never substance use type: does not use EXAM Physical Exam Const Vital Signs: 01/08/24 14:31 01/08/24 15:14 01/08/24 15:17 Temperature 98.2 F 98.1 F Temperature Source Temporal Oral Pulse Rate 112 H 105 H Respiratory Rate 16 15 Respiratory Effort Normal Blood Pressure 190/97 H 137/84 H Blood Pressure Mean 128 101 Pulse Ox 93 96 Oxygen Delivery Method Room Air Room Air Oxygen Flow Rate (L/min) 01/08/24 14:56 01/08/24 15:50 01/08/24 16:00 Temperature 97.8 F Temperature Source Temporal Pulse Rate 105 H 109 H Respiratory Rate 20 H 13 Respiratory Effort Blood Pressure 151/89 H 131/81 H Blood Pressure Mean 109 97 Pulse Ox 94 Oxygen Delivery Method Nasal Cannula Nasal Cannula Nasal Cannula Oxygen Flow Rate (L/min) 2 2 2 01/08/24 17:00 01/08/24 18:00 01/08/24 18:51 Temperature 98.1 F 98.1 F Temperature Source Temporal Pulse Rate 101 H 101 H 103 H Respiratory Rate 18 20 H 16 Respiratory Effort Blood Pressure 103/86 H 138/81 H 151/86 H Blood Pressure Mean 91 100 107 Pulse Ox 94 94 94 Oxygen Delivery Method Nasal Cannula Nasal Cannula Oxygen Flow Rate (L/min) 2 2 Positive well nourished and well developed General Appearance ED: well developed and NAD HEENT Reports moist mucous membranes normocephalic and atraumatic Eyes PERRL, EOMs intact bilaterally and conjunctivae normal General Eye ED: Yes normal appearance of both eyes Neck no lymphadenopathy and supple General: Negative for tenderness Chest Wall Chest: Negative for tenderness Resp normal respiratory effort and normal air movement Effort and Inspection: symmetric chest movement; Negative for respiratory distress Cardio regular rate, regular rhythm and no murmurs Peripheral Pulses: pulses 2+ throughout GI normal to inspection, nondistended, normoactive bowel sounds and non-tender Palpation: Negative for guarding or rebound tenderness present Back/Spine no CVA tenderness and no thoracic nor lumbar tenderness Extremity Extremity Narrative: Right lower extremity tender palpation lateral right hip no shortening or rotation negative logroll. No ecchymosis. Left lower extremity: Tender palpation plantar aspect distal fascia there is no wound or erythema. Skin is intact. No tenderness of the toes. General Extremety ED: Negative for edema or tenderness General Extremity: Negative for edema Neuro oriented x3 and no sensory deficits noted Sensorium / Orientation: awake and alert Skin no rashes or lesions noted and no wounds MDM MDM MDM Narrative Medical decision making narrative: Interventions / MDM: Differential diagnosis: Diagnosis considered but do not suspect: N/A My EKG interpretation: Sinus rate of 107, no ST or T wave changes. Imaging independently reviewed and interpreted by myself: 2 view chest: No acute process. 3 view right hip and pelvis: Mild arthritic changes. No fractures. 3 view left foot: No acute process. External documents reviewed: Previous heart caths from May 2023 and July 2023, stenting of the proximal LAD and mid LAD respectively. Test considered but not ordered:N/A ED course: Chest pains EKG no acute findings. Cardiac workup initiated. He had a fall with right hip injury along with 3 days of nontraumatic left foot pain. X-rays of hip and foot also ordered. IV Dilaudid for pain control. Patient returned from x-ray, chest pain was improving. 1725: Reevaluation the patient chest pains improved. Initial troponin negative. Reporting more pain in his back with history of back issues currently. Currently being referred to pain management. He is tolerated oxycodone in the past. Will order dose while awaiting for 2-hour troponin. 1850: Remained chest pain-free. Delta repeat troponin negative. Pain more on his back in his foot at this time. Prescription for oxycodone to help with pain control. Avoiding NSAIDs with his recent coronary history. Avoiding steroids due to his diabetic history. Will follow-up with his PCP and his billboard poster helper for outpatient valuation. Also follows with cardiology for his chest pain. I did discuss strict return precautions. All questions were answered. Re-evaluation: stable Disposition discussed with patient/family/significant other: Patient Case discussed with consulting clinician: N/A This note was generated with [employer] dictation software. It may contain incorrect words, spelling, and punctuation that were not noted in checking the note before signing. Lab Data Attestation: I reviewed the patient's lab results. Labs: Laboratory Results - last 24 hr 01/08/24 01/08/24 15:12 17:11 WBC 7.8 RBC 4.72 Hgb 14.9 Hct 44.4 MCV 94.1 H MCH 31.6 MCHC 33.6 RDW Std Deviation 44.9 H RDW Coeff of Mar 13.2 Plt Count 261 MPV 8.9 Immature Gran % (Auto) 1.300 H Neut % (Auto) 65.7 Lymph % (Auto) 21.8 [place] % (Auto) 8.1 Eos % (Auto) 2.2 Baso % (Auto) 0.9 Absolute Neuts (auto) 5.1 Absolute Lymphs (auto) 1.70 Nucleated RBC % 0 PT 13.2 INR 1.0 APTT 25.4 Sodium 137 Potassium 4.1 Chloride 105 Carbon Dioxide 27.0 Anion Gap 5 BUN 13 Creatinine 1.14 Est GFR (MDRD) Af Amer 84 Est GFR (MDRD) Non-Af 69 BUN/Creatinine Ratio 11.4 Glucose 172 H Calcium 9.4 Troponin I High Sens 9 7 Radiography Diagnostic Testing: Clinical Impression(s) from Imaging Studies Foot X-Ray 01/08/24 14:56 IMPRESSION: There are no acute findings of the foot. Electronically Signed: Andres Lees MD at 16:01 EST , Hip/Pelvis X-Ray 01/08/24 14:56 IMPRESSION: 1. Mild degenerative findings of the right hip. 2. Mild degenerative findings of the left hip. Electronically Signed: Andres Lees MD at 16:03 EST , Chest X-Ray 01/08/24 15:35 IMPRESSION: Enlarged heart. Electronically Signed: Andres Lees MD at 16:01 EST , Discharge Plan Triage Chief Complaint: Chest Pain ED Provider: Luis Enrique Resendiz Dx/Rx/DC Orders Clinical Impression: Lumbar strain, Contusion of hip, Plantar fasciitis of left foot, Chest pain Instructions: Understanding Lumbosacral Strain, ED Chest Pain, Uncertain Cause, ED Plantar Fasciitis Prescriptions: New oxycodone-acetaminophen [oxycodone-acetaminophen] 5-325 mg tablet 1 tab PO Q6H PRN PRN (Reason: Pain) 3 Days Qty: 12 0RF No Action cyanocobalamin (vitamin B-12) 1,000 mcg tablet 1,000 mcg PO DAILY aspirin 81 mg tablet,delayed release (DR/EC) 81 mg PO DAILY Qty: 90 3RF metoprolol succinate 25 mg tablet extended release 24 hr 25 mg PO DAILY Qty: 90 3RF Repatha SureClick 140 mg/mL pen injector 140 mg subcut Q2W 90 Days Qty: 7 3RF lisinopril 10 mg tablet 10 mg PO DAILY Patient Comments: TAKE 1 TABLET BY MOUTH EVERY DAY baclofen 10 mg tablet 10 mg PO BID PRN (Reason: muscle spasm) Patient Comments: TAKE 1 TABLET BY MOUTH TWICE A DAY NEEDED sumatriptan succinate 100 mg tablet 100 mg PO ONCE PRN (Reason: migraine headache) Patient Comments: TAKE 1 TAB(100MG) ORAL NEEDED FOR MIGRAINE (AT ONSET) MAY REPEAT IN 2HRS MAX 2 TABS IN 24HRS acetaminophen 500 mg tablet 500 mg PO Q6H PRN (Reason: Pain) Qty: 90 0RF pantoprazole 40 mg tablet,delayed release (DR/EC) 40 mg PO BID cholecalciferol (vitamin D3) 1,250 mcg (50,000 unit) capsule 1,250 mcg PO 2XW glipizide 5 mg tablet 5 mg PO BID Qty: 60 2RF Rx Instructions: Hold if glucose less than 130 mg/dl tacrolimus 0.1 % ointment 1 applic TOPICAL Q12H PRN (Reason: PSORIASIS) ranolazine 500 mg tablet extended release 12 hr 500 mg PO Q12H Patient Comments: TAKE 1 TABLET BY MOUTH TWICE A DAY FOR PLEASE TAKE WITH FOOD clopidogrel [Plavix] 75 mg tablet 75 mg PO QDAY Qty: 93 3RF Rx Instructions: Take 300 mg (4 pills) on day 1 follow-up by 75mg (1 pill) daily starting day 2 Primary Care Provider: Edin Mcfarland Referrals: Josafat Anderson MD [Med Staff - Active Staff] - 3-5 Days Edin Mcfarland MD [Primary Care Provider] - 1 Week Activity Restrictions/Additional Instructions: Cardiac workup negative today. X-ray your right hip negative. X-ray left foot negative. Take pain medication as prescribed. Follow-up with your billboard poster helper to evaluate your left foot concern for plantar fasciitis per there is no signs of infection. If your chest pain returns or worsens, return to the ED for reevaluation. Otherwise follow-up with your therapist rrt. Disposition Disposition: Home, Self Care
[2024-01-08] MEDS: HYDROmorphone 1 MG/ML Syringe IV (15:10)
[2024-01-08 15:26] LABS: Absolute Neutrophil Count 5.1 X10^3/uL (2.0-7.7); Basophil# 0.07 X10^3/uL; Basophil% 0.9 % (0-1); Eosinophil# 0.17 X10^3/uL; Eosinophils% 2.2 % (0-5); Hematocrit 44.4 % (40-54); Hemoglobin 14.9 g/dL (13.0-16.5); Lymphocyte % 21.8 % (19-41); Mean Corp Hgb Conc 33.6 g/dL (32-36); Mean Corpuscular Hgb 31.6 pg (27.0-32.0); Mean Corpuscular Volume 94.1 fL (80-94); Mean Platelet Vol. 8.9 fl (6.2-12.0); Monocyte# 0.63 X10^3/uL; Monocyte% 8.1 % (0-10); NRBC Flagged by Analyzer 0 % (0-5); Neutrophil # 5.14 X10^3/uL (2.7-7.7); Neutrophil % 65.7 % (47-70); Platelet Count 261 K/mm3 (150-450); RBC Distribution Width CV 13.2 % (11.6-14.6); RBC Distribution Width SD 44.9 fl (35.1-43.9); Red Blood Count 4.72 M/mm3 (4.6-6.2); White Blood Count 7.8 K/mm3 (4.4-11.0)
--- NOTE | 2024-01-08 15:35 | RAD_ITS ---
EXAM: XR CHEST, 2 VIEWS CLINICAL INDICATION: chest pain TECHNIQUE: Frontal and lateral views of the chest. COMPARISON: No relevant prior studies available. FINDINGS: LUNGS AND PLEURAL SPACES: Unremarkable. No consolidation or edema. No pneumothorax. No effusion. HEART: Enlarged heart. MEDIASTINUM: Central airways and mediastinal contour are unremarkable. BONES/JOINTS: Unremarkable. No acute fracture. SOFT TISSUES: Unremarkable. RAD/Chest PA and Lateral IMPRESSION: Enlarged heart. Electronically Signed: Andres Lees MD at 16:01 EST ,
[2024-01-08 15:43] LABS: Anion Gap 5 (5-15); BUN 13 mg/dL (7-18); BUN/Creat Ratio 11.4 RATIO (10-20); Calcium,Total 9.4 mg/dL (8.5-10.1); Chloride 105 mmol/L (98-107); Creatinine, Serum 1.14 mg/dL (0.70-1.30); EST Glomerular Filtration Rate 69 mL/min (>60); Est Glom Filt Rate - Afr Amer 84 mL/min (>60); Glucose 172 mg/dL (74-106); Potassium 4.1 mmol/L (3.5-5.1); Prothrombin Time (Protime)PT. 13.2 SECONDS (11.7-14.9); Sodium Level 137 mmol/L (136-145); Troponin-I HS (w/2H Reflex) 9 pg/mL (3.0-78.0)
[2024-01-08 15:44] LABS: Partial Thromboplast Time 25.4 Seconds (24.1-36.2)
[2024-01-08] MEDS: Ondansetron 4 MG/2 ML Vial IV (16:56)
[2024-01-08 17:23] LABS: Reflex Troponin-HS? (from REC) Y
[2024-01-08] MEDS: oxyCODONE 5 MG Tablet PO (17:31)
[2024-01-08 17:56] LABS: Troponin-I HS 7 pg/mL (3.0-78.0)
== END 2024-01-08 18:58 | disposition home or self-care (01) ==
PROVIDERS: Emergency Provider Emergency Medicine; PCP Family Medicine; Visit Provider Emergency Medicine
DX: S39.012A Strain of muscle, fascia and tendon of lower back, initial encounter (principal); E11.9 Type 2 diabetes mellitus without complications; S70.01XA Contusion of right hip, initial encounter; M72.2 Plantar fascial fibromatosis; R07.9 Chest pain, unspecified; I10 Essential (primary) hypertension; E55.9 Vitamin D deficiency, unspecified; G47.33 Obstructive sleep apnea (adult) (pediatric); K21.9 Gastro-esophageal reflux disease without esophagitis; Z87.891 Personal history of nicotine dependence; Z79.82 Long term (current) use of aspirin; Z79.84 Long term (current) use of oral hypoglycemic drugs; Z79.899 Other long term (current) drug therapy; Z95.5 Presence of coronary angioplasty implant and graft; Z86.711 Personal history of pulmonary embolism; Z86.718 Personal history of other venous thrombosis and embolism; W19.XXXA Unspecified fall, initial encounter
CPT/HCPCS: 71046; 73502; 73630; 80048; 84484; 85025; 85610; 85730; 93005; 96374; 96375; 99284; A4216; J2405

== ENCOUNTER 2024-07-04 01:04 | Emergency (ER) | payer MEDICAID, SELFPAY ==
[2024-07-04] VITALS (12 sets, daily range): BP systolic 122–157; BP diastolic 71–90; PULSE 81–102; RESP 15–24; TEMP 36.6–37.2; O2SAT 93–97; BMI 51.8
[2024-07-04] MEDS: proCHLORPERazine 10 MG/2 ML Vial IV (01:30)
[2024-07-04] MEDS: HYDROmorphone 1 MG/ML Syringe IV ×4 (01:30→07:47)
[2024-07-04] MEDS: MethylPREDNISolone 125 MG/2 ML Vial IV (01:40)
[2024-07-04] MEDS: DiphenhydrAMINE 50 MG/ML Syringe IV (01:40)
[2024-07-04] MEDS: 0.9% Normal Saline (1000mL) 1,000 ML 999 ML IV (01:40)
[2024-07-04 01:48] LABS: Absolute Lymphocyte Count 2.36 X10^3/uL (0.83-4.51); Absolute Neutrophil Count 8.8 X10^3/uL (2.0-7.7); Basophil% 0.8 % (0-1); Eosinophil# 0.19 X10^3/uL; Eosinophils% 1.5 % (0-5); Hematocrit 45.1 % (40-54); Hemoglobin 15.5 g/dL (13.0-16.5); Lymphocyte # 2.36 X10^3/ul (0.83-4.51); Lymphocyte % 18.8 % (19-41); Mean Corp Hgb Conc 34.4 g/dL (32-36); Mean Corpuscular Hgb 31.3 pg (27.0-32.0); Mean Corpuscular Volume 90.9 fL (80-94); Mean Platelet Vol. 9.2 fl (6.2-12.0); Monocyte# 1.09 X10^3/uL; Monocyte% 8.7 % (0-10); NRBC Flagged by Analyzer 0 % (0-5); Neutrophil # 8.76 X10^3/uL (2.7-7.7); Neutrophil % 69.6 % (47-70); Platelet Count 335 K/mm3 (150-450); RBC Distribution Width CV 12.7 % (11.6-14.6); RBC Distribution Width SD 41.6 fl (35.1-43.9); Red Blood Count 4.96 M/mm3 (4.6-6.2); White Blood Count 12.6 K/mm3 (4.4-11.0)
--- NOTE | 2024-07-04 02:00 | CT_ITS ---
STUDY: CT ABDOMEN AND PELVIS WITHOUT CONTRAST REASON FOR EXAM: Male, 63 years old patient with abdominal pain and questionable small bowel obstruction (SBO). RADIATION DOSAGE (If Supplied By Facility): CTDIvol = ( 34.29 ) mGy, DLP = ( 2090.30 ) mGycm TECHNIQUE: Transaxial images were obtained from the dome of the diaphragm to the symphysis pubis without oral contrast, and without intravenous contrast. Sagittal and coronal images were reconstructed. Individualized dose optimization techniques were used for this CT. COMPARISON: CT abdomen and pelvis dated August 17, 2017. FINDINGS: There appears to be bilateral basilar dependent atelectasis. The visualized portions of the heart are within normal limits. There is increased epicardial and pericardial fat. There is hepatomegaly with diffuse hepatic enlargement. The liver measures approximately 23.8 cm in greatest dimension. Normal gallbladder and extrahepatic biliary system. Normal spleen. Normal pancreas. Normal bilateral adrenal glands. Normal right kidney. There is mild cortical atrophy of the left kidney, consistent with chronic medical renal disease. Normal visualized stomach. There is no obvious dilated bowel, ascites or pneumoperitoneum. Small bowel has a grossly normal appearance. There is stool and/or gas visible throughout the colon with scattered diverticula. The appendix is visualized and appears normal. Normal abdominal aorta. Normal inferior vena cava. Normal retroperitoneum. Normal urinary bladder. There is left lower quadrant abdominal wall ventral hernia containing colon. Bones appear osteopenic. There is grade 1 spondylolisthesis of L5-S1 with spondylolysis of L5. There is multilevel thoracic spondylosis. There is abnormal heterogeneous attenuation of the sacrum suggesting sequela of insufficiency fractures. The bony pelvis is otherwise within normal limits. CT/Abdomen/Pelvis without Cont IMPRESSION: 1. Findings suggest left lower quadrant anterior abdominal wall ventral hernia with incarcerated colon. There is no evidence for bowel obstruction currently. 2. Findings suggest insufficiency fractures of the bony sacrum. 3. Mild left-sided renal insufficiency. Electronically Signed: Tanika Marie, MD at 2:46 EDT ,
[2024-07-04 02:01] LABS: Lactic Acid 1.7 mmol/L (0.4-1.9)
[2024-07-04 02:05] LABS: AST(SGOT) 18 U/L (15-37); Alanine Aminotransfer ALT/SGPT 32 U/L (16-61); Albumin, Serum 3.9 g/dL (3.2-5.0); Alkaline Phosphatase 107 U/L (45-117); Anion Gap 10 (5-15); BUN 19 mg/dL (7-18); BUN/Creat Ratio 16.8 RATIO (10-20); Bilirubin, Direct 0.22 mg/dL (0.00-0.30); Calcium,Total 9.9 mg/dL (8.5-10.1); Chloride 106 mmol/L (98-107); Creatinine, Serum 1.13 mg/dL (0.70-1.30); EST Glomerular Filtration Rate 70 mL/min (>60); Est Glom Filt Rate - Afr Amer 84 mL/min (>60); Estimated Creatinine Clearance 104.88 ml/min; Glucose 176 mg/dL (74-106); Lipase 27 U/L (13-75); Potassium 4.2 mmol/L (3.5-5.1); Protein, Total 7.9 g/dL (6.4-8.2); Sodium Level 138 mmol/L (136-145)
[2024-07-04] MEDS: DiphenhydrAMINE 50 MG/ML Syringe 25 MG IV (03:24)
--- NOTE | 2024-07-04 03:52 | CT_ITS ---
STUDY: CT ABDOMEN AND PELVIS WITH CONTRAST REASON FOR EXAM: Male, 63 years old patent with abdominal pain and questionable incarcerated hernia. RADIATION DOSAGE (If Supplied By Facility): CTDIvol = ( 21.96 ) mGy, DLP = ( 2131.04 ) mGycm TECHNIQUE: Transaxial images were obtained from the dome of the diaphragm to the symphysis pubis without oral contrast. 100 mL of IV [id number]-370 was administered. Sagittal and coronal images were reconstructed. Individualized dose optimization techniques were used for this CT. COMPARISON: Nonenhanced CT of the abdomen and pelvis dated July 04, 2024. FINDINGS: There appears to be bilateral basilar dependent atelectasis. There is mild prominence of bronchovascular markings suggesting mild pulmonary congestion. The visualized portions of the heart are within normal limits. There are coronary artery vascular calcifications. There is increased epicardial and pericardial fat. There is hepatomegaly with diffuse hepatic enlargement. The liver measures approximately 24.3 cm in greatest dimension. Normal gallbladder and extrahepatic biliary system. Normal spleen. Normal pancreas. Normal bilateral adrenal glands. Normal right kidney. There is mild cortical atrophy of the left kidney, consistent with chronic medical renal disease. Normal visualized stomach. There is no obvious dilated bowel, ascites or pneumoperitoneum. Small bowel has a grossly normal appearance. There is stool and/or gas visible throughout the colon with scattered diverticula. The appendix is visualized and appears normal. Normal abdominal aorta. Normal inferior vena cava. Normal retroperitoneum. Normal urinary bladder. Normal visualized prostate gland. There is left lower quadrant abdominal wall ventral hernia containing short segment of the colon. Bones appear osteopenic. There is grade 1 spondylolisthesis of L5-S1 with spondylolysis of L5. There is multilevel thoracic spondylosis. There is abnormal heterogeneous attenuation of the sacrum suggesting sequela of insufficiency fractures. The bony pelvis is otherwise within normal limits. CT/Abdomen/Pelvis W IV Cont ONLY IMPRESSION: 1. Findings suggest unchanged left lower quadrant anterior abdominal wall ventral hernia with incarcerated colon. There is no evidence for bowel obstruction currently. 2. Findings suggest insufficiency fractures of the bony sacrum. 3. Mild left-sided renal insufficiency. Electronically Signed: Tanika Marie MD at 5:04 EDT ,
--- NOTE | 2024-07-04 05:54 | CT_ITS ---
STUDY: CT ABDOMEN AND PELVIS WITHOUT CONTRAST REASON FOR EXAM: Male, 63 years old. Abdominal pain. RADIATION DOSAGE (If Supplied By Facility): CTDIvol = ( 34.45 ) mGy, DLP = ( 3976.97 ) mGycm TECHNIQUE: Transaxial images were obtained from the dome of the diaphragm to the symphysis pubis without oral contrast, and without intravenous contrast. Sagittal and coronal images were reconstructed. CT scan performed according to ALARA principles. Automated exposure control used during exam. COMPARISON: Prior study dated: 07/04/2024 FINDINGS: Evaluation of the abdominal viscera is limited in the absence of intravenous contrast. Please note that portions of the the left lower quadrant and left lower anterior abdominal wall are excluded from the image. Therefore this area is not well evaluated. If indicated, a repeat scan can be performed. LOWER THORAX: The visualized lung bases are clear. The visualized portions of the heart and pericardium are within normal limits. GALLBLADDER / BILE DUCTS: There are no calcified gallstones present. The common bile duct is normal in caliber. There are no calcified ductal stones. LIVER: The liver is low in density, consistent with fatty infiltration. SPLEEN: The spleen is normal in size. PANCREAS: The pancreas demonstrates an unremarkable unenhanced appearance. ADRENAL GLANDS: The adrenal glands are within normal limits. KIDNEYS / BLADDER: There is urinary contrast noted in the kidneys, collecting system ureters and bladder. There are no obstructing renal or ureteral stones. There is no hydronephrosis. There are no focal renal lesions identified on this noncontrast exam. The urinary bladder is partially distended and appears grossly unremarkable. STOMACH / BOWEL: Normal visualized stomach. There is no bowel obstruction or inflammation. The patient''s known left lower quadrant colostomy is not well-visualized. The appendix is not visualized, but there are no findings to suggest acute appendicitis. PERITONEUM / RETROPERITONEUM: There is no abdominal or pelvic free air, free fluid or fluid collection. There is no abnormal soft tissue mass identified. There is no abdominal or pelvic lymphadenopathy. VESSELS: The aorta is normal in caliber. The IVC is unremarkable. BONES: There are degenerative changes noted in the spine. There are no destructive osseous lesions. SOFT TISSUES: The visualized soft tissues are within normal limits. CT/Abdomen/Pel W ORAL Cont Only IMPRESSION: Please note that portions of the the left lower quadrant and left lower anterior abdominal wall are excluded from the image. Therefore this area is not well evaluated. If indicated, a repeat scan can be performed. The patient''s known left lower quadrant colostomy is not well-visualized. No bowel obstruction or inflammation. No free air, free fluid or fluid collection identified. Electronically Signed: Manuelito Yap MD at 8:20 EDT ,
--- NOTE | 2024-07-04 07:59 | EX.ED.DYSGE1 ---
HPI History of Present Illness Chief Complaint: Abd Pain Informant: patient and EMS Narrative Narrative: Patient is a 63-year-old male with past medical history of coronary artery disease hypertension type 2 diabetes and history of rectal cancer leading to colostomy placement in 2013. Patient states that roughly 2 years ago he had to be admitted to [facility] under the care of Dr. Levine for an incarcerated hernia with small bowel obstruction. He states that around 6 PM today he started feeling nauseous and mild abdominal pain but roughly 1 to 2 hours prior to arrival he began with sharp abdominal pain that felt similar nature to his previous strangulated intestine. Secondary to this EMS was called and he was brought to the hospital for evaluation. [facility] Medical History Syncope and collapse PTSD (post-traumatic stress disorder) BPH (benign prostatic hyperplasia) Vitamin B 12 deficiency Dilation of thoracic aorta GERD (gastroesophageal reflux disease) Type 2 diabetes mellitus without complication Vitamin D deficiency Psoriasis Insomnia Osteoporosis Anxiety Hyperlipidemia Aortic stenosis Wears glasses Cancer History of steroid therapy Walker as ambulation aid Ambulates with cane Arthritis Frequent UTI Fatty liver Pulmonary embolism DVT (deep venous thrombosis) Back pain Injury of back History of hiatal hernia Former smoker BiPAP (biphasic positive airway pressure) dependence Shortness of breath on exertion History of pain when walking History of echocardiogram History of stress test Acute pain of right hip Fall Obstructive sleep apnea Allergy to contrast media (used for diagnostic x-rays) Neurogenic bladder, flaccid UTI (urinary tract infection) Parastomal hernia Cancer of colon with rectum Depression History of malignant neoplasm of colon in adulthood Morbid obesity Home Medications ?Medication ?Instructions ?Recorded ?Last Taken ?Type cholecalciferol (vitamin D3) 1,250 1,250 mcg PO 2XW supplement 01/26/23 01/08/24 History mcg (50,000 unit) capsule cyanocobalamin (vitamin B-12) 1,000 mcg PO DAILY supplement 01/26/23 01/08/24 History 1,000 mcg tablet glipizide 5 mg tablet 5 mg PO BID diabetes #60 tabs 05/12/23 01/08/24 Rx tacrolimus 0.1 % topical ointment 1 applic topical Q12H PRN PSORIASIS 07/03/23 01/08/24 History clopidogrel 75 mg tablet (Plavix) 75 mg PO QDAY #93 tabs 10/20/23 01/08/24 Rx acetaminophen 500 mg tablet 500 mg PO Q6H PRN Pain #90 tabs 01/01/24 01/07/24 Rx pantoprazole 40 mg tablet,delayed 40 mg PO BID GERD 01/01/24 01/08/24 History release sumatriptan succinate 100 mg tablet 100 mg PO ONCE PRN migraine 01/01/24 Unknown History headache aspirin 81 mg tablet,delayed 81 mg PO DAILY #90 TABLETS 04/29/24 Unknown Rx release metoprolol succinate 25 mg 25 mg PO DAILY #90 TABLETS 04/29/24 Unknown Rx tablet,extended release 24 hr lisinopril 10 mg tablet 10 mg PO DAILY #90 TABLETS 06/02/24 Unknown Rx evolocumab 140 mg/mL subcutaneous 140 mg subcut Q2W 90 days #7 mL 06/21/24 Unknown Rx pen injector (Repprettya Lilyick) Allergy/AdvReac Type Severity Reaction Status Date / Time rosuvastatin Allergy Mild aches Verified 07/04/24 01:12 metformin Allergy Unknown Vomiting Verified 07/04/24 01:12 codeine Allergy Itching Verified 07/04/24 01:12 Iodinated Contrast Media Allergy Vomiting Verified 07/04/24 01:12 Penicillins Allergy Hives Verified 07/04/24 01:12 atorvastatin AdvReac Severe Severe Verified 07/04/24 01:12 myalgias isosorbide AdvReac Intermediate Exacerbates Verified 07/04/24 01:12 migraines Family History Mother No problems noted. Father Heart disease Cancer Grandmother CAD (coronary artery disease) Surgical History Stented coronary artery (07/07/23) History of esophagogastroduodenoscopy (EGD) History of colonoscopy History of creation of ostomy History of implantable cardiac defibrillator (ICD) History of cardiac catheterization History of surgery on arm History of tonsillectomy and adenoidectomy H/O resection of rectum History of bowel resection Social History housing: other details: Lives with a roommate. Smoking Status: Former smoker how long ago did patient quit smoking: Quit 10 years prior, smoked 1 ppd since age 28. alcohol intake: never substance use type: does not use ROS ROS ED Constitutional Constitutional ED: Denies chills or fever(s) ENT ENT ED: Denies sore throat Cardiovascular Cardiovascular: Denies chest pain Respiratory/Chest Respiratory/Chest: Denies cough or dyspnea Gastrointestinal Gastrointestinal: Reports abdominal pain, nausea and vomiting Genitourinary Genitourinary ED: Denies dysuria Musculoskeletal Musculoskeletal: Denies myalgias Integumentary Denies rash Neurologic Neurologic: Denies headache(s) Hematologic/Lymphatic Hematologic/Lymphatic: Denies easy bleeding or easy bruising EXAM Physical Exam Const Vital Signs: 07/04/24 01:05 07/04/24 01:12 07/04/24 02:12 Temperature 98.9 F 98.9 F Temperature Source Oral Oral Pulse Rate 102 H 100 88 Respiratory Rate 23 H 19 H 16 Blood Pressure 157/90 H 157/90 H Blood Pressure Mean 112 112 Pulse Ox 95 95 95 Oxygen Delivery Method Room Air Room Air Bi-pap 07/04/24 02:12 07/04/24 03:00 07/04/24 03:00 Temperature 98.9 F 98.2 F Temperature Source Oral Oral Pulse Rate 86 85 87 Respiratory Rate 22 H 20 H 16 Blood Pressure 122/76 H 126/72 H 126/72 H Blood Pressure Mean 91 90 90 Pulse Ox 96 97 97 Oxygen Delivery Method Bi-pap Bi-pap Bi-pap 07/04/24 04:00 07/04/24 05:00 07/04/24 06:00 Temperature Temperature Source Pulse Rate 87 81 91 Respiratory Rate 24 H 20 H 16 Blood Pressure 128/77 H 122/79 H 128/82 H Blood Pressure Mean 94 93 97 Pulse Ox 93 96 94 Oxygen Delivery Method Room Air Bi-pap Room Air 07/04/24 07:00 07/04/24 08:00 Temperature Temperature Source Pulse Rate 91 81 Respiratory Rate 20 H 19 H Blood Pressure 138/71 H 133/83 H Blood Pressure Mean 93 99 Pulse Ox 94 97 Oxygen Delivery Method Room Air Room Air Positive well nourished, well developed and obese General Appearance ED: well developed; Negative for pallor Nutritional Appearance: obese HEENT Reports dry mucous membranes HEENT Narrative: No tongue or lip swelling no oral lesions no airway edema or compromise Mucous membranes are slightly dry intact No secondary findings in the posterior pharynx to suggest infection Mouth ED: Yes dry mucous membranes Mouth: dry mucous membranes Eyes PERRL and EOMs intact bilaterally General Eye ED: Negative for scleral icterus Neck supple Neck Narrative: No nuchal rigidity or meningeal signs noted Resp normal respiratory effort and clear to auscultation bilaterally Resp Narrative: Breath sounds are diminished throughout but overall clear to auscultation without signs of respiratory distress Cardio regular rate and regular rhythm Rate: other Other Details: Radial and carotid pulses are equal and symmetric GI GI Narrative: Abdomen is morbidly obese. Patient has a colostomy in the left mid to lower section of the abdomen. There is diffuse pain with palpation that is mild in nature and worsens around the left lower quadrant. No guarding or rigidity. No pulsatile mass or fluid wave. No increased tympany noted Patient's colostomy does not have output at this time Auscultation: hypoactive bowel sounds Palpation: soft Extremity normal to inspection Neuro oriented x3, CN's II-XII intact bilaterally and no sensory deficits noted Sensorium / Orientation: alert Motor Exam: strength 5/5 throughout Psych mental status grossly normal Skin no rashes or lesions noted General Skin Exam: Negative for jaundice or pallor MDM MDM MDM Narrative Medical decision making narrative: Patient arrived to the ER hypertensive but otherwise afebrile. He reported increasing pain with nausea and had concern for return of incarcerated hernia and bowel obstruction. There is no output in his ostomy which does add concern for this. Therefore in order to assess for small bowel obstruction versus ileus versus intestinal abscess versus intestinal mass versus incarcerated hernia I did elect to perform basic laboratory studies and CT scan. I discussed with patient the need to perform IV contrast as this is a better study and will provide more information. He states that he is afraid to undergo that test as he did have severe hives and difficulty breathing with IV contrast in the past. Therefore elected to perform a CT scan without contrast initially. Radiologist read this as hernia with potential incarceration. The patient was having improvement of symptoms with treatment in the ER and therefore agreed to undergo repeat CT scan with now with IV contrast for an improved picture of his intestine. He was premedicated with 125 Solu-Medrol and a total of 75 mg of Benadryl and after the study did not have any type of allergic reaction or anaphylactic reaction. The radiologist felt that the CT IV contrast showed similar findings of hernia with incarceration. I then contacted general surgeon Dr. Pedroza who reviewed the films and states he is unsure if it is truly an incarcerated hernia or simply a atypical surgical procedure to fix a Jun stomal hernia known as a Sugarbaker technique. He recommends that the patient undergo [address] scan with oral contrast which should definitively per tray if there is incarceration or not. At this time the patient CT scan with oral contrast is still pending. Therefore he will be signed out to the day physician Dr. Vences. If the CT scan does not show signs of incarceration or obstruction as the patient's overall workup is negative and he is hemodynamically stable I feel discharge may be appropriate. However if there is concerns for potential incarceration based on his history of rectal cancer and morbid obesity and previous surgeries being at the [facility] he will need to be transferred back to their facility for further care History & Record Review Discussion w/independent historian: Patient Lab Data Attestation: I reviewed the patient's lab results. Labs: Laboratory Results - last 24 hr 07/04/24 07/04/24 01:23 01:29 WBC 12.6 H RBC 4.96 Hgb 15.5 Hct 45.1 MCV 90.9 MCH 31.3 MCHC 34.4 RDW Std Deviation 41.6 RDW Coeff of Mar 12.7 Plt Count 335 MPV 9.2 Immature Gran % (Auto) 0.600 Neut % (Auto) 69.6 Lymph % (Auto) 18.8 L Craig % (Auto) 8.7 Eos % (Auto) 1.5 Baso % (Auto) 0.8 Absolute Neuts (auto) 8.8 H Absolute Lymphs (auto) 2.36 Nucleated RBC % 0 Sodium 138 Potassium 4.2 Chloride 106 Carbon Dioxide 22.0 Anion Gap 10 BUN 19 H Creatinine 1.13 Estim Creat Clear Calc 104.88 Est GFR (MDRD) Af Amer 84 Est GFR (MDRD) Non-Af 70 BUN/Creatinine Ratio 16.8 Glucose 176 H Lactic Acid 1.7 Calcium 9.9 Total Bilirubin 0.60 Direct Bilirubin 0.22 AST 18 ALT 32 Alkaline Phosphatase 107 Total Protein 7.9 Albumin 3.9 Globulin 4.0 Lipase 27 Radiography Diagnostic Testing: Clinical Impression(s) from Imaging Studies Abdomen/Pelvis CT 07/04/24 02:00 IMPRESSION: 1. Findings suggest left lower quadrant anterior abdominal wall ventral hernia with incarcerated colon. There is no evidence for bowel obstruction currently. 2. Findings suggest insufficiency fractures of the bony sacrum. 3. Mild left-sided renal insufficiency. Electronically Signed: Tanika Marie MD at 2:46 EDT , Abdomen/Pelvis CT 07/04/24 03:52 IMPRESSION: 1. Findings suggest unchanged left lower quadrant anterior abdominal wall ventral hernia with incarcerated colon. There is no evidence for bowel obstruction currently. 2. Findings suggest insufficiency fractures of the bony sacrum. 3. Mild left-sided renal insufficiency. Electronically Signed: Tanika Marie MD at 5:04 EDT , Management Discussion w/another healthcare provider: Associate Brand Manager Discharge Plan Triage Chief Complaint: Abd Pain ED Provider: Jamie Wood Dx/Rx/DC Orders Clinical Impression: Type 2 diabetes mellitus without complication, Hyperlipidemia, Hypertension Prescriptions: No Action cyanocobalamin (vitamin B-12) 1,000 mcg tablet 1,000 mcg PO DAILY Repatha SureClick 140 mg/mL pen injector 140 mg subcut Q2W 90 Days Qty: 7 3RF sumatriptan succinate 100 mg tablet 100 mg PO ONCE PRN (Reason: migraine headache) Patient Comments: TAKE 1 TAB(100MG) ORAL NEEDED FOR MIGRAINE (AT ONSET) MAY REPEAT IN 2HRS MAX 2 TABS IN 24HRS acetaminophen 500 mg tablet 500 mg PO Q6H PRN (Reason: Pain) Qty: 90 0RF pantoprazole 40 mg tablet,delayed release (DR/EC) 40 mg PO BID cholecalciferol (vitamin D3) 1,250 mcg (50,000 unit) capsule 1,250 mcg PO 2XW glipizide 5 mg tablet 5 mg PO BID Qty: 60 2RF Rx Instructions: Hold if glucose less than 130 mg/dl tacrolimus 0.1 % ointment 1 applic TOPICAL Q12H PRN (Reason: PSORIASIS) clopidogrel [Plavix] 75 mg tablet 75 mg PO QDAY Qty: 93 3RF Rx Instructions: Take 300 mg (4 pills) on day 1 follow-up by 75mg (1 pill) daily starting day 2 aspirin 81 mg tablet,delayed release (DR/EC) 81 mg PO DAILY Qty: 90 3RF metoprolol succinate 25 mg tablet extended release 24 hr 25 mg PO DAILY Qty: 90 3RF lisinopril 10 mg tablet 10 mg PO DAILY Qty: 90 1RF Primary Care Provider: Edin Mcfarland Referrals: Edin Mcfarland MD [Primary Care Provider] - Print Language: [place]
== END 2024-07-04 10:30 | disposition home or self-care (01) ==
PROVIDERS: Emergency Provider Emergency Medicine; PCP Family Medicine; Visit Provider Emergency Medicine
DX: E11.9 Type 2 diabetes mellitus without complications (principal); Z93.3 Colostomy status; E78.5 Hyperlipidemia, unspecified; I10 Essential (primary) hypertension; I25.10 Atherosclerotic heart disease of native coronary artery without angina pectoris; G47.33 Obstructive sleep apnea (adult) (pediatric); E66.9 Obesity, unspecified; Z79.899 Other long term (current) drug therapy; Z79.84 Long term (current) use of oral hypoglycemic drugs; Z87.891 Personal history of nicotine dependence
CPT/HCPCS: 74176; 74177; 80048; 80076; 83605; 83690; 85025; 96374; 96375; 96376; 99283; Q9967; A4216

== ENCOUNTER 2025-02-27 15:16 | Inpatient (IN) | payer MEDICAID, SELFPAY ==
[2025-02-27 15:18] VITALS: BP 147/90; PULSE 101; RESP 20; TEMP 36.4; O2SAT 97
[2025-02-27 15:20] VITALS: BMI 52.7
[2025-02-27] MEDS: morphine 10 MG/ML Syringe IM (17:15)
--- NOTE | 2025-02-27 17:56 | ED.VIS.BACK ---
HPI <GILLIAN Juares - Last Filed: 02/27/25 21:46> History of Present Illness Chief Complaint: Back Narrative Narrative: Patient presenting today with pain to his right hip and right lower back after mechanical fall occurred yesterday. He reports that he was ambulating in his house when his right leg gave out causing him to fall onto his right side. He did go to [place] ED and had a CT scan of his pelvis without contrast performed that showed sequelae of bilateral sacral ala insufficiency fractures, no definite fracture of the right hip. He was ultimately discharged home but reports that he has had increased pain to the area and is having a difficult time ambulating. He reports that he had to crawl around his house because he could not walk. He had an appointment today with his PCP but was unable to walk in the office, prompting them to send him here for evaluation. He denies hitting his head during his fall or LOC. [facility] <GILLIAN Juares - Last Filed: 02/27/25 21:46> [facility] Medical History Diabetes Uses wheelchair High cholesterol Difficulty swallowing Sleep apnea Chronic cough Cardiology follow-up encounter Renal insufficiency Hypogonadism male Hydronephrosis of left kidney Encephalomalacia DDD (degenerative disc disease), lumbar Compression fracture of L5 vertebra Carpal tunnel syndrome Altered bowel elimination due to intestinal ostomy Abdominal hernia without obstruction and without gangrene Esophageal dysphagia Syncope and collapse PTSD (post-traumatic stress disorder) BPH (benign prostatic hyperplasia) Vitamin B 12 deficiency Dilation of thoracic aorta GERD (gastroesophageal reflux disease) Type 2 diabetes mellitus without complication Vitamin D deficiency Psoriasis Insomnia Osteoporosis Anxiety Hyperlipidemia Aortic stenosis Wears glasses Cancer History of steroid therapy Walker as ambulation aid Ambulates with cane Arthritis Frequent UTI Fatty liver Pulmonary embolism DVT (deep venous thrombosis) Back pain Injury of back History of hiatal hernia Former smoker BiPAP (biphasic positive airway pressure) dependence Shortness of breath on exertion History of pain when walking History of echocardiogram History of stress test Acute pain of right hip Fall Obstructive sleep apnea Allergy to contrast media (used for diagnostic x-rays) Neurogenic bladder, flaccid UTI (urinary tract infection) Parastomal hernia Cancer of colon with rectum Depression History of malignant neoplasm of colon in adulthood Morbid obesity Home Medications ?Medication ?Instructions ?Recorded ?Last Taken ?Type cholecalciferol (vitamin D3) 1,250 1,250 mcg PO 2XW supplement 01/26/23 01/08/24 History mcg (50,000 unit) capsule glipizide 5 mg tablet 5 mg PO BID diabetes #60 tabs 05/12/23 01/08/24 Rx tacrolimus 0.1 % topical ointment 1 applic topical Q12H PRN PSORIASIS 07/03/23 01/08/24 History acetaminophen 500 mg tablet 500 mg PO Q6H PRN Pain #90 tabs 01/01/24 01/07/24 Rx pantoprazole 40 mg tablet,delayed 40 mg PO BID GERD 01/01/24 01/08/24 History release sumatriptan succinate 100 mg tablet 100 mg PO ONCE PRN migraine 01/01/24 Unknown History headache metoprolol succinate 25 mg 25 mg PO DAILY #90 TABLETS 04/29/24 Unknown Rx tablet,extended release 24 hr lisinopril 10 mg tablet 10 mg PO DAILY #90 TABLETS 06/02/24 Unknown Rx evolocumab 140 mg/mL subcutaneous 140 mg subcut Q2W 90 days #7 mL 06/21/24 Unknown Rx pen injector (Repatha Lilyick) dicyclomine 10 mg capsule 20 mg (2 x 10 mg) PO Q6H PRN PRN 07/04/24 Unknown Rx abdominal discomfort #20 CAPSULES clopidogrel 75 mg tablet (Plavix) 75 mg PO QDAY #90 tabs 07/15/24 Unknown Rx gabapentin 300 mg capsule 300 mg PO TID 09/01/24 Unknown History ondansetron 4 mg disintegrating 4 mg PO Q6H PRN nausea and vomiting 09/01/24 Unknown History tablet cyanocobalamin (vitamin B-12) 1,000 mcg PO DAILY 02/27/25 Unknown History 1,000 mcg sublingual tablet Allergy/AdvReac Type Severity Reaction Status Date / Time rosuvastatin Allergy Mild aches Verified 02/27/25 15:20 metformin Allergy Unknown Vomiting Verified 02/27/25 15:20 codeine Allergy Itching Verified 02/27/25 15:20 Iodinated Contrast Media Allergy Vomiting Verified 02/27/25 15:20 Penicillins Allergy Hives Verified 02/27/25 15:20 atorvastatin AdvReac Severe Severe Verified 02/27/25 15:20 myalgias isosorbide AdvReac Intermediate Exacerbates Verified 02/27/25 15:20 migraines Family History Mother No problems noted. Father Heart disease Cancer Grandmother CAD (coronary artery disease) Surgical History S/P colostomy History of coronary artery stent placement History of carpal tunnel release of both wrists Stented coronary artery (07/07/23) History of esophagogastroduodenoscopy (EGD) History of colonoscopy History of creation of ostomy History of implantable cardiac defibrillator (ICD) History of cardiac catheterization History of surgery on arm History of tonsillectomy and adenoidectomy H/O resection of rectum History of bowel resection Social History housing: other details: Lives with a roommate. Smoking Status: Former smoker how long ago did patient quit smoking: Quit 10 years prior, smoked 1 ppd since age 28. alcohol intake: never substance use type: does not use ROS <GILLIAN Juares - Last Filed: 02/27/25 21:46> ROS ED Constitutional Constitutional ED: Denies chills or fever(s) Cardiovascular Cardiovascular: Denies chest pain Respiratory/Chest Respiratory/Chest: Denies dyspnea Gastrointestinal Gastrointestinal: Denies abdominal pain, nausea or vomiting Genitourinary Genitourinary ED: Denies dysuria, hematuria or urinary urgency Musculoskeletal Musculoskeletal: Reports arthralgias and back pain Integumentary Denies Abrasions Neurologic Neurologic: Denies paresthesias EXAM <GILLIAN Juares - Last Filed: 02/27/25 21:46> Physical Exam Const Vital Signs: 02/27/25 15:18 02/27/25 19:17 02/27/25 20:50 Temperature 97.6 F L 98.3 F Temperature Source Temporal Pulse Rate 101 H 90 87 Respiratory Rate 20 H 20 H 16 Blood Pressure 147/90 H 120/72 Blood Pressure Mean 109 88 Pulse Ox 97 93 Oxygen Delivery Method Room Air Positive well nourished, well developed and no apparent distress General Appearance ED: well developed HEENT Reports normocephalic and head/scalp atraumatic Mouth ED: Yes moist mucous membranes normal Eyes PERRL and EOMs intact bilaterally Neck full ROM and supple Chest Wall inspection of chest normal Resp normal respiratory effort and clear to auscultation bilaterally Cardio regular rate and regular rhythm GI soft to palpation, non-tender, non-distended and no masses Back/Spine normal ROM and normal to inspection Back/Spine Narrative: No midline cervical, thoracic, or lumbar spinal tenderness. Patient has pain to the right low back/right paraspinal muscles. Extremity normal to inspection Extremity Narrative: No overlying rash, decreased range of motion to the right hip due to pain, pain to the greater trochanter, positive logroll on the right, right DP pulse 2+, good cap refill, sensation intact. Neuro oriented x3, CN's II-XII intact bilaterally, moves all extremities, no focal motor deficits and no sensory deficits noted Sensorium / Orientation: awake and alert Psych mental status grossly normal and thought process normal Skin no rashes or lesions noted and no wounds <Dr. Timothy Orellana MD - Last Filed: 02/27/25 21:44> Physical Exam Const Vital Signs: 02/27/25 15:18 02/27/25 19:17 02/27/25 20:50 Temperature 97.6 F L 98.3 F Temperature Source Temporal Pulse Rate 101 H 90 87 Respiratory Rate 20 H 20 H 16 Blood Pressure 147/90 H 120/72 Blood Pressure Mean 109 88 Pulse Ox 97 93 Oxygen Delivery Method Room Air [facility] <GILLIAN Juares - Last Filed: 02/27/25 21:46> [facility] Narrative Medical decision making narrative: Patient presenting today with pain to the right hip/right lower back following a mechanical fall yesterday. I did review his records on clinisync, he was seen at [place] ED and had a CT scan without contrast of the pelvis that showed sequelae of bilateral sacral rabia insufficiency fractures, no definite hip fracture was seen. He does not have any midline tenderness in his back. he was given 10 mg IM morphine and continue to have pain, he requested Dilaudid which I explained was inappropriate. He reported that he is not going to be open go home as he is not able to ambulate because of the pain. Labs will be obtained as well as inflammatory markers, he was given additional analgesia. ESR and CRP are minimally elevated, CBC BMP unremarkable. Given he is having a difficult time ambulating, we will speak with the hospitalist regarding admission to the hospital for PT/OT eval. He will be admitted in stable condition. I have personally performed a face to face assessment of the patient and have reviewed the SHANNON Note. I performed a substantive portion of the visit including all aspects of the following. My hammond findings include: History is remarkable for osteo porosis/osteopenia with prior back surgery and recent ER visit. He had CT of the pelvis and hip which revealed chronic changes involving the sacrum. The hip where he was complaining of pain was negative. This was detailed by the physician education assistant in her note. He states he is unable to bear weight he has to crawl. He denies bladder dysfunction. Patient has a colostomy bag left lower quadrant. He has not noted maroon or black stool. He denies saddle paresthesia or anesthesia. He states when he has to urinate he goes right away and is unable to control it. He denies foot drop prior to this. He has had issues with chronic pain. Pain got worse after a fall. Patient reports pain that radiates to the lateral aspect of his thigh and leg down to his ankle. This crosses many dermatomes. He also complains of some pain anteriorly. Exam is BMI is 52.8. Patient has pain with elevation of his left lower extremity at 20 to 25 degrees. He reports pain on the right side but there is no radicular pain. He has pain on the right side with elevation to 5 to 10 degrees. Patient's patellar reflexes slightly diminished on the right compared to the left. Ankle reflexes symmetric. EHLs intact bilaterally. 5/5 strength plantar and dorsiflexion of the foot. Could not assess for quadricep weakness with 1 legged squat because he is unable to stand. DP pulses 2+ and palpable. Sensation is diminished slightly L5 on the right. He has normal perianal sensation. Medical Decision Making history is consistent with muscular pain. Since patient is unable to ambulate and workup is unremarkable we will contact hospitalist for observation with JOSEPH tamayo. He was on steroids in the remote past. His exam is not consistent with avascular necrosis. When he stands he complains of pain in his right buttocks area. If 1 had pain due to pathology in the hip joint this should be anterior. Oscar Kalia 4 test revealed pain in the proximity of the right SI joint. Other additions or changes: Initially patient was treated with 10 mg of morphine. He states this does not work. I informed him because of his BMI I am reluctant to give him Dilaudid let him go home because of potential complications with hypercapnia and respiratory failure. Since patient is not able to go home he was given a small dose of Dilaudid 0.5 mg when 1 compares it to his total body weight of 167 kg. The discussion by the physician education assistant under the MDM portion of the chart was reviewed. I am in agreement and made suggestions for inflammatory markers etc. Lab Data Attestation: I reviewed the patient's lab results. Labs: Laboratory Results - last 24 hr 02/27/25 19:01 WBC 6.5 RBC 4.26 L Hgb 14.0 Hct 40.3 MCV 94.6 H MCH 32.9 H MCHC 34.7 RDW Std Deviation 45.5 H RDW Coeff of Mar 13.2 Plt Count 279 MPV 8.8 Immature Gran % (Auto) 0.800 Neut % (Auto) 55.9 Lymph % (Auto) 25.6 [place] % (Auto) 11.7 H Eos % (Auto) 5.2 H Baso % (Auto) 0.8 Absolute Neuts (auto) 3.7 Absolute Lymphs (auto) 1.67 Nucleated RBC % 0 ESR 26 H Sodium 137 Potassium 4.5 Chloride 104 Carbon Dioxide 20.3 L Anion Gap 13 BUN 16 Creatinine 1.04 Estim Creat Clear Calc 113.69 Est GFR (MDRD) Non-Af 81 BUN/Creatinine Ratio 15.2 Glucose 140 H Calcium 9.4 C-React Prot Ext Range 15.50 H <Dr. Timothy Orellana MD - Last Filed: 02/27/25 21:44> [facility] Narrative Medical decision making narrative: Patient presenting today with pain to the right hip/right lower back following a mechanical fall yesterday. I did review his records on clinisync, he was seen at [place] ED and had a CT scan without IV contrast of the pelvis that showed sequelae of bilateral sacral rabia insufficiency fractures, no definite hip fracture was seen. He does not have any midline tenderness in his back. he was given 10 mg IM morphine and continue to have pain, he requested Dilaudid which I explained was inappropriate. He reported that he is not going to be open go home as he is not able to ambulate because of the pain. Labs will be obtained as well as inflammatory markers, he was given additional analgesia. I have personally performed a face to face assessment of the patient and have reviewed the SHANNON Note. I performed a substantive portion of the visit including all aspects of the following. My hammond findings include: History is remarkable for osteo porosis/osteopenia with prior back surgery and recent ER visit. He had CT of the pelvis and hip which revealed chronic changes involving the sacrum. The hip where he was complaining of pain was negative. This was detailed by the physician education assistant in her note. He states he is unable to bear weight he has to crawl. He denies bladder dysfunction. Patient has a colostomy bag left lower quadrant. He has not noted maroon or black stool. He denies saddle paresthesia or anesthesia. He states when he has to urinate he goes right away and is unable to control it. He denies foot drop prior to this. He has had issues with chronic pain. Pain got worse after a fall. Patient reports pain that radiates to the lateral aspect of his thigh and leg down to his ankle. This crosses many dermatomes. He also complains of some pain anteriorly. Exam is BMI is 52.8. Patient has pain with elevation of his left lower extremity at 20 to 25 degrees. He reports pain on the right side but there is no radicular pain. He has pain on the right side with elevation to 5 to 10 degrees. Patient's patellar reflexes slightly diminished on the right compared to the left. Ankle reflexes symmetric. EHLs intact bilaterally. 5/5 strength plantar and dorsiflexion of the foot. Could not assess for quadricep weakness with 1 legged squat because he is unable to stand. DP pulses 2+ and palpable. Sensation is diminished slightly L5 on the right. He has normal perianal sensation. Medical Decision Making history is consistent with muscular pain. Since patient is unable to ambulate and workup is unremarkable we will contact hospitalist for observation with OT MARTINA tamayo. He was on steroids in the remote past. His exam is not consistent with avascular necrosis. When he stands he complains of pain in his right buttocks area. If 1 had pain due to pathology in the hip joint this should be anterior. Oscar Kalia 4 test revealed pain in the proximity of the right SI joint. Other additions or changes: Initially patient was treated with 10 mg of morphine. He states this does not work. I informed him because of his BMI I am reluctant to give him Dilaudid let him go home because of potential complications with hypercapnia and respiratory failure. Since patient is not able to go home he was given a small dose of Dilaudid 0.5 mg when 1 compares it to his total body weight of 167 kg. The discussion by the physician education assistant under the MDM portion of the chart was reviewed. I am in agreement and made suggestions for inflammatory markers etc. Lab Data Labs: Laboratory Results - last 24 hr 02/27/25 19:01 WBC 6.5 RBC 4.26 L Hgb 14.0 Hct 40.3 MCV 94.6 H MCH 32.9 H MCHC 34.7 RDW Std Deviation 45.5 H RDW Coeff of Mar 13.2 Plt Count 279 MPV 8.8 Immature Gran % (Auto) 0.800 Neut % (Auto) 55.9 Lymph % (Auto) 25.6 [place] % (Auto) 11.7 H Eos % (Auto) 5.2 H Baso % (Auto) 0.8 Absolute Neuts (auto) 3.7 Absolute Lymphs (auto) 1.67 Nucleated RBC % 0 ESR 26 H Sodium 137 Potassium 4.5 Chloride 104 Carbon Dioxide 20.3 L Anion Gap 13 BUN 16 Creatinine 1.04 Estim Creat Clear Calc 113.69 Est GFR (MDRD) Non-Af 81 BUN/Creatinine Ratio 15.2 Glucose 140 H Calcium 9.4 C-React Prot Ext Range 15.50 H Discharge Plan Dx/Rx/DC Orders Clinical Impression: Chronic right-sided low back pain, Hyperlipidemia, Type 2 diabetes mellitus without complication, History of rectal cancer, Hypertension, Inability to ambulate due to right hip, Adult BMI 50.0-59.9 kg/sq m Disposition Disposition: Acute Care Hospital [facility]
--- NOTE | 2025-02-27 18:00 | ED.RN ---
PT STATES TO THIS RN THAT SINCE UNDERGOING CHEMOTHERAPY MORPHINE DOES NOT WORK FOR PT,
[2025-02-27] MEDS: HYDROmorphone 0.5 MG/0.5 ML SYRINGE IV (19:07)
[2025-02-27 19:17] VITALS: PULSE 90; RESP 20
[2025-02-27 19:34] LABS: Absolute Lymphocyte Count 1.67 X10^3/uL (0.83-4.51); Absolute Neutrophil Count 3.7 X10^3/uL (2.0-7.7); Basophil# 0.05 X10^3/uL; Basophil% 0.8 % (0-1); Eosinophil# 0.34 X10^3/uL; Eosinophils% 5.2 % (0-5); Hematocrit 40.3 % (40-54); Lymphocyte # 1.67 X10^3/ul (0.83-4.51); Lymphocyte % 25.6 % (19-41); Mean Corp Hgb Conc 34.7 g/dL (32-36); Mean Corpuscular Hgb 32.9 pg (27.0-32.0); Mean Corpuscular Volume 94.6 fL (80-94); Mean Platelet Vol. 8.8 fl (6.2-12.0); Monocyte# 0.76 X10^3/uL; Monocyte% 11.7 % (0-10); NRBC Flagged by Analyzer 0 % (0-5); Neutrophil # 3.65 X10^3/uL (2.7-7.7); Neutrophil % 55.9 % (47-70); Platelet Count 279 K/mm3 (150-450); RBC Distribution Width CV 13.2 % (11.6-14.6); RBC Distribution Width SD 45.5 fl (35.1-43.9); Red Blood Count 4.26 M/mm3 (4.6-6.2); White Blood Count 6.5 K/mm3 (4.4-11.0)
[2025-02-27 19:38] LABS: Erythrocyte Sedimentation Rate 26 mm/hr (0-20)
[2025-02-27 19:48] LABS: Anion Gap 13 (5-15); BUN 16 mg/dL (4-19); BUN/Creat Ratio 15.2 RATIO (10-20); Calcium,Total 9.4 mg/dL (7.6-11.0); Carbon Dioxide 20.3 mmol/L (21.0-32.0); Chloride 104 mmol/L (98-108); Creatinine, Serum 1.04 mg/dL (0.70-1.20); EST Glomerular Filtration Rate 81 (>60); Estimated Creatinine Clearance 113.69 ml/min (50-250); Glucose 140 mg/dL (70-99); Potassium 4.5 mmol/L (3.3-5.1); Sodium Level 137 mmol/L (133-145)
[2025-02-27 20:50] VITALS: BP 120/72; PULSE 87; RESP 16; TEMP 36.8; O2SAT 93
--- NOTE | 2025-02-27 21:09 | HP.PCM_ITS ---
[facility] - General General Date of Admission: 02/27/25 Date of Service: 02/27/25 Chief Complaint: Fall with injury, now unable to ambulate HPI Narrative ERNA PALMA, is a 64 M who presents to the emergency room with chief complaint of fall yesterday after which he had pain in his right hip and right lower back. He reports this as being a mechanical fall for which she sought care at the [place] emergency department and had a CT scan of the pelvis without contrast performed that showed sequelae of bilateral rabia insufficiency fractures no definitive fracture of the right hip. After discharge from the emergency room in [place] he developed more pain and was unable to ambulate around his house. He states he had to crawl to get around. He went to see his primary care physician today but was unable to walk in the office prompting them to send here for evaluation. Patient denies any chest pain, shortness of breath, fevers or chills. He does have a significant history of colon cancer status post surgery now with stoma, also history of urinary incontinence and morbid obesity. Patient will be admitted for pain control will obtain new x-ray of right hip and order physical therapy evaluation assessment in the morning to assist with ambulation. [facility] Medical History Diabetes Uses wheelchair High cholesterol Difficulty swallowing Sleep apnea Chronic cough Cardiology follow-up encounter Renal insufficiency Hypogonadism male Hydronephrosis of left kidney Encephalomalacia DDD (degenerative disc disease), lumbar Compression fracture of L5 vertebra Carpal tunnel syndrome Altered bowel elimination due to intestinal ostomy Abdominal hernia without obstruction and without gangrene Esophageal dysphagia Syncope and collapse PTSD (post-traumatic stress disorder) BPH (benign prostatic hyperplasia) Vitamin B 12 deficiency Dilation of thoracic aorta GERD (gastroesophageal reflux disease) Type 2 diabetes mellitus without complication Vitamin D deficiency Psoriasis Insomnia Osteoporosis Anxiety Hyperlipidemia Aortic stenosis Wears glasses Cancer History of steroid therapy Walker as ambulation aid Ambulates with cane Arthritis Frequent UTI Fatty liver Pulmonary embolism DVT (deep venous thrombosis) Back pain Injury of back History of hiatal hernia Former smoker BiPAP (biphasic positive airway pressure) dependence Shortness of breath on exertion History of pain when walking History of echocardiogram History of stress test Acute pain of right hip Fall Obstructive sleep apnea Allergy to contrast media (used for diagnostic x-rays) Neurogenic bladder, flaccid UTI (urinary tract infection) Parastomal hernia Cancer of colon with rectum Depression History of malignant neoplasm of colon in adulthood Morbid obesity Home Medications ?Medication ?Instructions ?Recorded ?Last Taken ?Type cholecalciferol (vitamin D3) 1,250 1,250 mcg PO 2XW hamlin pplement 01/26/23 01/08/24 History mcg (50,000 unit) capsule glipizide 5 mg tablet 5 mg PO BID diabetes #60 tab s 05/12/23 01/08/24 Rx tacrolimus 0.1 % topical ointment 1 applic topical Q12 H PRN PSORIASIS 07/03/23 01/08/24 History acetaminophen 500 mg tablet 500 mg PO Q6H PRN Pain #90 tabs 01/01/24 01/07/24 Rx pantoprazole 40 mg tablet,delayed 40 mg PO BID GERD 01/08/24 History release sumatriptan succinate 100 mg tablet 100 mg PO ONCE PRN migraine 01/01/24 Unknown History headache metoprolol succinate 25 mg 25 mg PO DAILY #90 TABLETS 04/29/24 Unknown Rx tablet,extended release 24 hr lisinopril 10 mg tablet 10 mg PO DAILY #90 TABLETS 0 06/02/24 Unknown Rx evolocumab 140 mg/mL subcutaneous 140 mg subcut Q2W 90 days #7 mL 06/21/24 Unknown Rx pen injector (Tu Loza) dicyclomine 10 mg capsule 20 mg (2 x 10 mg) PO Q6H PRN PRN 07/04/24 Unknown Rx abdominal discomfort #20 CAPSULES clopidogrel 75 mg tablet (Plavix) 75 mg PO QDAY #90 ta bs 07/15/24 Unknown Rx gabapentin 300 mg capsule 300 mg PO TID 09/01/24 Unkno wn History ondansetron 4 mg disintegrating 4 mg PO Q6H PRN nausea and vomiting 09/01/24 Unknown History tablet cyanocobalamin (vitamin B-12) 1,000 mcg PO DAILY 02/27 Unknown History 1,000 mcg sublingual tablet Allergy/AdvReac Type Severity Reaction Status Date / Time rosuvastatin Allergy Mild aches Verified 02/27/25 15:20 metformin Allergy Unknown Vomiting Verified 02/27/25 15:20 codeine Allergy Itching Verified 02/27/25 15:20 Iodinated Contrast Media Allergy Vomiting Verified 02/27/25 15:20 Penicillins Allergy Hives Verified 02/27/25 15:20 atorvastatin AdvReac Severe Severe Verified 02/27/25 15:20 myalgias isosorbide AdvReac Intermediate Exacerbates Verified 02/27/25 15:20 migraines Family History Mother No problems noted. Father Heart disease Cancer Grandmother CAD (coronary artery disease) Surgical History S/P colostomy History of coronary artery stent placement History of carpal tunnel release of both wrists Stented coronary artery (07/07/23) History of esophagogastroduodenoscopy (EGD) History of colonoscopy History of creation of ostomy History of implantable cardiac defibrillator (ICD) History of cardiac catheterization History of surgery on arm History of tonsillectomy and adenoidectomy H/O resection of rectum History of bowel resection Social History housing: other details: Lives with a roommate. Smoking Status: Former smoker how long ago did patient quit smoking: Quit 10 years prior, smoked 1 ppd since age 28. alcohol intake: never substance use type: does not use ROS Constitutional Constitutional: Denies change in weight, chills or fever(s) Eyes Eyes: Denies blurry vision ENT HEENT: Denies abnormal hearing Cardiovascular Cardiovascular: Denies chest pain Respiratory/Chest Respiratory/Chest: Denies cough or shortness of breath at rest Gastrointestinal Gastrointestinal: Reports abdominal pain Genitourinary Genitourinary: Reports urinary incontinence Musculoskeletal Musculoskeletal: Reports back pain, extremity pain, joint pain, joint stiffness and limited range of motion Integumentary Integumentary: Denies dry skin Neurologic Neurologic: Reports abnormal gait Psychiatric Psychiatric: Denies anxiety Vital Signs Vital Signs Vital Signs: 02/27/25 15:18 02/27/25 19:17 02/27/25 20:50 Temperature 97.6 F L 98.3 F Temperature Source Temporal Pulse Rate 101 H 90 87 Respiratory Rate 20 H 20 H 16 Blood Pressure 147/90 H 120/72 Blood Pressure Mean 109 88 Pulse Ox 97 93 Oxygen Delivery Method Room Air Weight Weight: 367 lb 15.224 oz Body Mass Index (BMI) 52.7 Physical Exam Const alert and oriented x3 General Appearance: cooperative and well developed HEENT normocephalic and head/scalp atraumatic Eyes PERRL Neck no lymphadenopathy Lymph Lymphatic: no lymphadenopathy noted Resp normal respiratory effort, normal air movement and clear to auscultation bilaterally Cardio regular rate, regular rhythm, S1 normal heart sound and S2 normal heart sound GI soft to palpation Extremity Extremity Narrative: Lower back pain palpated, no deformity, positive straight leg test on the right, decreased range of motion of right hip. Unable to examine fully due to pain Skin General Skin Exam: no breakdown Neuro no focal motor deficits and no sensory deficits noted Speech: speech normal Psych thought process normal Appearance: appropriate Results Lab / Micro Data 02/27/25 19:01 02/27/25 19:01 Labs: Laboratory Results - last 24 hr 02/27/25 19:01: WBC 6.5, RBC 4.26 L, Hgb 14.0, Hct 40.3, MCV 94.6 H, MCH 32.9 H, MCHC 34.7, RDW Std Deviation 45.5 H, RDW Coeff of Mar 13.2, Plt Count 279, MPV 8.8, Immature Gran % (Auto) 0.800, Neut % (Auto) 55.9, Lymph % (Auto) 25.6, [place] % (Auto) 11.7 H, Eos % (Auto) 5.2 H, Baso % (Auto) 0.8, Absolute Neuts (auto) 3.7, Absolute Lymphs (auto) 1.67, Nucleated RBC % 0, ESR 26 H, Sodium 137, Potassium 4.5, Chloride 104, Carbon Dioxide 20.3 L, Anion Gap 13, BUN 16, Creatinine 1.04, Estim Creat Clear Calc 113.69, Est GFR (MDRD) Non-Af 81, BUN/Creatinine Ratio 15.2, Glucose 140 H, Calcium 9.4, C-React Prot Ext Range 15.50 H Assessment & Plan Assessment/Plan (1) Lumbar strain: (2) Fall with injury: (3) Right hip pain: (4) History of rectal cancer: (5) Type 2 diabetes mellitus without complication: (6) Hyperlipidemia: QUALIFIERS: Hyperlipidemia type: mixed hyperlipidemia Qualified Code(s): E78.2 - Mixed hyperlipidemia (7) Hypertension: QUALIFIERS: Hypertension type: primary hypertension Qualified Code(s): I10 - Essential (primary) hypertension PLAN: Plan 1. Fall with injury?patient unable to ambulate?admit patient to medical surgical floor with pain control will give Dilaudid 1 mg IV every 3 hours as needed severe pain. Order hip x-ray right, PT evaluation in the a.m. to assist with ambulation. 2. Diabetes?continue routine home medications 3. Hyperlipidemia?continue statin medication 4. Hypertension?continue routine antihypertensive medications from home 5. History of coronary artery disease noted?patient denies any chest pain at this present time 6. DVT prophylaxis?low molecular weight heparin Charges/Coding Visit Charges OBSV E&M: 77559 Observ/hosp same date L2
--- NOTE | 2025-02-27 21:40 | RAD_ITS ---
PROCEDURE: HIP, UNI W/ PELVIS 2-3 VIEWS 02/27/2025 REASON FOR EXAM: RIGHT HIP PAIN TECHNIQUE: Three views of the right hip COMPARISON: 01/08/2024 FINDINGS: Bones: No acute fracture. Decreased femoral head neck offset predisposing to cam type femoroacetabular impingement. Joints: Moderate joint space narrowing consistent with moderate arthrosis. Soft tissues: Soft tissues are unremarkable. Other: RAD/HIP, UNI W/ Pelvis 2-3 Views IMPRESSION: DEGENERATIVE OSTEOARTHROSIS. NO ACUTE FINDINGS. Reading Location: [id number]
[2025-02-27 23:05] VITALS: BMI 52.9
[2025-02-27 23:12] VITALS: BP 141/85; PULSE 102; RESP 24; TEMP 36.8; O2SAT 94
[2025-02-28] MEDS: 0.9% Saline Lock 10 ML Syringe IV ×4 (00:01→13:41)
[2025-02-28 03:20] VITALS: BP 93/58; PULSE 95; RESP 16; TEMP 36.6; O2SAT 96
[2025-02-28] MEDS: Acetaminophen 500 MG Tablet PO (03:22)
[2025-02-28] MEDS: HYDROmorphone 1 MG/ML Syringe IV ×2 (04:30)
[2025-02-28 05:17] LABS: Bedside Glucose 154 mg/dL (74-106)
[2025-02-28] MEDS: Gabapentin 300 MG Capsule PO ×4 (06:45→21:36)
[2025-02-28] MEDS: HYDROmorphone 1 MG/ML Syringe 0.5 MG IV ×3 (08:52→20:43)
[2025-02-28] MEDS: Pantoprazole Sodium 40 MG Tablet PO ×3 (08:55→20:47)
[2025-02-28] MEDS: Clopidogrel Bisulfate 75 MG Tablet PO (08:55)
[2025-02-28] MEDS: Cyanocobalamin 500 MCG Tablet 1000 MCG PO (08:56)
[2025-02-28 08:57] VITALS: BP 111/67; PULSE 100
[2025-02-28] MEDS: Metoprolol(XL)Succ 25 MG Tablet PO (08:57)
[2025-02-28] MEDS: Lisinopril 10 MG Tablet PO (08:57)
[2025-02-28] MEDS: Enoxaparin 40 MG/0.4 ML Syringe SC (08:58)
[2025-02-28 09:20] VITALS: BP 111/67; PULSE 100; RESP 16; TEMP 37; O2SAT 96
--- NOTE | 2025-02-28 10:38 | PCM.PN.HOSP ---
Reason for Visit Reason for Visit: Diagnoses Type 2 diabetes mellitus without complications (02/27/25) Mixed hyperlipidemia (02/27/25) Essential (primary) hypertension (02/27/25) Pain in right hip (02/27/25) Strain of muscle, fascia and tendon of lower back, initial encounter (02/27/25) Unspecified fall, initial encounter (02/27/25) Personal history of other malignant neoplasm of rectum, rectosigmoid junction, and anus (02/27/25) Subjective Subjective Saw patient bedside this morning. Patient was sitting back in bed and appeared comfortable at rest but then appeared to have moderate to severe pain in his low back with much of any movement. He was conversing normally. Noted that he has chronic low back pain and follows with pain management in [place]. Was previously getting steroid injections and then had a nerve ablation done in the back about 3 months ago. Said he was doing well after the ablation until this fall. States the pain medications he has been given so far have been mildly helpful for him. No other acute concerns this morning. Objective Data Objective Data Vital Signs: Vital Signs Temp Pulse Resp BP Pulse Ox O2 Del Method 98.6 F 100 16 111/67 96 Room Air 02/28/25 09:20 02/28/25 09:20 02/28/25 09:20 02/28/25 09:20 02/28/25 09:20 02/28/25 09:20 Oxygen Delivery Method Room Air Weight: 167.5 kg Body Mass Index (BMI) 52.9 Intake & Output: Intake and Output for Last 24 Hours 02/26/25 02/27/25 02/28/25 23:59 23:59 23:59 Intake Total 800 / 800 Balance 800 / 800 Lab / Micro Data 02/27/25 19:01 02/27/25 19:01 Labs: Laboratory Results - last 24 hr 02/27/25 19:01: WBC 6.5, RBC 4.26 L, Hgb 14.0, Hct 40.3, MCV 94.6 H, MCH 32.9 H, MCHC 34.7, RDW Std Deviation 45.5 H, RDW Coeff of Mar 13.2, Plt Count 279, MPV 8.8, Immature Gran % (Auto) 0.800, Neut % (Auto) 55.9, Lymph % (Auto) 25.6, [place] % (Auto) 11.7 H, Eos % (Auto) 5.2 H, Baso % (Auto) 0.8, Absolute Neuts (auto) 3.7, Absolute Lymphs (auto) 1.67, Nucleated RBC % 0, ESR 26 H, Sodium 137, Potassium 4.5, Chloride 104, Carbon Dioxide 20.3 L, Anion Gap 13, BUN 16, Creatinine 1.04, Estim Creat Clear Calc 113.69, Est GFR (MDRD) Non-Af 81, BUN/Creatinine Ratio 15.2, Glucose 140 H, Calcium 9.4, C-React Prot Ext Range 15.50 H 02/28/25 04:58: POC Glucose 154 H Radiography Diagnostic Testing: Radiology Impression Hip/Pelvis X-Ray 02/27/25 21:40 IMPRESSION: DEGENERATIVE OSTEOARTHROSIS. NO ACUTE FINDINGS. Reading Location: [facility] Physical Exam Const alert, oriented x3 and no apparent distress Constitutional Narrative: Upper middle-aged male, class obesity, sitting back comfortably in bed, conversing normally, in no acute distress. General Appearance: cooperative and comfortable HEENT normocephalic, head/scalp atraumatic, hearing grossly normal bilaterally, nasal mucous membranes and turbinates normal and moist oral mucous membranes Eyes PERRL, EOMs intact bilaterally and conjunctivae normal Neck full ROM Chest inspection of chest normal Resp normal respiratory effort, normal air movement, no use of accessory muscles and clear to auscultation bilaterally Cardio regular rate, regular rhythm, no murmurs and peripheral pulses 2+ throughout GI normal to inspection, nondistended, normoactive bowel sounds, soft to palpation, non-tender and non-distended Back/Spine Back/Spine Narrative: Moderate to severe pain with motion of the low back noted. Mild tenderness to palpation diffusely in the low back. No spinal tenderness noted. Extremity normal to inspection and no pedal edema Skin no rashes or lesions noted Psych mental status grossly normal Assessment & Plan Assessment/Plan (1) Acute on chronic low back pain: (2) Difficulty in walking: PLAN: Plan Patient is a 64-year-old male who presented to [facility] ED on 02/27/2025 with worsening low back pain and difficulty with ambulation after a recent fall at home. 1. Acute on chronic low back pain and difficulty with ambulation after a mechanical fall at home ? PT/OT/case management following. History of chronic low back pain, follows with pain management in [place]. Had recent mechanical fall at home with subsequent significant low back pain and difficulty with ambulation. Hip/pelvis x-ray with no fractures, only degenerative changes noted. Borderline therapy scores noted on 02/28. Patient continues to have significant low back pain with only mild to moderate improvement with the medications. Will keep hospitalized through tomorrow for intractable back pain and monitor for improvement. If no improvement, will likely need pain management consult here. Chronic medical conditions: ? Class III obesity: BMI 53 on admit. Encouraged weight loss. Complicates hospital course, care and prognosis. ? CARLOS: Continue home BiPAP at night. ? History of CAD with stenting, hypertension, hyperlipidemia: Stable. Continue home Plavix, Toprol, lisinopril and Repatha. ? Type 2 diabetes mellitus with neuropathy: Hold home glipizide. Treated with sliding scale insulin with meals while inpatient, adjust as needed. Continue home gabapentin. ? History of dysphagia, GERD: History of EGD with esophageal dilation done in in late 2023. Denies any issues with dysphagia recently. Continue home PPI. ? History of colorectal cancer with colon resection and permanent colostomy DVT prophylaxis: Lovenox twice daily CODE STATUS: Full code, verified Expected disposition: Home with home health care, 1 to 2 days Total clinical time spent by myself addressing the patient's medical issues, reviewing all the data, and collaborating with patient's care team: 35 minutes. Charges/Coding Visit Charges Inpatient E&M: 04250 [facility] Hosp L2
--- NOTE | 2025-02-28 11:26 | CASEMGMT ---
Discharge Planning A list of?HH providers including quality and resource use data and consistent with the patient's preferred geographic region, medical needs, and insurance network was created in [facility] Guide.? This list was provided to the RN ZAC. Ashley Ibarra, Discharge Planning Asst.
[2025-02-28] MEDS: oxyCODONE 5 MG Tablet PO ×2 (12:43→16:56)
[2025-02-28] MEDS: Insulin Lispro 100 UNIT/ML INSULN.PEN SC ×3 (12:44→21:52)
--- NOTE | 2025-02-28 12:52 | CASEMGMT ---
Addendum entered by Latonia Granda 02/28/25 14:06: [facility] has accepted pt for services. Updated pt and placed on dc instructions. Original Note: RN CM into pt room, pt sitting up in chair in no distress. Discussed with pt his therapy eval, pt is interested in HHC at home for PT only. Pt states he lives in a mobile home with 6 steps to enter with a rail. Pt reports he has a cane, couple of walkers and a bipap. Pt has had [facility]. Pt has a colostomy that he is indep in caring for and gets his supplies from [employer]. Pt provided with a list of [employer] provided by DC clinical assistant professor. Pt has chosen 1. [facility] 2. [facility] 3. [facility]. Referral sent to [facility] via careport at this time.
[2025-02-28 12:55] LABS: Bedside Glucose 179 mg/dL (74-106)
--- NOTE | 2025-02-28 13:24 | CHAPLAIN ---
Type of Pastoral Visit _x__ Initial Visit ___ Follow-up Visit ___ On-call Visit ___ General Patient Visit ___ Spiritual Assessment ___ Family Conference ___ Bereavement ___ Rapid Response ___ Code Blue ___ Other (describe below) Pastoral Care Referral From _x__ Patient ___ Family ___ Nurse ___ Physician ___ Swimming Pool Maintenance ___ Welcome Hostess ___ Other (describe below) Sacrament/Intervention _x__ Active listening ___ Anointing ___ Hoahaoism ___ Bereavement ___ Communion _x__ Priscilla exploration ___ _x__ Life review _x__ Prayer ___ Reconciliation ___ Sacrament of Sick _x__ Supportive presence ___ Wedding ___ Other (describe below) Pastoral Comments patient stated a couple of time of how much he valued the time just to be able to talk to someone; pt is expressive about his health situation and the changes, which will be difficult but necessary, to achieve; pt gives some life review and explains the tragedies of losing a brother, a sister, and a daughter already; pt has come through cancer and has been relying more on his priscilla in God and how God helps in times like these; pt has some baggage from biological family but finds his source of hope in God; pt welcomes prayers, presence, and future visits
[2025-02-28] MEDS: cycloBENZAPRine HCl 5 MG TABLET PO ×2 (13:40→21:34)
[2025-02-28] MEDS: Acetaminophen 500 MG Tablet 1000 MG PO ×2 (13:40→20:47)
[2025-02-28 16:37] VITALS: BP 105/67; PULSE 96; RESP 16; TEMP 37.2; O2SAT 96
[2025-02-28 16:46] LABS: Bedside Glucose 207 mg/dL (74-106)
[2025-02-28 22:00] VITALS: BP 124/77; PULSE 91; RESP 16; TEMP 36.9; O2SAT 93
[2025-02-28 22:38] LABS: Bedside Glucose 168 mg/dL (74-106)
[2025-02-28 23:00] VITALS: PULSE 91; RESP 16
[2025-03-01] MEDS: HYDROmorphone 1 MG/ML Syringe 0.5 MG IV ×2 (00:32→06:16)
[2025-03-01 05:59] VITALS: BP 157/74; PULSE 92; RESP 16; TEMP 37; O2SAT 94
[2025-03-01] MEDS: Gabapentin 300 MG Capsule PO ×3 (06:05→21:44)
[2025-03-01] MEDS: Acetaminophen 500 MG Tablet 1000 MG PO ×3 (06:05→21:40)
[2025-03-01 06:51] LABS: Bedside Glucose 143 mg/dL (74-106)
[2025-03-01 07:51] LABS: Hematocrit 40.8 % (40-54); Hemoglobin 13.9 g/dL (13.0-16.5); Mean Corp Hgb Conc 34.1 g/dL (32-36); Mean Corpuscular Hgb 32.5 pg (27.0-32.0); Mean Corpuscular Volume 95.3 fL (80-94); Platelet Count 273 K/mm3 (150-450); RBC Distribution Width CV 13.2 % (11.6-14.6); RBC Distribution Width SD 45.7 fl (35.1-43.9); Red Blood Count 4.28 M/mm3 (4.6-6.2); White Blood Count 6.7 K/mm3 (4.4-11.0)
[2025-03-01 08:14] LABS: Anion Gap 13 (5-15); BUN 17 mg/dL (4-19); BUN/Creat Ratio 15.6 RATIO (10-20); Calcium,Total 9.4 mg/dL (7.6-11.0); Carbon Dioxide 20.5 mmol/L (21.0-32.0); Chloride 102 mmol/L (98-108); Creatinine, Serum 1.07 mg/dL (0.70-1.20); EST Glomerular Filtration Rate 78 (>60); Estimated Creatinine Clearance 110.74 ml/min (50-250); Glucose 162 mg/dL (70-99); Potassium 4.3 mmol/L (3.3-5.1); Sodium Level 135 mmol/L (133-145)
[2025-03-01 08:27] VITALS: BP 145/77; PULSE 103; RESP 16; TEMP 36.7; O2SAT 93
--- NOTE | 2025-03-01 10:19 | CASEMGMT ---
Addendum entered by Latonia Granda 03/01/25 14:29: CLEM FRANK into pt room, pt is requesting a shower chair rx. Pt states he will obtain on his own. He is aware that RN ZAC will obtain this rx upon rounds in the morning. Pt denies any further needs. Original Note: [facility] that pt will stay tonight and plan for dc tomorrow.
[2025-03-01] MEDS: oxyCODONE 5 MG Tablet PO ×4 (10:42→22:46)
[2025-03-01] MEDS: Enoxaparin 40 MG/0.4 ML Syringe SC ×2 (10:43→21:39)
[2025-03-01] MEDS: Pantoprazole Sodium 40 MG Tablet PO ×2 (10:45→21:40)
[2025-03-01] MEDS: Clopidogrel Bisulfate 75 MG Tablet PO (10:45)
[2025-03-01 10:46] VITALS: PULSE 103
[2025-03-01] MEDS: Metoprolol(XL)Succ 25 MG Tablet PO (10:46)
[2025-03-01] MEDS: Cyanocobalamin 500 MCG Tablet 1000 MCG PO (10:47)
[2025-03-01] MEDS: Insulin Lispro 100 UNIT/ML INSULN.PEN SC ×3 (10:47→21:49)
[2025-03-01] MEDS: Lisinopril 10 MG Tablet PO (10:47)
--- NOTE | 2025-03-01 11:26 | PCM.PN.HOSP ---
Reason for Visit Reason for Visit: Diagnoses Type 2 diabetes mellitus without complications (02/27/25) Mixed hyperlipidemia (02/27/25) Other chronic pain (02/27/25) Essential (primary) hypertension (02/27/25) Pain in right hip (02/27/25) Low back pain, unspecified (02/27/25) Difficulty in walking, not elsewhere classified (02/27/25) Strain of muscle, fascia and tendon of lower back, initial encounter (02/27/25) Unspecified fall, initial encounter (02/27/25) Personal history of other malignant neoplasm of rectum, rectosigmoid junction, and anus (02/27/25) Subjective Subjective Saw patient at bedside this morning. Patient was sitting up in bedside chair and appeared mild-moderately more comfortable today compared to yesterday with movement. Still states that he is having difficulty with pain and shooting pains especially down both legs with movement. No other new concerns today. Objective Data Objective Data Vital Signs: Vital Signs Temp Pulse Resp BP Pulse Ox O2 Del Method 98.1 F 103 H 16 145/77 H 93 Room Air 03/01/25 08:27 03/01/25 10:46 03/01/25 08:27 03/01/25 08:27 03/01/25 08:27 03/01/25 08:27 Oxygen Delivery Method Room Air Weight: 167.5 kg Body Mass Index (BMI) 52.9 Intake & Output: Intake and Output for Last 24 Hours 02/27/25 02/28/25 03/01/25 23:59 23:59 23:59 Intake Total 2350 / 2350 Balance 2350 / 2350 Lab / Micro Data 03/01/25 07:14 03/01/25 07:14 Labs: Laboratory Results - last 24 hr 02/28/25 12:37: POC Glucose 179 H 02/28/25 16:20: POC Glucose 207 H 02/28/25 21:50: POC Glucose 168 H 03/01/25 06:09: POC Glucose 143 H 03/01/25 07:14: WBC 6.7, RBC 4.28 L, Hgb 13.9, Hct 40.8, MCV 95.3 H, MCH 32.5 H, MCHC 34.1, RDW Std Deviation 45.7 H, RDW Coeff of Mar 13.2, Plt Count 273, MPV 9.0, Sodium 135, Potassium 4.3, Chloride 102, Carbon Dioxide 20.5 L, Anion Gap 13, BUN 17, Creatinine 1.07, Estim Creat Clear Calc 110.74, Est GFR (MDRD) Non-Af 78, BUN/Creatinine Ratio 15.6, Glucose 162 H, Calcium 9.4 Physical Exam Const alert, oriented x3 and no apparent distress Constitutional Narrative: Upper middle-aged male, class obesity, sitting back comfortably in bed, conversing normally, in no acute distress. General Appearance: cooperative and comfortable HEENT normocephalic, head/scalp atraumatic, hearing grossly normal bilaterally, nasal mucous membranes and turbinates normal and moist oral mucous membranes Eyes PERRL, EOMs intact bilaterally and conjunctivae normal Neck full ROM Chest inspection of chest normal Resp normal respiratory effort, normal air movement, no use of accessory muscles and clear to auscultation bilaterally Cardio regular rate, regular rhythm, no murmurs and peripheral pulses 2+ throughout GI normal to inspection, nondistended, normoactive bowel sounds, soft to palpation, non-tender and non-distended Back/Spine Back/Spine Narrative: Moderate pain with motion of the low back noted. Mild tenderness to palpation diffusely in the low back. No spinal tenderness noted. Mildly improving. Extremity normal to inspection and no pedal edema Skin no rashes or lesions noted Psych mental status grossly normal Assessment & Plan Assessment/Plan (1) Acute on chronic low back pain: (2) Difficulty in walking: PLAN: Plan Patient is a 64-year-old male who presented to [facility] ED on 02/27/2025 with worsening low back pain and difficulty with ambulation after a recent fall at home. 1. Acute on chronic low back pain and difficulty with ambulation after a mechanical fall at home ? PT/OT/case management following. History of chronic low back pain, follows with pain management in [place]. Had recent mechanical fall at home with subsequent significant low back pain and difficulty with ambulation. Hip/pelvis x-ray with no fractures, only degenerative changes noted. Borderline therapy scores noted on 02/28. Patient continues to have moderate to severe low back pain with only mild to moderate improvement with the medications. Discussed with patient and he has scheduled a follow-up appointment with his mirror painter for early next week. He is also agreeable to starting home health care on discharge from here. Pain control with scheduled Tylenol, oxycodone as needed, IV Dilaudid as needed and Flexeril as needed. Will keep hospitalized through tomorrow morning for intractable back pain but if he shows some improvement, will plan for discharge home with home health care. Chronic medical conditions: ? Class III obesity: BMI 53 on admit. Encouraged weight loss. Complicates hospital course, care and prognosis. ? CARLOS: Continue home BiPAP at night. ? History of CAD with stenting, hypertension, hyperlipidemia: Stable. Continue home Plavix, Toprol, lisinopril and Repatha. ? Type 2 diabetes mellitus with neuropathy: Hold home glipizide. Treating with sliding scale insulin with meals while inpatient, adjust as needed. Continue home gabapentin. ? History of dysphagia, GERD: History of EGD with esophageal dilation done in in late 2023. Denies any issues with dysphagia recently. Continue home PPI. ? History of colorectal cancer with colon resection and permanent colostomy DVT prophylaxis: Lovenox twice daily CODE STATUS: Full code, verified Expected disposition: Home with home health care, 1 to 2 days Total clinical time spent by myself addressing the patient's medical issues, reviewing all the data, and collaborating with patient's care team: 35 minutes. Charges/Coding Visit Charges Inpatient E&M: 09342 Subs Hosp L2
[2025-03-01 11:39] LABS: Bedside Glucose 199 mg/dL (74-106)
[2025-03-01 14:30] VITALS: BP 116/62; PULSE 98; RESP 16; TEMP 36.7; O2SAT 96
[2025-03-01] MEDS: cycloBENZAPRine HCl 5 MG TABLET PO ×2 (14:40→21:41)
[2025-03-01 16:15] LABS: Bedside Glucose 199 mg/dL (74-106)
[2025-03-01 20:30] VITALS: BP 125/85; PULSE 100; RESP 16; TEMP 36.9; O2SAT 96
[2025-03-01 23:59] LABS: Bedside Glucose 224 mg/dL (74-106)
[2025-03-02 02:30] VITALS: BP 98/65; PULSE 95; RESP 16; TEMP 36.8; O2SAT 95
[2025-03-02] MEDS: oxyCODONE 5 MG Tablet PO ×3 (02:52→11:10)
[2025-03-02] MEDS: Gabapentin 300 MG Capsule PO (05:41)
[2025-03-02] MEDS: Acetaminophen 500 MG Tablet 1000 MG PO (05:41)
[2025-03-02] MEDS: Insulin Lispro 100 UNIT/ML INSULN.PEN SC ×2 (05:42→11:09)
[2025-03-02] MEDS: cycloBENZAPRine HCl 5 MG TABLET PO (05:44)
[2025-03-02 08:27] LABS: Bedside Glucose 159 mg/dL (74-106)
--- NOTE | 2025-03-02 09:20 | CASEMGMT ---
Addendum entered by Latonia Granda 03/02/25 11:35: Sent [facility] pt dc summary via [employer] at this time. Original Note: Provided pt with a shower chair rx per request. Pt to dc today.
[2025-03-02 10:07] VITALS: BP 111/62; PULSE 95; RESP 18; TEMP 36.5; O2SAT 95
[2025-03-02 10:11] VITALS: PULSE 95
[2025-03-02] MEDS: Pantoprazole Sodium 40 MG Tablet PO (10:11)
[2025-03-02] MEDS: Metoprolol(XL)Succ 25 MG Tablet PO (10:11)
[2025-03-02] MEDS: Clopidogrel Bisulfate 75 MG Tablet PO (10:11)
[2025-03-02] MEDS: Cyanocobalamin 500 MCG Tablet 1000 MCG PO (10:11)
[2025-03-02] MEDS: Lisinopril 10 MG Tablet PO (10:11)
[2025-03-02] MEDS: Ergocalciferol 1.25 MG (50, 000 UNIT) Capsule PO (10:11)
--- NOTE | 2025-03-02 10:23 | PCM.DC.SUM ---
Providers Date of Admission: 03/01/25 Date of Discharge: 03/02/25 Primary Care Physician: Dr. Edin Mcfarland MD Reason For Visit: FALL WITH INJURY LOWER BACK AND HIP PAIN Diagnosis Discharge Diagnosis (1) Acute on chronic low back pain: Status: Chronic Code(s): M54.50 - Low back pain, unspecified; G89.29 - Other chronic pain (2) Difficulty in walking: Status: Acute Code(s): R26.2 - Difficulty in walking, not elsewhere classified Medications at Discharge Home Medications cholecalciferol (vitamin D3) 1,250 mcg (50,000 unit) capsule 1,250 mcg PO 2XW supplement 01/26/23 glipizide 5 mg tablet 5 mg PO BID diabetes #60 tabs 05/12/23 acetaminophen 500 mg tablet 500 mg PO Q6H PRN Pain #90 tabs 01/01/24 pantoprazole 40 mg tablet,delayed release 40 mg PO BID GERD 01/01/24 sumatriptan succinate 100 mg tablet 100 mg PO ONCE PRN migraine headache 01/01/24 metoprolol succinate 25 mg tablet,extended release 24 hr 25 mg PO DAILY heart #90 TABLETS 04/29/24 lisinopril 10 mg tablet 10 mg PO DAILY bp #90 TABLETS 06/02/24 evolocumab 140 mg/mL subcutaneous pen injector (Repatha SureClick) 140 mg subcut Q2W hld 90 days #7 mL 06/21/24 clopidogrel 75 mg tablet (Plavix) 75 mg PO QDAY blood thinner #90 tabs 07/15/24 gabapentin 300 mg capsule 300 mg PO TID pain 09/01/24 cyanocobalamin (vitamin B-12) 1,000 mcg sublingual tablet 1,000 mcg PO DAILY supplement 02/27/25 cyclobenzaprine 5 mg tablet 5 mg PO TID PRN Muscle Spasm 5 days #15 tabs 03/02/25 methylprednisolone 4 mg tablets in a dose pack (Medrol (Thomas)) See Rx Instructions PO .COMPLEX #21 tabs 03/02/25 oxycodone 5 mg tablet 5 - 10 mg (1 - 2 x 5 mg) PO Q6H PRN PRN Pain Score 6-10 5 days #20 tabs 03/02/25 Hospital Course Operations None Procedures - (Hip/pelvis x-ray) Summary of Care Provided Minutes Spent on Discharge: 35 Hospital Course: Patient is a 64-year-old male who presented to [facility] ED on 02/27/2025 with worsening low back pain and difficulty with ambulation after a recent fall at home. Hospital course as noted below. Patient discharged home with home health care in stable condition on 03/02. 1. Acute on chronic low back pain and difficulty with ambulation after a mechanical fall at home ? PT/OT/case management followed. History of chronic low back pain, follows with pain management in [place]. Had recent mechanical fall at home with subsequent significant low back pain and difficulty with ambulation. Hip/pelvis x-ray with no fractures, only degenerative changes noted. Borderline therapy scores noted on 02/28-03/01. Pain slowly improving during hospitalization and patient able to ambulate by day of discharge. Will discharge on Tylenol, Medrol Dosepak and short courses of oxycodone and Flexeril as needed. Patient has scheduled follow-up appointment with his [facility] for early next week. Stable for discharge home with home health care on 03/02. Chronic medical conditions: ? Class III obesity: BMI 53 on admit. Encouraged weight loss. Complicated hospital course, care and prognosis. ? CARLOS: Continue home BiPAP at night. ? History of CAD with stenting, hypertension, hyperlipidemia: Stable. Continue home Plavix, Toprol, lisinopril and Repatha. ? Type 2 diabetes mellitus with neuropathy: Treated with sliding scale insulin with meals while inpatient with good glucose control. Okay to resume home glipizide on discharge. Continue home gabapentin. ? History of dysphagia, GERD: History of EGD with esophageal dilation done in in late 2023. Denied any issues with dysphagia recently. Continue home PPI. ? History of colorectal cancer with colon resection and permanent colostomy Total clinical time spent by myself addressing the patient's medical issues, reviewing all the data, and collaborating with patient's care team: 35 minutes. Physical Exam Const alert, oriented x3 and no apparent distress Constitutional Narrative: Upper middle-aged male, class obesity, sitting back comfortably in bed, conversing normally, in no acute distress. General Appearance: cooperative and comfortable HEENT normocephalic, head/scalp atraumatic, hearing grossly normal bilaterally, nasal mucous membranes and turbinates normal and moist oral mucous membranes Eyes PERRL, EOMs intact bilaterally and conjunctivae normal Neck full ROM Chest inspection of chest normal Resp normal respiratory effort, normal air movement, no use of accessory muscles and clear to auscultation bilaterally Cardio regular rate, regular rhythm, no murmurs and peripheral pulses 2+ throughout GI normal to inspection, nondistended, normoactive bowel sounds, soft to palpation, non-tender and non-distended Back/Spine Back/Spine Narrative: Mild to moderate pain with motion of the low back noted, much improved from admission. Mild tenderness to palpation diffusely in the low back. No spinal tenderness noted. Extremity normal to inspection and no pedal edema Skin no rashes or lesions noted Psych mental status grossly normal Weight / BMI Weight Weight: 167.5 kg Body Mass Index (BMI) 52.9 ABG / Lab / Microbiology Data 03/01/25 07:14 03/01/25 07:14 Laboratory: Laboratory Results - last 24 hr 03/01/25 10:33: POC Glucose 199 H 03/01/25 15:49: POC Glucose 199 H 03/01/25 21:47: POC Glucose 224 H 03/02/25 05:39: POC Glucose 159 H D/C Instructions DC O2, CPAP, BIPAP Needs Home O2 Discharge instructions: No Meaningful Use Info Meaningful Use Meaningful Use Diagnoses (Choose all that apply): None applicable Ischemic Stroke Statin Dosing Therapy Reference: STATIN DOSE THERAPY REFERENCE: * Patients > 75 years receive moderate or high dose statin therapy. * Patients 75 years or YOUNGER should receive HIGH intensity statin dose unless contraindicated. You will be required to document reason for non-treatment if statin daily dose does not meet guidelines. HIGH DOSE STATIN THERAPY DAILY Atorvastatin > than or = to 40 mg Rosuvastatin > than or = to 20 mg Amlodipine + Atorvastatin > than or = to 2.5/40 mg Ezetimibe + Simvastatin 10/80 mg Simvastatin 80mg Discharge Plan Admission Admit Date/Time: 03/01/25 13:38 Primary Reason for Your Visit: Fall with low back pain Attending Provider: Oziel Dyson Primary Care Provider: Edin Mcfarland Consulting Providers: Martin Emerson Discharge Orders/Prescriptions Prescriptions: New oxycodone 5 mg Tablet 5 - 10 mg PO Q6H PRN PRN (Reason: Pain Score 6-10) 5 Days Qty: 20 0RF cyclobenzaprine 5 mg Tablet 5 mg PO TID PRN (Reason: Muscle Spasm) 5 Days Qty: 15 0RF methylprednisolone [Medrol (Thomas)] 4 mg tablets,dose pack See Rx Instructions .ROUTE .COMPLEX Qty: 21 0RF Rx Instructions: for 6 days Continued Repatha SureClick 140 mg/mL pen injector 140 mg subcut Q2W 90 Days Qty: 7 3RF Patient Comments: TOOK ONE WEEK AGO sumatriptan succinate 100 mg tablet 100 mg PO ONCE PRN (Reason: migraine headache) Patient Comments: TAKE 1 TAB(100MG) ORAL NEEDED FOR MIGRAINE (AT ONSET) MAY REPEAT IN 2HRS MAX 2 TABS IN 24HRS acetaminophen 500 mg tablet 500 mg PO Q6H PRN (Reason: Pain) Qty: 90 0RF gabapentin 300 mg capsule 300 mg PO TID Patient Comments: pt only taking as needed pantoprazole 40 mg tablet,delayed release (DR/EC) 40 mg PO BID cholecalciferol (vitamin D3) 1,250 mcg (50,000 unit) capsule 1,250 mcg PO 2XW Patient Comments: THURSDAY AND THURSDAY glipizide 5 mg tablet 5 mg PO BID Qty: 60 2RF Rx Instructions: Hold if glucose less than 130 mg/dl cyanocobalamin (vitamin B-12) 1,000 mcg tablet, sublingual 1,000 mcg PO DAILY metoprolol succinate 25 mg tablet extended release 24 hr 25 mg PO DAILY Qty: 90 3RF lisinopril 10 mg tablet 10 mg PO DAILY Qty: 90 1RF clopidogrel [Plavix] 75 mg tablet 75 mg PO QDAY Qty: 90 3RF Referrals / Follow Up: Edin Mcfarland MD [Primary Care Provider] - Disposition Disposition (needs filled in before D/C Order can be placed): Home Health Service Charges/Coding Visit Charges Inpatient E&M: 43453 Disch Hosp >30min
[2025-03-02 11:18] VITALS: BP 101/71; PULSE 92; RESP 18; TEMP 36.5; O2SAT 96
[2025-03-02 11:50] LABS: Bedside Glucose 211 mg/dL (74-106)
== END 2025-03-02 11:15 | disposition home health service (06) | DRG 351 ==
LOC: ED 21:44 → MS3 22:00
PROVIDERS: Physician Assistant; Admitting Provider Family Medicine; Emergency Provider Emergency Medicine; PCP Family Medicine; Referring Provider Family Medicine; Visit Provider Hospitalist
DX: S39.012A Strain of muscle, fascia and tendon of lower back, initial encounter (principal); Z68.43 Body mass index [BMI] 50.0-59.9, adult; E11.9 Type 2 diabetes mellitus without complications; I10 Essential (primary) hypertension; I35.0 Nonrheumatic aortic (valve) stenosis; I25.10 Atherosclerotic heart disease of native coronary artery without angina pectoris; E78.2 Mixed hyperlipidemia; R26.2 Difficulty in walking, not elsewhere classified; G47.33 Obstructive sleep apnea (adult) (pediatric); M25.551 Pain in right hip; K21.9 Gastro-esophageal reflux disease without esophagitis; W18.30XA Fall on same level, unspecified, initial encounter; E66.813 Obesity, class 3; Z95.5 Presence of coronary angioplasty implant and graft; Z79.02 Long term (current) use of antithrombotics/antiplatelets; Z79.84 Long term (current) use of oral hypoglycemic drugs; Z87.891 Personal history of nicotine dependence; G89.29 Other chronic pain; Z85.048 Personal history of other malignant neoplasm of rectum, rectosigmoid junction, and anus; Z88.8 Allergy status to other drugs, medicaments and biological substances; Z88.5 Allergy status to narcotic agent; Z88.1 Allergy status to other antibiotic agents; Z91.041 Radiographic dye allergy status; Z79.899 Other long term (current) drug therapy
CPT/HCPCS: 73502; 80048; 82962; 85025; 85027; 85652; 86140; 97162; 97166; 97530; 99285; A4216